=== PATIENT | male | born 1945 | race Caucasian/White ===

== ENCOUNTER 2023-09-07 18:24 | Inpatient (IN) | payer OTHER, MEDICARE, BC, SELFPAY ==
--- NOTE | ~2023-09-07 | CT_ITS ---
EXAMINATION: CT CHEST WITHOUT CONTRAST CLINICAL INFORMATION: Pneumonia. COMPARISON: Chest radiographs 09/07/2023 TECHNIQUE: Multidetector volumetric CT imaging of the chest was done. Axial MIP volume rendering provided. Sagittal and coronal reformatted images were obtained. This CT examination was performed using dose optimization techniques as appropriate, variously including the following: *Automated exposure control *Adjustment of mA and/or kV according to patient size (this includes techniques or standardized protocols for targeted exams where dose is matched to indication/reason for exam; i.e. extremities or head) *Use of iterative reconstruction technique DLP: 264 mGy-cm FINDINGS: LUNGS: Azygos lobe. Patchy peribronchial groundglass opacities in the dependent left lower lobe. No suspicious pulmonary nodule. Central airways are patent. MEDIASTINUM: Imaged thyroid gland is unremarkable. No bulky mediastinal or hilar lymphadenopathy. Great vessels are of normal caliber. Heart size is normal. No pericardial effusion. CORONARY ARTERY CALCIFICATION: Mild. PLEURA: There is no pleural effusion. No pleural mass or thickening. AXILLA: No lymphadenopathy. UPPER ABDOMEN: Possible gastric wall thickening. OSSEOUS STRUCTURES: Advanced degenerative changes of bilateral shoulders. CT/CT chest wo IV con IMPRESSION: Patchy peribronchial groundglass opacities in the dependent left lower lobe. This may represent an acute infiltrate. Advise clinical correlation.
--- NOTE | ~2023-09-07 | XR_ITS ---
EXAMINATION: XR CHEST CLINICAL INFORMATION: Mental status change COMPARISON: None available. TECHNIQUE: Frontal view of the chest was obtained. FINDINGS: The cardiac silhouette is slightly enlarged. Hilar and mediastinal contours are unremarkable. The lung volumes are low. There is an azygos lobe. There is increased density behind the heart silhouetting the left hemidiaphragm. This may represent tortuosity or ectasia of the descending thoracic aorta, esophageal hernia or left lower lobe process. The lungs are otherwise clear. No pleural effusion or pneumothorax. Degenerative changes of the spine and shoulders. XR/XR chest 1V IMPRESSION: Low lung volumes. Slightly enlarged cardiac silhouette. Density behind the heart silhouetting the left hemidiaphragm, question related to the descending thoracic aorta, esophageal hernia or left lower lobe process.
[2023-09-07 18:33] VITALS: BP 148/76; PULSE 73; O2SAT 94
[2023-09-07 18:47] VITALS: BP 124/62; PULSE 77; RESP 16; TEMP 37.2; O2SAT 96; BMI 34.0
--- NOTE | 2023-09-07 18:51 | ED.AMS ---
HPI - Altered Mental Status General Chief Complaint: Altered Mental Status Stated Complaint: SNF,CONFUSED NOT ACTING LIKE HIMSELF,CONGESTED Time Seen by Provider: 09/07/23 18:51 Source: EMS and RN notes reviewed Mode of arrival: EMS Limitations: altered mental status History of Present Illness HPI narrative: Patient is 78 years old with history of dementia PE on Xarelto hypertension sent from [facility] increased confusion started earlier today patient says the year is 1997 , and president irineo Rivas does not know the name of the hospital even after telling him that it is [facility] patient keep saying [facility] no cough no fever at nursing patient is saturating 88% on room air improved to 96% on 2 L level no recent fall temperature on arrival was 101.8 orally Related Data Home Medications Medication Instructions Recorded Confirmed atenolol 25 mg tablet 25 mg PO DAILY 09/07/23 09/07/23 buprenorphine HCl 150 mcg buccal 150 mcg buccal BEDTIME pain 09/07/23 09/07/23 film (Belbuca) management bupropion HCl 150 mg tablet,12 hr 150 mg PO BID 09/07/23 09/07/23 sustained-release gabapentin 600 mg tablet 600 mg PO TID 09/07/23 09/07/23 multivitamin 1 tab PO DAILY 09/07/23 09/07/23 omeprazole 20 mg tablet,delayed 20 mg PO BEDTIME 09/07/23 09/07/23 release rivaroxaban 20 mg tablet (Xarelto) 20 mg PO DAILY 09/07/23 09/07/23 simvastatin 40 mg tablet 40 mg PO BEDTIME 09/07/23 09/07/23 trazodone 50 mg tablet 100 mg PO BEDTIME 09/07/23 09/07/23 venlafaxine 75 mg tablet,extended 75 mg PO DAILY 09/07/23 09/07/23 release 24 hr Allergies Allergy/AdvReac Type Severity Reaction Status Date / Time No Known Allergies Allergy Verified 09/07/23 18:55 Review of Systems Review of Systems: Yes Unobtainable due to mental status PMFSH Past Medical History Medical History Dementia Essential hypertension Gastroesophageal reflux disease Mood disorder Pulmonary embolus Social History Social History Advance Directives: Yes Advance Directives Information Provided: No Advance Directives on File: No Physical Exam ED Vital Signs: Vital Signs - 24 hr 09/07/23 18:47 09/07/23 21:13 Temperature 99.0 F 101.8 F H Pulse Rate 77 76 Respiratory Rate 16 16 Blood Pressure 124/62 126/63 Pulse Oximetry 96 92 Oxygen Delivery Method Nasal Cannula Room Air BMI result Body Mass Index 34.0 Appearance: Alert. And await No acute distress. Eyes: PERRLA, No Nystagmus ENT: Pharynx normal. Oral Mucosa moist Neck: Normal inspection. Neck supple. CVS: Normal heart rate and rhythm. Pulses normal. Respiratory: No respiratory distress. Equal air entry bilateral, no wheezing/rales/rhonchi Abdomen: Soft and nontender. Bowel sounds are present, no mass palpable, no CVA tenderness Skin: Skin warm and dry. Normal skin color. Normal skin turgor. Extremities: No lower extremity edema. No calf tenderness Neuro: Alert and awake limited lower extremity movement Medications Administered Generic Name Dose Route Start Last Admin Trade Name Freq PRN Reason Stop Dose Admin Omeprazole 20 mg 09/07/23 22:40 09/07/23 23:42 Omeprazole 20 Mg Capsule.Dr PO 20 mg BEDTIME ITZ Administration Trazodone HCl 100 mg 09/07/23 22:40 09/07/23 23:42 Trazodone Hcl 100 Mg Tablet PO 100 mg BEDTIME ITZ Administration Discontinued Medications Generic Name Dose Route Start Last Admin Trade Name Freq PRN Reason Stop Dose Admin Acetaminophen 650 mg 09/07/23 21:33 09/07/23 21:43 Acetaminophen Supp 650 Mg Supp.Rect MS 09/07/23 21:34 650 mg ONCE ONE Administration Sodium Chloride 1,000 mls @ 999 mls/hr 09/07/23 18:55 09/07/23 21:10 Ns IV 09/07/23 19:55 Infused .Q1H1M ONE Infusion Ceftriaxone Sodium 1 gm/ 50 mls @ 100 mls/hr 09/07/23 21:33 09/07/23 22:10 Sodium Chloride IV 09/07/23 22:02 Infused ONCE ONE Infusion Medical Decision Making Medical Decision Making MDM Narrative: Patient with acute change in sensorium with leukocytosis and fever 101.8 in the ER workup showed left retrocardiac infiltrate likely aspiration and the cause of change in sensorium will admit patient for IV antibiotic treat hydration patient is not in severe sepsis IV fluids were given Differential Diagnosis Differential Diagnoses: The differential diagnosis associated with the presentation includes AMS/Pneumonia/UTI/ metabolic encephalopathy Admission/Observation Consideration of admission/observation: Escalation of care including admission/observation considered Consult Healthcare Provider Management of the patient was discussed with: Hospitalist Lab Data MDM Lab Attestation statement: I reviewed the patient's lab results. 09/07/23 19:41 09/07/23 19:41 Labs: Lab Results 09/07/23 09/07/23 09/07/23 Range/Units 19:41 20:12 21:03 WBC 13.7 H (4.8-10.8) X10*3/uL RBC 4.32 L (4.60-5.80) X10*6/uL Hgb 12.8 L (14.0-18.0) g/dl Hct 40.6 L (42.0-52.0) % MCV 94.0 (80.0-98.0) fL MCH 29.6 (27.0-33.0) pg MCHC 31.5 (31.0-36.0) g/dl RDW 13.8 (11.0-16.0) % Plt Count 316 (160-400) X10*3/uL MPV 9.2 L (9.4-12.4) fL Immature Gran % (Auto) 0.7 H (0.0-0.4) % Neut % (Auto) 79.9 H (45-73) % Lymph % (Auto) 7.2 L (20-40) % Terrell % (Auto) 10.7 (2-11) % Eos % (Auto) 0.8 (0-4) % Baso % (Auto) 0.7 (0-2) % Lymph # (Auto) 1.0 L (1.2-4.9) X10*3/uL Terrell # (Auto) 1.5 H (0.1-1.2) X10*3/uL Eos # (Auto) 0.1 (0.0-0.4) X10*3/uL Baso # (Auto) 0.1 (0.0-0.2) X10*3/uL Abs Immat Gran (auto) 0.10 H (0.00-0.03) X10*3/uL Absolute Neuts (auto) 11.0 H (2.0-8.3) x10*3/uL Absolute Nucleated RBC 0.000 (0.0-0.012) X10*3/uL Nucleated RBC % (auto) 0.0 (0.0-0.2) /100WBC Smear Tech's Comments VERIFIED PT 16.2 H (11.1-13.3) SEC INR 1.3 H (0.9-1.1) Sodium 138 (135-145) mmol/L Potassium 4.6 (3.3-5.1) mmol/L Chloride 102 (96-108) mmol/L Carbon Dioxide 29 (22-29) mmol/L Anion Gap 12 (12-20) BUN 15 (9-16) mg/dL Creatinine 0.75 (0.5-1.4) mg/dL Estim Creat Clear Calc 99.7 Estimated GFR > 60 Random Glucose 133 H (60-115) mg/dL Lactic Acid 0.9 (0.5-2.0) mmol/L Calcium 10.4 H (8.4-10.2) mg/dL Magnesium 2.0 (1.6-2.6) mg/dL Total Bilirubin 0.3 (0.0-1.0) mg/dL AST 30 (5-37) U/L ALT 34 (0-40) U/L Alkaline Phosphatase 80 (39-117) U/L Troponin I High Sens 6.9 (<3.5-35.0) ng/L Total Protein 7.9 (6.5-8.0) g/dL Albumin 3.0 L (3.5-5.0) g/dL Urine Color Yellow Urine Appearance Clear Urine pH 6.5 (5.0-9.0) Ur Specific [place] 1.020 (1.005-1.025) Urine Protein 30 (1+) H (Neg-Trace) mg/dL Urine Glucose (UA) Negative (Negative) mg/dL Urine Ketones Negative (Negative) mg/dL Urine Blood Negative (Negative) Urine Nitrite Negative (Negative) Ur Leukocyte Esterase Negative (Negative) Urine RBC 3-5 H (0-2) /HPF Urine WBC 0-5 (0-5) /HPF Ur Squamous Epith Cells 0-2 (0-2) /HPF Urine Bacteria None Seen (None Seen) Hyaline Casts 3-5 (0-2) /LPF Influenza Type A (PCR) NEGATIVE (Negative) Influenza Type B (PCR) NEGATIVE (Negative) RSV RNA Qual (PCR) NEGATIVE (Negative) SARS-CoV-2 RNA (RT-PCR) NEGATIVE (Negative) Independent Interpretation I performed an independent interpretation of an: EKG and Plain X-Ray Interpretation: Normal sinus rhythm heart rate 71 beats per minute LVH no acute ST-T changes no acute ischemic Radiology Impression Discussion of test interpretation with radiology: I have reviewed the radiologist's reading. Radiologist Impression: [address] [address] XRay Report Signed Patient: Jose Ro V MR#: [id number] : 1945 Acct:[id number] Age/Sex: 78 / M ADM Date: 09/07/23 Loc: .ED Attending Dr: Ordering Physician: Michael Gallardo MD Date of Service: 09/07/23 Procedure(s): XR chest 1V Accession Number(s): [id number] cc: Michael Gallardo MD~ EXAMINATION: XR CHEST CLINICAL INFORMATION: Mental status change COMPARISON: None available. TECHNIQUE: Frontal view of the chest was obtained. FINDINGS: The cardiac silhouette is slightly enlarged. Hilar and mediastinal contours are unremarkable. The lung volumes are low. There is an azygos lobe. There is increased density behind the heart silhouetting the left hemidiaphragm. This may represent tortuosity or ectasia of the descending thoracic aorta, esophageal hernia or left lower lobe process. The lungs are otherwise clear. No pleural effusion or pneumothorax. Degenerative changes of the spine and shoulders. XR/XR chest 1V IMPRESSION: Low lung volumes. Slightly enlarged cardiac silhouette. Density behind the heart silhouetting the left hemidiaphragm, question related to the descending thoracic aorta, esophageal hernia or left lower lobe process. Discharge Plan Discharge Clinical Impression: Pneumonia, Altered mental status Patient Disposition: Admitted As Inpatient
--- NOTE | 2023-09-07 18:55 | ECG_ITS ---
Test Reason : ALTERED MENTAL STATUS Blood Pressure : / mmHG Vent. Rate : 075 BPM Atrial Rate : 075 BPM P-R Int : 162 ms QRS Dur : 096 ms QT Int : 368 ms P-R-T Axes : 029 -14 -09 degrees QTc Int : 410 ms Normal sinus rhythm with sinus arrhythmia Minimal voltage criteria for LVH, may be normal variant ( R in aVL ) Nonspecific ST abnormality Abnormal ECG No previous ECGs available Referred By: Michael Gallardo Electronically Signed By:HECTOR FUENTES MD
[2023-09-07] MEDS: 0.9 % Sodium Chloride 1,000 ML 999 ML IV (19:44)
[2023-09-07 19:52] LABS: Basophils Absolute Auto 0.1 X10*3/uL (0.0-0.2); Basophils Percent Auto 0.7 % (0-2); Mean Platelet Volume 9.2 fL (9.4-12.4); PLT CLUMP 1; Red Cell Distribution Width 13.8 % (11.0-16.0); SCAN SMEAR FLAG 1
[2023-09-07 19:54] LABS: Eosinophils Absolute Auto 0.1 X10*3/uL (0.0-0.4); Eosinophils Percent Auto 0.8 % (0-4); Hematocrit 40.6 % (42.0-52.0); Hemoglobin 12.8 g/dl (14.0-18.0); Imm Gran Pct Auto 0.7 % (0.0-0.4); Lymphocytes Percent Auto 7.2 % (20-40); MANUAL DIFF FLAG SCAN; Mean Corpuscular HGB Conc 31.5 g/dl (31.0-36.0); Mean Corpuscular Hemoglobin 29.6 pg (27.0-33.0); Monocytes Absolute Auto 1.5 X10*3/uL (0.1-1.2); Monocytes Percent Auto 10.7 % (2-11); Neutrophils Percent Auto 79.9 % (45-73); Red Blood Count 4.32 X10*6/uL (4.60-5.80)
[2023-09-07 19:58] LABS: White Blood Count 13.7 X10*3/uL (4.8-10.8)
[2023-09-07 20:00] LABS: INTERNATIONAL NORM RATIO 1.3 (0.9-1.1); Prothrombin Time 16.2 SEC (11.1-13.3)
[2023-09-07 20:01] LABS: Lactic Acid 0.9 mmol/L (0.5-2.0)
[2023-09-07 20:08] LABS: Alanine Aminotransferase 34 U/L (0-40); Alkaline Phosphatase 80 U/L (39-117); Anion Gap 12 (12-20); Aspartate Amino Transferase 30 U/L (5-37); Bilirubin Total 0.3 mg/dL (0.0-1.0); Blood Urea Nitrogen 15 mg/dL (9-16); Calcium 10.4 mg/dL (8.4-10.2); Carbon Dioxide 29 mmol/L (22-29); Chloride 102 mmol/L (96-108); Creatinine Clr Calc Pharmacy 99.7; Estimated Glomerular Filt Rate > 60; Glucose Random 133 mg/dL (60-115); Potassium 4.6 mmol/L (3.3-5.1); Sodium 138 mmol/L (135-145); Total Protein 7.9 g/dL (6.5-8.0)
[2023-09-07 20:12] LABS: Platelet Count 316 X10*3/uL (160-400); SLIDE REVIEW VERIFIED
[2023-09-07 20:13] LABS: Troponin-I High Sensitivity 6.9 ng/L (<3.5-35.0)
[2023-09-07 20:57] LABS: Influenza A PCR NEGATIVE (Negative); Influenza B PCR NEGATIVE (Negative); Resp Syncy Virus RNA Qual PCR NEGATIVE (Negative); SARS COV2 PCR INHOUSE NEGATIVE (Negative)
--- NOTE | 2023-09-07 21:04 | PC.NURSE ---
Pt able to use urinal. Urine sample collected and sent to lab.
[2023-09-07 21:11] LABS: Appearance Urine Clear; Color Urine Yellow; Glucose Urine UA Negative (Negative); Leukocyte Esterase Urine Negative (Negative); Nitrite Urine Negative (Negative); PH 6.5 (5.0-9.0); UMIC TRIGGER UACC YES; Urine Blood Negative (Negative); Urine Ketones Negative (Negative); Urine Protein 30 (1+) mg/dL (Neg-Trace)
--- OUTSIDE RECORDS SUMMARY | 2023-09-07 21:11 | XMS_ITS | Summary of Care ---
Author Name Unknown Organization [facility] Address [address] [place] [address]- Encounter 07/27/23 - 08/11/[address] [address]- Discharge Disposition: 06H Home with Home Health Care Attending Physician: Keily Morrell MD Admitting Physician: Keily Morrell MD Allergies, Adverse Reactions, Alerts Substance Reaction Severity Status lisinopril Active NSAIDs Active Medications acetaminophen-HYDROcodone 325 mg-5 mg oral tablet 1 tab, Tab, Oral, TID PRN, 0 Refill(s), Partial fill upon patient request., PAIN (Scale 1-10) Start Date: 08/10/23 Status: Ordered atenolol 25 mg = 1 tab, Tab, Oral, Start date 08/11/23 8:00:00 EDT, 07/27/23 16:39:00 EDT Start Date: 08/11/23 Stop Date: 08/11/23 Status: Completed atenolol 25 mg oral tablet 25 mg = 1 tab, Tab, Oral, Daily, 0 Refill(s) Start Date: 08/10/23 Status: Ordered Belbuca 150 mcg, Film-SL, Buccal, QHS, 0 Refill(s), Partial fill upon patient request. Start Date: 08/10/23 Status: Ordered Belbuca 150 mcg buccal film 150 mcg = 1 EA, Film-SL, Buccal, QHS, 4 film, 0 Refill(s), Dispense: 4 day, Partial fill upon patient request., Stop date 08/15/23 13:11:00 EDT, Route to Pharmacy Electronically, [facility]/pharmacy #[id number], 608, 07/31/23 11:54:00 EDT, Height/Length Dosing, cm... Start Date: 08/11/23 Stop Date: 08/15/23 Status: Ordered Buproprion SR 12 hours dosing 150 mg = 1 tab, Tab-ER, Oral, BID, 0 Refill(s) Start Date: 08/10/23 Status: Ordered cyanocobalamin 1000 mcg oral tablet 500 mcg = 0.5 tab, Tab, Oral, Daily, 15 tab, 0 Refill(s), Route to Pharmacy Electronically, [facility], 168, 07/31/23 11:54:00 EDT, Height/Length Dosing, cm, 112.7, 08/06/23 5:13:00EDT, Weight Dosing, kg Start Date: 08/10/23 Status: Ordered gabapentin 300 mg oral capsule 600 mg, 2 cap, Indication: Neuropathic Pain - Spinal Cap, Oral, TID, 0 Refill(s) Start Date: 08/10/23 Status: Ordered methylPREDNISolone 8 mg oral tablet 16 mg = 2 tab, Tab, Oral, Daily, 0 Refill(s), 08/11/2023 Start Date: 08/10/23 Status: Ordered Protonix 40 mg oral delayed release tablet 40 mg = 1 tab, Tab-DR, Oral, Daily, 0 Refill(s) Start Date: 08/10/23 Status: Ordered rivaroxaban 10 mg oral tablet 20 mg, = 2 tab, Tab, Oral, After dinner, 60 tab, 0 Refill(s), start medication on 08/12/2023, Routeto Pharmacy Electronically, [facility], 168, 07/31/23 11:54:00 EDT, Height/LengthDosing, cm, 112.7, Weight Dosing, 08/06/23 5:13:00... Start Date: 08/10/23 Status: Ordered rivaroxaban 15 mg oral tablet 15 mg, = 1 tab, Tab, Oral, BIDPC, 1 tab, 0 Refill(s), Route to Pharmacy Electronically, [facility], 168, 07/31/23 11:54:00 EDT, Height/Length Dosing, cm, 112.7, Weight Dosing, 08/06/23 5:13:00 EDT, kg, Pulmonary embolism Start Date: 08/10/23 Status: Ordered simvastatin = 1 tab, Oral, QHS, 30 tab, 0 Refill(s) Start Date: 07/27/23 Status: Ordered traZODone 100 mg oral tablet 200 mg = 2 tab, Tab, Oral, QHS, 0 Refill(s) Start Date: 08/10/23 Status: Ordered venlafaxine 75 mg oral capsule, extended release 75 mg = 1 cap, Cap-ER, Oral, Daily, 0 Refill(s) Start Date: 08/10/23 Status: Ordered Problem List Condition Effective Dates Status Health Status Inform ant Arthritis(Confirmed) Active At risk of venous thromboembolus(Confirmed) 1 07/28/23 Active GERD - Gastro-esophageal ref lux disease(Confirmed) Active HLD - Hyperlipidemia(Confirmed) Active HTN - Hypertension(Confirmed) Active PTSD - Post-traumatic stress disorder(Confirmed) Active Sleep apnea(Confirmed) Active Suspected disease caused by 2019 novel coronavirus(Confirmed) 2 07/27/23 - 07/27/23 Resolved 1Problem added by Discern Expert Rule: EBN_VTERISKPROB_3 2Problem added automatically by Discern Expert based on clinical documentation Results Most recent to oldest [Reference Range]: 1 2 3 Creatinine Level 1.02 mg/dL (08/08/23 11:57 AM) 0.88 mg/dL (08/03/23 11:23 AM) 1.00 mg/dL (07/28/23 9:46 AM) Estimated Creatinine Clearance 55.88 mL/min 1 (08/08/23 11:57 AM) 57.00 mL/min 2 (08/03/23 11:23 AM) 57.00 mL/min 3 (07/31/23 11:54 AM) 1Result Comment: Calculated using method: Cockcroft-Gault (default) Calculated using Formula : (140-ageInYears)*IBW/(72*scrInMGperDL) Age: 78 (18817222813.0) Serum Creatinine: 1.02 mg/dL (52388350818.0) Height: 168 cm (78838603895.0) Weight: 112.7 kg (IBW = 64.126 kg) 2Result Comment: Calculated using method: Cockcroft-Gault (default) Calculated using Formula : (140-ageInYears)*IBW/(72) Age: 78 (18934965545.0) Serum Creatinine: 0.88 mg/dL (33253461304.0) Height: 168 cm (79981518388.0) Weight: 112.9 kg (IBW = 64.126 kg) 3Result Comment: Calculated using method: Cockcroft-Gault (default) Calculated using Formula : (140-ageInYears)*IBW/(72*scrInMGperDL) Age: 78 (58148741010.0) Serum Creatinine: 1.00 mg/dL (04553659131.0) Height: 168 cm (80879538918.0) Weight: 112.9 kg (IBW = 64.126 kg) Vital Signs Most recent to oldest [Reference Range]: 1 2 3 Temperature Oral F [96.4-99.1 DegF] 98 DegF (08/10/23 3:48 PM) 97.7 DegF (08/10/23 4:38 AM) 98.6 DegF (08/09/23 7:53 PM) Temperature Axillary F [96.4-99.1 DegF] 96.4 DegF (08/11/23 4:23 AM) 97.3 DegF (08/01/23 3:08 PM) Peripheral Pulse Rate [60-100 bpm] 77 bpm (08/11/23 9:20 AM) 70 bpm (08/11/23 4:23 AM) 54 bpm *LOW* (08/10/23 3:49 PM) Respiratory Rate [14-20 br/min] 18 br/min (08/09/23 7:53 PM) 16 br/min (08/08/23 4:14 AM) 16 br/min (08/07/23 4:32 AM) Blood Pressure [90-140/60-90 mmHg] 103/65mmHg (08/11/23 9:20 AM) 127/68mmHg (08/10/23 3:49 PM) Systolic Blood Pressure [90-140 mmHg] 150 mmHg *HI* (08/11/23 4:23 AM) Diastolic Blood Pressure [60-90 mmHg] 69 mmHg (08/11/23 4:23 AM) Mean Arterial Pressure, Cuff 96 mmHg (08/11/23 4:23 AM) 88 mmHg (08/10/23 3:49 PM) 97 mmHg (08/10/23 7:52 AM) Extremity used to obtain blood pressure Right Arm (08/09/23 7:53 PM) Right Arm (07/31/23 5:28 AM) Left Arm (07/30/23 7:44 PM) Vital Signs Additional Information vitals taken while standing in standing frame (07/29/23 1:00 PM) Temperature Axillary 35.8 DegC 1 (08/11/23 4:23 AM) 36.3 DegC 2 (08/01/23 3:08 PM) Temperature Oral 36.0 DegC 3 (08/10/23 3:48 PM) 36.5 DegC 4 (08/10/23 4:38 AM) 37.0 DegC 5 (08/09/23 7:53 PM) 1Result Comment: Charted by SYSTEM secondary to charting of Temperature Axillary F on a Vitals Monitor. Rule: VITALSLINK_CALCULATIONS_2 2Result Comment: Charted by SYSTEM secondary to charting of Temperature Axillary F on a Vitals Monitor. Rule: VITALSLINK_CALCULATIONS_2 3Result Comment: Charted by SYSTEM secondary to charting of Temperature Oral F on a Vitals Monitor. Rule: VITALSLINK_CALCULATIONS_2 4Result Comment: Charted by SYSTEM secondary to charting of Temperature Oral F on a Vitals Monitor. Rule: VITALSLINK_CALCULATIONS_2 5Result Comment: Charted by SYSTEM secondary to charting of Temperature Oral F on a Vitals Monitor. Rule: VITALSLINK_CALCULATIONS_2 Social History Social History Type Response Sex Male
--- OUTSIDE RECORDS SUMMARY | 2023-09-07 21:11 | XMS_ITS | Continuity of Care Document ---
Author Name Unknown Organization [facility] ter Address [address] [place] [id number] Care Team Providers Care Manager Contract Name Role Phone Rick Christie DO Primary Care Physician Encounter [facility] [place] Date(s): 08/22/23 - 08/30/[address] [id number] Discharge Disposition: A-Transfer SNF Attending Physician: Barb MONSIVAIS, Emma Admitting Physician: Chayo Tavares MD Referring Physician: Not on Staff, Referring MD Allergies, Adverse Reactions, Alerts Substance Reaction Severity Status lisinopril cough Active nonsteroidal antiinflammatory agent stomache pain Active Immunizations Given and Recorded Vaccine Date Status Refusal Reason influenza virus vaccine, inactivated 07/21/23 Give n influenza virus vaccine, inactivated 1 08/22/06 Gi marcello tetanus-diphtheria toxoids (Td) 12/02/06 Given 1Admin Note: [employer] manufacturers. no contraindications per patient Medications atenolol 25 mg oral tablet 25, mg, 1, tablet, By Mouth, Daily, 0, 0, 01/08/06 9:59:42, Print HELADIO Number, [id number], Constant Indicator Start Date: 01/08/06 Status: Ordered Belbuca 150 mcg buccal film See Instructions, by mouth daily at bedtime - Place yellow side of film against the inside of the moistened cheek; press and hold the film in place for 5 seconds with finger (film should stay in place after this period). Keep film in place until it di... Start Date: 08/29/23 Status: Ordered buPROPion 150 mg/12 hours (SR) oral tablet, extended release = 150 mg, By Mouth, 2 times a day, 0 Refills, Maintenance, 08/30/23 13:17:00 EST, SR Tablet, Partial fill upon patient request if the prescription is for a schedule II opioid drug. Start Date: 08/30/23 Status: Ordered Centrum 1 tablet, By Mouth, Daily, 0 Refills, Maintenance Start Date: 03/09/11 Status: Ordered gabapentin 300 mg oral capsule 600 mg, Capsule, By Mouth, 08/30/23 15:00:00 EST Start Date: 08/30/23 Stop Date: 08/30/23 Status: Completed gabapentin 600 mg oral tablet 1 tablet = 600 mg, By Mouth, 3 times a day, # 270 tablet, 0 Refills, Maintenance, 07/21/23 10:25:00EDT, Tablet, Partial fill upon patient request if the prescription is for a schedule II opioid drug. Start Date: 07/21/23 Status: Ordered omeprazole 20 mg oral enteric coated capsule 1 capsule = 20 mg, By Mouth, Daily, # 30 capsule, 0 Refills, Maintenance, 07/20/23 20:45:00 EDT, ECCapsule, Partial fill upon patient request if the prescription is for a schedule II opioid drug. Start Date: 07/20/23 Status: Ordered rivaroxaban 20 mg oral tablet = 20 mg, By Mouth, Daily at supper, # 30 tablet, 0 Refills, Maintenance, 07/26/23 11:04:00 EDT, Tablet, [facility] 3, Partial fill upon patient request if the prescription is for a schedule II opioid drug., 168, cm, 07/26/23 7:17:00 EDT, H... Start Date: 07/26/23 Status: Ordered simvastatin 40 mg oral tablet 40 mg, 1, tablet, By Mouth, Daily at bedtime, # 30 tablet, Refills 0, Maintenance, 07/20/23 20:45:00 EDT, Partial fill upon patient request if the prescription is for a schedule II opioid drug. Start Date: 07/20/23 Status: Ordered traZODone 50 mg oral tablet 100 mg, By Mouth, Daily at bedtime, Refills 0, Maintenance, 08/30/23 13:17:00 EST, Partial fill upon patient request if the prescription is for a schedule II opioid drug. Start Date: 08/30/23 Status: Ordered venlafaxine 75 mg oral tablet, extended release 1 tablet = 75 mg, By Mouth, Daily, # 30 tablet, 0 Refills, Maintenance, 07/20/23 20:45:00 EDT, ER Tablet, Partial fill upon patient request if the prescription is for a schedule II opioid drug. Start Date: 07/20/23 Status: Ordered Problem List Condition Confirmation Course Effective Dates Status H ealth Status Informant Erectile dysfunction Confirmed Active Gastro-esophageal reflux disease Confirmed Active Hyperlipidemia Confirmed Active Hypertension Confirmed Active Osteoarthritis 1 Confirmed Active Severe obesity Confirmed Active 1and hx recurrent patella dislocations and ankle sprains Results Orders for Microbiology Reports Name Date Blood Culture 08/22/23 Blood Culture #2 08/22/23 Urine Culture (URINE CULTURE) 08/22/23 Microbiology Reports TEST:Blood Culture STATUS:Auth (Verified) BODY SITE: SOURCE:Blood COLLECTED DATE/TIME:08/22/23 6:36 PM Blood Culture SPECIMEN DESCRIPTION : BLOOD RAC SPECIAL REQUESTS : NONE CULTURE : NO GROWTH 5 DAYS. REPORT STATUS : FINAL 08/27/2023 TEST:Urine Culture STATUS:Auth (Verified) BODY SITE: SOURCE:URINE COLLECTED DATE/TIME:08/22/23 6:36 PM Urine Culture SPECIMEN DESCRIPTION : URINE SPECIAL REQUESTS : NONE CULTURE : >100,000 COL/ML PROTEUS MIRABILIS This isolate was identified using Maldi-TOF system These AST results were performed on the Vitek 2 ID and AST system REPORT STATUS : FINAL 08/25/2023 ORGANISM >100,000 COL/ML PROTEUS MIRABILIS This isolate was identified using Maldi-TOF system These AST results were performed on the Vitek 2 ID and AST system METHOD MIN. INHIB. CONC. (MCG/ML) AMPICILLIN SUSCEPTIBLE AMPICILLIN/SULBACTAM SUSCEPTIBLE CEFAZOLIN SUSCEPTIBLE CEFEPIME SUSCEPTIBLE CEFTRIAXONE SUSCEPTIBLE CIPROFLOXACIN SUSCEPTIBLE ERTAPENEM SUSCEPTIBLE GENTAMICIN SUSCEPTIBLE LEVOFLOXACIN SUSCEPTIBLE NITROFURANTOIN RESISTANT PIPERACILLIN/TAZOBAC SUSCEPTIBLE TRIMETH/SULFAMETHOX SUSCEPTIBLE TEST:Blood Culture, Second Order STATUS:Auth (Verified) BODY SITE: SOURCE:Blood COLLECTED DATE/TIME:08/22/23 6:36 PM Blood Culture, Second Order SPECIMEN DESCRIPTION : BLOOD L HAND SPECIAL REQUESTS : NONE CULTURE : NO GROWTH 5 DAYS. REPORT STATUS : FINAL 08/27/2023 Radiology Reports * Exam Date Time Procedure Performing Provider Status 08/29/23 11:17 AM XR Hip Bilat 2 Views W/AP Pelvis [place] , Dennys; Auth (Verified) Notes: (XR Hip Bilat 2 Views W/AP Pelvis) Reason For Exam: Pain RESULT: Hip Bilat 2 Views W/ AP Pelvis Hip Bilat 2 Views W/ AP Pelvis REASON: Pain; Clinical Question(s): Fracture COMPARISON: CT 08/22/2023 FINDINGS: No fracture or dislocation. Well preserved joint space. Normal femoral head contour without evidence of avascular necrosis. Normal soft tissues. IMPRESSION: No evidence of acute intracranial abnormality. WSN: [id number] Ordering Physician: Emma Day Dictated By: Max Lundberg MD Dictated Date/Time: 08/29/23 12:39 p Reviewed By: Max Lundberg MD Signed By: Max Lundberg MD Signed Date/Time: 08/29/23 12:39 pm Transcribed By: CLAUDETTE Transcribed Date/Time: 08/29/23 12:38 pm * Exam Date Time Procedure Performing Provider Status 08/22/23 9:[address] Abd/Pelvis W/ IV Contrast Only Col on , Marline; Modified Notes: (CT Abd/Pelvis W/ IV Contrast Only) Reason For Exam: LLQ abdominal pain;Other: ADDENDUM: CT Abd/Pelvis W/ IV Contrast Only Upon further review, possible residual filling defects are seen in the right lower lobe subsegmental branches. Overall extent is likely decreased since the prior CTA; however, accurate assessment is difficult due to significant motion artifacts in lower lung jamil. A repeat CTA may be considered for confirmation of residual PE. Findings were communicated to Renita Yousif MD via secure messaging system [employer] at 11:38 PM . Message receipt was confirmed. WSN: [id number] Ordering Physician: Renita Yousif Dictated By: Reynaldo Haider MD Dictated Date/Time: 08/22/23 11:39 p Reviewed By: Reynaldo Haider MD Signed By: Reynaldo Haider MD Signed Date/Time: 08/22/23 11:39 pm Transcribed By: CLAUDETTE Transcribed Date/Time: 08/22/23 11:35 pm RESULT: CT Abd/Pelvis W/ IV Contrast Only EXAMINATION: CT Angio Chest, CT Abd/Pelvis W/ IV Contrast Only INDICATION: Hx of Present Illness: weakness and confusion, left lower quadrant abdominal pain; Reason: PE suspected, Intermediate prob, positive D-dimer; Clinical Question(s): Pulmonary Embolism; PE treatment failure? pneumonia?, Diverticulitis. TECHNIQUE: Spiral CTA of the chest was performed after rapid IV contrast administration without cardiac gating triggered by an JOCELYN on the main pulmonary artery. Spiral CT of the abdomen and pelvis was then performed in the portal venous phase. Images are formatted in multiple planes using 2-D multiplanar and 3-D maximum intensity projection. 100 cc of Omnipaque 300 was administered intravenously.Weight-based protocol using automatic tube modulation was used to optimize exposure parameters. CTDIvol Body: 18.16 mGy, DLP Body: 1915 mGy*cm. COMPARISONS: CT chest abdomen pelvis 07/20/2023 ANGIOGRAPHIC FINDINGS: No pulmonary embolism to the segmental level. Mild dilation of the main pulmonary artery measuring 3.3 cm (series 301: image 49). No acute aortic abnormality seen on this study performed without cardiac gating. Minimal atherosclerotic calcification. NON-ANGIOGRAPHIC FINDINGS: Clothes Presser View Findings, Lines and Tubes: None. Trachea and Airways: Patent without evidence of tracheal or endobronchial lesion. Lungs and Pleura: Evaluation of the lungs is limited by motion artifact. Low lung volumes with mildatelectasis throughout the bilateral lungs. No focal consolidation. Mild interlobular septal thickening. No effusion or pneumothorax. Mediastinum and karina: No mass or hematoma. No mediastinal or hilar lymphadenopathy. No esophageal abnormality. Normal thyroid. Heart: Heart is at the upper limits of normal for size. No pericardial effusion. Mild coronary artery calcification. Chest Wall Soft Tissues: Normal. Diaphragm: No significant abnormality. Liver: Multiple subcentimeter circumscribed low-density lesions likely represent cysts (in the absence of known malignancy). Gallbladder: No CT evidence of gallbladder pathology. Bile ducts: No biliary ductal dilation. Spleen: 0.5 cm hypodense subcapsular splenic lesion, too small to accurately characterize on CT. Pancreas: Normal. Adrenal glands: Normal. Kidneys and ureters: No hydronephrosis, stones, or suspicious masses. Small hypodensities that are too small to characterize are noted, requiring no dedicated follow up. Bladder: Under distended, limiting evaluation. Otherwise unremarkable. Reproductive organs: Moderate prostatomegaly. Stomach, small bowel, and large bowel: Apparent mild diffuse gastric mucosal thickening may be secondary to underdistention. The small and large bowel are unremarkable. No evidence of bowel obstruction or acute inflammation. Scattered colonic diverticula without evidence of acute diverticulitis. Moderate stool throughout the colon. Appendix: Normal. Peritoneum and retroperitoneum: No ascites or pneumoperitoneum. No omental or mesenteric lesions. Lymph nodes: No enlarged lymph nodes. Abdominal and pelvic wall: Small fat-containing bilateral inguinal hernias. Bones: No acute abnormality. Moderate to severe degenerative changes of the spine. Osteoarthritis of the glenohumeral joints, severe on the right. IMPRESSION: No evidence of pulmonary embolism to the subsegmental level. Mild pulmonary edema. Diffuse gastric mucosal thickening. Appearance may be due to under distention versus gastritis. I have personally reviewed the images and I agree with this report. WSN: [id number] Ordering Physician: Renita Yousif Dictated By: Gabi Owens MD Dictated Date/Time: 08/22/23 10:15 p Reviewed By: Reynaldo Haider MD Signed By: Reynaldo Haider MD Signed Date/Time: 08/22/23 10:20 pm Transcribed By: CLAUDETTE Transcribed Date/Time: 08/22/23 10:03 pm * Exam Date Time Procedure Performing Provider Status 08/22/23 9:[address] Angio Chest Colon , Marline; Modif ied Notes: (CT Angio Chest) Reason For Exam: PE suspected, Intermediate prob, positive D-dimer,;Other: ADDENDUM: CT Angio Chest Upon further review, possible residual filling defects are seen in the right lower lobe subsegmental branches. Overall extent is likely decreased since the prior CTA; however, accurate assessment is difficult due to significant motion artifacts in lower lung jamil. A repeat CTA may be considered for confirmation of residual PE. Findings were communicated to Renita Yousif MD via secure messaging system [employer] at 11:38 PM . Message receipt was confirmed. WSN: [id number] Ordering Physician: Renita Yousif Dictated By: Reynaldo Haider MD Dictated Date/Time: 08/22/23 11:39 p Reviewed By: Reynaldo Haider MD Signed By: Reynaldo Haider MD Signed Date/Time: 08/22/23 11:39 pm Transcribed By: CLAUDETTE Transcribed Date/Time: 08/22/23 11:35 pm RESULT: CT Angio Chest EXAMINATION: CT Angio Chest, CT Abd/Pelvis W/ IV Contrast Only INDICATION: Hx of Present Illness: weakness and confusion, left lower quadrant abdominal pain; Reason: PE suspected, Intermediate prob, positive D-dimer; Clinical Question(s): Pulmonary Embolism; PE treatment failure? pneumonia?, Diverticulitis. TECHNIQUE: Spiral CTA of the chest was performed after rapid IV contrast administration without cardiac gating triggered by an JOCELYN on the main pulmonary artery. Spiral CT of the abdomen and pelvis was then performed in the portal venous phase. Images are formatted in multiple planes using 2-D multiplanar and 3-D maximum intensity projection. 100 cc of Omnipaque 300 was administered intravenously.Weight-based protocol using automatic tube modulation was used to optimize exposure parameters. CTDIvol Body: 18.16 mGy, DLP Body: 1915 mGy*cm. COMPARISONS: CT chest abdomen pelvis 07/20/2023 ANGIOGRAPHIC FINDINGS: No pulmonary embolism to the segmental level. Mild dilation of the main pulmonary artery measuring 3.3 cm (series 301: image 49). No acute aortic abnormality seen on this study performed without cardiac gating. Minimal atherosclerotic calcification. NON-ANGIOGRAPHIC FINDINGS: Clothes Presser View Findings, Lines and Tubes: None. Trachea and Airways: Patent without evidence of tracheal or endobronchial lesion. Lungs and Pleura: Evaluation of the lungs is limited by motion artifact. Low lung volumes with mildatelectasis throughout the bilateral lungs. No focal consolidation. Mild interlobular septal thickening. No effusion or pneumothorax. Mediastinum and karina: No mass or hematoma. No mediastinal or hilar lymphadenopathy. No esophageal abnormality. Normal thyroid. Heart: Heart is at the upper limits of normal for size. No pericardial effusion. Mild coronary artery calcification. Chest Wall Soft Tissues: Normal. Diaphragm: No significant abnormality. Liver: Multiple subcentimeter circumscribed low-density lesions likely represent cysts (in the absence of known malignancy). Gallbladder: No CT evidence of gallbladder pathology. Bile ducts: No biliary ductal dilation. Spleen: 0.5 cm hypodense subcapsular splenic lesion, too small to accurately characterize on CT. Pancreas: Normal. Adrenal glands: Normal. Kidneys and ureters: No hydronephrosis, stones, or suspicious masses. Small hypodensities that are too small to characterize are noted, requiring no dedicated follow up. Bladder: Under distended, limiting evaluation. Otherwise unremarkable. Reproductive organs: Moderate prostatomegaly. Stomach, small bowel, and large bowel: Apparent mild diffuse gastric mucosal thickening may be secondary to underdistention. The small and large bowel are unremarkable. No evidence of bowel obstruction or acute inflammation. Scattered colonic diverticula without evidence of acute diverticulitis. Moderate stool throughout the colon. Appendix: Normal. Peritoneum and retroperitoneum: No ascites or pneumoperitoneum. No omental or mesenteric lesions. Lymph nodes: No enlarged lymph nodes. Abdominal and pelvic wall: Small fat-containing bilateral inguinal hernias. Bones: No acute abnormality. Moderate to severe degenerative changes of the spine. Osteoarthritis of the glenohumeral joints, severe on the right. IMPRESSION: No evidence of pulmonary embolism to the subsegmental level. Mild pulmonary edema. Diffuse gastric mucosal thickening. Appearance may be due to under distention versus gastritis. I have personally reviewed the images and I agree with this report. WSN: [id number] Ordering Physician: Renita Yousif Dictated By: Gabi Owens MD Dictated Date/Time: 08/22/23 10:15 p Reviewed By: Reynaldo Haider MD Signed By: Reynaldo Haider MD Signed Date/Time: 08/22/23 10:20 pm Transcribed By: CLAUDETTE Transcribed Date/Time: 08/22/23 10:03 pm * Exam Date Time Procedure Performing Provider Status 08/22/23 9:[address] Head/Brain W/O Contrast Colon , Ta john; Auth (Verified) Notes: (CT Head/Brain W/O Contrast) Reason For Exam: Trauma RESULT: CT Head/Brain W/O Contrast CT Head/Brain W/O Contrast INDICATION: Hx of Present Illness: weakness and confusion; Reason: Trauma; Clinical Question(s): Hematoma TECHNIQUE: Noncontrast head CT using axial technique and reconstructed in axial and coronal planes.Iterative reconstruction techniques are used to optimize dose and image quality. CTDIvol Head: 41.47 mGy, DLP Head: 1493 mGy*cm. COMPARISON: 07/23/2023. FINDINGS: Clothes Presser view findings, lines and tubes: None. BRAIN AND EXTRA-AXIAL SPACES: No parenchymal hemorrhage, midline shift, or mass effect. Purvis-white matter differentiation is wellpreserved. No acute infarct. Moderate prominence of the ventricles and sulci consistent with parenchymal volume loss. Moderate low-density white matter changes. No subarachnoid hemorrhage. No subdural or epidural collection. CALVARIUM, SKULL BASE, AND SOFT TISSUES: No fractures or suspicious bony lesions. Unchanged mild to moderate mucosal thickening in the paranasal sinuses. The mastoid air cells are clear. Visualized orbits and globes are intact. The extracranial soft tissues are unremarkable. IMPRESSION: No acute intracranial pathology. WSN: [id number] Ordering Physician: Renita Yousif Dictated By: Reynaldo Haider MD Dictated Date/Time: 08/22/23 9:54 pm Reviewed By: Reynaldo Haider MD Signed By: Reynaldo Haider MD Signed Date/Time: 08/22/23 9:54 pm Transcribed By: CLAUDETTE Transcribed Date/Time: 08/22/23 9:49 pm * Exam Date Time Procedure Performing Provider Status 08/22/23 7:25 PM Chest Single Frontal View Johnnie Laura; Auth (Verified) Notes: (Chest Single Frontal View) Reason For Exam: Shortness of Breath, Fever;Other: RESULT: Chest Single Frontal View Chest Single Frontal View Hx of Present Illness: weakness and confusion; Reason: Other:; Shortness of Breath, Fever; ClinicalQuestion(s): Pneumonia COMPARISON: July 20, 2023 FINDINGS: LINES AND TUBES: None. LUNGS AND PLEURA: Low lung volumes. Left basilar atelectasis. Incidental azygos lobe. No pleural effusion. No pneumothorax. HEART, MEDIASTINUM AND KARINA: Heart is upper limits of normal in size but unchanged. Unchanged mediastinal contours. BONES AND SOFT TISSUES: No acute abnormality. IMPRESSION: Low lung volumes with left basilar atelectasis. WSN: [id number] Ordering Physician: Renita Yousif Dictated By: Steve Jade MD Dictated Date/Time: 08/22/23 7:58 pm Reviewed By: Steve Jade MD Signed By: Steve Jade MD Signed Date/Time: 08/22/23 7:58 pm Transcribed By: CLAUDETTE Transcribed Date/Time: 08/22/23 7:57 pm Vital Signs Most recent to oldest [Reference Range]: 1 2 3 Weight 104.9 kg (08/30/23 6:00 AM) 107 kg (08/29/23 8:53 AM) 108.1 kg (08/28/23 5:59 AM) Oxygen Saturation [94-100 %] 95 % (08/30/23 3:40 PM) 94 % (08/30/23 3:18 PM) 93 % *L* (08/30/23 8:03 AM) Pulse Rate [55-90 bpm] 75 bpm (08/30/23 3:40 PM) 75 bpm (08/30/23 3:18 PM) 72 bpm (08/30/23 8:03 AM) Blood Pressure [90-138/55-84 mm Hg] 129/73mm Hg (08/30/23 3:40 PM) 118/65mm Hg (08/30/23 3:18 PM) 121/72mm Hg (08/30/23 8:03 AM) Respiratory Rate [16-30 br/min] 18 br/min (08/30/23 3:40 PM) 18 br/min (08/30/23 3:18 PM) 18 br/min (08/30/23 2:27 PM) Temperature [96.8-100.4 DegF] 98.4 DegF (08/30/23 3:40 PM) 97.8 DegF (08/30/23 3:18 PM) 97.4 DegF (08/30/23 8:03 AM) Liters per Minute 2 L/min (08/27/23 12:31 AM) 2 L/min (08/26/23 7:16 PM) 2 L/min (08/26/23 2:51 PM) Mode of Delivery (Oxygen) Room air (08/30/23 3:40 PM) Room air (08/30/23 3:18 PM) Room air (08/30/23 8:03 AM) Blood pressure sites Arm, right (08/30/23 3:40 PM) Arm, right (08/30/23 3:18 PM) Arm, right (08/30/23 8:03 AM) Temperature Route Oral (08/30/23 3:40 PM) Oral (08/30/23 3:18 PM) Oral (08/30/23 8:03 AM) Weight Obtained Via Bed scale (08/30/23 6:00 AM) Bed scale (08/29/23 8:53 AM) Bed scale (08/28/23 5:59 AM) Social History Social History Type Response Smoking Status Former smoker; Other : quit in 1984; entered on: 08/21/14 Sex History and physical note * Chaitanya MONSIVAIS, Chayo A: MODIFY, MODIFY, PERFORM Event Display: History and Physical Hospital Authored Date: [id number] Patient: ??CATERINA NICOLAS ? Age:??78 Years?Sex:??Male?:??1945?? Chief Complaint/Reason for Consultation per family lethargy since this am dc from rehab in june pt A&O x 4 noted with ams and disoriented no cp no SOB, increased weakness chronic nerve pain History of Present Illness 08/22 ?? 78-year-old male with PMH including HTN, HLD, VIVIAN not on CPAP, recent bilateral DVT and right lung PE currently on rivaroxaban, recent Proteus bacteremia, GERD, mood disorder.?? Patient was brought to ER due to weakness. ?? Patient was recently admitted to this hospital on 07/20 after being brought to ER for altered mentalstatus, was diagnosed with acute hypoxemic respiratory failure with DVT/PE along with sepsis with UTI and subsequently found to have Proteus bacteremia.?? Patient was seen by ID, was discharged on 07/27 with Augmentin to complete 14-day course of antibiotics.?? While in the hospital patient had an ep isode of right-sided weakness and staring into space, was seen by neurology, evaluated for possibleseizure and TIA, both deemed less likely and thought to be due to metabolic encephalopathy. ?? Patient now comes back with weakness.?? Patient is confused, unable to provide any history at this time.?? He denies any symptoms.?? Information obtained from chart review. ?? As per ER note, patient was brought to ER due to weakness.?? He also has a decreased oral intake, has been diaphoretic, and has become incoherent and content of speech during the last 4 days.?? EMS was called and he was found to be hypoxic 88%.?? Also the patient's noticed that patient has notreturned to his baseline strength since he was discharged earlier this month.?? At baseline he is conversant and able to ambulate on his own without assistance.?? Of note patient's takes care ofthe patient but she herself recently had pneumonia and was taking care of the patient while she wassick. ?? Chart reviewed.?? Temperature has been 100.2 rectally, blood pressure stable, patient is on 2 L oxygen.?? Labs shows WBC 11.3, hemoglobin 14, platelets 242, mostly normal BMP, normal lactate, normal liver enzymes.?? High-sensitivity troponin 20, 17, 19.?? proBNP 229.?? TSH normal.?? COVID and influenza negative.?? UA shows 3+ leukocyte, more than 182 WBC, heavy bacteria.?? EKG showed sinus rhythmwith heart rate of 67, nonspecific ST abnormality.?? Chest x- ray shows low lung volume with left basilar atelectasis.?? CT scan of the head does not show rending acute. ?? CT angiogram chest, CT abdomen/pelvis: IMPRESSION: Possible residual filling defects are seen in the right lower lobe subsegmental branches. Overall extent is likely decreased since the prior CTA; however, accurate assessment is difficult due to significant motion artifacts in lower lung jamil. A repeat CTA may be considered for confirmation of residual PE. Mild pulmonary edema. Diffuse gastric mucosal thickening. Appearance may be due to under distention versus gastritis. ? Patient was given ceftriaxone.?? Patient admitted for further management. ?? Review of Systems All systems reviewed and negative except as in HPI. Objective ? Vital Signs?? Temperature: 100.2 DegF (08/22/23 20:52:00) Temperature Route: Rectal (08/22/23 20:52:00) Pulse Rate: 75 bpm (08/22/23 22:38:00) Respiratory Rate: 27 br/min (08/22/23 22:38:00) Systolic Blood Pressure: 114 mm Hg (08/22/23 22:38:00) Diastolic Blood Pressure: 75 mm Hg (08/22/23 22:38:00) Blood pressure sites: Arm, left (08/22/23 22:38:00) Mean Arterial Pressure: 88 mm Hg (08/22/23 22:38:00) Pulse Pressure: 39 mm Hg (08/22/23 22:38:00) Oxygen Saturation: 94 % (08/22/23 22:38:00) Liters per Minute: 1 L/min (08/22/23 22:38:00) Mode of Delivery (Oxygen): Nasal cannula (08/22/23 22:38:00) ? Physical Exam Constitutional: ??Alert,??no acute distress, co-operative, lying on the bed, saturating well on room air durinng my assessment (he took off all monitors/oxygen nasal canula). ?? Mental state: not oriented to place/date. Head: ??Normocephalic, atraumatic. ?? Eye:?No discharge. ENT: No discharge. Neck: ??Supple,??no JVD. Cardiovascular: ??S1, S2. Regular rhythm. No MRG. Respiratory: ??Lungs are clear to auscultation b/l, No RRR. ?? Gastrointestinal: ??Soft, Nontender, Non distended, ??Normal bowel sounds.?? Genitourinary: No costovertebral angle tenderness. Neurological: ??Cranial nerves intact. Upper ext motor and sensory intact. Lower ext weak b/l, ableto flex knees but unable to lift legs off bed, sensory intact. Back: ??Nontender. Musculoskeletal: ??Normal ROM.?? No edema Hematology: No lymphadenopathy Skin: ??Warm, dry. Psychiatric: ??Cooperative.?? Assessment/Plan Diagnoses AMS (altered mental status) ??(R41.82) GERD (gastroesophageal reflux disease) ??(K21.9) HLD (hyperlipidemia) ??(E78.5) HTN (hypertension) ??(I10) Hypoxia ??(R09.02) Pulmonary embolism ??(I26.99) Toxic metabolic encephalopathy ??(G92.8) UTI (urinary tract infection) ??(N39.0) ?? Assessment:??78-year-old male with PMH including HTN, HLD, VIVIAN not on CPAP, recent bilateral DVT and right lung PE currently on rivaroxaban, recent Proteus bacteremia, GERD, mood disorder. Patient was brought to ER due to weakness. ?? AMS (altered mental status) (R41.82):??. Toxic metabolic encephalopathy (G92.8):??. UTI (urinary tract infection) (N39.0):??. AMS due to UTI. Cont neurocheck. Cont ceftriaxone. f/up blood c/s and urine c/s. Monitor vitals closely.?? Both LE weak on exam. CT head neg. No back pain/tenderness. No bowel/bladder involvement, no sensory loss.??As per previous notes patient had weakness / has not recovered from last admission. If persistent please consult neurology. Contult PT in am. ?? Hypoxia (R09.02):??. Patient alertable found to be hypoxemic, is on 2 L oxygen. However patient??does not seem to have any??respiratory symptoms. CT angiogram of the chest shows??residual??filling defect, likely from previous PE. Monitor clinically.?? If persistent or??other symptoms of PE may require repeat??CT angiogram. No sign of COPD/CHF clinically. ?? HTN (hypertension) (I10):??. Patient is on atenolol, will hold for now??due to blood pressure on the soft side,??if blood pressure is stable resume in the morning. ?? HLD (hyperlipidemia) (E78.5):??. Continue simvastatin. ?? Pulmonary embolism (I26.99):??. b/l DVT: Continue rivaroxaban. ?? GERD (gastroesophageal reflux disease) (K21.9):??. Continue PPI. ?? Neuropathy: Continue??gabapentin. ?? Anxiety/depression: Continue venlafaxine,??bupropion, trazodone. ?? Patient seems to have recently started on Belbuca 150 at night. Please check with pharmacy in am about the dose. This is nonformuary, we may need to use alternate meds / suboxone etc. ? VTE Prophylaxis:??on rivaroxaban ?? Code Status:??full code ?? Discharge Planning:? Histories Allergies Allergies ?(Active and Proposed Allergies Only) lisinopril? (Severity: Unknown severity, Onset: Unknown) ?Reactions: cough nonsteroidal antiinflammatory agent? (Severity: Unknown severity, Onset: Unknown) ?Reactions: stomache pain ? Past Medical History/Problem List Active Problems??(6) Erectile dysfunction Gastro-esophageal reflux disease Hyperlipidemia Hypertension Osteoarthritis Severe obesity ? Past Surgical History No surgery history documented. ? Social History Alcohol Details:??Use: Past. ??Other: heavy drinker in past. ??quit 2004. Employment/School Details:??Status: Retired. 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 Exercise Details:??Self assessment: Fair condition. Home/Environment Details:??Lives with: Spouse. Sexual Details:??Sexually involved in last 6 months: No. ??Sexual orientation: Heterosexual. Substance Abuse Details:??Use: Never. Tobacco Details:??Use: Former smoker. ??Other: quit in 1984. ? Family History Mother: Cancer of breast; Pancreatic cancer Father: Congestive heart failure; Coronary artery disease; Hypertension ? Medications Home Medications Acetaminophen / Hydrocodone (acetaminophen-hydrocodone 300 mg-5 mg oral tablet)?1?tab(s)?By Mouth?Daily at bedtime?as needed?as needed for pain Atenolol (atenolol 25 mg oral tablet)?25?Milligram?1?tab(s)?By Mouth?Daily Gabapentin (gabapentin 600 mg oral tablet)?1?tab(s)?600?Milligram?By Mouth?3 times a day Miscellaneous Rx (swimming)?See Instructions?dx=arthritis, obesityJohn is only able to exercise in the pool due to knee, ankle arthritis. Use pool for 30 min 5x per week. Multivitamin With Minerals (Centrum)?1?tab(s)?By Mouth?Daily Omeprazole (omeprazole 20 mg oral enteric coated capsule)?1?capsule?20?Milligram?By Mouth?Daily Oxycodone (oxyCODONE 5 mg oral capsule)?1?capsule?5?Milligram?By Mouth?2 times a day?as needed?as needed for pain rivaroxaban (rivaroxaban 20 mg oral tablet)?20?Milligram?By Mouth?Daily at supper?take this 1 TABLET ONCE DAILY AFTER 08/12/2023 rivaroxaban (rivaroxaban 15 mg oral tablet)?15?Milligram?By Mouth?2 times a day with meals?for 17?Days Simvastatin (simvastatin 40 mg oral tablet)?40?Milligram?1?tablet?By Mouth?Daily at bedtime Venlafaxine (venlafaxine 75 mg oral tablet, extended release)?1?tab(s)?75?Milligram?By Mouth?Daily ? Inpatient Medications Medications (10) Active SCHEDULED: (2) Ceftriaxone 1 Gm Inj (Ceftriaxone IVPB) ??1 Gm, IVPB, Every 24 hours NaCl 0.9% Flush 3ml (NaCL 0.9% Flush) ??3 mL, IV Push, Every 8 hours CONTINUOUS: (0) PRN: (8) Acetaminophen 325 mg Tablet (Acetaminophen Tablet) ??650 mg, By Mouth, Every 4 hours Dextromethorphan-Guaifenesin 20 mg-200 mg/10 mL Liqu UD (Robitussin DM Liquid) ??10 mL, By Mouth, Every 4 hours Docusate Sodium 100 mg Capsule (Docusate Sodium Capsule) ??100 mg 1 capsule, By Mouth, 2 times a day Melatonin 3 mg Tablet (Melatonin Tablet) ??3 mg, By Mouth, Daily at bedtime NaCl 0.9% Flush 3ml (NaCL 0.9% Flush) ??3 mL, IV Push, Every 8 hours Polyethylene Glycol 17 Gm Powder (MiraLax Powder) ??17 Gm 1 pack/packet, By Mouth, Daily Senna Tablet ??8.6 mg 1 tablet, By Mouth, 2 times a day Simethicone 80 mg Chewable Tablet (Simethicone Tablet) ??80 mg, Chew, 3 times a day ? Results Recent Labs BLOOD COUNT & DIFF WBC 11.3 k/mm3 (High)?? 08/22/2023 18:36 RBC 4.52 m/mm3 (Low)?? 08/22/2023 18:36 Hgb 14.0 Gm/dL ()?? 08/22/2023 18:36 Hct 43.4 % ()?? 08/22/2023 18:36 MCV 96.0 femtoliters (High)?? 08/22/2023 18:36 MCH 31.0 pg ()?? 08/22/2023 18:36 MCHC 32.3 g/dL (Low)?? 08/22/2023 18:36 Platelet Count 242 k/mm3 ()?? 08/22/2023 18:36 RDW-SD 48.6 femtoliters (High)?? 08/22/2023 18:36 MPV 10.3 femtoliters ()?? 08/22/2023 18:36 Nucleated RBC (Automated) 0.0 #/100 WBC'S ()?? 08/22/2023 18:36 Abs. NRBC 0.0 k/mm3 ()?? 08/22/2023 18:36 Abs. Neut 9.0 k/mm3 (High)?? 08/22/2023 18:36 Abs. Lymph 0.9 k/mm3 ()?? 08/22/2023 18:36 Abs. [place] 1.1 k/mm3 ()?? 08/22/2023 18:36 Abs. Eo 0.2 k/mm3 ()?? 08/22/2023 18:36 Abs. Baso 0.1 k/mm3 ()?? 08/22/2023 18:36 Neut % 79.8 % (High)?? 08/22/2023 18:36 Lymph % 8.0 % (Low)?? 08/22/2023 18:36 [place] % 9.9 % ()?? 08/22/2023 18:36 Eos % 1.4 % ()?? 08/22/2023 18:36 Baso % 0.5 % ()?? 08/22/2023 18:36 Imm Gran 0.4 % ()?? 08/22/2023 18:36 Abs. Imm Gran 0.1 k/mm3 ()?? 08/22/2023 18:36 ?? CARDIAC Nt-Probnp 229 pg/mL ()?? 08/22/2023 18:36 High Sensitivity Troponin (HSTnT) 19 ng/L ()?? 08/22/2023 23:01 ?? CHEM GENERAL Sodium 136 mmol/L ()?? 08/22/2023 18:36 Potassium 4.6 mmol/L ()?? 08/22/2023 18:36 Chloride 99 mmol/L ()?? 08/22/2023 18:36 Bicarbonate Level 27 mmol/L ()?? 08/22/2023 18:36 Anion Gap 10 ()?? 08/22/2023 18:36 Glucose Level 111 mg/dL (High)?? 08/22/2023 18:36 BUN 17 mg/dL ()?? 08/22/2023 18:36 Creatinine-Blood 0.7 mg/dL ()?? 08/22/2023 18:36 Estimated GFR Creatinine 95 ML/MIN/1.73 M2 ()?? 08/22/2023 18:36 Calcium 10.0 mg/dL ()?? 08/22/2023 18:36 Protein, Total 6.6 Gm/dL ()?? 08/22/2023 18:36 Albumin 3.4 Gm/dL ()?? 08/22/2023 18:36 AG Ratio 1.1 ()?? 08/22/2023 18:36 Alkaline Phosphatase 87 units/L ()?? 08/22/2023 18:36 AST (SGOT) 21 units/L ()?? 08/22/2023 18:36 ALT (SGPT) 30 units/L ()?? 08/22/2023 18:36 Bilirubin, Total 0.4 mg/dL ()?? 08/22/2023 18:36 Lactate 1.2 mmol/L ()?? 08/22/2023 18:36 ?? ENDOCRINE/TUMOR MARKER TSH 1.11 uIU/mL ()?? 08/22/2023 18:36 ?? TOXICOLOGY/TDM Ethanol, Serum or Plasma NONE DETECTED mg/dL ()?? 08/22/2023 18:36 ?? UA/URINALYSIS Appear/Color, Urine YELLOW ()?? 08/22/2023 18:36 Specific [place], Urine 1.029 ()?? 08/22/2023 18:36 pH, Urine 7.0 ()?? 08/22/2023 18:36 Albumin, Urine 2+ (Abnormal)?? 08/22/2023 18:36 Glucose, Urine NEGATIVE ()?? 08/22/2023 18:36 Ketones, Urine NEGATIVE ()?? 08/22/2023 18:36 Bilirubin, Urine NEGATIVE ()?? 08/22/2023 18:36 Hemoglobin, Urine NEGATIVE ()?? 08/22/2023 18:36 Nitrite, Urine NEGATIVE ()?? 08/22/2023 18:36 Leukocyte, Urine 3+ (Abnormal)?? 08/22/2023 18:36 Urobilinogen 6 mg/dL (Abnormal)?? 08/22/2023 18:36 WBC's, Urine >182 /HPF (High)?? 08/22/2023 18:36 RBC's, Urine NONE SEEN /HPF ()?? 08/22/2023 18:36 Bacteria HEAVY HPF (Abnormal)?? 08/22/2023 18:36 Squamous Epith 1 /HPF ()?? 08/22/2023 18:36 Mucus SLIGHT /LPF ()?? 08/22/2023 18:36 Hold Urine Culture Testing available 48 hours from time of collection. ()?? 08/22/2023 18:36 ?? VIROLOGY Influenza A PCR NEGATIVE ()?? 08/22/2023 18:41 Influenza B PCR NEGATIVE ()?? 08/22/2023 18:41 RSV PCR NEGATIVE ()?? 08/22/2023 18:41 COVID-19 PCR Specimen Source NASAL ()?? 08/22/2023 18:41 COVID-19 PCR Result NEGATIVE ()?? 08/22/2023 18:41 ? Microbiology ?? COVID-19, RSV, and Flu A/B, Rapid PCR?? Completed?? Source: Nasal Body Site: Nose Collected Dt/Tm: 08/22/2023 18:30 Last Updated Dt/Tm: 08/22/2023 20:22 ? EKG study * Event Display: EKG Authored Date: Hospital Progress note * Isadora Ahumada: PERFORM, SIGN, VERIFY Event Display: Progress Note Hospital Authored Date: Patient: CATERINA NICOLAS Age: 78 years Sex: Male : 1945 Associated Diagnoses: None Author: Isadora Ahumada Findings Problem Related to Alteration in Genitourinary : Alteration in Genitourinary Function/new 08/30/2023 6:00 EST Alteration in Status Related to UTI Goals & Outcomes, Genitourinary Pt will maintain adequate GI function appropriate for pt, Pt will maintain adequate function appropriate for pt, Pt will maintain normal fluid balance, Pt will resume normal pattern of elimination Interventions, Assess/monitor/maintain Genitourinary status, Assist & encourage pt with meticulous doyle care, Encourage PO fluid intake as allowed by diet, Assess/monitor effects of antibiotics, Assess/monitor s/s of urinary tract infection BH Goals/Interventions, Genitourinary Yes Genitourinary, Problem Start 08/24/2023 7:00 Reviewed Plan with, Genitourinary Patient Patient Progression, Genitourinary Patient progressing according to plan Genitourinary, Problem Ongoing Yes . Narrative/Incidental Patient AOx2, T/R with assist, no complains of pain this shift, IV antibiotics given per order, incontinence care given. BM this shift, Good PO intake, Patient resting in bed, call edwards within reach.Refer to [facility] for assessments and interventions.. * Barb MONSIVAIS, Emma: PERFORM Event Display: Progress [facility] Authored Date: Patient: ??CATERINA NICOLAS ? Age:??78 Years?Sex:??Male?:??1945?? Subjective Saw patient at bedside 07/29 Denies any complaints No acute events reported. Signed scripts?? for??buprenorphine??as patient's own meds, which case management is to fax [facility] authorization pending Review of Systems No acute events reported Patient remained stable Objective Vital Signs?? Temperature: 97.7 DegF (08/29/23 07:51:00) Temperature Route: Oral (08/29/23 07:51:00) Pulse Rate: 76 bpm (08/29/23 07:51:00) Respiratory Rate: 16 br/min (08/29/23 16:20:00) Systolic Blood Pressure: 131 mm Hg (08/29/23 07:51:00) Diastolic Blood Pressure: 76 mm Hg (08/29/23 07:51:00) Blood pressure sites: Arm, right (08/29/23 07:51:00) Mean Arterial Pressure: 94 mm Hg (08/29/23 07:51:00) Pulse Pressure: 55 mm Hg (08/29/23 07:51:00) Oxygen Saturation:??91 %??Low (08/29/23 07:51:00) Mode of Delivery (Oxygen): Room air (08/28/23 23:55:00) Early Warning Score: 4 (08/29/23 16:20:07) ? Physical Exam General: Alert,??oriented x1, obese,, in no acute distress, fully communicative, speaking in??full sentences HEENT Normocephalic. Pupils are equal, round and reactive to light. Extraocular muscles intact. Oropharynx clear, oral mucosa??moist Neck: Supple, Full range of motion. Trachea midline. No JVD or bruits. Respiratory: CTA BL, no rhonchi/wheezes Cardiovascular: S1-2 regular, no MRG Gastrointestinal: Abdomen soft, non-tender, non-distended. Normal bowel sounds. ??No guarding, rigidity, rebound, no hepatosplenomegaly Extremities: No edema, cyanosis or clubbing.?? Extremities warm Neurologic: A,Ox0, Cranial nerves II-XII grossly intact. Speech normal. ??Motor 5/5,??sensory exam intact, deep tendon reflexes +2 bilaterally. Flexor plantar response, Moves all extremities spontaneously. Skin: No rashes or lesions. No petechiae or purpura.? Exam notable for much improved mental status from before,??no confusion or abnormal behavior reported Results Recent Labs No labs resulted between 08/28/2023 00:00 and 08/29/2023 17:04? Abnormal Labs No lab data available. ?? CBC, CBC w/Diff?? No qualifying data available. ?? BMP, Mg, and Phos?? No qualifying data available. ?? LFT?? No qualifying data available. ?? Assessment/Plan ?? 78-year-old male with PMH including HTN, HLD, VIVIAN not on CPAP, recent bilateral DVT and right lung PE currently on rivaroxaban, recent Proteus bacteremia, GERD, mood disorder. Patient was brought to ER due to weakness. ?? AMS (altered mental status) (R41.82):??.?? Improving Toxic metabolic encephalopathy (G92.8):??. UTI (urinary tract infection) (N39.0):??Proteus mirabilis ?? AMS due to UTI. Cont neurochecks q 4hrly Cont ceftriaxone IV. Follow up blood c/s and urine c/s. WCC??remain elevated, continue monitoring daily. Both LE weak on exam. CT head neg. No back pain/tenderness. No bowel/bladder involvement, no sensory loss.??As per previous notes patient had weakness / has not recovered from last admission. Pending??PT evaluation,??holding off on neurology consult, due to nonfocal exam CT abdomen//pelvis/chest???no acute abnormality??except??moderate prostatomegaly,??mild pulmonary edema,??no pulmonary embolism,??moderate??gastric??lining thickness,??due to either underdistention or gastritis ?? 11/??3???mental status?? much improved,??Proteus??mirabilis??sensitivities??resulted???pansensitive, except??nitrofurantoin,on IV Rocephin# 4,??blood cultures?? have remained negative ?? Hypoxia (R09.02):? Resolved. ?? HTN (hypertension) (I10):? Patient is on atenolol, will continue to hold for now, for soft blood pressures ?? HLD (hyperlipidemia) (E78.5):? Continue simvastatin. ?? Pulmonary embolism (I26.99):??. 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 On??rivaroxaban, to continue?? Bilateral??posterior tibial vein??occlusive??DVT???Per??US Doppler. ??06/2023 CT angio chest??positive for PE??and??June 2023,??repeat CT angio chest on??08/05???no??PE??reported at subsegmental level ?? GERD (gastroesophageal reflux disease) (K21.9):??. Continue PPI. ?? Neuropathy: Continue??gabapentin. ?? Anxiety/depression: Continue venlafaxine,??bupropion, trazodone. ?? Patient seems to have recently started on Belbuca 150 at night. Pharmacy states this is ??non formulary,?? family members to bring the medication from home. ?? General weakness ?? Likely secondary to deconditioning, prominent??lower extremity weakness,??likely secondary to??decreased endurance/deconditioning PT evaluation???recommend rehab ? VTE Prophylaxis:??on rivaroxaban ?? Code Status:??full code ?? OMN: IV??antibiotics, improving altered mental status ?? Disposition:??pt evaluation,???recommend rehab,?? how??his family wishes for LTC ,mental status?? much improved,?? stable for dc given scripts which CM has faxed, likely discharge tomorrow ' *Above documentation was done using [facility] Dictation software, please do not hesitate to contact the author for clarification of any unintentional errors, should it be needed ? * Isadora Ahumada: VERIFY, PERFORM, SIGN Event Display: Progress Note Hospital Authored Date: [id number] Patient: CATERINA NICOLAS Age: 78 years Sex: Male : 1945 Associated Diagnoses: None Author: Isadora Ahumada Findings Problem Related to Alteration in Genitourinary : Alteration in Genitourinary Function/new 08/29/2023 1:00 EST Alteration in Status Related to UTI Goals & Outcomes, Genitourinary Pt will maintain adequate GI function appropriate for pt, Pt will maintain adequate function appropriate for pt, Pt will maintain normal fluid balance, Pt will resume normal pattern of elimination Interventions, Assess/monitor/maintain Genitourinary status, Assist & encourage pt with meticulous doyle care, Encourage PO fluid intake as allowed by diet, Assess/monitor effects of antibiotics, Assess/monitor s/s of urinary tract infection BH Goals/Interventions, Genitourinary Yes Genitourinary, Problem Start 08/24/2023 7:00 Reviewed Plan with, Genitourinary Patient Patient Progression, Genitourinary Patient progressing according to plan Genitourinary, Problem Ongoing Yes . Narrative/Incidental Patient AOx2, T/R with assist, no complains of pain this shift, IV antibiotics given per order, incontinence care given. BM this shift, Good PO intake, Patient resting in bed, call edwards within reach.Refer to [facility] for assessments and interventions. Note * Brook Hill RN: PERFORM Event Display: Discharge/Transfer Note Hospital Authored Date: [id number] Nursing Discharge Note Entered On: 08/30/2023 15:00 EST Performed On: 08/30/2023 15:00 EST by Brook Hill RN Nursing Discharge Note 2 Discharge Time : 08/30/2023 16:53 EST Brook Hill RN - 08/30/2023 17:03 EST Discharge Level of Care at Discharge : [facility] Discharge Nursing Homes/Rehab Facilities : [facility] Patient Left Unit Via : Ambulance Patient Accompanied Off Unit with : Ambulance/Chair Van Personnel Handover Given to Transport Personnel : Yes DC Instructions Provided & Signed by Pt : No Patient Understands D/C Instructions : Yes Patient Instructions Discharge Signed : No Did Pt have Specialty Bed or Wound Vac : No Brook Hill RN - 08/30/2023 15:00 EST * Barb MONSIVAIS, Emma: PERFORM Event Display: Discharge/Transfer Note Hospital Authored Date: [id number] Patient: ??CATERINA NICOLAS ? Age:??78 Years?Sex:??Male?:??1945?? Patient Information Discharge Location: W3 Primary Care Physician: Rick Christie DO Admit Date/Time: 08/22/23 23:09 Discharge Disposition Discharge Disposition: ?? Discharge Diagnosis AMS (altered mental status) (R41.82) Toxic metabolic encephalopathy (G92.8) Delirium UTI (urinary tract infection) (N39.0) Proteus mirabilis infection?? GERD (gastroesophageal reflux disease) (K21.9) HLD (hyperlipidemia) (E78.5) HTN (hypertension) (I10) Hypoxia (R09.02) Pulmonary embolism (I26.99) _ Discharge Medications Atenolol (atenolol 25 mg oral tablet)?25?Milligram?1?tab(s)?By Mouth?Daily Buprenorphine (Belbuca 150 mcg buccal film)?See Instructions?by mouth daily at bedtime - Place yellow side of film against the inside of the moistened cheek; press and hold the film in place for 5 seconds with finger (film should stay in place after this period). Keep film in place until it dissolves completely... BuPROpion (buPROPion 150 mg/12 hours (SR) oral tablet, extended release)?150?Milligram?By Mouth?2 times a day Gabapentin (gabapentin 600 mg oral tablet)?1?tab(s)?600?Milligram?By Mouth?3 times a day Multivitamin With Minerals (Centrum)?1?tab(s)?By Mouth?Daily Omeprazole (omeprazole 20 mg oral enteric coated capsule)?1?capsule?20?Milligram?By Mouth?Daily rivaroxaban (rivaroxaban 20 mg oral tablet)?20?Milligram?By Mouth?Daily at supper Simvastatin (simvastatin 40 mg oral tablet)?40?Milligram?1?tablet?By Mouth?Daily at bedtime Trazodone (traZODone 50 mg oral tablet)?100?Milligram?By Mouth?Daily at bedtime Venlafaxine (venlafaxine 75 mg oral tablet, extended release)?1?tab(s)?75?Milligram?By Mouth?Daily ? Medications Started None, resumed atenolol on discharge Medications Discontinued None Doses Changed None Hospital Course ??78-year-old male with PMH including HTN, HLD, VIVIAN not on CPAP, recent bilateral DVT and right lung PE currently on rivaroxaban, recent Proteus bacteremia, GERD, mood disorder. Patient was brought to ER due to weakness. ?? AMS (altered mental status) (R41.82):??.?? Improving Toxic metabolic encephalopathy (G92.8):??. UTI (urinary tract infection) (N39.0):??Proteus mirabilis ?? AMS due to UTI. Cont neurochecks q 4hrly Cont ceftriaxone IV. Follow up blood c/s and urine c/s. WCC??remain elevated, continue monitoring daily. Both LE weak on exam. CT head neg. No back pain/tenderness. No bowel/bladder involvement, no sensory loss.??As per previous notes patient had weakness / has not recovered from last admission. Pending??PT evaluation,??holding off on neurology consult, due to nonfocal exam CT abdomen//pelvis/chest???no acute abnormality??except??moderate prostatomegaly,??mild pulmonary edema,??no pulmonary embolism,??moderate??gastric??lining thickness,??due to either underdistention or gastritis ?? 11/??3???mental status?? much improved,??Proteus??mirabilis??sensitivities??resulted???pansensitive, except??nitrofurantoin,on IV Rocephin# 4,??blood cultures?? have remained negative ?? Hypoxia (R09.02):? Resolved. ?? HTN (hypertension) (I10):? Patient is on atenolol, will continue to hold for now, for soft blood pressures ?? HLD (hyperlipidemia) (E78.5):? Continue simvastatin. ?? Pulmonary embolism (I26.99):??. 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 On??rivaroxaban, to continue?? Bilateral??posterior tibial vein??occlusive??DVT???Per??US Doppler. ??06/2023 CT angio chest??positive for PE??and??June 2023,??repeat CT angio chest on??08/05???no??PE??reported at subsegmental level ?? GERD (gastroesophageal reflux disease) (K21.9):??. Continue PPI. ?? Neuropathy: Continue??gabapentin. ?? Anxiety/depression: Continue venlafaxine,??bupropion, trazodone. ?? Patient seems to have recently started on Belbuca 150 at night. Pharmacy states this is ??non formulary,?? family members to bring the medication from home. ?? General weakness ?? Likely secondary to deconditioning, prominent??lower extremity weakness,??likely secondary to??decreased endurance/deconditioning PT evaluation???recommend rehab ? VTE Prophylaxis:??on rivaroxaban ?? Code Status:??full code ?? OMN: IV??antibiotics, improving altered mental status ?? Disposition:??pt evaluation,???recommend rehab,??Discharge to rehab less than 30 days ' *Above documentation was done using [facility] Dictation software, please do not hesitate to contact the author for clarification of any unintentional errors, should it be needed ? Objective Assessment and Plan ? Vital Signs?? Temperature: 97.4 DegF (08/30/23 08:03:00) Temperature Route: Oral (08/30/23 08:03:00) Pulse Rate: 72 bpm (08/30/23 08:03:00) Respiratory Rate: 16 br/min (08/30/23 12:01:00) Systolic Blood Pressure: 121 mm Hg (08/30/23 08:03:00) Diastolic Blood Pressure: 72 mm Hg (08/30/23 08:03:00) Blood pressure sites: Arm, right (08/30/23 08:03:00) Mean Arterial Pressure: 88 mm Hg (08/30/23 08:03:00) Pulse Pressure: 49 mm Hg (08/30/23 08:03:00) Oxygen Saturation:??93 %??Low (08/30/23 08:03:00) Mode of Delivery (Oxygen): Room air (08/30/23 08:03:00) Early Warning Score: 4 (08/30/23 12:01:11) ? . Physical Exam General: Alert,??oriented x1, obese,, in no acute distress, fully communicative, speaking in??full sentences HEENT Normocephalic. Pupils are equal, round and reactive to light. Extraocular muscles intact. Oropharynx clear, oral mucosa??moist Neck: Supple, Full range of motion. Trachea midline. No JVD or bruits. Respiratory: CTA BL, no rhonchi/wheezes Cardiovascular: S1-2 regular, no MRG Gastrointestinal: Abdomen soft, non-tender, non-distended. Normal bowel sounds. ??No guarding, rigidity, rebound, no hepatosplenomegaly Extremities: No edema, cyanosis or clubbing.?? Extremities warm Neurologic: A,Ox0, Cranial nerves II-XII grossly intact. Speech normal. ??Motor 5/5,??sensory exam intact, deep tendon reflexes +2 bilaterally. Flexor plantar response, Moves all extremities spontaneously. Skin: No rashes or lesions. No petechiae or purpura.? Exam notable for much improved mental status from before,??no confusion or abnormal behavior reported Pending Results Add On Lab Order ordered on 08/23/2023 Add On Lab Order ordered on 08/23/2023 Follow-Up Appointments Added Follow Up ?Time Frame ?Comments Shahnaz PRO, Rick Loo?1 week Post Discharge Care Diet: ??Cardiac diet ?? Activity: ??Ambulate with assistance 3 times a day unless otherwise specified ?? Wound Care: ??Wound Site: Bilateral buttocks offload pressure every 12 hours Yes ?? Code Status: ??Full Resuscitation ?? Condition: ??Fair ?? Prognosis: ??Fair ?? Discharge ?08/30/23 13:21:00 EST Discharge Prescriptions ?None, 08/30/23 13:21:00 EST Home Health Face to Face ^HomeHealthFTF Results Discharge Labs BLOOD COUNT & DIFF WBC 10.2 k/mm3 ()?? 08/24/2023 06:38 RBC 4.00 m/mm3 (Low)?? 08/24/2023 06:38 Hgb 11.9 Gm/dL (Low)?? 08/24/2023 06:38 Hct 37.4 % (Low)?? 08/24/2023 06:38 MCV 93.5 femtoliters ()?? 08/24/2023 06:38 MCH 29.8 pg ()?? 08/24/2023 06:38 MCHC 31.8 g/dL (Low)?? 08/24/2023 06:38 Platelet Count 285 k/mm3 ()?? 08/24/2023 06:38 RDW-SD 47.2 femtoliters (High)?? 08/24/2023 06:38 MPV 9.2 femtoliters (Low)?? 08/24/2023 06:38 Nucleated RBC (Automated) 0.0 #/100 WBC'S ()?? 08/24/2023 06:38 Abs. NRBC 0.0 k/mm3 ()?? 08/24/2023 06:38 Abs. Neut 7.5 k/mm3 (High)?? 08/24/2023 06:38 Abs. Lymph 1.2 k/mm3 ()?? 08/24/2023 06:38 Abs. Moultrie 1.1 k/mm3 ()?? 08/24/2023 06:38 Abs. Eo 0.2 k/mm3 ()?? 08/24/2023 06:38 Abs. Baso 0.1 k/mm3 ()?? 08/24/2023 06:38 Neut % 74.2 % ()?? 08/24/2023 06:38 Lymph % 11.6 % (Low)?? 08/24/2023 06:38 Moultrie % 10.9 % (High)?? 08/24/2023 06:38 Eos % 2.0 % ()?? 08/24/2023 06:38 Baso % 0.8 % ()?? 08/24/2023 06:38 Imm Gran 0.5 % ()?? 08/24/2023 06:38 Abs. Imm Gran 0.1 k/mm3 ()?? 08/24/2023 06:38 ?? CARDIAC Nt-Probnp 229 pg/mL ()?? 08/22/2023 18:36 High Sensitivity Troponin (HSTnT) 19 ng/L ()?? 08/22/2023 23:01 ?? CHEM GENERAL Sodium 133 mmol/L ()?? 08/25/2023 00:42 Potassium 4.1 mmol/L ()?? 08/25/2023 00:42 Chloride 98 mmol/L ()?? 08/25/2023 00:42 Bicarbonate Level 26 mmol/L ()?? 08/25/2023 00:42 Anion Gap 9 ()?? 08/25/2023 00:42 Glucose Level 111 mg/dL (High)?? 08/22/2023 18:36 Glucose, POC 89 mg/dL ()?? 08/24/2023 11:03 BUN 17 mg/dL ()?? 08/22/2023 18:36 Creatinine-Blood 0.7 mg/dL ()?? 08/22/2023 18:36 Estimated GFR Creatinine 95 ML/MIN/1.73 M2 ()?? 08/22/2023 18:36 Calcium 10.0 mg/dL ()?? 08/22/2023 18:36 Protein, Total 6.6 Gm/dL ()?? 08/22/2023 18:36 Albumin 3.4 Gm/dL ()?? 08/22/2023 18:36 AG Ratio 1.1 ()?? 08/22/2023 18:36 Alkaline Phosphatase 87 units/L ()?? 08/22/2023 18:36 AST (SGOT) 21 units/L ()?? 08/22/2023 18:36 ALT (SGPT) 30 units/L ()?? 08/22/2023 18:36 Bilirubin, Total 0.4 mg/dL ()?? 08/22/2023 18:36 Lactate 1.2 mmol/L ()?? 08/22/2023 18:36 ? ENDOCRINE/TUMOR MARKER TSH 1.11 uIU/mL ()?? 08/22/2023 18:36 ? HEME OTHER Hold Lavender Top SPECIMEN DISCARDED AFTER 24 HOURS. ()?? 08/25/2023 00:42 ? MISC. CHEMISTRY Hold Gel Top SPECIMEN DISCARDED AFTER 1 WEEK ()?? 08/24/2023 06:38 ? TOXICOLOGY/TDM Ethanol, Serum or Plasma NONE DETECTED mg/dL ()?? 08/22/2023 18:36 ? UA/URINALYSIS Appear/Color, Urine YELLOW ()?? 08/22/2023 18:36 Specific Knifley, Urine 1.029 ()?? 08/22/2023 18:36 pH, Urine 7.0 ()?? 08/22/2023 18:36 Albumin, Urine 2+ (Abnormal)?? 08/22/2023 18:36 Glucose, Urine NEGATIVE ()?? 08/22/2023 18:36 Ketones, Urine NEGATIVE ()?? 08/22/2023 18:36 Bilirubin, Urine NEGATIVE ()?? 08/22/2023 18:36 Hemoglobin, Urine NEGATIVE ()?? 08/22/2023 18:36 Nitrite, Urine NEGATIVE ()?? 08/22/2023 18:36 Leukocyte, Urine 3+ (Abnormal)?? 08/22/2023 18:36 Urobilinogen 6 mg/dL (Abnormal)?? 08/22/2023 18:36 WBC's, Urine >182 /HPF (High)?? 08/22/2023 18:36 RBC's, Urine NONE SEEN /HPF ()?? 08/22/2023 18:36 Bacteria HEAVY HPF (Abnormal)?? 08/22/2023 18:36 Squamous Epith 1 /HPF ()?? 08/22/2023 18:36 Mucus SLIGHT /LPF ()?? 08/22/2023 18:36 Hold Urine Culture Testing available 48 hours from time of collection. ()?? 08/22/2023 18:36 ? VIROLOGY Influenza A PCR NEGATIVE ()?? 08/22/2023 18:41 Influenza B PCR NEGATIVE ()?? 08/22/2023 18:41 RSV PCR NEGATIVE ()?? 08/22/2023 18:41 COVID-19 PCR Specimen Source NASAL ()?? 08/22/2023 18:41 COVID-19 PCR Result NEGATIVE ()?? 08/22/2023 18:41 ? Discharge to rehab less than 30 days 43_ minutes spent on discharge * Cesia Long RN: PERFORM, SIGN, VERIFY Event Display: Case Management Discharge Plan Authored Date: [id number] Patient: CATERINA NICOLAS Age: 78 years Sex: Male : 1945 Associated Diagnoses: None Author: Cesia Long RN Discharge Plan Case Management Discharge Plan : Case Management Discharge Plan Data 08/30/2023 12:47 EST Discharge Level of Care at Discharge prison facility Discharge Nursing Homes/Rehab Facilities [facility] Discharge Transportation Arranged [facility] [address] [place] [address] Name of Agency #1 [facility] Agency Research And Development Director #1 Intake Service Categories #1 Physical Therapy, Prison Service Comments #1 You are being discharged to [facility] today for snf and physical therapy. * Brook Hill RN: PERFORM Event Display: Patient Education/Instruction Authored Date: [id number] Inpatient Adult Discharge Instructions [address] [address] Name: CATERINA NICOLAS : 1945 Visit: 08/22/2023 23:09:00 Current Date: 08/30/2023 15:08 Account: [id number] Inpatient Adult Discharge Instructions We would like to thank you for allowing us to assist you with your healthcare needs. The following includes patient education materials and information regarding your injury/illness. Our entire staffstrives to provide an excellent experience for our patients and their families. PLEASE ENSURE YOU FOLLOW-UP PER THE INSTRUCTIONS BELOW! ?? YOUR OPINION IS IMPORTANT TO US! Please complete the survey you may receive by mail or email. Your feedback will be used to make improvements to the healthcare experiences of our patients and their families. Surveys are administered by [employer] ?? If further treatment with your primary care physician or another doctor is recommended, it is important for you to keep the appointment. Call your primary care physician or return to the Emergency Department immediately if your condition worsens, fails to improve, or new symptoms develop. If you need to find a doctor, you can call [facility] for a referral at [phone] or toll free at [phone]) or log in to [email or web address].. ?? [facility], in keeping with [facility] guidance, no longer requires face masks for staff, patientsor visitors in most situations. Similiar to time spent indoors at other locations, there is the chance that you were exposed to repiratory viruses during your time with us (such as flu or COVID-19). If you develop symptoms concerning for a viral respiratory infection, please seek testing (and treatment if indicated) from your medical provider or home test kit. ?? You can view and manage your care through the patient portal or by using a health care [facility]iom[facility] of your choosing. [employer] is a website that allows you to securely view your medical information including your hospital discharge summary, office visit summaries, medications and follow-up visits. You can also request appointments, renew medications, and request access to your medical information using a health care x[facility] of your choosing, or just ask a question. You can enroll at [email or web address] or register during your next office visit. You have been discharged from [facility], Patient Care Unit: W3. If you have any questions regarding these instructions after you leave, please call us and we will be happy to assist you. [facility] Your Care Team Attending Physician Emma Day MD Discharging Providers Emma Day MD Reason for Admission per family lethargy since this am dc from rehab in june pt A&O x 4 noted with ams and disoriented no cp no SOB, increased weakness chronic nerve pain Your Diagnosis AMS (altered mental status) Toxic metabolic encephalopathy UTI (urinary tract infection) Hypoxia HTN (hypertension) HLD (hyperlipidemia) Pulmonary embolism GERD (gastroesophageal reflux disease) Tests Performed Below is a partial list of the tests performed during your hospitalization. You may have had other tests and procedures not included in this list. Please discuss all test results with your provider. Alcohol Level CBC w/ Differential Comprehensive Metabolic Panel COVID-19, RSV, and Flu A/B, Rapid PCR Electrolytes GLUCOSE POC High??Sensitivity??Troponin T HOLD GEL TUBE HOLD LAVENDER TUBE Lactate Level ProBNP Troponin T, High Sensitivity TSH with T4 Reflex (Adults Only) Urinalysis w/hold for Urine Culture CT Abd/Pelvis W/ IV Contrast Only CT Angio Chest CT Head/Brain W/O Contrast Hip Bilat 2 Views W/AP Pelvis XR Chest Single Frontal View Primary Care Provider Rick Christie DO Advance Directive Health Care Proxy on File Yes - Health Care Proxy Discharge Vitals Temperature: 97.4 DegF Weight: 104.9 kg Pulse Rate: 72 bpm ?? Respiratory Rate: 18 br/min ?? Systolic Blood Pressure: 121 mm Hg ?? Diastolic Blood Pressure: 72 mm Hg ?? Oxygen Saturation:??93 %??Low ?? Studies Pending All tests and labs ordered during this hospital stay have been completed unless listed below. Please discuss all pending results with your provider listed above in these instructions. ?? Add On Lab Order What to do next Instructions From Your Doctor Discharge Orders Diet:??Cardiac diet Activity:??Ambulate with assistance 3 times a day unless otherwise specified Wound Care:??Wound Site: Bilateral buttocks offload pressure every 12 hours Yes Code Status:?? Full Resuscitation Condition:??Fair Prognosis:??Fair You Need to Schedule the Following Appointments Follow Up with??Rick Christie DO When:??Within 1 week Where: [address] [place] [address], [place] [address]- Discharge Medications CATERINA NICOLAS :1945 Visit Date:08/22/2023 Medications: Please continue your medications until treatment is completed or stopped by your provider. Medications not listed below should be discontinued. Discuss any questions related to medications with your provider. What How Much When Instructions Next Dose New Buprenorphine (Belbuca 150 mcg buccal film) See instructions by mouth daily at bedtime - Place yellow side of film against the inside of the moistened cheek; press and hold the film in place for 5 seconds with finger (film should stay in place after this period). Keep film in place until it dissolves completely (usually within 30 minutes of application). Do not chew, swallow, touch, or move film after placement. Once film is completely dissolved, swish a sip of water around the teeth and gums and swallow; wait at least 1 hour after administration to brush teeth ?? Printed Prescription see instructions New BuPROpion (buPROPion 150 mg/ 12 hours (SR) oral tablet, extended release) 150 Milligram Oral Twice a day 08/30 New Trazodone (traZODone 50 mg oral tablet) 100 Milligram Oral Daily at Bedtime 08/30 Changed rivaroxaban (rivaroxaban 20 mg oral tablet) 20 Milligram Oral Daily at supper 08/30 Unchanged Atenolol (atenolol 25 mg oral tablet) 1 tab(s) Oral Daily 08/31 Unchanged Gabapentin (gabapentin 600 mg oral tablet) 1 tab(s) Oral 3 times a day 08/30 Unchanged Multivitamin With Minerals (Centrum) 1 tab(s) Oral Daily 08/31 Unchanged Omeprazole (omeprazole 20 mg oral enteric coated capsule) 1 capsule Oral Daily 08/31 Unchanged Simvastatin (simvastatin 40 mg oral tablet) 1 tab(s) Oral Daily at Bedtime 08/30 Unchanged Venlafaxine (venlafaxine 75 mg oral tablet, extended release) 1 tab(s) Oral Daily 08/31 ?? What How Much When Comments Stop Taking Acetaminophen / Hydrocodone (acetaminophen-hydrocodone 300 mg-5 mg oral tablet) 1 tab(s) Oral Daily at Bedtime as needed for as needed for pain Stop Taking Miscellaneous Rx (swimming) See instructions dx=arthritis, obesity Caterina is only able to exercise in the pool due to knee, ankle arthritis. Use pool for 30 min 5x per week. ?? Stop Taking Oxycodone (oxyCODONE 5 mg oral capsule) 1 capsule Oral Twice a day as needed for as needed for pain Test Results Below is a partial list of the most recent Laboratory test results done prior to this discharge. You may have had other tests and procedures not included in this list. Please discuss all test resultswith your provider. Alcohol Level (08/22/2023) ???Ethanol, Serum or Plasma - NONE DETECTED CBC w/ Differential (08/24/2023) ???WBC - 10.2 k/mm3???RBC - 4.00 m/mm3???Hgb - 11.9 Gm/dL???Hct - 37.4 %???MCV - 93.5 femtoliters???MCH - 29.8 pg???MCHC - 31.8 g/dL???Platelet Count - 285 k/mm3???RDW-SD - 47.2 femtoliters???MPV - 9.2 femtoliters???Nucleated RBC (Automated) - 0.0 #/100 WBC'S???Abs. NRBC - 0.0 k/mm3???Abs. Neut - 7.5 k/mm3???Abs. Lymph - 1.2 k/mm3???Abs. Moultrie - 1.1 k/mm3???Abs. Eo - 0.2 k/mm3???Abs. Baso - 0.1 k/mm3???Neut % - 74.2 %???Lymph % - 11.6 %???Moultrie % - 10.9 %???Eos % - 2.0 %???Baso % - 0.8 %???Imm Gran - 0.5 %???Abs. Imm Gran - 0.1 k/mm3 Comprehensive Metabolic Panel (08/22/2023) ???Sodium - 136 mmol/L???Potassium - 4.6 mmol/L???Chloride - 99 mmol/L???Bicarbonate Level - 27 mmol/L???Anion Gap - 10???Glucose Level - 111 mg/dL???BUN - 17 mg/dL???Creatinine-Blood - 0.7 mg/dL???Estimated GFR Creatinine - 95 ML/MIN/1.73 M2???Calcium - 10.0 mg/dL???Protein, Total - 6.6 Gm/dL???Alb umin - 3.4 Gm/dL???AG Ratio - 1.1???Alkaline Phosphatase - 87 units/L???AST (SGOT) - 21 units/L???ALT (SGPT) - 30 units/L???Bilirubin, Total - 0.4 mg/dL COVID-19, RSV, and Flu A/B, Rapid PCR (08/22/2023) ???Influenza A PCR - NEGATIVE???Influenza B PCR - NEGATIVE???RSV PCR - NEGATIVE???COVID-19 PCR Specimen Source - NASAL???COVID-19 PCR Result - NEGATIVE Electrolytes (08/25/2023) ???Sodium - 133 mmol/L???Potassium - 4.1 mmol/L???Chloride - 98 mmol/L???Bicarbonate Level - 26 mmol/L???Anion Gap - 9 GLUCOSE POC (08/24/2023) ???Glucose, POC - 89 mg/dL High??Sensitivity??Troponin T (08/22/2023) ???High Sensitivity Troponin (HSTnT) - 20 ng/L HOLD GEL TUBE (08/24/2023) ???Hold Gel Top - SPECIMEN DISCARDED AFTER 1 WEEK HOLD LAVENDER TUBE (08/25/2023) ???Hold Lavender Top - SPECIMEN DISCARDED AFTER 24 HOURS. Lactate Level (08/22/2023) ???Lactate - 1.2 mmol/L ProBNP (08/22/2023) ???Nt-Probnp - 229 pg/mL Troponin T, High Sensitivity (08/22/2023) ???High Sensitivity Troponin (HSTnT) - 19 ng/L TSH with T4 Reflex (Adults Only) (08/22/2023) ???TSH - 1.11 uIU/mL Urinalysis w/hold for Urine Culture (08/22/2023) ???Appear/Color, Urine - YELLOW???Specific Knifley, Urine - 1.029???pH, Urine - 7.0???Albumin, Urine - 2+???Glucose, Urine - NEGATIVE???Ketones, Urine - NEGATIVE???Bilirubin, Urine - NEGATIVE???Hemoglobin, Urine - NEGATIVE???Nitrite, Urine - NEGATIVE???Leukocyte, Urine - 3+???Urobilinogen - 6 mg/dL? ?WBC's, Urine - >182 /HPF? ?RBC's, Urine - NONE SEEN? ?Bacteria - HEAVY? ?Squamous Epith - 1 /HPF???Mucus - SLIGHT???Hold Urine Culture - Testing available 48 hours from time of collection. Allergies (NKA means No Known Allergies) lisinopril??(cough) nonsteroidal antiinflammatory agent??(stomache pain) Problems Active Problems??(8) Erectile dysfunction?? FH breast CA and CAD?? Gastro-esophageal reflux disease?? Hyperlipidemia?? Hypertension?? Osteoarthritis?? post traumatic stress disorder?? Severe obesity?? Education Materials Below is the list of Educational Leaflet Providered with your Discharge Instructions. Urinary Tract Infections in Men?? Zones UTI?? Valuables and Belongings I fully understand and agree that [facility] accepts no responsibility for all my personal property including clothing, toilet articles, radios, jewelry, dentures, hearing aids, rings, money, or any other property that is in my possession or is brought to me after admission. I understand certain valuables may be placed in a hospital safe for a short period of time. I understand that the hospital is not liable for loss or damage due to accident, fire, or other natural occurrence while said property is in the safe. I accept full responsibility for any personal property that I keep with me, and will not hold the hospital responsible in case of loss or disappearance. I acknowledge that i have been encouraged to send valuables and belongings home. ?? No Valuables/Belongings: No valuables/belongings present Date for Pt to Sign Valuables/Belongings: 08/23/23 23:03:00 ?? Other Discharge Information ? Case Management Discharge Plan?? Discharge Plan?? Discharge Agency Information?? Discharge Level of Care at Discharge: prison facility Name of Agency #1: [facility] Discharge Transportation Arranged: [facility] [address] [facility] ??[phone] Agency Research And Development Director #1: Intake Discharge Nursing Homes/Rehab Facilities: [facility] Service Categories #1: Physical Therapy, Prison ?? Service Comments #1: You are being discharged to [facility] today for snf and physical therapy. ?? Pulmonary Rehab Status?? Pulmonary Rehab Discharge Status?? Respiratory Rate: 18 br/min ? Common Emergency Awareness Tips IS IT A STROKE? Act FAST and Check for these signs: FACE Does the face look uneven? ARM Does one arm drift down? SPEECH Does their speech sound strange? TIME Call at any sign of stroke ?? Heart Attack Signs Chest discomfort: Most heart attacks involve discomfort in the center of the chest and lasts more than a few minutes, or goes away and comes back. It can feel like uncomfortable pressure, squeezing, fullness or pain. Discomfort in upper body: Symptoms can include pain or discomfort in one or both arms, back, neck, jaw or stomach. Shortness of breath: With or without discomfort. Other signs: Breaking out in a cold sweat, nausea, or lightheaded. Remember, MINUTES DO MATTER. If you experience any of these heart attack warning signs, call to get immediate medical attention! ?? Smoking can increase your chances of developing chronic health problems and can cause harmful effects to other family members in your house. If you smoke, you are strongly encouraged to quit. Please call [facility] [employer] at [phone] or [phone] ([phone]) or log in to [email or web address] for referrals to smoking cessation programs. ?? 436 Suicide & Crisis Lifeline is available 16/05 if you or someone you know needs to find a reason to keep living. By calling 242 you'll be connected to a skilled, trained counselor at a crisis center in your area. INPATIENT DISCHARGE INSTRUCTIONS SIGNATURE PAGE CATERINA NICOLAS Location:[facility] Registration Date and Time:08/22/2023 23:09 EDT Primary Care Physician: Rick Christie DO, Attending Physician: Barb MONSIVAIS, Gómezesequiel, I CATERINA NICOLAS, have received the above patient education materials/instructions and have verbalized understanding. If ambulance or transport services are being used I further acknowledge being given a choice of service. ?? If you need to contact me, please call me at this number: . Patient/Cryptographic Machine Operator Name: Patient/Cryptographic Machine Operator Signature: Relationship to Patient: Witness Name/Signature: Date: * Brook Hill RN: PERFORM Event Display: Patient Education Leaflets Authored Date: [id number] Urinary Tract Infections in Men ?? [id number] Urinary Tract Infections in Men Urinary tract infections (UTIs) are most often caused by bacteria that invade the urinary tract. The bacteria may come from outside the body. Or they may travel from the skin outside the rectum into the urethra. The urethra is the tube that carries urine from the bladder out of the body. Pain in oraround the urinary tract is a common symptom for most UTIs. Woman more commonly get UTIs than men. That???s because their urethra is shorter. Older men get UTIs more commonly than younger because older men may have an enlarged prostate. A UTI in a male is usually a sign that something is wrong with their urinary system. Using a catheter also increases the risk for UTI. Most UTIs are treated with antibiotics. These kill the bacteria. How long you need to take them depends on the type of infection. Take antibiotics exactly as directed until all of the medicine is gone. If you don't, the infection may not go away and may become harder to treat in the future. Gender words are used here to talk about anatomy and health risk. Please use this information in a way that works best for you and your provider as you talk about your care. Home care The lifestyle changes below will help get rid of your current infection. They may also help preventfuture UTIs: ??? Drink plenty of fluids, such as water, juice, or other caffeine-free drinks. This helps flush bacteria out of your system. ??? Empty your bladder when you feel the urge to urinate and before going to sleep. Urine that stays in your bladder makes an infection more likely. ??? If youare uncircumcised, pull the foreskin back and wash under the foreskin each time you take a bath or shower. ?? Follow-up care Follow up with your healthcare provider, or as advised if your symptoms continue after finishing all of the antibiotic medicine. Your healthcare provider may do tests to make sure the infection has cleared. If needed, more treatment can be started. ?? When to get medical advice Call your healthcare provider right away if any of the following occur: ??? Frequent urination ??? Pain or burning when passing urine ??? Weak urine stream ??? Feeling that you can't empty your bladder ??? Fever of 100.4??F (38??C) or higher , or as directed by your healthcare provider ??? Urine that looks dark, cloudy, or reddish in color. This may mean that blood is in the urine. ??? Urine smells bad ??? Feeling pain even when not urinating ??? Tiredness ??? Pain in the belly (abdomen) area below the bellybutton, or in the back or side, below the ribs ??? Nausea or vomiting ??? Have a strong urge to urinate, but only a small amount of urine is passed (dribbling) ??? Feeling confused or very tired (in older adults) ?? Last Reviewed Date: 2022 ?? [id number] [employer]. All rights reserved. This information is not intended as a substitute for professional medical care. Always follow your healthcare professional's instructions. ?? * Brook Hill RN: PERFORM Event Display: Patient Education Leaflets Authored Date: [id number] Zones UTI ?? 479 URINARY TRACT INFECTION ZONES EVERY DAY Urinary Tract Infections occur when bacteria enters the urethra and travels up to the bladder. ?? EVERY DAY: ??? Take your medicine as directed by your doctor.?? Be sure to take as directed until medicine is complete. ??? Keep an updated medicine list with you. ??? Be sure to see your primary care provider within a few days for a follow up. ??? Drink plenty of fluids.?? 9-13 eight-ounce glasses per day. ??? Pee often.?? Do not hold urine in. ??? Rest often. ??? Avoid sex if your partner has an infection. Which Zone are you today? GREEN, YELLOW, or RED? GREEN ZONE ALL CLEAR - This zone is your goal Your symptoms are under control when: ??? You have no fever or pain when peeing YELLOW ZONE ?? STOP & CALL CAUTION - This zone is a warning If you have one or more, of the following: Call Your Doctor: ??? You have questions or concerns about your medicines or condition. ??? You have a fever. ??? You have blood in your urine. ??? You have new or worse pain or burning when peeing. ??? Your urine looks cloudy or has a bad smell. ??? You feel the need to urinate more often. [facility] Seek care immediately if you have any of the following (DO NOT DRIVE YOURSELF): ??? You pee small amounts or not at all. ??You feel like you cannot empty your bladder completely. ??? You feel confused. ??? You have shaking chills with a fever. ??? You begin vomiting and cannot keep down liquids. ??? You have side or back pain that is getting worse. ???You are breathing faster than usual or have a fast heart beat. ? * Event Display: Provider Clarification Note Please click on pdf link to open report * Event Display: Provider Clarification Note Please click on pdf link to open report Consult note * Dmitriy Pritchett RN: PERFORM, SIGN, VERIFY Event Display: Consultation Note Authored Date: [id number] Patient: CATERINA NICOLAS Age: 78 years Sex: Male : 1945 Associated Diagnoses: None Author: Dmitriy Pritchett RN bilateral buttocks History of Presenting Problem Date of Service 08/25/2023 Reason for referral Wound: Description Location- Bilateral buttocks Etiology- Moisture associated skin damage (MASD) Wound Bed- mirrored hyperpigmented discoloration Doyle Wound- intact Edges- well defined Goals- offload pressure, protect from moisture/friction, Z-guard for protection of wound bed . Wound RN consult entered to assess left buttock wound and make topical recommendations. Patient presented with weakness and AMS and was admitted for UTI. Patient has PMH erectile dysfunction, GERD,HLD, HTN, osteoarthritis, severe obesity, VIVIAN on CPAP, bilateral DVT and right lung PE. Recommendati ons/assessment discerned via Photo and brief chart review. Wound RN did not assess at bedside. Patient is incontinent of urine and stool. Recommendations sent through [employer] [facility] [employer]. Recommendations: 1.) Bilateral buttocks: No brief or Mepilex use. Cleanse with pH balanced spray. Pat dry. Apply Zinc Oxide (orange top cream) Twice and as needed with incontinence episodes. 2.) Continue use of specialty bed/low air loss mattress 3.) Turn and reposition every 2 hours and PRN 4.) Continue incontinence care as well as moisture management; do not utilize Mepilex foam dressingwith incontinence. 5.) Continue to offload bony prominences 6.) Float heels 7.) Continue to provide optimal nutritional support 8.) Provide Gaymar cushion to chair when patient OOB Patient Care team information Care Team Personnel Name: Isacc Guidry Position: S RN Member Role: Primary Care Nurse Name: Rick Christie DO Position: Reference Physician Member Role: PCP Address: Address: [address] [place] [address], [place] [address] Name: Rock Lal RN Position: S RN Member Role: Primary Care Nurse Name: Ariana Quispe RN Position: S RN Member Role: Primary Care Nurse Name: Isadora Ahumada Position: [facility] RN Member Role: Primary Care Nurse Name: Sera Osullivan RN Position: [facility] RN Member Role: Primary Care Nurse Name: [place] RN Position: [facility] RN Member Role: Primary Care Nurse Name: Kelli Saldana RN Position: [facility] RN Member Role: Primary Care Nurse Name: Edyta Tom RN Position: [facility] RN Member Role: Primary Care Nurse Name: ShaneJohnny Heard Attending Position: [facility] ED Medicine MD Name: Neeta Ventura RN Position: [facility] ED RN W/OE and Tasks Member Role: Patient Care Provider Name: Natalie Hackett Position: [facility] ED TA [facility] Name: Ana Brito Position: [facility] ED OA Charge Member Role: ED Associate Care Team Related Persons Name: STEVE NCIOLAS Address: home [address] [place] [address] Name: JENNI NICOLAS Address: home [address] [place] [address] Name: JENNI KHALIL Address: home [address] [place] [address]
--- OUTSIDE RECORDS SUMMARY | 2023-09-07 21:11 | XMS_ITS | Continuity of Care Document ---
Author Name Unknown Organization [facility] Address [address] [place] [address]- Care Team Providers Care Solar Energy Technician Name Role Phone Zayda Leonard MD Primary Care Physician [phone] Encounter [facility] NBR [id number] Date(s): 09/02/22 - 09/02/[address] [address]- Discharge Disposition: A-D/C Home Attending Physician: Fran Santos MD Admitting Physician: Fran Santos MD Referring Physician: Not on Staff, Referring MD Allergies, Adverse Reactions, Alerts Substance Reaction Severity Status lisinopril cough Active nonsteroidal antiinflammatory agent stomache pain Active Immunizations Given and Recorded Vaccine Date Status Refusal Reason tetanus-diphtheria toxoids (Td) 12/02/06 Given influenza virus vaccine, inactivated 1 08/22/06 Gi marcello 1Admin Note: [employer] manufacturers. no contraindications per patient Medications Aspir 81 Oral Enteric Coated Tablet 1 tablet, By Mouth, Daily, # 30 tablet, 0 Refills, Maintenance, EC Tablet Start Date: 03/09/11 Status: Ordered atenolol 25 mg oral tablet 25, mg, 1, tablet, By Mouth, Daily, 0, 0, 01/08/06 9:59:42, Print HELADIO Number, [id number], Constant Indicator Start Date: 01/08/06 Status: Ordered bupropion 150 mg oral tablet, extended release 150 mg, 1, tablet, By Mouth, Daily, 0 Refills, Maintenance Start Date: 01/08/06 Status: Ordered cefuroxime 500 mg oral tablet 1 tablet = 500 mg, By Mouth, 2 times a day, for 7 days, # 14 tablet, 0 Refills, Acute 09/09/22 18:57:00 EST, 09/02/22 18:57:00 EST, Tablet, [facility], Partial fill upon patient request if the prescription is for a schedule II opioid... Start Date: 09/02/22 Stop Date: 09/09/22 Status: Ordered Centrum 1 tablet, By Mouth, Daily, 0 Refills, Maintenance Start Date: 03/09/11 Status: Ordered hydrochlorothiazide 25 mg oral tablet 50 mg, 2, tablet, By Mouth, Daily, 0 Refills, Maintenance Start Date: 01/08/06 Status: Ordered losartan 50 mg oral tablet 100, mg, 2, tablet, By Mouth, Daily, 0, 0, 01/08/06 9:59:23, Print HELADIO Number, [id number], Constant Indicator Start Date: 01/08/06 Status: Ordered omeprazole 20 mg oral enteric coated capsule 20, mg, 1, capsule, By Mouth, 2 times a day, 180, capsule, 3, 3, 02/23/06 14:07:13, [facility], [address] [place] [address], [id number], Constant Indicator Start Date: 02/23/06 Stop Date: 05/24/06 Status: Ordered Oxycodone 5mg/Acetaminophen 325mg Tablet 1, tablet, By Mouth, Every 6 hours, PRN, Maintenance, Pain, 03/09/10 20:30:20 Start Date: 03/09/10 Status: Ordered swimming swimming, See Instructions, # 1 units, Refills 0, Tot. Refills 0, Maintenance, dx=arthritis, obesity Caterina is only able to exercise in the pool due to knee, ankle arthritis. Use pool for 30 min 5x perweek., 06/06/14 10:38:59, Compound Start Date: 06/06/14 Status: Ordered trazodone 100 mg oral tablet 2 tab, By Mouth, Daily at bedtime, 0 Refills, Maintenance Start Date: 03/09/10 Status: Ordered vardenafil 20 mg oral tablet 1 tablet, By Mouth, Daily, PRN for erectile dysfunction, 0 Refills, Maintenance, Tablet Start Date: 03/09/11 Status: Ordered venlafaxine 75 mg oral capsule, extended release 75 mg, 1, capsule, By Mouth, 3 times a day, 0 Refills, Maintenance Start Date: 01/08/06 Status: Ordered Viagra 50 mg oral tablet 50, mg, 1, tablet, By Mouth, Daily, 5, 11, 11, 01/07/06 13:32:32, Print HELADIO Number, [facility], [address] [place] [address], [id number], Constant Indicator Start Date: 01/07/06 Status: Ordered Zocor 10 mg oral tablet 10, mg, 1, tablet, By Mouth, 0, 0, 01/08/06 9:58:51, Print HELADIO Number, Constant Indicator Start Date: 01/08/06 Status: Ordered Problem List Condition Confirmation Course Effective Dates Status H ealth Status Informant Erectile dysfunction Confirmed Active Gastro-esophageal reflux disease Confirmed Active Hyperlipidemia Confirmed Active Hypertension Confirmed Active Osteoarthritis 1 Confirmed Active 1and hx recurrent patella dislocations and ankle sprains Results Radiology Reports * Exam Date Time Procedure Performing Provider Status 09/02/22 5:[address] Head/Brain W/O Contrast Fullen , S heryl; Auth (Verified) Notes: (CT Head/Brain W/O Contrast) Reason For Exam: Headache(s) RESULT: CT Head/Brain W/O Contrast CT Head/Brain W/O Contrast INDICATION: Hx of Present Illness: pt reports ENGEL, worse on coughing, low enegry. fell a few times last week, slept a lot on tuesday reports was grouchy. tuesday was groggy, slept a lot, fell unable to get up by self, weakness, lethargy. [facility] scan ? CVA; Reason: Headache(s); Clinical Question(s): Infarction TECHNIQUE: Noncontrast head CT using axial technique and reconstructed in axial and coronal planes.Iterative reconstruction techniques are used to optimize dose and image quality. COMPARISON: None. FINDINGS: Replenishment Specialist view findings, lines and tubes: None. BRAIN AND EXTRA-AXIAL SPACES: No parenchymal hemorrhage, midline shift, or mass effect. Purvis-white matter differentiation is wellpreserved. No acute infarct. Ventricles, sulci, and basilar cisterns are normal. No white matter lesions. No subarachnoid hemorrhage. No subdural or epidural collection. CALVARIUM, SKULL BASE, AND SOFT TISSUES: No fractures or suspicious bony lesions. Mucosal thickening seen in the paranasal sinuses. Visualized orbits and globes are intact. The extracranial soft tissues are unremarkable. IMPRESSION: No acute intracranial pathology. WSN: [id number] Ordering Physician: Louie Heard Dictated By: Doroteo Meneses MD Dictated Date/Time: 09/02/22 6:05 pm Reviewed By: Doroteo Meneses MD Signed By: Doroteo Meneses MD Signed Date/Time: 09/02/22 6:05 pm Transcribed By: CLAUDETTE Transcribed Date/Time: 09/02/22 6:00 pm * Exam Date Time Procedure Performing Provider Status 09/02/22 3:00 PM Chest 2 Views Frontal and Lat Pirosse no , Steve; Auth (Verified) Notes: (Chest 2 Views Frontal and Lat) Reason For Exam: Chest Pain;Other: RESULT: Chest 2 Views Frontal and Lat Chest 2 Views Frontal and Lat HX OF PRESENT ILLNESS: PT REPORTS ENGEL, worse on coughing, low energy. fell a few times last week, slept a lot on tuesday reports was grouchy. tuesday was groggy, slept a lot, fell unable to get up by self, weakness, lethargy. [facility] CT scan ? CVA; Reason: Other:; Chest Pain; Clinical Question(s): Other: / Other: COMPARISON: 02/08/2011 FINDINGS: LINES AND TUBES: None. LUNGS AND PLEURA: Clear lungs. Normal pulmonary vascularity. No pleural effusion. No pneumothorax. HEART, MEDIASTINUM AND AGNIESZKA: Heart is normal in size. Aorta is tortuous and partially calcified. BONES AND SOFT TISSUES: No acute abnormality. Degenerative changes of the shoulders. IMPRESSION: No evidence of acute abnormality. WSN: [id number] Ordering Physician: Kirk Lo Dictated By: Max Lundberg MD Dictated Date/Time: 09/02/22 3:03 pm Reviewed By: Max Lundberg MD Signed By: Max Lundberg MD Signed Date/Time: 09/02/22 3:03 pm Transcribed By: CLAUDETTE Transcribed Date/Time: 09/02/22 3:02 pm Vital Signs Most recent to oldest [Reference Range]: 1 2 3 Height 164 cm (09/02/22 2:35 PM) Weight 120 kg (09/02/22 2:35 PM) 120 kg (09/02/22 2:26 PM) Oxygen Saturation [94-100 %] 98 % (09/02/22 6:27 PM) 97 % (09/02/22 4:50 PM) 98 % (09/02/22 2:26 PM) Pulse Rate [55-90 bpm] 68 bpm (09/02/22 6:27 PM) 69 bpm (09/02/22 4:50 PM) 78 bpm (09/02/22 2:26 PM) Blood Pressure [90-138/55-84 mm Hg] 126/99mm Hg (09/02/22 6:27 PM) 121/65mm Hg (09/02/22 4:50 PM) 130/67mm Hg (09/02/22 2:26 PM) Respiratory Rate [16-30 br/min] 17 br/min (09/02/22 6:27 PM) 16 br/min (09/02/22 4:50 PM) 16 br/min (09/02/22 2:26 PM) Temperature [96.8-100.4 DegF] 99.8 DegF (09/02/22 6:27 PM) 97.6 DegF (09/02/22 4:50 PM) 98.8 DegF (09/02/22 2:26 PM) Mode of Delivery (Oxygen) Room air (09/02/22 6:27 PM) Room air (09/02/22 4:50 PM) Room air (09/02/22 2:26 PM) Blood pressure sites Arm, left (09/02/22 2:26 PM) Temperature Route Oral (09/02/22 6:27 PM) Temporal (09/02/22 4:50 PM) Oral (09/02/22 2:26 PM) Dry Weight 120 kg (09/02/22 2:35 PM) 120 kg (09/02/22 2:26 PM) Dry Weight Obtained Via Standing scale (09/02/22 2:26 PM) Social History Social History Type Response Smoking Status Former smoker; Other : quit in 1984; entered on: 08/21/14 Sex Note * Louie Cooper: PERFORM Event Display: Patient Education Leaflets Authored Date: [id number] Weakness with Uncertain Cause ?? [id number] Weakness with Uncertain Cause Based on your exam today, the exact cause of your weakness is not clear. But your weakness does notseem to be a sign of a serious illness at this time. Keep an eye on your symptoms and get medical advice as instructed below. Home care ??? Rest at home today. Don't over-exert yourself. ??? Take any medicine as prescribed. ??? For the??next few days, drink extra fluids (unless your healthcare provider wants you to restrictfluids for other reasons). Don't skip meals. ??? Unless otherwise directed, continue to take any prescription medicines. ??? Contact your healthcare provider if you have any questions or concerns. ?? Follow-up care Follow up with your healthcare provider, or as advised. ?? When to seek medical advice Call your healthcare provider right away??for any of the following: ??? Symptoms get worse ??? Symptoms don't start getting better within 2 days ??? Fever of 100.4?? F (38?? C) or higher, or as directed by your healthcare provider ?? Call 911 Call 911 for any of these: ??? Chest, arm, neck, jaw, or upper back pain ??? Trouble breathing ??? Numbness or weakness of the face, one arm, or one leg ??? Slurred speech, confusion, or??trouble speaking, walking, or seeing ??? Blood in vomit or stool (black or red color) ??? Severe headache ??? Loss of consciousness ?? Last Reviewed Date: 2020 ?? [id number] [employer]. All rights reserved. This information is not intended as a substitute for professional medical care. Always follow your healthcare professional's instructions. ?? * Louie Cooper: PERFORM Event Display: Patient Education Leaflets Authored Date: [id number] Urinary Tract Infections in Men ?? [id number] Urinary Tract Infections in Men Urinary tract [...] become harder to treat in the future. Home care The lifestyle changes below will help get rid of your current infection. They may also help preventfuture UTIs: ??? Drink plenty of fluids such as water, juice, or other caffeine-free drinks. This helps flush bacteria out of your system. ??? Empty your bladder when you feel the urge to urinate andbefore going to sleep. Urine that stays in your bladder makes an infection more likely. ??? Use condoms during sex. These help prevent UTIs caused by sexually transmitted bacteria. ??? If you are uncircumcised, pull the foreskin back and wash [...] treatment can be started. ?? When to seek medical advice Call your healthcare provider right away if any of these occur: ??? Frequent urination ??? Pain or burning when passing urine ??? Weak urine stream ??? Feeling that you can't empty your bladder ??? Fever of 100.4??F (38??C) or higher , or as directed by your healthcare provider ??? Urine that looksdark, cloudy, or reddish in color. This may mean that blood is in the urine. ??? Urine smells bad ??? Feeling pain even when not urinating ??? Tiredness ??? Pain in the belly (abdomen) area below thebellybutton, or in the back or side, below the ribs ??? Nausea or vomiting ??? Have a strong urge to urinate, but only a small amount of urine is passed (dribbling) ??? Feeling confused or very tired(in older adults) ?? Last Reviewed Date: 2020 ?? [id number] [employer]. All rights reserved. This information is not intended as a substitute for professional medical care. Always follow your healthcare professional's instructions. ?? * HILLARY Leon S: Max Parekh MD: VERIFY Event Display: Result: Authored Date: [id number] Chest 2 Views Frontal and Lat HX OF PRESENT ILLNESS: PT REPORTS ENGEL, worse on coughing, low energy. fell a few times last week, slept a lot on tuesday reports was grouchy. tuesday was groggy, slept a lot, fell unable to get up by self, weakness, lethargy. [facility] scan ? CVA; Reason: Other:; Chest Pain; Clinical Question(s): Other: / Other: COMPARISON: 02/08/2011 FINDINGS: LINES AND TUBES: None. LUNGS AND PLEURA: Clear lungs. Normal pulmonary vascularity. No pleural effusion. No pneumothorax. HEART, MEDIASTINUM AND AGNIESZKA: Heart is normal in size. Aorta is tortuous and partially calcified. BONES AND SOFT TISSUES: No acute abnormality. Degenerative changes of the shoulders. IMPRESSION: No evidence of acute abnormality. WSN: [id number] Ordering Physician: Kirk Lo Dictated By: Max Lundberg MD Dictated Date/Time: 09/02/22 3:03 pm Reviewed By: Max Lundberg MD Signed By: Max Lundberg MD Signed Date/Time: 09/02/22 3:03 pm Transcribed By: CLAUDETTE Transcribed Date/Time: 09/02/22 3:[address] Head WO contrast * HILLARY Leon S: Doroteo Ballard MD S: VERIFY Event Display: Result: Authored Date: [id number] CT Head/Brain W/O Contrast INDICATION: Hx of Present Illness: pt reports ENGEL, worse on coughing, low enegry. fell a few times last week, slept a lot on tuesday reports was grouchy. tuesday was groggy, slept a lot, fell unable to get up by self, weakness, lethargy. [facility] wants CT scan ? CVA; Reason: Headache(s); Clinical Question(s): Infarction TECHNIQUE: Noncontrast head CT using axial technique and reconstructed in axial and coronal planes.Iterative reconstruction techniques are used to optimize dose and image quality. COMPARISON: None. FINDINGS: Replenishment Specialist view findings, lines and tubes: None. BRAIN AND EXTRA-AXIAL SPACES: No parenchymal hemorrhage, midline shift, or mass effect. Purvis-white matter differentiation is wellpreserved. No acute infarct. Ventricles, sulci, and basilar cisterns are normal. No white matter lesions. No subarachnoid hemorrhage. No subdural or epidural collection. CALVARIUM, SKULL BASE, AND SOFT TISSUES: No fractures or suspicious bony lesions. Mucosal thickening seen in the paranasal sinuses. Visualized orbits and globes are intact. The extracranial soft tissues are unremarkable. IMPRESSION: No acute intracranial pathology. WSN: [id number] Ordering Physician: Louie Heard Dictated By: Doroteo Meneses MD Dictated Date/Time: 09/02/22 6:05 pm Reviewed By: Doroteo Meneses MD Signed By: Doroteo Meneses MD Signed Date/Time: 09/02/22 6:05 pm Transcribed By: CLAUDETTE Transcribed Date/Time: 09/02/22 6:00 pm Patient Care team information Care Team Personnel Name: Zayda Leonard MD Position: Reference Physician Member Role: PCP Address: Address: [address] [place] [id number] Name: Kelli Saldana RN Position: [facility] RN Member Role: Primary Care Nurse Name: Giulia Harding RN Position: [facility] ED RN W/OE and Tasks Member Role: Chart Review Name: Louie Cooper Position: [facility] Associate Professional Member Role: ED Physician Varnish Inspector Address: Address: [address] [place] [id number]- Name: Aniceto Womack Position: [facility] ED OA Member Role: Women'S Studies Professor Name: Fran Santos MD Position: [facility] ED Medicine MD Member Role: Admitting Physician Address: Address: [address] [place] [id number] Care Team Related Persons Name: DENNISSTEFFEN ANUP Address: home [address] [place] [address] Name: JENNI NICOLAS Address: home [address] [place] [address] Name: JENNI KHALIL Address: home [address] [place] [address]
--- OUTSIDE RECORDS SUMMARY | 2023-09-07 21:11 | XMS_ITS | Continuity of Care Document ---
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 no contraindications per patient Medications Acetaminophen Tablet 650 mg, Tablet, By Mouth, Every 4 hours, PRN for Pain , Mild, Temperature Greater than 100.5, Routine, 07/20/23 14:33:00 EDT Start Date: 07/20/23 Stop Date: 07/28/23 Status: Discontinued acetaminophen-hydrocodone 300 mg-5 mg oral tablet 1 tablet, By Mouth, Daily at bedtime, PRN as needed for pain, 0 Refills, Maintenance, 07/21/23 13:32:00 EDT, Tablet, Partial fill upon patient request if the prescription is for a schedule II opioid drug. Start Date: 07/21/23 Status: Ordered amoxicillin-clavulanate 875 mg-125 mg oral tablet = 875 mg, By Mouth, 2 times a day, for 7 days, # 16 tablet, 0 Refills, Acute 08/03/23 9:47:00 EDT, 07/27/23 9:47:00 EDT, Tablet, [facility], Partial fill upon patient request if the prescription is for a schedule II opioid drug., 168, cm... Start Date: 07/27/23 Stop Date: 08/03/23 Status: Ordered atenolol 25 mg oral tablet 25 mg, Tablet, By Mouth, 07/27/23 9:00:00 EDT Start Date: 07/27/23 Stop Date: 07/27/23 Status: Completed atenolol 25 mg oral tablet 25, mg, 1, tablet, By Mouth, Daily, 0, 0, 01/08/06 9:59:42, Print HELADIO Number, [id number], Constant Indicator Start Date: 01/08/06 Status: Ordered Centrum 1 tablet, By Mouth, Daily, 0 Refills, Maintenance Start Date: 03/09/11 Status: Ordered gabapentin 300 mg oral capsule 600 mg, Capsule, By Mouth, 07/27/23 9:00:00 EDT Start Date: 07/27/23 Stop Date: 07/27/23 Status: Completed gabapentin 600 mg oral tablet [...] opioid drug. Start Date: 07/20/23 Status: Ordered oxyCODONE 5 mg oral capsule 1 capsule = 5 mg, By Mouth, 2 times a day, PRN as needed for pain, 0 Refills, Maintenance, 07/21/2313:33:00 EDT, Capsule, Partial fill upon patient request if the prescription is for a schedule II opioid drug. Start Date: 07/21/23 Status: Ordered oxyCODONE 5 mg oral tablet 5 mg, Tablet, By Mouth, 10/04/23 9:00:00 EDT Start Date: 07/27/23 Stop Date: 07/27/23 Status: Completed rivaroxaban 15 mg oral tablet = 15 mg, By Mouth, 2 times a day with meals, # 34 tablet, 0 Refills, Maintenance, 07/26/23 12:33:00EDT, Tablet, [facility], Partial fill upon patient request if the prescription is fora schedule II opioid drug., 168, cm, 07/26/23 7:17:... Start Date: 07/26/23 Stop Date: 08/12/23 Status: Ordered rivaroxaban 20 mg oral tablet = 20 mg, By Mouth, Daily at supper, take this 1 TABLET ONCE DAILY AFTER 08/12/2023, # 30 tablet, 0 Refills, Maintenance, 07/26/23 11:04:00 EDT, Tablet, [facility], Partial fill upon patient request if the prescription is for a schedule I... Start Date: 07/26/23 Status: Ordered simvastatin 40 mg oral tablet 40 mg, 1, tablet, By Mouth, Daily at bedtime, # 30 tablet, Refills 0, Maintenance, 07/20/23 20:45:00 EDT, Partial fill upon patient request if the prescription is for a schedule II opioid drug. Start Date: 07/20/23 Status: Ordered swimming swimming, See Instructions, # 1 units, Refills 0, Tot. Refills 0, Maintenance, dx=arthritis, obesity Caterina is only able to exercise in the pool due to knee, ankle arthritis. Use pool for 30 min 5x perweek., 06/06/14 10:38:59, Compound Start Date: 06/06/14 Status: Ordered venlafaxine 75 mg oral tablet, [...] for Microbiology Reports Name Date Blood Culture 07/22/23 Blood Culture #2 07/22/23 Blood Culture 07/20/23 Blood Culture #2 07/20/23 Microbiology Reports TEST:Blood Culture STATUS:Auth (Verified) BODY SITE: SOURCE:Blood COLLECTED DATE/TIME:07/22/23 12:54 PM Blood Culture SPECIMEN DESCRIPTION : BLOOD L ARM SPECIAL REQUESTS : NONE CULTURE : NO GROWTH 5 DAYS. REPORT STATUS : FINAL 07/27/2023 TEST:Blood Culture, Second Order STATUS:Auth (Verified) BODY SITE: SOURCE:Blood COLLECTED DATE/TIME:07/22/23 12:54 PM Blood Culture, Second Order SPECIMEN DESCRIPTION : BLOOD R HAND SPECIAL REQUESTS : NONE CULTURE : NO GROWTH 5 DAYS. REPORT STATUS : FINAL 07/27/2023 TEST:Blood Culture STATUS:Auth (Verified) BODY SITE: SOURCE:Blood COLLECTED DATE/TIME:07/20/23 7:41 AM Blood Culture SPECIMEN DESCRIPTION : BLOOD NONE SPECIAL REQUESTS : NONE CULTURE : PROTEUS MIRABILIS This isolate was identified using Maldi-TOF system These AST results were performed on the Vitek 2 ID and AST system REPORT STATUS : FINAL 07/23/2023 ORGANISM PROTEUS MIRABILIS This isolate was identified using Maldi-TOF system These AST results were performed on the Vitek 2 ID and AST system METHOD MIN. INHIB. CONC. (MCG/ML) AMPICILLIN SUSCEPTIBLE AMPICILLIN/SULBACTAM SUSCEPTIBLE CEFEPIME SUSCEPTIBLE CEFTRIAXONE SUSCEPTIBLE CIPROFLOXACIN SUSCEPTIBLE ERTAPENEM SUSCEPTIBLE GENTAMICIN SUSCEPTIBLE LEVOFLOXACIN SUSCEPTIBLE PIPERACILLIN/TAZOBAC SUSCEPTIBLE TRIMETH/SULFAMETHOX SUSCEPTIBLE TEST:Blood Culture, Second Order STATUS:Auth (Verified) BODY SITE: SOURCE:Blood COLLECTED DATE/TIME:07/20/23 7:41 AM Blood Culture, Second Order SPECIMEN DESCRIPTION : BLOOD RT HAND SPECIAL REQUESTS : CRITICAL VALUE CALLED AND VERIFIED BY READBACK FOR: GRAM NEGATIVE RODS AND PCR HAVE BEEN CALLED TO [id number] [facility] [id number] ON 07/21/23 @0054 BY Mlog [id number] CULTURE : PROTEUS MIRABILIS This isolate was identified using Maldi-TOF system FOR SUSCEPTIBILITY RESULT REFER TO BLOOD CULTURE Proteus species was identified by multiplex PCR. REPORT STATUS : FINAL 07/23/2023 Radiology Reports * Exam Date Time Procedure Performing Provider Status 07/23/23 10:[address] Head/Brain W/O Contrast Priyanka Sierra; Auth (Verified) Notes: (CT Head/Brain W/O Contrast) Reason For Exam: AMS, ?right sided weakness;Other: RESULT: CT Head/Brain W/O Contrast CT Head/Brain W/O Contrast INDICATION: AMS, ?right sided weakness; Clinical Question(s): Infarction; TECHNIQUE: Noncontrast head CT using axial technique and reconstructed in axial and coronal planes.Iterative reconstruction techniques are used to optimize dose and image quality. CTDIvol Head: 48.10 mGy, DLP Head: 772 mGy*cm. COMPARISON: CT head from 07/20/2023. FINDINGS: Patternmaker Grader view findings, lines and tubes: None. BRAIN AND EXTRA-AXIAL SPACES: No parenchymal hemorrhage, midline shift, or mass effect. Purvis-white matter differentiation is wellpreserved. No acute infarct. Negative insular ribbon and hyperdense vessel signs. Mild prominence of the ventricles and sulci consistent with parenchymal volume loss. Moderate low-density white matter changes. No subarachnoid hemorrhage. No subdural or epidural collection. CALVARIUM, SKULL BASE, AND SOFT TISSUES: No fractures or suspicious bony lesions. Mucosal thickening of the paranasal sinuses unchanged. The mastoid air cells are clear. Status-post bilateral lens extraction. The extracranial soft tissues are unremarkable. IMPRESSION: No acute intracranial pathology. I have personally reviewed the images and I agree with this report. WSN: [id number] Ordering Physician: Cristina Mar Dictated By: Kellee Israel MD Dictated Date/Time: 07/23/23 12:31 p Reviewed By: Alfred Quispe MD Signed By: Alfred Quispe MD Signed Date/Time: 07/23/23 12:36 pm Transcribed By: CLAUDETTE Transcribed Date/Time: 07/23/23 11:38 am * Exam Date Time Procedure Performing Provider Status 07/20/23 4:37 PM US Doppler Ext Lower Venous Bilat Daya Greene; Esteban (Verified) Notes: (US Doppler Ext Lower Venous Bilat) Reason For Exam: Swelling Extremities RESULT: US Doppler Ext Lower Venous Bilat US Doppler Ext Lower Venous Bilat Reason: Swelling Extremities; Clinical Question(s): Thrombosis COMPARISON: None IMAGING TECHNIQUE: Ultrasound of the veins from the groin through the calf was performed using grayscale, color, and spectral Doppler ultrasound assessing for complete compressibility and normal flowcharacteristics. FINDINGS: RIGHT LOWER EXTREMITY: Common femoral vein: Patent. No thrombosis. Femoral vein: Patent. No thrombosis. Popliteal vein: Patent. No thrombosis. Gastrocnemius veins: The visualized portions are patent without evidence of thrombosis. Peroneal veins: The visualized portions are patent without evidence of thrombosis. Posterior tibial veins: Occlusive thrombus measuring up to approximately 4.3 cm in length.. LEFT LOWER EXTREMITY: Common femoral vein: Patent. No thrombosis. Femoral vein: Patent. No thrombosis. Popliteal vein: Patent. No thrombosis. Gastrocnemius veins: The visualized portions are patent without evidence of thrombosis. Peroneal veins: The visualized portions are patent without evidence of thrombosis. Posterior tibial veins: Occlusive thrombus measuring just above 5 cm in length. OTHER FINDINGS: None. IMPRESSION: Positive exam for venous thrombosis with bilateral posterior tibial vein occlusive thrombus. An actionable message ([employer]) has been communicated via the [employer] system on 07/20/2023 4:21 PM, Message ID [id number]. WSN: [id number] Ordering Physician: Leslee Petty Dictated By: Mattie Paiz MD Dictated Date/Time: 07/20/23 4:21 pm Reviewed By: Mattie Paiz MD Signed By: Mattie Paiz MD Signed Date/Time: 07/20/23 4:21 pm Transcribed By: CLAUDETTE Transcribed Date/Time: 07/20/23 3:56 pm * Exam Date Time Procedure Performing Provider Status 07/20/23 12:[address] Abdomen and Pelvi s W/O Contrast Priaynka Sierra; Esteban (Verified) Notes: (CT Abdomen and Pelvis W/O Contrast) Reason For Exam: Flank pain, kidney stone suspected;Other: RESULT: CT Abdomen and Pelvis W/O Contrast CT Abdomen and Pelvis W/O Contrast Hx of Present Illness: Pt has been taking abx for known UTI, had unwitnessed fall today, ?headstrike, Baseline A O, not verbally responding per ems. per family, pt has increase AMS.; Reason: Other:; Flank pain, kidney stone suspected; Clinical Question(s): Calculus; Left Side flank TECHNIQUE: Spiral CT through the abdomen and pelvis without IV contrast formatted in 3 planes. Thisstudy was performed oral contrast. Weight-based protocol using automatic tube modulation was used to optimize exposure parameters. CTDIvol Body: 13.40 mGy, DLP Body: 674 mGy*cm. COMPARISON: None FINDINGS: Patternmaker Grader View Findings, Lines and Tubes: None. Visualized Chest: Lung bases are clear. No pleural effusion. The heart is normal in size. No pericardial effusion. Diaphragm: Normal. Liver: The visualized portion is normal. Gallbladder: No CT evidence of gallbladder pathology. Bile ducts: No biliary ductal dilation. Spleen: Normal. Pancreas: Normal. Adrenal glands: Normal. Kidneys and ureters: Excreted contrast in the collecting system from prior CT angiogram of the chest. Left lower pole simple cyst measuring up to 4.3 cm, not requiring further follow-up. Hydronephrosis. Limited evaluation for renal calculi due to excreted contrast in the collecting system. Bladder: Filled with contrast, otherwise unremarkable Reproductive organs: Unremarkable. Stomach, small bowel, and large bowel: Mild stool retention. No inflammatory change. No obstruction. Appendix: Normal. Peritoneum and retroperitoneum: No ascites or pneumoperitoneum. No omental or mesenteric lesions. Lymph nodes: No enlarged lymph nodes. Blood vessels: Normal. No aneurysm. Abdominal and pelvic wall: Tiny fat-containing focal hernia. Small left greater than right fat-containing inguinal hernias. Bones: No acute abnormality. Moderate multilevel degenerative changes of the spine for IMPRESSION: No acute abnormality. Limited evaluation for renal calculi due to excreted contrast within the collecting system. No hydronephrosis. WSN: [id number] Ordering Physician: Leslee Petty Dictated By: Alfred Quispe MD Dictated Date/Time: 07/20/23 1:15 pm Reviewed By: Alfred Quispe MD Signed By: Alfred Quispe MD Signed Date/Time: 07/20/23 1:15 pm Transcribed By: CLAUDETTE Transcribed Date/Time: 07/20/23 1:11 pm * Exam Date Time Procedure Performing Provider Status 07/20/23 11:[address] Angio Chest Edith Garza; Auth (Verified) Notes: (CT Angio Chest) Reason For Exam: PE suspected, Intermediate prob, positive D-dimer,;Other: RESULT: CT Angio Chest EXAMINATION: CT Angio Chest INDICATION: Hx of Present Illness: Pt has been taking abx for known UTI, had unwitnessed fall today, ?headstrike, Baseline A O, not verbally responding per ems. per family, pt has increase AMS.; Reason: Other:; PE suspected, Intermediate prob, positive D-dimer,; Clinical Question(s): Pulmonary Embolism TECHNIQUE: Spiral CTA of the chest was performed after rapid IV contrast administration without cardiac gating, triggered by an JOCELYN on the main pulmonary artery. Images are formatted in multiple planes using 2-D multiplanar and 3-D maximum intensity projection. 80 cc of Omnipaque 300 was administered intravenously. Weight-based protocol using automatic tube modulation was used to optimize exposure parameters. CTDIvol Body: 8.40 mGy, DLP Body: 344 mGy*cm. COMPARISONS: None. ANGIOGRAPHIC FINDINGS: Acute pulmonary embolism within the distal right main pulmonary artery extending into right lower lobe, right middle lobe, and right upper lobe segmental and subsegmental branches. Main pulmonary artery is dilated at 3.4 cm. Normal RV LV ratio. Aorta is normal in caliber. NON-ANGIOGRAPHIC FINDINGS: Patternmaker Grader View Findings, Lines and Tubes: None. Trachea and Airways: Patent without evidence of tracheal or endobronchial lesion. Lungs and Pleura: Azygous lobe noted. Lungs are clear. No effusion or pneumothorax. Mediastinum and karina: No mass or hematoma. No mediastinal or hilar lymphadenopathy. No esophageal abnormality. Heart: Heart is normal in size. No pericardial effusion. Chest Wall Soft Tissues: Normal. Diaphragm and upper abdomen: No significant abnormality. Bones: No acute abnormality. IMPRESSION: Acute pulmonary embolism throughout the right lung as described above. Findings do not meet CT criteria for submassive PE. Enlargement of the main pulmonary artery may be due to underlying pulmonary arterial hypertension and/or acute PE. Findings relayed through secure messaging to Dr.. Leslee Petty at 11:28 AM on 07/20/2023. WSN: [id number] Ordering Physician: Leslee Petty Dictated By: Alfred Quispe MD Dictated Date/Time: 07/20/23 11:31 a Reviewed By: Alfred Quispe MD Signed By: Alfred Quispe MD Signed Date/Time: 07/20/23 11:31 am Transcribed By: CLAUDETTE Transcribed Date/Time: 07/20/23 11:25 am * Exam Date Time Procedure Performing Provider Status 07/20/23 9:[address] Cervical Spine W/O Contrast Sveta Recio; Auth (Verified) Notes: (CT Cervical Spine W/O Contrast) Reason For Exam: Neck trauma, dangerous injury mechanism;Other: RESULT: CT Cervical Spine W/O Contrast CT Head/Brain W/O Contrast, CT Cervical Spine W/O Contrast INDICATION: Hx of Present Illness: Pt has been taking abx for known UTI, had unwitnessed fall today, ?headstrike, Baseline A O, not verbally responding per ems. per family, pt has increase AMS.; Reason: Trauma; Clinical Question(s): Other: TECHNIQUE: Noncontrast head CT using axial technique was reconstructed in axial and coronal planes.Noncontrast spiral CT through the cervical spine was formatted in 3 planes. Automatic tube modulation was used for the cervical spine and iterative dose reconstruction was used for both the head and cervical spine to optimize scan parameters and image quality. CTDIvol Body: 22.50 mGy, DLP Body: 498 mGy*cm. CTDIvol Head: 47.80 mGy, DLP Head: 773 mGy*cm. COMPARISON: None. FINDINGS: Patternmaker Grader View Findings, Lines and Tubes: None. BRAIN AND EXTRA-AXIAL SPACES: No parenchymal hemorrhage, midline shift, or mass effect. Purvis-white matter differentiation is wellpreserved. No acute infarct. Mild prominence of the ventricles and sulci consistent with parenchymal volume loss. Mild low-density white matter changes. No subarachnoid hemorrhage. No subdural or epidural collection. CALVARIUM, SKULL BASE, AND SOFT TISSUES: No fractures or suspicious bony lesions. Moderate mucosal thickening maxillary sinuses, ethmoid air cells and sphenoid sinuses. Mastoid air cells are clear. Status-post bilateral lens extraction. The extracranial soft tissues are unremarkable. CERVICAL SPINE: No fracture. No acute osseous abnormalities. Normal alignment. No locked or perched facet. Mild to moderate multilevel degenerative disc space narrowing and end plate irregularity. OTHER BONES: No acute abnormality. CERVICAL SOFT TISSUES AND LUNG APICES: Normal soft tissues. Visualized lung apices are clear. IMPRESSION: No acute abnormality of the head or cervical spine. WSN: [id number] Ordering Physician: Leslee Petty Dictated By: Alfred Quispe MD Dictated Date/Time: 07/20/23 9:13 am Reviewed By: Alfred Quispe MD Signed By: Alfred Quispe MD Signed Date/Time: 07/20/23 9:13 am Transcribed By: CLAUDETTE Transcribed Date/Time: 07/20/23 9:05 am * Exam Date Time Procedure Performing Provider Status 07/20/23 9:[address] Head/Brain W/O Contrast BillyGume abrams kae Silverio; Auth (Verified) Notes: (CT Head/Brain W/O Contrast) Reason For Exam: Trauma RESULT: CT Head/Brain W/O Contrast CT Head/Brain W/O Contrast, CT Cervical Spine W/O Contrast INDICATION: Hx of Present Illness: Pt has been taking abx for known UTI, had unwitnessed fall today, ?headstrike, Baseline A O, not verbally responding per ems. per family, pt has increase AMS.; Reason: Trauma; Clinical Question(s): Other: TECHNIQUE: Noncontrast head CT using axial technique was reconstructed in axial and coronal planes.Noncontrast spiral CT through the cervical spine was formatted in 3 planes. Automatic tube modulation was used for the cervical spine and iterative dose reconstruction was used for both the head and cervical spine to optimize scan parameters and image quality. CTDIvol Body: 22.50 mGy, DLP Body: 498 mGy*cm. CTDIvol Head: 47.80 mGy, DLP Head: 773 mGy*cm. COMPARISON: None. FINDINGS: Patternmaker Grader View Findings, Lines and Tubes: None. BRAIN AND EXTRA-AXIAL SPACES: No parenchymal hemorrhage, midline shift, or mass effect. Purvis-white matter differentiation is wellpreserved. No acute infarct. Mild prominence of the ventricles and sulci consistent with parenchymal volume loss. Mild low-density white matter changes. No subarachnoid hemorrhage. No subdural or epidural collection. CALVARIUM, SKULL BASE, AND SOFT TISSUES: No fractures or suspicious bony lesions. Moderate mucosal thickening maxillary sinuses, ethmoid air cells and sphenoid sinuses. Mastoid air cells are clear. Status-post bilateral lens extraction. The extracranial soft tissues are unremarkable. CERVICAL SPINE: No fracture. No acute osseous abnormalities. Normal alignment. No locked or perched facet. Mild to moderate multilevel degenerative disc space narrowing and end plate irregularity. OTHER BONES: No acute abnormality. CERVICAL SOFT TISSUES AND LUNG APICES: Normal soft tissues. Visualized lung apices are clear. IMPRESSION: No acute abnormality of the head or cervical spine. WSN: [id number] Ordering Physician: Leslee Petty Dictated By: Alfred Quispe MD Dictated Date/Time: 07/20/23 9:13 am Reviewed By: Alfred Quispe MD Signed By: Alfred Quispe MD Signed Date/Time: 07/20/23 9:13 am Transcribed By: CLAUDETTE Transcribed Date/Time: 07/20/23 9:05 am * Exam Date Time Procedure Performing Provider Status 07/20/23 8:35 AM Chest Portable Sadie Figueroa; Auth (Verified) Notes: (Chest Portable) Reason For Exam: Hypoxia;Other: RESULT: Chest Portable Chest Portable Hx of Present Illness: Pt has been taking abx for known UTI, had unwitnessed fall today, ?headstrike. COMPARISON: 09/02/2022 FINDINGS: LINES AND TUBES: None. LUNGS AND PLEURA: Clear lungs. Normal pulmonary vascularity. No pleural effusion. No pneumothorax. HEART, MEDIASTINUM AND KARINA: Heart is normal in size. Normal mediastinal and hilar contour. BONES AND SOFT TISSUES: No acute abnormality. IMPRESSION: No acute abnormality. WSN: [id number] Ordering Physician: Leslee Petty Dictated By: Alfred Quispe MD Dictated Date/Time: 07/20/23 8:43 am Reviewed By: Alfred Quispe MD Signed By: Alfred Quispe MD Signed Date/Time: 07/20/23 8:43 am Transcribed By: CLAUDETTE Transcribed Date/Time: 07/20/23 8:42 am Vital Signs Most recent to oldest [Reference Range]: 1 2 3 4 Height 168 cm (07/27/23 3:01 PM) 168 cm (07/27/23 7:58 AM) 168 cm (07/26/23 2:07 PM) Weight 116.4 kg (07/20/23 11:27 PM) 116.4 kg (07/20/23 11:16 PM) 119.3 kg (07/20/23 5:45 PM) Oxygen Saturation [94-100 %] 94 % (07/27/23 3:01 PM) 98 % (07/27/23 7:58 AM) 97 % (07/27/23 3:14 AM) Pulse Rate [55-90 bpm] 62 bpm (07/27/23 3:01 PM) 80 bpm (07/27/23 7:58 AM) 80 bpm (07/27/23 7:36 AM) Body Mass Index [18.5-24.99 kg/m2] 41.24 kg/m2 *>HHI* (07/20/23 11:27 PM) Blood Pressure [90-138/55-84 mm Hg] 137/73mm Hg (07/27/23 3:01 PM) 154/78mm Hg *H* (07/27/23 7:58 AM) 154/78mm Hg *H* (07/27/23 7:36 AM) Respiratory Rate [16-30 br/min] 16 br/min (07/27/23 3:01 PM) 18 br/min (07/27/23 9:51 AM) 18 br/min (07/27/23 8:36 AM) 18 br/min (07/27/23 8:36 AM) Temperature [96.8-100.4 DegF] 97.8 DegF (07/27/23 3:01 PM) 97.4 DegF (07/27/23 7:58 AM) 98 DegF (07/27/23 3:14 AM) Liters per Minute 2 L/min (07/25/23 4:28 PM) 2 L/min (07/25/23 11:25 AM) 2 L/min (07/25/23 7:19 AM) Mode of Delivery (Oxygen) Room air (07/27/23 3:01 PM) Room air (07/27/23 7:58 AM) Room air (07/27/23 3:14 AM) Blood pressure sites Arm, left (07/27/23 3:01 PM) Arm, left (07/27/23 7:58 AM) Arm, right (07/27/23 3:14 AM) Temperature Route Oral (07/27/23 3:01 PM) Oral (07/27/23 7:58 AM) Oral (07/27/23 3:14 AM) Dry Weight 116.4 kg (07/20/23 11:27 PM) 119.3 kg (07/20/23 5:45 PM) 119.3 kg (07/20/23 3:45 PM) Weight Obtained Via Bed scale (07/20/23 11:27 PM) Bed scale (07/20/23 11:16 PM) Dry Weight Obtained Via Bed scale (07/20/23 11:27 PM) Bed scale (07/20/23 2:02 PM) Social History Social History Type Response Smoking Status Former smoker; Other : quit in 1984; entered on: 08/21/14 Sex Admission evaluation note * Mahnaz MONSIVAIS, Lauro: MODIFY, MODIFY, PERFORM Event Display: Admission Note Authored Date: Patient: ??CATERINA NICOLAS ? Age:??78 Years?Sex:??Male?:??1945?? Chief Complaint/Reason for Consultation Pt has been taking abx for known UTI, had unwitnessed fall today, ?headstrike, Baseline A/O, ??not verbally responding per ems. per family, pt has increase AMS. History of Present Illness 78-year-old male with PMH of HTN; VIVIAN not on CPAP; GERD; HLD; mood disorder; recently diagnosed with a UTI on Keflex; presented to ED with chief complaints of altered mental status, accompanied by . ?? At baseline, patient is AAO x3, uses walker for ambulation, has a wheelchair as well..?? In the night prior to presentation, patient was found on the floor after having unwitnessed fall.?? Patient was in his usual health until going to bed on 07/19/2023; at around 9 PM, heard a thud, found patient on the floor, confused and shaking, found to be alert to self only, was following basic commandsand intermittently responding appropriately to questions; since then patient's mentation has been improving, but is confused at times.?? Reportedly there is no head injury. EMS found patient to be confused and minimally responsive. ?? Patient also reported fevers, chills, fatigue; was recently diagnosed with UTI on 07/15/2023, has been on Keflex. ?? On my evaluation, he complained of low back pain;??denied any fevers, chills,??headache, vision changes,??orthopnea, PND, chest pain, abdominal pain, nausea, vomiting, diarrhea, dysuria. ?? In the ED, he was found to be febrile Tmax 103, received Tylenol 975 mg, repeat rectal temp 102F, cooling blankets placed.?? On ED evaluation, GCS 14, no focal neurodeficits noted.?? Bedside echo done by ED was positive for collapsible IVC; RV strain was noted, no pericardial fluid. EKG sinus tachycardia, nonischemic, no S1 but Q3T3 present, CT angio chest showed acute right PE without right heart strain; IVC evaluation was called, no thrombolytics recommended, and patient was started on therapeutic Lovenox. ?? -Vitals: Tmax 103F, last temp 98.3; HR 90s-120s; RR 15-31; BP 120s-150s/50s-90s; was desaturating on room air, saturating well on 2 L O2 NC. -Labs showed WBC 16, normal H/H, thrombocytopenia platelet 134.;?? CMP grossly unremarkable; initial lactate 2.4, trended down to 1.4; high-sensitivity trops 159, trended down to 154; proBNP 1011; COVID-negative; -Urinalysis showed 2+ leukocytes, negative for nitrites, moderate WBC. -Noncontrast CT brain and cervical spine: No acute fractures, no acute abnormality of head or cervical spine. -Noncontrast CT abdomen and pelvis: No acute abnormality. -Bilateral venous duplex: Positive exam for venous thrombosis with bilateral posterior tibial vein thrombus. -CT PE study showed acute pulmonary embolism throughout right lung, do not meet criteria for submassive PE; enlargement of main pulmonary artery may be due to underlying pulmonary arterial hypertension and/or acute PE. -ED Meds: Tylenol 975 mg; Lovenox 120 mg; pantoprazole; Zosyn; vancomycin; LR 1 L bolus x2. Review of Systems --14 point ROS done, pertinent positives and negative history mentioned in HPI. Objective Vital Signs?? Temperature: 98.3 DegF (07/20/23 19:59:00) Temperature Route: Oral (07/20/23 19:59:00) Pulse Rate:??95 bpm??High (07/20/23 19:59:00) Respiratory Rate: 21 br/min (07/20/23 19:59:00) Systolic Blood Pressure:??141 mm Hg??High (07/20/23 19:59:00) Diastolic Blood Pressure: 66 mm Hg (07/20/23 19:59:00) Blood pressure sites: Arm, left (07/20/23 19:59:00) Mean Arterial Pressure: 88 mm Hg (07/20/23 17:45:00) Pulse Pressure: 75 mm Hg (07/20/23 19:59:00) Oxygen Saturation: 94 % (07/20/23 19:59:00) Liters per Minute: 2 L/min (07/20/23 15:45:00) Mode of Delivery (Oxygen): Room air (07/20/23 19:59:00) Early Warning Score: 7 (07/20/23 20:00:14) ? Physical Exam General: Awake, alert, oriented x3. ??Not in acute distress. ??Able to speak in full sentences. Following commands appropriately. HEENT: NC/AT, PERRLA, no pallor, no icterus, moist mucous membranes. Neck: Supple, no JVD Respiratory: Clear to auscultation bilaterally. ??No wheezes, rhonchi or crackles appreciated. CVS: Regular rhythm. ??Normal S1-S2 heard. ??No murmurs appreciated. Abdomen: Soft, nondistended, nontender, Normoactive bowel sounds. Neurological: Moving all 4 limbs freely. ??Speech normal. ??No obvious gross focal neuro deficit appreciated. Extremities: B/L pedal pulses palpable.?b/l 1+ leg edema Assessment/Plan Diagnoses Acute hypoxemic respiratory failure ??(J96.01) DVT (deep venous thrombosis) ??(I82.409) Fall ??(W19.XXXA) HLD (hyperlipidemia) ??(E78.5) HTN (hypertension) ??(I10) Hyperthermia ??(R50.9) Lactic acidosis ??(E87.20) Leukocytosis ??(D72.829) Metabolic encephalopathy ??(G93.41) Mood disorder ??(F39) Neuropathic pain ??(M79.2) Pulmonary embolism on right ??(I26.99) Sepsis ??(A41.9) Thrombocytopenia ??(D69.6) UTI (urinary tract infection) ??(N39.0) ? Acute hypoxemic respiratory failure (J96.01):??- Pulmonary embolism on right (I26.99):??- DVT (deep venous thrombosis) (I82.409):??- -Patient found to have??bilateral lower extremity DVT,??and??right pulmonary embolism;??bedside echo concerning for??right heart strain; ICU was consulted, recommended no thrombolysis. -Patient started on therapeutic Lovenox??in the ED; continue. -Formal echo??ordered by ED -Telemetry monitoring ?? Sepsis (A41.9):??-?? Hyperthermia (R50.9):??- UTI (urinary tract infection) (N39.0):??- Leukocytosis (D72.829):??- -Patient found to have Tmax 103,??requiring cooling blanket??and Tylenol; also found to have leukocytosis; recently outpatient was diagnosed with UTI, currently urinalysis??positive for leukocyte esterase.?? Received Zosyn in the ED.?? Patient also found to be tachycardic, tachypneic; septic likelyin setting of infection, also component of??PE. PLAN: -Patient does not have Andrew,??or risk factors??for complicated UTI;??CT abdominal pelvis without contrast did not show??any obstructive stones??or concerns for pyelonephritis. -Start IV ceftriaxone??1 g once daily. -Follow urine and blood cultures sent from ED. ?? Lactic acidosis (E87.20):??-Likely in setting of tissue hypoperfusion,??resolved with IV fluid resuscitation. ?? Metabolic encephalopathy (G93.41):??-Likely in setting of infection??and PE.?? Resolving. ?? Fall (W19.XXXA):??-Likely in setting of PE,??hypovolemia.?? Continue fall precautions ?? HLD (hyperlipidemia) (E78.5):??-Continue home statin ?? HTN (hypertension) (I10):??-Hold home atenolol, given??recent hypovolemia ?? Thrombocytopenia (D69.6):??-likely in setting of sepsis;??continue to monitor. ?? Neuropathic pain (M79.2):??-Patient has history of??disc prolapse,??chronic pain; continue home gabapentin. ?? Mood disorder (F39):??-Patient has history of PTSD; continue home venlafaxine. ??Currently denies any SI or HI. ?? VTE Prophylaxis:??-On Lovenox ?VTE Prophylaxis Assessment:??VTE Prophylaxis Ordered ?? Code Status:??-Full Code ?Order Code Status:??Code Status Ordered ?? Date & Time of Service:??07/20/23; around 10 PM Total eval time:: I spent a total of??80 minutes, including both owgo-rq-zlem and vgj-tfop-qr-face time on the date of the encounter, addressing the above diagnoses. Activities performed in this time include chart review, obtaining / reviewing history, performing a medically necessary evaluation, CODE STATUS?? discussion, documentation, charting and counseling, documentation, charting and counseling. ?? Please note: This note has been prepared using voice recognition software. As a result errors may occur. When identified these adult secondary education instructor errors have been corrected. While every attempt is madeto correct errors during dictation, errors may still exist. Histories Allergies Allergies ?(Active and Proposed Allergies Only) lisinopril? (Severity: Unknown severity, Onset: Unknown) ?Reactions: cough nonsteroidal antiinflammatory agent? (Severity: Unknown severity, Onset: Unknown) ?Reactions: stomache pain ? Past Medical History/Problem List Active Problems??(5) Erectile dysfunction Gastro-esophageal reflux disease Hyperlipidemia Hypertension Osteoarthritis ? Past Surgical History No surgery history documented. ? Social History Alcohol Details:??Use: Past. ??Other: heavy drinker in past. ??quit 2004. Employment/School Details:??Status: Retired. 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 Exercise Details:??Self assessment: Fair condition. Home/Environment Details:??Lives with: Spouse. Sexual Details:??Sexually involved in last 6 months: No. ??Sexual orientation: Heterosexual. Substance Abuse Details:??Use: Never. Tobacco Details:??Use: Former smoker. ??Other: quit in 1984. ? Family History Mother: Cancer of breast; Pancreatic cancer Father: Congestive heart failure; Coronary artery disease; Hypertension ? Medications Home Medications Atenolol (atenolol 25 mg oral tablet)?25?Milligram?1?tab(s)?By Mouth?Daily Miscellaneous Rx (swimming)?See Instructions?dx=arthritis, obesityJohn is only able to exercise in the pool due to knee, ankle arthritis. Use pool for 30 min 5x per week. Multivitamin With Minerals (Centrum)?1?tab(s)?By Mouth?Daily Omeprazole (omeprazole 20 mg oral enteric coated capsule)?1?capsule?20?Milligram?By Mouth?Daily Simvastatin (simvastatin 40 mg oral tablet)?40?Milligram?1?tablet?By Mouth?Daily at bedtime Venlafaxine (venlafaxine 75 mg oral tablet, extended release)?1?tab(s)?75?Milligram?By Mouth?Daily ? Results Recent Labs BLOOD COUNT & DIFF WBC 16.0 k/mm3 (High)?? 07/20/2023 16:00 RBC 4.73 m/mm3 ()?? 07/20/2023 16:00 Hgb 14.7 Gm/dL ()?? 07/20/2023 16:00 Hct 44.0 % ()?? 07/20/2023 16:00 MCV 93.0 femtoliters ()?? 07/20/2023 16:00 MCH 31.1 pg ()?? 07/20/2023 16:00 MCHC 33.4 g/dL ()?? 07/20/2023 16:00 Platelet Count 134 k/mm3 (Low)?? 07/20/2023 16:00 RDW-SD 45.5 femtoliters ()?? 07/20/2023 16:00 MPV 9.7 femtoliters ()?? 07/20/2023 16:00 Nucleated RBC (Automated) 0.0 #/100 WBC'S ()?? 07/20/2023 16:00 Abs. NRBC 0.0 k/mm3 ()?? 07/20/2023 16:00 ?? CARDIAC Nt-Probnp 1011 pg/mL (High)?? 07/20/2023 09:40 High Sensitivity Troponin (HSTnT) 154 ng/L (Critical)?? 07/20/2023 11:24 ?? CHEM GENERAL Sodium 140 mmol/L ()?? 07/20/2023 09:40 Potassium 3.7 mmol/L ()?? 07/20/2023 09:40 Chloride 104 mmol/L ()?? 07/20/2023 09:40 Bicarbonate Level 23 mmol/L ()?? 07/20/2023 09:40 Anion Gap 13 ()?? 07/20/2023 09:40 Glucose Level 103 mg/dL (High)?? 07/20/2023 07:41 Glucose, POC 87 mg/dL ()?? 07/20/2023 07:54 BUN 20 mg/dL ()?? 07/20/2023 07:41 Creatinine-Blood 0.8 mg/dL ()?? 07/20/2023 07:41 Estimated GFR Creatinine 90 ML/MIN/1.73 M2 ()?? 07/20/2023 07:41 Calcium 10.2 mg/dL ()?? 07/20/2023 07:41 Protein, Total 6.0 Gm/dL (Low)?? 07/20/2023 09:40 Albumin 3.6 Gm/dL ()?? 07/20/2023 09:40 Alkaline Phosphatase 72 units/L ()?? 07/20/2023 09:40 AST (SGOT) 28 units/L ()?? 07/20/2023 09:40 ALT (SGPT) 18 units/L ()?? 07/20/2023 09:40 Bilirubin, Total 1.0 mg/dL ()?? 07/20/2023 09:40 Bilirubin, Direct 0.4 mg/dL (High)?? 07/20/2023 09:40 Bilirubin, Indirect 0.6 mg/dL ()?? 07/20/2023 09:40 Lactate 1.4 mmol/L ()?? 07/20/2023 09:40 ?? HEME OTHER Hold Lavender Top SPECIMEN DISCARDED AFTER 24 HOURS. ()?? 07/20/2023 09:40 ?? UA/URINALYSIS Appear/Color, Urine YELLOW ()?? 07/20/2023 10:02 Specific [place], Urine 1.025 ()?? 07/20/2023 10:02 pH, Urine 6.0 ()?? 07/20/2023 10:02 Albumin, Urine 1+ (Abnormal)?? 07/20/2023 10:02 Glucose, Urine NEGATIVE ()?? 07/20/2023 10:02 Ketones, Urine 1+ (Abnormal)?? 07/20/2023 10:02 Bilirubin, Urine NEGATIVE ()?? 07/20/2023 10:02 Hemoglobin, Urine 1+ (Abnormal)?? 07/20/2023 10:02 Nitrite, Urine NEGATIVE ()?? 07/20/2023 10:02 Leukocyte, Urine 2+ (Abnormal)?? 07/20/2023 10:02 Urobilinogen NORMAL mg/dL ()?? 07/20/2023 10:02 WBC's, Urine 23 /HPF (High)?? 07/20/2023 10:02 RBC's, Urine 11 /HPF (High)?? 07/20/2023 10:02 Squamous Epith <1 /HPF ()?? 07/20/2023 10:02 Mucus SLIGHT /LPF ()?? 07/20/2023 10:02 Hold Urine Culture Testing available 48 hours from time of collection. ()?? 07/20/2023 10:02 ?? VIROLOGY COVID-19 PCR Specimen Source NASAL ()?? 07/20/2023 07:44 COVID-19 PCR Result NEGATIVE ()?? 07/20/2023 07:44 ? Microbiology ?? COVID-19 (2019 Novel Coronavirus) PCR?? Completed?? Source: Nasal Body Site: Nose Collected Dt/Tm: 07/20/2023 07:39 Last Updated Dt/Tm: 07/20/2023 09:31 Urine Culture?? Collected?? Source: Urine Straight Cath Body Site: ?? Collected Dt/Tm: 07/20/2023 11:24 Last Updated Dt/Tm: 07/20/2023 11:24 ? EKG study * Event Display: ECG 12-Lead Authored Date: Please click on pdf link to open report * Event Display: ECG 12-Lead Authored Date: Ventricular Rate: 100 BPM Atrial Rate: 100 BPM P-R Interval: 156 ms QRS Duration: 80 ms Q-T Interval: 326 ms QTC Calculation(Bazett): 420 ms P [place]: 20 degrees R [place]: -12 degrees T [place]: -12 degrees Sinus rhythm with Premature supraventricular complexes Inferior infarct , age undetermined Abnormal ECG When compared with ECG of 20-JUL-2023 09:49, MANUAL COMPARISON REQUIRED, DATA IS UNCONFIRMED Confirmed by YURIY SERVIN MD () on 07/20/2023 11:38:47 AM Standard: YURIY SERVIN MD * Event Display: ECG 12-Lead Authored Date: [id number] Please click on pdf link to open report * Event Display: ECG 12-Lead Authored Date: Ventricular Rate: 107 BPM Atrial Rate: 107 BPM P-R Interval: 144 ms QRS Duration: 96 ms Q-T Interval: 336 ms QTC Calculation(Bazett): 448 ms P [place]: 39 degrees R [place]: -1 degrees T [place]: -[address] and T wave abnormality, consider inferior ischemia Abnormal ECG When compared with ECG of 02-SEP-2022 14:46, Premature atrial complexes are no longer Present Questionable change in QRS axis Non-specific change in ST segment in Inferior leads ST no longer depressed in Lateral leads T wave inversion now evident in Inferior leads Nonspecific T wave abnormality no longer evident in Lateral leads Confirmed by YURIY SERVIN MD () on 07/20/2023 11:38:16 AM Standard: YURIY SERVIN MD Heart * Event Display: Echocardiogram - Complete Authored Date: [id number] Transthoracic Echocardiography Report (TTE) Patient Demographics Patient Name CATERINA NICOLAS Date of Study 07/21/2023 Corporate Gender Male Facility Race Ethnicity Date of 1945 Height: 64.96 inches Age 78 year(s) Weight: 264.57 pounds Accession Number [id number] BSA: 2.23 m2 Room Number [id number] BMI: 44.08 kg/m2 Referring Physician Not on Staff Interpreting Raffi Castellon MD Referring MD Physician Jovanny Camilo MD Systems Program Manager Sam Gann [facility] Indications Pulmonary embolus. Clinical History CHILL FEVER, ALTERED MENTAL STATUS POSSIBLE SEPSIS SOB/KELLY OBESITY Study Data Type of Study TTE procedure:Echo Complete-(Doppler, Colorflow) with Contrast. Procedure Information:Definity was administered to improve endocardial border definition. Study Date07/21/2023 Start Time: 03:13 PM Study Location: [facility] Adult Echo Study Status: Bedside Patient Status: Routine Technical Quality: Technically difficult Blood Pressure:134/70 mmHg EKG: Normal sinus rhythm HR: 89 bpm Contrast Medium: Definity. Amount - 2 ml 2D Measurements LV Diastolic Dimension: 5.24 cm LV Systolic Dimension: 3.86 cm LV Septum Diastolic: 1.2 cm LV PW Diastolic: 1.2 cm AO Root Dimension: 3.6 cm LA Dimension: 2.6 cm LA ESV (BP):58.6 ml LVOT Stroke Volume: 87.89 ml LA ESV Index: 26 ml/m2 Stroke Volume Index39.41 ml/m2 LVOT: 2.39 cm Cardiac Index:3.51 l/min/m2 Ascending Aorta:4 cm Doppler Measurements AV Peak Velocity: 157 cm/s MV Peak E-Wave: 56.7 cm/s AV Peak Gradient: 9.86 mmHg MV Peak A-Wave: 86.9 cm/s AV Mean Gradient: 5 mmHg MV E/A Ratio: 0.65 AV VTI:24.8 cm MV P1/2t: 55 msec LVOT Peak Velocity: 106 cm/s LVOT VTI19.6 cm MV Deceleration Time: 188 msec AV Area (Continuity):3.54 cm2 MV Area (PHT): 4 cm2 TR Velocity:306.57 cm/s PV Peak Velocity: 128 cm/s TR Gradient:37.59 mmHg PV Peak Gradient: 6.55 mmHg E' Septal Velocity: 7.94 cm/s E' Lateral Velocity: 13.4 cm/s E/Med E':[id number] E/Lat E':[id number] Cardiac Anatomy Left Ventricle/Interventricular Septum The left ventricle is poorly visualized despite contrast enhancement. The apical views are foreshortened. The left ventricular size is normal. The left ventricular wall thickness is mildly increased. The LV systolic function appears mildly reduced . Cannot assess LV ejection fraction. Image quality is inadequate to assess regional wall motion. Left Atrium/Interatrial Septum The left atrium is poorly visualized. Aortic Valve The aortic valve is is poorly visualized. There is no aortic stenosis. There is no aortic regurgitation. Mitral Valve The mitral valve opening is normal. There is no significant mitral regurgitation. Aorta The ascending aorta and aortic root are normal in size for BSA. Right Ventricle The right ventricle is normal in size. Right ventricular systolic function is reduced. The right ventricular free wall is hypokinetic . Right Atrium The right atrium is normal in size. Pulmonic Valve The pulmonic valve appears normal. Tricuspid Valve The tricuspid valve is grossly normal. There is mild tricuspid valve regurgitation. Pumonary Artery There is mild pulmonary hypertension. Venous Structures The inferior vena cava appears grossly normal. Pericardium/Extracardiac There is no significant pericardial effusion. Summary The left ventricle is poorly visualized despite contrast enhancement. The apical views are foreshortened. The left ventricular size is normal. The left ventricular wall thickness is mildly increased. The LV systolic function appears mildly reduced . Cannot assess LV ejection fraction. Image quality is inadequate to assess regional wall motion. The right ventricle is normal in size. Right ventricular systolic function is reduced. The right ventricular free wall is hypokinetic . There is mild pulmonary hypertension. Comparison No prior study available for comparison. Signature * Event Display: Echocardiogram - Complete Authored Date: Cardiology * Event Display: Cardiac Rhythm Strips Authored Date: * Event Display: Cardiac Rhythm Strips Authored Date: Hospital Progress note * Merly Maurice RN: PERFORM, SIGN, VERIFY Event Display: Progress Note Hospital Authored Date: Patient: CATERINA NICOLAS Age: 78 years Sex: Male : 1945 Associated Diagnoses: None Author: Merly Maurice RN Findings Problem Related to Alteration in Respiratory Function (new) : Alteration in Respiratory Function/new 07/26/2023 16:00 EDT Alteration in Resp Status Related to Pulmonary embolism Goals & Outcomes, Respiratory Pt will maintain/resume baseline physical assessment, Pt will maintain/resume normal fluid/electrolyte balance, Pt will not develop complications r/t immobility Interventions, Respiratory Assess/monitor tolerance to IV infusions; verify rate/dose, Assess for and report S&S of respiratory distress, Position for comfort & optimal oxygenation, Initiate pulmonary rehab nurse consult, Monitor sputum color & consistency. Report changes to MD, Teach/encourage use of incentive spirometer, Teach the proper use of inhalers, Teach Pt/caregiver Smoking cessation education, Teach purse lip breathing as needed for breathing retraining, Teach tripod positioning to promote air exchange . Nursing Data Vital Signs : VITAL SIGNS SECTION 07/26/2023 14:07 EDT Temperature 97.4 DegF Temperature Route Oral Pulse Rate 65 bpm Respiratory Rate 18 br/min Systolic Blood Pressure 147 mm Hg H Diastolic Blood Pressure 74 mm Hg Blood pressure sites Arm, right Mean Arterial Pressure 98 mm Hg Pulse Pressure 73 mm Hg Oxygen Saturation 95 % Mode of Delivery (Oxygen) Room air 07/26/2023 7:17 EDT Temperature 98 DegF Temperature Route Oral Pulse Rate 79 bpm Respiratory Rate 18 br/min Systolic Blood Pressure 153 mm Hg H Diastolic Blood Pressure 83 mm Hg Blood pressure sites Arm, left Mean Arterial Pressure 106 mm Hg Pulse Pressure 70 mm Hg Oxygen Saturation 94 % Mode of Delivery (Oxygen) Room air . Evaluation Pt A&Ox3, VSS, afrebile. LS clear on room air. Pt is bedfast, mixed continence of urine, continent of stool. Pt reports back and L hip pain, given scheduled oxycodone with good effect. Pt restingin bed, spouse at bedside, call light in reach. See CIS for full assessment. . * Lizbeth Bangura: PERFORM, SIGN, VERIFY Event Display: Progress Note Hospital Authored Date: Patient: CATERINA NICOLAS Age: 78 years Sex: Male : 1945 Associated Diagnoses: None Author: Lizbeth Bangura Findings Problem Related to Alteration in Respiratory Function (new) : Alteration in Respiratory Function/new 07/25/2023 17:00 EDT Alteration in Resp Status Related to Pulmonary embolism Goals & Outcomes, Respiratory Pt will maintain/resume baseline physical assessment, Pt will maintain/resume normal fluid/electrolyte balance, Pt will not develop complications r/t immobility Interventions, Respiratory Position for comfort & optimal oxygenation Goals/Interventions, Respiratory Yes Respiratory, Problem Start 07/21/2023 4:08 Reviewed Plan with, Respiratory Patient, Spouse/significant other Patient Progression, Respiratory Patient progressing according to plan . Evaluation Patient AOx3 and cooperative with care. He complains of chronic back pain. oxycodone and Tylenol administered with moderate effect In the afternoon, patient slightly lethargic and desat to 89. 2L NC was placed with positive improvement. MD. Paredes made aware of acute change. Other VS stable, hob at 30, patent repositioned in bed as needed. Ampicillin infused as ordered. present at bedside fora visit today. Safety measures placed with callbell within reach and bed in low position. RN will continue to assess. . Discharge Information Rehabilitation Discharge : Rehab Discharge Index 07/25/2023 12:01 EDT Transfer tub/shower OT Plan Mod assist 07/25/2023 11:34 EDT Walker: distance < 10 07/22/2023 13:04 EDT Walker: distance < 10 07/21/2023 15:06 EDT Comments on treatment indicated OT to address ADL's, transfers, safety, precautions Full chart review completed Yes Transfer tub/shower OT Plan Mod assist 07/21/2023 8:30 EDT Comments on treatment indicated 78 y/o M recently diagnosed with a UTI on Keflex; presented to ED with chief complaints of altered mental status s/p unwitnessed fall. found to haveB LE DVT, and right pulmonary embolism. WBAT Distance pt will ambulate >50 ft c RW Full chart review completed Yes Hospital course see comment Other findings Pt is a moderate complexity evaluationa s circumstances leading to hospitalization impact POC and functional mobility. Plan of care PT Gait training, Transfer training, Therapeutic exercise, Functional Activities, Balance training, Neuromuscular education * Lizbeth Bangura: VERIFY, PERFORM, SIGN Event Display: Progress Note Hospital Authored Date: Patient: CATERINA NICOLAS Age: 78 years Sex: Male : 1945 Associated Diagnoses: None Author: Lizbeth Bangura Discharge Information Rehabilitation Discharge : Rehab Discharge Index 07/25/2023 12:01 EDT Transfer tub/shower OT Plan Mod assist 07/25/2023 11:34 EDT Walker: distance < 10 07/22/2023 13:04 EDT Walker: distance < 10 07/21/2023 15:06 EDT Comments on treatment indicated OT to address ADL's, transfers, safety, precautions Full chart review completed Yes Transfer tub/shower OT Plan Mod assist 07/21/2023 8:30 EDT Comments on treatment indicated 78 y/o M recently diagnosed with a UTI on Keflex; presented to ED with chief complaints of altered mental status s/p unwitnessed fall. found to haveB LE DVT, and right pulmonary embolism. WBAT Distance pt will ambulate >50 ft c RW Full chart review completed Yes Hospital course see comment Other findings Pt is a moderate complexity evaluationa s circumstances leading to hospitalization impact POC and functional mobility. Plan of care PT Gait training, Transfer training, Therapeutic exercise, Functional Activities, Balance training, Neuromuscular education Consult note * Jose G MONSIVAIS, [place]: PERFORM Event Display: Consultation Note Authored Date: Patient: ??CATERINA NICOLAS ? Age:??78 Years?Sex:??Male?:??1945?? Chief Complaint Pt has been taking abx for known UTI, had unwitnessed fall today, ?headstrike, Baseline A/O, ??not verbally responding per ems. per family, pt has increase AMS. History of Present Illness Reason for consult: Porteous bacteremia Pt is a 78 y/o M with pmhx of Mood disorder, HLD, HTN, VIVIAN, GERD, and recently tx UTI with Keflex who presented to ED on 07/20 after found on the floor by , confused and shaking. Per EMS pt was not initially verbal. He was last noted to be at baseline on 07/19. Apparently reported associated fevers, chills, as well as??fatigue. On admission pt was febrile with Tamx of 103.1 with tachycardia, hypertension and was initially requiring oxygen however currently on RA. Labs were significant for leukocytosis with otherwise normal CMP, UA. Initial CXR/CT head and cervical spine was normal.CTA showed Acute pulmonary embolism within the distal right main pulmonary artery extending into right lower lobe, right middle lobe, and right upper lobe segmental and subsegmental branches. Main pulmonary artery is dilated at 3.4 cm. However, did not meet criteria for submassive PE. Enlargement of the main pulmonary artery may be due to underlying pulmonary arterial hypertension and/or acute PE. BLLExt US showed DVT with bl post tibial vein occlusive thrombus. CT abd/pelvis was otherwise normal with renal cyst, study was limited to evaluate for stones.??Blood cx both sets + mccarthy susceptible proteus mirabilis, with repeated blood cx is remaining neg from the . ?? Of note pt was verbal on my evaluation, however was not aware of surroundings.??ROS negative? Review of Systems Currently denies any back pain, abd pain, dysuria, urinary frequency, fevers, chills, n/v/d, cough,sob Physical Exam Vitals & Measurements T:??98.4?F?? TMIN:??97.4?F?? TMAX:??100.5?F?? HR:??66??(Peripheral)?? RR:??20?? BP:??149/73?? SpO2:??95%?? Gen: NAD, comfortably lying down on RA HEENT: Normocephalic, PERRLA, anicteric, EOMI, moist oral mucosa? Respiratory: CTABLL Cardiac: RRR, no murmur is appreciated? GI: soft, non-tender, non-distended, bowel sounds. No CVA tenderness ? Extremities: minimal BLLExt edema, no joint swelling appreciated Derm: No rash / lesion noted Assessment/Plan Assessment:??Porteous bacteremia suspect GI translocation less likely source. Primary team was worried about persistent low grade fever on appropriate abx coverage. I suspect this is due to pts BLDVT as well as PE. Repeated blood cx is showing clearance of bacteremia. ?? Recommendation De-escalate abd to Unasyn and when pt is discharged ready can switch to po Augmentin to complete a 14D course ?? ID will sign off THank you ?? Problem List/Past Medical History Ongoing Chicken pox Erectile dysfunction Gastro-esophageal reflux disease Hyperlipidemia Hypertension Osteoarthritis Severe obesity Medications Inpatient Acetaminophen Tablet, 650 mg, By Mouth, Every 4 hours, PRN acetaminophen-HYDROcodone 325 mg-5 mg oral tablet, 1 tablet, By Mouth, Daily at bedtime atenolol 25 mg oral tablet, 25 mg, By Mouth, Daily Docusate Sodium Capsule, 100 mg= 1 capsule, By Mouth, 2 times a day, PRN gabapentin 300 mg oral capsule, 600 mg, By Mouth, 3 times a day Melatonin Tablet, 3 mg, By Mouth, Daily at bedtime, PRN MiraLax Powder, 17 Gm= 1 pack/packet, By Mouth, Daily, PRN NaCL 0.9% Flush, 3 mL, IV Push, Every 8 hours NaCL 0.9% Flush, 3 mL, IV Push, Every 8 hours, PRN oxyCODONE 5 mg oral tablet, 5 mg, By Mouth, 2 times a day Protonix 40 mg oral delayed release tablet, 40 mg, By Mouth, Daily Rivaroxaban Tablet, 15 mg, By Mouth, 2 times a day with meals Rivaroxaban Tablet, 20 mg, By Mouth, Daily at supper Robitussin DM Liquid, 10 mL, By Mouth, Every 4 hours, PRN Senna Tablet, 8.6 mg= 1 tablet, By Mouth, 2 times a day, PRN Simethicone Tablet, 80 mg, Chew, 3 times a day, PRN simvastatin 20 mg oral tablet, 40 mg, By Mouth, Daily at bedtime venlafaxine 37.5 mg oral capsule, extended release, 75 mg, By Mouth, Daily Zosyn Extended IVPB, 3.375 Gm, IVPB, Every 8 hours Home acetaminophen-hydrocodone 300 mg-5 mg oral tablet, 1 tablet, By Mouth, Daily at bedtime, PRN atenolol 25 mg oral tablet, 25 mg= 1 tablet, By Mouth, Daily Centrum, 1 tablet, By Mouth, Daily gabapentin 600 mg oral tablet, 600 mg= 1 tablet, By Mouth, 3 times a day omeprazole 20 mg oral enteric coated capsule, 20 mg= 1 capsule, By Mouth, Daily oxyCODONE 5 mg oral capsule, 5 mg= 1 capsule, By Mouth, 2 times a day, PRN simvastatin 40 mg oral tablet, 40 mg= 1 tablet, By Mouth, Daily at bedtime swimming, See Instructions venlafaxine 75 mg oral tablet, extended release, 75 mg= 1 tablet, By Mouth, Daily Allergies lisinopril??(cough) nonsteroidal antiinflammatory agent??(stomache pain) Social History Alcohol Use: Past. Other: heavy drinker in past. quit 2004. Employment/School Status: Retired. 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 Exercise Self assessment: Fair condition. Home/Environment Lives with: Spouse. Sexual Sexually involved in last 6 months: No. Sexual orientation: Heterosexual. Substance Abuse Use: Never. Tobacco Use: Former smoker. Other: quit in 1984. Family History Cancer of breast: Mother. Congestive heart failure: Father. Coronary artery disease: Father. Hypertension: Father. Pancreatic cancer: Mother. Immunizations Vaccine Date Status influenza virus vaccine, inactivated 07/21/2023 Given pneumococcal 23-valent vaccine - Not Given Comments : Patient Refused tetanus-diphtheria toxoids (Td) 12/02/2006 Given influenza virus vaccine, inactivated 08/22/2006 Given Comments : [employer] manufacturers. ??no contraindications per patient Lab Results ?? Culture/Event_id: ?Blood Culture, Second Order/[id number]?? Collect date: ?07/22/23 12:54 ? Result Status: ?Preliminary Result Date: ?07/23/23 23:00 ? SPECIMEN DESCRIPTION : BLOOD R HAND ?? SPECIAL REQUESTS : NONE ?? CULTURE : NO GROWTH AFTER 24 HOURS ?REPORT STATUS : ?? PRELIMINARY REPORT ? Culture/Event_id: ?Blood Culture/[id number]?? Collect date: ?07/22/23 12:54 ? Result Status: ?Preliminary Result Date: ?07/23/23 23:00 ? SPECIMEN DESCRIPTION : BLOOD L ARM ?? SPECIAL REQUESTS : NONE ?? CULTURE : NO GROWTH AFTER 24 HOURS ?REPORT STATUS : ?? PRELIMINARY REPORT ? Culture/Event_id: ?Blood Culture, Second Order/[id number]?? Collect date: ?07/20/23 07:41 ? Result Status: ?Auth (Verified) Result Date: ?07/23/23 10:15 ? SPECIMEN DESCRIPTION : BLOOD RT HAND ?? SPECIAL REQUESTS : CRITICAL VALUE CALLED AND VERIFIED BY READBACK FOR: GRAM NEGATIVE RODS ? AND PCR HAVE BEEN CALLED TO [id number] [facility] [id number] ON 07/21/23 @0054 BY ? TECH 8691 ?? CULTURE : PROTEUS MIRABILIS ??This isolate was identified using Maldi-TOF system ??FOR SUSCEPTIBILITY RESULT REFER TO BLOOD CULTURE ACCESSION ?[id number] ?Proteus species was identified by multiplex PCR. ?? REPORT STATUS : FINAL 07/23/2023? Culture/Event_id: ?Blood Culture/[id number]?? Collect date: ?07/20/23 07:41 ? Result Status: ?Auth (Verified) Result Date: ?07/23/23 10:15 ? SPECIMEN DESCRIPTION : BLOOD NONE ?? SPECIAL REQUESTS : NONE ?? CULTURE : PROTEUS MIRABILIS ??This isolate was identified using Maldi-TOF system ??These AST results were performed on the Vitek 2 ID and AST system ?? REPORT STATUS : FINAL 07/23/2023 ? ORGANISM ? PROTEUS MIRABILIS ??This isolate was identified using ? Maldi-TOF system These AST results were performed on ??the Vitek 2 ID and AST system METHOD ? MIN. INHIB. CONC. (MCG/ML) AMPICILLIN ? SUSCEPTIBLE AMPICILLIN/SULBACTAM SUSCEPTIBLE CEFEPIME ? SUSCEPTIBLE CEFTRIAXONE ?SUSCEPTIBLE CIPROFLOXACIN ?SUSCEPTIBLE ERTAPENEM ?SUSCEPTIBLE GENTAMICIN ? SUSCEPTIBLE LEVOFLOXACIN ? SUSCEPTIBLE PIPERACILLIN/TAZOBAC SUSCEPTIBLE TRIMETH/SULFAMETHOX ??SUSCEPTIBLE? Diagnostic Results (07/20/2023 12:[address] Abdomen and Pelvis W/O Contrast) RESULT: CT Abdomen and Pelvis W/O Contrast CT Abdomen and Pelvis W/O Contrast? Hx of Present Illness: Pt has been taking abx for known UTI, had unwitnessed fall today, ?headstrike, Baseline A O, ??not verbally responding per ems. per family, pt has increase AMS.; Reason: Other:; Flank pain, kidney stone suspected; Clinical Question(s): Calculus; Left Side flank ?? TECHNIQUE: Spiral CT through the abdomen and pelvis without IV contrast formatted in 3 planes. Thisstudy was performed oral contrast. Weight-based protocol using automatic tube modulation was used to optimize exposure parameters.? CTDIvol Body: 13.40 mGy, ??DLP Body: 674 mGy*cm. ? COMPARISON: None ?? FINDINGS:? Patternmaker Grader View Findings, Lines and Tubes: None. ?? Visualized Chest: Lung bases are clear. No pleural effusion. The heart is normal in size. No pericardial effusion. ?? Diaphragm: Normal. ?? Liver: The visualized portion is normal. ?? Gallbladder: No CT evidence of gallbladder pathology. ?? Bile ducts: No biliary ductal dilation. ?? Spleen: Normal. ?? Pancreas: Normal. ?? Adrenal glands: Normal. ?? Kidneys and ureters: Excreted contrast in the collecting system from prior CT angiogram of the chest. Left lower pole simple cyst measuring up to 4.3 cm, not requiring further follow-up. Hydronephrosis. Limited evaluation for renal calculi due to excreted contrast in the collecting system. ?? Bladder: Filled with contrast, otherwise unremarkable ?? Reproductive organs: Unremarkable. ?? Stomach, small bowel, and large bowel: Mild stool retention. No inflammatory change. No obstruction. ?? Appendix: Normal. ?? Peritoneum and retroperitoneum: No ascites or pneumoperitoneum. No omental or mesenteric lesions. ?? Lymph nodes: No enlarged lymph nodes. ?? Blood vessels: Normal. No aneurysm. ?? Abdominal and pelvic wall: Tiny fat-containing focal hernia. Small left greater than right fat-containing inguinal hernias. ?? Bones: No acute abnormality. Moderate multilevel degenerative changes of the spine for ?? IMPRESSION:? No acute abnormality. ?? Limited evaluation for renal calculi due to excreted contrast within the collecting system. No hydronephrosis. [1] [1]??CT Abdomen and Pelvis W/O Contrast; Jose Enrique MONSIVAIS, Alfred Thurston 07/20/2023 12:50 EDT * Ronal MONSIVAIS, Jay Jay Heard: PERFORM, MODIFY, MODIFY, MODIFY, MODIFY Event Display: Consultation Note Authored Date: Patient: ??CATERINA NICOLAS ? Age:??78 Years?Sex:??Male?:??1945?? History of Present Illness patient was found on the floor after having unwitnessed fall.?? Patient was in his usual health until going to bed on 07/19/2023; at around 9 PM, heard a thud, found patient on the floor, confused and shaking, found to be alert to self only, was following basic commands and intermittently responding appropriately to questions; since then patient's mentation has been improving, but is confusedat times.?? Reportedly there is no head injury. EMS found patient to be confused and minimally responsive. ?? Patient also reported fevers, chills, fatigue; was recently diagnosed with UTI on 07/15/2023, hasbeen on Keflex. ?? found to have R lung pulmonary embolism and bilateral DVT, started on lovenox therapeutic. ?? Had AMS and R weakness per CT and consult request states periods of inattention too.?? No details in chart at time of chart review. ?? 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 Had mechanical difficulties with mobility.?? Earlier today had correctly pointed out to opal a chair was on the other side of the room. Moved both arms and was not aware of any lateralized weakness. Physical Exam Vitals & Measurements T:??98.5?F?? HR:??54??(Peripheral)?? RR:??20?? BP:??128/88?? SpO2:??94%?? HT:??168??cm?? WT:??116.4??kg?? BMI:??41.24?? Alseep but easiy arousable and able to tell me he is at [facility] in a complete sentence. EOMI, no ptosis or nystagmus, no oabvious facial weakness.?? No dysarthira. Moves all extremities. ?? CT head 07/23/23 - no acute changes.?? Has generalized atrophy and not much WM changes no lacunes. Assessment/Plan Reported right weakness and periods of inattention with no other details and nothing documented at this time other than consult request and CT indication. . Although suspect AMS is related to encephalopathy, the reported associated R focal weakness suggests possibity of sz. Note pt does not have hxof sz d/o or stroke and had already been on a therapeutic dose of GBP for pain, making new onset ofepilepsy even more unlikely. - Follow exam - vEEG - May consider MRI brain depending on clinical course and findings on EEG - Hold off on additional AEDs for now (already on GBP 600 tid for pain) Problem List/Past Medical History Ongoing Chicken pox Erectile dysfunction Gastro-esophageal reflux disease Hyperlipidemia Hypertension Osteoarthritis Severe obesity Procedure/Surgical History No qualifying data available. Home Medications Acetaminophen / Hydrocodone: 1 tablet, By Mouth, Daily at bedtime, PRN (as needed for pain) Atenolol: 25 mg = 1 tablet, By Mouth, Daily Gabapentin: 600 mg = 1 tablet, By Mouth, 3 times a day Miscellaneous Rx (swimming): See Instructions, dx=arthritis, obesityJohn is only able to exercise in the pool due to knee, ankle arthritis. Use pool for 30 min 5x per week. Multivitamin With Minerals: 1 tablet, By Mouth, Daily Omeprazole: 20 mg = 1 capsule, By Mouth, Daily Oxycodone: 5 mg = 1 capsule, By Mouth, 2 times a day, PRN (as needed for pain) Simvastatin: 40 mg = 1 tablet, By Mouth, Daily at bedtime Venlafaxine: 75 mg = 1 tablet, By Mouth, Daily Allergies lisinopril??(cough) nonsteroidal antiinflammatory agent??(stomache pain) Social History Alcohol Use: Past. Other: heavy drinker in past. quit 2004. Employment/School Status: Retired. 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 Exercise Self assessment: Fair condition. Home/Environment Lives with: Spouse. Sexual Sexually involved in last 6 months: No. Sexual orientation: Heterosexual. Substance Abuse Use: Never. Tobacco Use: Former smoker. Other: quit in 1984. Family History Mother: Cancer of breast; Pancreatic cancer Father: Congestive heart failure; Coronary artery disease; Hypertension Note * Merly Maurice RN: PERFORM Event Display: Discharge/Transfer Note Hospital Authored Date: Nursing Discharge Note Entered On: 07/27/2023 15:56 EDT Performed On: 07/27/2023 15:56 EDT by Merly Maurice RN Nursing Discharge Note 2 Discharge Time : 07/27/2023 15:45 EDT Discharge Level of Care at Discharge : Short-term Acute Inpatient Discharge Nursing Homes/Rehab Facilities : [facility] [place] Patient Left Unit Via : Ambulance Patient Accompanied Off Unit with : Ambulance/Chair Van Personnel Handover Given to Transport Personnel : Yes DC Instructions Provided & Signed by Pt : Unable Patient Understands D/C Instructions : Unable Patient Instructions Discharge Signed : Yes Did Pt have Specialty Bed or Wound Vac : No Merly Maurice RN - 07/27/2023 15:56 EDT * Kasey Muhammad DO: PERFORM, MODIFY, MODIFY Reggie MONSIVAIS, Frieda Kaba: MODIFY Event Display: Discharge/Transfer Note Hospital Authored Date: [id number] Patient: ??CATERINA NICOLAS ? Age:??78 Years?Sex:??Male?:??1945?? Patient Information Discharge Location: W4 Primary Care Physician: Rick Christie DO Admit Date/Time: 07/20/23 14:03 Discharge Disposition Discharge Disposition: Senior Living Facility/Rehab Discharge Diagnosis Primary Diagnosis: ESBL Proteus Bacteremia ?? Secondary Diagnoses: Acute hypoxemic respiratory failure (J96.01) DVT (deep venous thrombosis) (I82.409) Fall (W19.XXXA) HLD (hyperlipidemia) (E78.5) HTN (hypertension) (I10) Hyperthermia (R50.9) Lactic acidosis (E87.20) Leukocytosis (D72.829) Metabolic encephalopathy (G93.41) Mood disorder (F39) Neuropathic pain (M79.2) Pulmonary embolism on right (I26.99) Sepsis (A41.9) Thrombocytopenia (D69.6) _ Discharge Medications Acetaminophen / Hydrocodone (acetaminophen-hydrocodone 300 mg-5 mg oral tablet)?1?tab(s)?By Mouth?Daily at bedtime?as needed?as needed for pain Amoxicillin-Clavulanate (amoxicillin-clavulanate 875 mg-125 mg oral tablet)?875?Milligram?By Mouth?2 times a day?for 7?Days Atenolol (atenolol 25 mg oral tablet)?25?Milligram?1?tab(s)?By Mouth?Daily [...] tablet, extended release)?1?tab(s)?75?Milligram?By Mouth?Daily ? Medications Started Amoxicillin-Clavulanate (amoxicillin-clavulanate 875 mg-125 mg oral tablet)?875?Milligram?By Mouth?2 times a day?for 7?Days through 08/03 rivaroxaban (rivaroxaban 20 mg oral tablet)?20?Milligram?By Mouth?Daily at supper?take this 1 TABLET ONCE DAILY THROUGH 08/12/2023 rivaroxaban (rivaroxaban 15 mg oral tablet)?15?Milligram?By Mouth?2 times a day with meals?for 17?Days FOR AT LEAST 3 MONTHS AND FOLLOW UP WITH [facility] Medications Discontinued none Doses Changed none Allergies Allergies ?(Active and Proposed Allergies Only) lisinopril? (Severity: Unknown severity, Onset: Unknown) ?Reactions: cough nonsteroidal antiinflammatory agent? (Severity: Unknown severity, Onset: Unknown) ?Reactions: stomache pain ? PCP Follow-Up/Heads-Up 1. Follow up hypercoaguable studies, ?unprovoked DVT/PE, ?duration of AC Xarelto (told him to indefinitely continue on dc) Hospital Course 78M with recent outpatient diagnosis??of UTI, started Keflex on 07/16, presented with AMS, fever,??and unwitnessed fall out of bed. Found to have proteus bacteremia and was initially treated with ceftriaxone, switched to Unasyn, and will complete a 14-day course of antibiotics with Augmentin upon discharge.?? ID consulted, suspect GI translocation less likely source. Also found to have R lung pulmonary embolism without evidence of right heart strain on echocardiogram??and??bilateral DVT, started on Lovenox,??transitioned to??Xarelto 07/22 (loading dose 15mg BID until 08/12 then 20mg daily ind efinitely). While here, had an episode of R sided weakness and staring into space, neurology consulted for possible seizure vs TIA but??both deemed less likely with??CTH negative and vEEG negative, more likely metabolic encephalopathy. Mental status much improved with anitbiotic therapy.??PT recomme nding discharge to??rehab, patient is hemodynamically stable though??still unable to ambulate without walker assist, but feels stronger. ?? Sepsis (leukocytosis, fever) secondary to ESBL Proteus bacteremia- pansensitive cultures Blood cultures drawn in ED??07/20??positive for Proteus, pansusceptible on sensitivities CT abd/pelvis without evidence of pyelonephritis or??obstructing stone ID consulted,??suspect Proteus bacteremia from GI translocation and continued fevers due to PE/DVT given repeat blood cultures 07/22 NGTD. Afebrile >48 hours, leukocytosis continues to downtrend ?? -??On discharge, continue Augmentin through 08/03 (14 days total treatment duration) on discharge ?? Pulmonary embolism on right ??(I26.99) DVT (deep venous thrombosis) ??(I82.409) Patient found to have R pulmonary embolism and bilateral DVT May be unprovoked:??No history of malignancy, no recent prolonged immobilization or hospitalization>3 days, or recent surgeries. Per patient, last colonoscopy <10 yrs ago without concerning findings; recommendation of 10 yr follow up. Formal echo performed showing??reduced RV systolic function, mild pulmonary hypertension, without obvious signs of R heart strain ?? -??Continue xarelto 15mg BID until 08/12, then 20mg daily indefinitely - follow up with PCP outpatient for management of determining duration of anticoagulation in the setting of seemingly unprovoked DVT, will likely need hypercoaguable work-up ?? Resolved Conditions: Fall - likely in setting of PE, infection, hypovolemia; PT eval recommending rehab Metabolic encephalopathy ??(G93.41) - resolved; likely in setting of infection and PE. New onset periodic responsiveness of unknown etiology-resolved Right sided weakness-resolved Initial concern for underlying seizures vs intracranial bleed/other pathology. CT head ordered without signs of acute intracranial pathology.?? vEEG reveals mild to moderate generalized slowing of the background, no epileptic activity -- episode of R twitching captured without electrographic correlate. Neuro consulted, thought consistent with metabolic encephalopathy/ delirium. Mental status improved and weakness resolved by time of DC. ?? Elevated troponin: Initial troponins elevated to 159 then 154,??likely due to demand ischemia??in setting of infection and PE. No chest pain. ?? 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 ?? - Continue scheduled??home hydrocodone 5mg at bedtime, oxycodone 5 mg BID?? - Continue gabapentin 600mg TID ?? Hypertension SBP 130s - 140s -??Continue atenolol 25mg daily ?? Objective Vital Signs?? Temperature: 97.4 DegF (07/27/23 07:58:00) Temperature Route: Oral (07/27/23 07:58:00) Pulse Rate: 80 bpm (07/27/23 07:58:00) Respiratory Rate: 18 br/min (07/27/23 07:58:00) Systolic Blood Pressure:??154 mm Hg??High (07/27/23 07:58:00) Diastolic Blood Pressure: 78 mm Hg (07/27/23 07:58:00) Blood pressure sites: Arm, left (07/27/23 07:58:00) Mean Arterial Pressure: 103 mm Hg (07/27/23 07:58:00) Pulse Pressure: 76 mm Hg (07/27/23 07:58:00) Oxygen Saturation: 98 % (07/27/23 07:58:00) Mode of Delivery (Oxygen): Room air (07/27/23 07:58:00) Early Warning Score: 3 (07/27/23 07:59:06) ? . Physical Exam General: No acute distress, AAOx3 HEENT: EOMI, full ROM neck. Cardio: regular rhythm and rate Respiratory: CTA bilaterally w/ no audible wheezes or rales, on room air Abdomen: soft nontender nondistended normoactive bowel sounds MSK: seen moving BUE independently and against gravity Extremities: 1+ bilateral lower extremity edema. Neuro: no facial droop no slurring of the speech, sensations intact, no weakness on exam today. Consultants Infectious Disease Neurology Patient Education Titles Amoxicillin/Clavulanate Oral Tablet?? Dysuria?? Rivaroxaban Oral Tablet?? Complications of Deep Vein Thrombosis?? Discharge Instructions for Deep Vein Thrombosis (DVT)?? Patient Instructions You came in due to falling at home as well as confusion. You were noted to have a bacteremia with the bacteria called Proteus. You were also found to have a clot in your right lung and was started storm blood thinner called Xarelto which you will take for at least 3 months twice a day until follow up with PCP. You had some episodes of unresponsiveness and confusion while inpatient and we got an EEG and CAT scan of your brain which did not show any abnormalities such as a seizure. You will continue on antibiotics called Augmentin daily through 08/03/2023. ?? New meds: - Xarelto 15mg twice daily through 08/12/2023. then 20mg once daily indefinitely, follow up with your PCP regarding continuing this medication in the setting of new blood clots - Augmentin through 08/03/2023, take as instructed Results Discharge Labs BLOOD COUNT & DIFF WBC 15.0 k/mm3 (High)?? 07/26/2023 04:19 RBC 4.91 m/mm3 ()?? 07/26/2023 04:19 Hgb 15.3 Gm/dL ()?? 07/26/2023 04:19 Hct 45.2 % ()?? 07/26/2023 04:19 MCV 92.1 femtoliters ()?? 07/26/2023 04:19 MCH 31.2 pg ()?? 07/26/2023 04:19 MCHC 33.8 g/dL ()?? 07/26/2023 04:19 Platelet Count 372 k/mm3 ()?? 07/26/2023 04:19 RDW-SD 45.5 femtoliters ()?? 07/26/2023 04:19 MPV 9.5 femtoliters ()?? 07/26/2023 04:19 Nucleated RBC (Automated) 0.0 #/100 WBC'S ()?? 07/26/2023 04:19 Abs. NRBC 0.0 k/mm3 ()?? 07/26/2023 04:19 Abs. Neut 12.6 k/mm3 (High)?? 07/25/2023 01:55 Abs. Lymph 1.4 k/mm3 ()?? 07/25/2023 01:55 Abs. Ray 1.2 k/mm3 ()?? 07/25/2023 01:55 Abs. Eo 0.2 k/mm3 ()?? 07/25/2023 01:55 Abs. Baso 0.1 k/mm3 ()?? 07/25/2023 01:55 Neut % 80.5 % (High)?? 07/25/2023 01:55 Lymph % 9.0 % (Low)?? 07/25/2023 01:55 Ray % 7.5 % ()?? 07/25/2023 01:55 Eos % 1.5 % ()?? 07/25/2023 01:55 Baso % 0.4 % ()?? 07/25/2023 01:55 Imm Gran 1.1 % ()?? 07/25/2023 01:55 Abs. Imm Gran 0.2 k/mm3 ()?? 07/25/2023 01:55 ?? CARDIAC Nt-Probnp 1011 pg/mL (High)?? 07/20/2023 09:40 High Sensitivity Troponin (HSTnT) 154 ng/L (Critical)?? 07/20/2023 11:24 ?? CHEM GENERAL Sodium 134 mmol/L ()?? 07/26/2023 04:19 Potassium 4.7 mmol/L ()?? 07/26/2023 04:19 Chloride 99 mmol/L ()?? 07/26/2023 04:19 Bicarbonate Level 23 mmol/L ()?? 07/26/2023 04:19 Anion Gap 12 ()?? 07/26/2023 04:19 Glucose Level 124 mg/dL (High)?? 07/26/2023 04:19 Glucose, POC 87 mg/dL ()?? 07/20/2023 07:54 BUN 24 mg/dL (High)?? 07/26/2023 04:19 Creatinine-Blood 0.8 mg/dL ()?? 07/26/2023 04:19 Estimated GFR Creatinine 93 ML/MIN/1.73 M2 ()?? 07/26/2023 04:19 Osmolality 277 mOs/kg (Low)?? 07/23/2023 11:18 Calcium 10.1 mg/dL ()?? 07/26/2023 04:19 Magnesium 2.1 mg/dL ()?? 07/25/2023 01:55 Protein, Total 6.0 Gm/dL (Low)?? 07/20/2023 09:40 Albumin 3.6 Gm/dL ()?? 07/20/2023 09:40 Alkaline Phosphatase 72 units/L ()?? 07/20/2023 09:40 AST (SGOT) 28 units/L ()?? 07/20/2023 09:40 ALT (SGPT) 18 units/L ()?? 07/20/2023 09:40 Bilirubin, Total 1.0 mg/dL ()?? 07/20/2023 09:40 Bilirubin, Direct 0.4 mg/dL (High)?? 07/20/2023 09:40 Bilirubin, Indirect 0.6 mg/dL ()?? 07/20/2023 09:40 Lactate 1.4 mmol/L ()?? 07/20/2023 09:40 ?? HEME OTHER Hold Lavender Top SPECIMEN DISCARDED AFTER 24 HOURS. ()?? 07/24/2023 06:03 ? UA/URINALYSIS Appear/Color, Urine COLORLESS ()?? 07/23/2023 16:30 Clarity CLEAR ()?? 07/23/2023 16:30 Specific [place], Urine 1.006 ()?? 07/23/2023 16:30 pH, Urine 6.5 ()?? 07/23/2023 16:30 Albumin, Urine TRACE (Abnormal)?? 07/23/2023 16:30 Glucose, Urine NEGATIVE ()?? 07/23/2023 16:30 Ketones, Urine NEGATIVE ()?? 07/23/2023 16:30 Bilirubin, Urine NEGATIVE ()?? 07/23/2023 16:30 Hemoglobin, Urine 1+ (Abnormal)?? 07/23/2023 16:30 Nitrite, Urine NEGATIVE ()?? 07/23/2023 16:30 Leukocyte, Urine NEGATIVE ()?? 07/23/2023 16:30 Urobilinogen NORMAL mg/dL ()?? 07/23/2023 16:30 WBC's, Urine 1 /HPF ()?? 07/23/2023 16:30 RBC's, Urine 6 /HPF (High)?? 07/23/2023 16:30 Bacteria SLIGHT HPF (Abnormal)?? 07/23/2023 16:30 Squamous Epith <1 /HPF ()?? 07/20/2023 10:02 Mucus SLIGHT /LPF ()?? 07/20/2023 10:02 Hold Urine Culture Testing available 48 hours from time of collection. ()?? 07/20/2023 10:02 Culture Indication CULTURE NOT INDICATED ()?? 07/23/2023 16:30 ? URINE OTHER Sodium, Urine Random 36 mmol/L ()?? 07/23/2023 16:30 Osmolality, Urine Random 326 mOsm/kg ()?? 07/23/2023 16:30 Est Creatinine Clearance 71.25 mL/min ()?? 07/26/2023 05:29 ? VIROLOGY COVID-19 PCR Specimen Source NASAL ()?? 07/20/2023 07:44 COVID-19 PCR Result NEGATIVE ()?? 07/20/2023 07:44 ? Microbiology ?? COVID-19 (2019 Novel Coronavirus) PCR?? Completed?? Source: Nasal Body Site: Nose Collected Dt/Tm: 07/20/2023 07:39 Last Updated Dt/Tm: 07/20/2023 09:31 Blood Culture?? Completed?? Source: Blood Body Site: ?? Collected Dt/Tm: 07/20/2023 07:39 Last Updated Dt/Tm: 07/20/2023 07:39 ?SPECIMEN DESCRIPTION : BLOOD NONESPECIAL REQUESTS : NONECULTURE : PROTEUS MIRABILIS ??This isolate was identified using Maldi-TOF system ??These AST results were performed on the Vitek 2 ID and AST systemREPORT STATUS : FINAL 07/23/2023ORGANISM ? PROTEUS MIRABILIS ??This isolatewas identified using ? Maldi-TOF system These AST results were performed on the Vitek 2 ID and AST systemMETHOD ? MIN. INHIB. CONC. (MCG/ML)AMPICILLIN ? SUSCEPTIBLEAMPICILLIN/SULBACTAM SUSCEPTIBLECEFEPIME ? SUSCEPTIBLECEFTRIAXONE ?SUSCEPTIBLECIPROFLOXACIN ?SUSCEPTIBLEERTAPENEM ?SUSCEPTIBLEGENTAMICIN ? SUSCEPTIBLELEVOFLOXACIN ? SUSCEPTIBLEPIPERACILLIN/TAZOBAC S USCEPTIBLETRIMETH/SULFAMETHOX ??SUSCEPTIBLE Blood Culture #2?? Completed?? Source: Blood Body Site: ?? Collected Dt/Tm: 07/20/2023 07:39 Last Updated Dt/Tm: 07/20/2023 07:39 ?SPECIMEN DESCRIPTION : BLOOD RT HANDSPECIAL REQUESTS : CRITICAL VALUE CALLED AND VERIFIED BY READBACK FOR: GRAM NEGATIVE RODS ? AND PCR HAVE BEEN CALLED TO [id number] [facility] [id number] ON 07/21/23 @0054 BY ? TECH [id number] : PROTEUS MIRABILIS ??This isolate was identified using Maldi-TOF system ??FOR SUSCEPTIBILITY RESULT REFER TO BLOOD CULTURE ACCESSION ?[id number] ?Proteus species was identified by multiplex PCR.REPORT STATUS : FINAL 07/23/2023 ? _ 35 minutes spent on discharge ?? Patient seen??and discussed with attending physician Dr. Paredes ?? Kasey Muhammad??DO Internal Medicine PGY2 * Higinio Lozano RN: PERFORM, SIGN, VERIFY Event Display: Case Management Discharge Plan Authored Date: Patient: CATERINA NICOLAS Age: 78 years Sex: Male : 1945 Associated Diagnoses: None Author: Higinio Lozano RN Discharge Plan Case Management Discharge Plan : Case Management Discharge Plan Data 07/27/2023 11:19 EDT Discharge Level of Care at Discharge Short-term Acute Inpatient Discharge Nursing Homes/Rehab Facilities [facility] Discharge Transportation Arranged [facility] [address] [place] [address] Discharge Arranged Transport Date/Time 07/27/2023 13:00 Mode of Transportation Arranged Ambulance Name of Agency #1 [facility] Service Categories #1 Occupational Therapy, Physical Therapy, Senior Living Service Comments #1 Ambulance arranged for 1pm * Josafat MACIAS, Merly: PERFORM Event Display: Patient Education/Instruction Authored Date: Inpatient Adult Discharge Instructions [address] [address] Name: CATERINA NICOLAS : 1945 Visit: 07/20/2023 14:03:00 Current Date: 07/27/2023 11:22 Account: [id number] Inpatient Adult Discharge Instructions We would like [...] and their families. Surveys are administered by [employer]. ?? If further treatment with your primary care physician or another doctor is recommended, it is important for you to keep the appointment. Call your primary care physician or return to the Emergency Department immediately if your condition worsens, fails to improve, or new symptoms develop. If you need to find a doctor, you can call [facility] [employer] Link for a referral at [phone] or toll free at [phone]) or log in to [email or web address].. ?? [facility], in keeping with [facility] guidance, no longer requires face masks for [...] a health care xiomara of your choosing. [employer] is a website that allows you to securely view your medical information including your hospital discharge summary, office visit summaries, medications and follow-up visits. You can also request appointments, renew medications, and request access to your medical information using a health care xiomara of your choosing, or just ask a question. You can enroll at [email or web address] or register during your next office visit. You have been discharged from [facility], Patient Care Unit: W4. If you have any questions regarding these instructions after you leave, please call us and we will be happy to assist you. [facility] Your Care Team Attending Physician Reggie MONSIVAIS, Frieda Kaba Consulting Providers Villeda MD, Jay Jay Heard; Jovanny MONSIVAIS, Leslee; Carley MONSIVAIS, Sukhdev; Jose G MONSIVAIS, Melissa Discharging Providers Kasey Muhammad DO Reason for Admission Pt has been taking abx for known UTI, had unwitnessed fall today, ?headstrike, Baseline A/O, ??not verbally responding per ems. per family, pt has increase AMS. Your Diagnosis Sepsis Acute hypoxemic respiratory failure DVT (deep venous thrombosis) Pulmonary embolism on right Leukocytosis Thrombocytopenia Lactic acidosis UTI (urinary tract infection) Mood disorder HTN (hypertension) HLD (hyperlipidemia) Neuropathic pain Hyperthermia Metabolic encephalopathy Fall Tests Performed Below is a partial list of the tests performed during your hospitalization. You may have had other tests and procedures not included in this list. Please discuss all test results with your provider. Basic Metabolic Panel CBC CBC w/ Differential COVID-19 (2019 Novel Coronavirus) PCR Electrolytes GLUCOSE POC Hepatic Function Panel High??Sensitivity??Troponin T HOLD LAVENDER TUBE Lactate Level Lactic Acid Level Lytes MAGNESIUM OSMOLALITY, SERUM Potassium Level PROBNP Troponin T, High Sensitivity Urinalysis Complete/Reflex Culture Urinalysis w/hold for Urine Culture Urine Na Urine Osmolality CT Abdomen and Pelvis W/O Contrast CT Angio Chest CT Cervical Spine W/O Contrast CT Head/Brain W/O Contrast Doppler Ext Lower Venous Bilat (US) XR Chest Portable Primary Care Provider Rick Christie DO Advance Directive Health Care Proxy on File No Patient refuses to discuss Discharge Vitals Temperature: 97.4 DegF Height: 168 cm Pulse Rate: 80 bpm Weight: 116.4 kg Respiratory Rate: 18 br/min Body Mass Index:??41.24 kg/m2??Critical Systolic Blood Pressure:??154 mm Hg??High Body surface area: 2.33 Diastolic Blood Pressure: 78 mm Hg ?? Oxygen Saturation: 98 % ?? Studies Pending All tests and labs ordered during this hospital stay have been completed unless listed below. Please discuss all pending results with your provider listed above in these instructions. ?? Add On Lab Order Blood Culture Blood Culture #2 CBC What to do next Instructions From Your Doctor You came in due to falling at home as well as confusion. You were noted to have a bacteremia with the bacteria called Proteus. You were also found to have a clot in your right lung and was started storm blood thinner called Xarelto which you will take for at least 3 months twice a day until follow up with PCP. You had some episodes of unresponsiveness and confusion while inpatient and we got an EEG and CAT scan of your brain which did not show any abnormalities such as a seizure. You will continue on antibiotics called Augmentin daily through 08/03/2023. ?? New meds: - Xarelto 15mg twice daily through 08/12/2023. then 20mg once daily indefinitely, follow up with your PCP regarding continuing this medication in the setting of new blood clots - Augmentin through 08/03/2023, take as instructed Discharge Orders Discharge Medications CATERINA NICOLAS :1945 Visit Date:07/20/2023 Medications: Please continue your medications until treatment is completed or stopped by your provider. Medications not listed below should be discontinued. Discuss any questions related to medications with your provider. What How Much When Instructions Next Dose New Amoxicillin-Clavulanate (amoxicillin-clavulanate 875 mg-125 mg oral tablet) 875 Milligram Oral Twice a day Duration: 7 Days Pickup at [facility] 3 tonight 07/27 New rivaroxaban (rivaroxaban 15 mg oral tablet) 15 Milligram Oral Two times a day with meals Duration: 17 Days Pickup at [facility] 3 today 5pm??07/27 New rivaroxaban (rivaroxaban 20 mg oral tablet) 20 Milligram Oral Daily at [facility] take this 1 TABLET ONCE DAILY AFTER 2022 ?? Pickup at [facility] 3 as ordered Changed Omeprazole (omeprazole 20 mg oral enteric coated capsule) 1 capsule Oral Daily tomorrow morning 07/28 Changed Simvastatin (simvastatin 40 mg oral tablet) 1 tab(s) Oral Daily at Bedtime tonight 07/27 Unchanged Acetaminophen / Hydrocodone (acetaminophen-hydrocodone 300 mg-5 mg oral tablet) 1 tab(s) Oral Daily at Bedtime as needed for as needed for pain as ordered Unchanged Atenolol (atenolol 25 mg oral tablet) 1 tab(s) Oral Daily tomorrow morning 07/28 Unchanged Gabapentin (gabapentin 600 mg oral tablet) 1 tab(s) Oral 3 times a day today 3pm 07/27 Unchanged Miscellaneous Rx (swimming) See instructions dx=arthritis, obesity Caterina is only able to exercise in the pool due to knee, ankle arthritis. Use pool for 30 min 5x per week. ?? Unchanged Multivitamin With Minerals (Centrum) 1 tab(s) Oral Daily tomorrow morning 07/28 Unchanged Oxycodone (oxyCODONE 5 mg oral capsule) 1 capsule Oral Twice a day as needed for as needed for pain as ordered Unchanged Venlafaxine (venlafaxine 75 mg oral tablet, extended release) 1 tab(s) Oral Daily tomorrow morning 07/28 [facility]: [address] [place], [place] [id number] [phone] ?? What How Much When Comments Stop Taking Aspirin (Aspir 81 Oral Enteric Coated Tablet) 1 tab(s) Oral Daily Stop Taking BuPROpion (bupropion 150 mg oral tablet, extended release) 1 tab(s) Oral Daily Stop Taking Hydrochlorothiazide (hydrochlorothiazide 25 mg oral tablet) 2 tab(s) Oral Daily Stop Taking Losartan (losartan 50 mg oral tablet) 2 tab(s) Oral Daily Stop Taking Oxycodone / Acetaminophen (Oxycodone 5mg/ Acetaminophen 325mg Tablet) 1 tab(s) Oral Daily in the morning Stop Taking Trazodone (trazodone 100 mg oral tablet) 2 tab Oral Daily at Bedtime Test Results Below is a partial list of the most recent Laboratory test results done prior to this discharge. You may have had other tests and procedures not included in this list. Please discuss all test resultswith your provider. Est Creatinine Clearance - 71.25 mL/min (07/26/2023) Basic Metabolic Panel (07/26/2023) ???Sodium - 134 mmol/L???Potassium - 4.7 mmol/L???Chloride - 99 mmol/L???Bicarbonate Level - 23 mmol/L???Anion Gap - 12???Glucose Level - 124 mg/dL???BUN - 24 mg/dL???Creatinine-Blood - 0.8 mg/dL???Estimated GFR Creatinine - 93 ML/MIN/1.73 M2???Calcium - 10.1 mg/dL CBC (07/26/2023) ???WBC - 15.0 k/mm3???RBC - 4.91 m/mm3???Hgb - 15.3 Gm/dL???Hct - 45.2 %???MCV - 92.1 femtoliters???MCH - 31.2 pg???MCHC - 33.8 g/dL???Platelet Count - 372 k/mm3???RDW-SD - 45.5 femtoliters???MPV - 9.5 femtoliters???Nucleated RBC (Automated) - 0.0 #/100 WBC'S???Abs. NRBC - 0.0 k/mm3 CBC w/ Differential (07/25/2023) ???WBC - 15.6 k/mm3???RBC - 4.95 m/mm3???Hgb - 15.0 Gm/dL???Hct - 45.7 %???MCV - 92.3 femtoliters???MCH - 30.3 pg???MCHC - 32.8 g/dL???Platelet Count - 283 k/mm3???RDW-SD - 44.6 femtoliters???MPV - 9.6 femtoliters???Nucleated RBC (Automated) - 0.0 #/100 WBC'S???Abs. NRBC - 0.0 k/mm3???Abs. Neut - 12.6 k/mm3???Abs. Lymph - 1.4 k/mm3???Abs. Ray - 1.2 k/mm3???Abs. Eo - 0.2 k/mm3???Abs. Baso - 0.1 k/mm3???Neut % - 80.5 %???Lymph % - 9.0 %???Ray % - 7.5 %???Eos % - 1.5 %???Baso % - 0.4 %???Imm Gran - 1.1 %???Abs. Imm Gran - 0.2 k/mm3 COVID-19 (2019 Novel Coronavirus) PCR (07/20/2023) ???COVID-19 PCR Specimen Source - NASAL???COVID-19 PCR Result - NEGATIVE Electrolytes (07/20/2023) ???Sodium - 140 mmol/L???Potassium - 3.7 mmol/L???Chloride - 104 mmol/L???Bicarbonate Level - 23 mmol/L???Anion Gap - 13 GLUCOSE POC (07/20/2023) ???Glucose, POC - 87 mg/dL Hepatic Function Panel (07/20/2023) ???Protein, Total - 6.0 Gm/dL???Albumin - 3.6 Gm/dL???Alkaline Phosphatase - 72 units/L???AST (SGOT) - 28 units/L???ALT (SGPT) - 18 units/L???Bilirubin, Total - 1.0 mg/dL???Bilirubin, Direct - 0.4 mg/dL???Bilirubin, Indirect - 0.6 mg/dL High??Sensitivity??Troponin T (07/20/2023) ???High Sensitivity Troponin (HSTnT) - 154 ng/L HOLD LAVENDER TUBE (07/24/2023) ???Hold Lavender Top - SPECIMEN DISCARDED AFTER 24 HOURS. Lactate Level (07/20/2023) ???Lactate - 1.4 mmol/L Lactic Acid Level (07/20/2023) ???Lactate - 2.4 mmol/L Lytes (07/24/2023) ???Sodium - 135 mmol/L???Potassium - 4.3 mmol/L???Chloride - 100 mmol/L???Bicarbonate Level - 22 mmol/L???Anion Gap - 13 MAGNESIUM (07/25/2023) ???Magnesium - 2.1 mg/dL OSMOLALITY, SERUM (07/23/2023) ???Osmolality - 277 mOs/kg Potassium Level (07/25/2023) ???Potassium - 4.9 mmol/L PROBNP (07/20/2023) ???Nt-Probnp - 1011 pg/mL Troponin T, High Sensitivity (07/20/2023) ???High Sensitivity Troponin (HSTnT) - 159 ng/L Urinalysis Complete/Reflex Culture (07/23/2023) ???Appear/Color, Urine - COLORLESS???Clarity - CLEAR???Specific [place], Urine - 1.006???pH, Urine - 6.5???Albumin, Urine - TRACE???Glucose, Urine - NEGATIVE???Ketones, Urine - NEGATIVE???Bilirubin, Urine - NEGATIVE???Hemoglobin, Urine - 1+???Nitrite, Urine - NEGATIVE???Leukocyte, Urine - NEGATIVE?? ?Urobilinogen - NORMAL???WBC's, Urine - 1 /HPF???RBC's, Urine - 6 /HPF???Bacteria - SLIGHT???Culture Indication - CULTURE NOT INDICATED Urinalysis w/hold for Urine Culture (07/20/2023) ???Appear/Color, Urine - YELLOW???Specific [place], Urine - 1.025???pH, Urine - 6.0???Albumin, Urine - 1+???Glucose, Urine - NEGATIVE???Ketones, Urine - 1+???Bilirubin, Urine - NEGATIVE???Hemoglobin,Urine - 1+???Nitrite, Urine - NEGATIVE???Leukocyte, Urine - 2+???Urobilinogen - NORMAL???WBC's, Urine - 23 /HPF? ?RBC's, Urine - 11 /HPF? ?Squamous Epith - <1 /HPF? ?Mucus - SLIGHT? ?Hold Urine Culture - Testing available 48 hours from time of collection. Urine Na (07/23/2023) ???Sodium, Urine Random - 36 mmol/L Urine Osmolality (07/23/2023) ???Osmolality, Urine Random - 326 mOsm/kg Immunizations This Visit Given Vaccine Date influenza virus vaccine, inactivated 07/21/2023 Allergies (NKA means No Known Allergies) lisinopril??(cough) nonsteroidal antiinflammatory agent??(stomache pain) Problems Active Problems??(8) Erectile dysfunction?? FH breast CA and CAD?? Gastro-esophageal reflux disease?? Hyperlipidemia?? Hypertension?? Osteoarthritis?? post traumatic stress disorder?? Severe obesity?? Education Materials Below is the list of Educational Leaflet Providered with your Discharge Instructions. Amoxicillin/Clavulanate Oral Tablet?? Dysuria?? Rivaroxaban Oral Tablet?? Complications of Deep Vein Thrombosis?? Discharge Instructions for Deep Vein Thrombosis (DVT)?? Valuables and Belongings I fully understand and agree that [facility] accepts no responsibility for all my personal [...] present Date for Pt to Sign Valuables/Belongings: 07/20/23 23:17:00 ?? Other Discharge Information ? Case Management Discharge Plan?? Discharge Plan?? Discharge Agency Information?? Discharge Level of Care at Discharge: Short-term Acute Inpatient Name of Agency #1: [facility] Discharge Transportation Arranged: [facility] [address] [place] [address] ??[phone] Service Categories #1: Occupational Therapy, Physical Therapy, Senior Living Mode of Transportation Arranged: Ambulance Service Comments #1: Ambulance arranged for 1pm Discharge Arranged Transport Date/Time: 07/27/23 13:00:00 ?? Discharge Nursing Homes/Rehab Facilities: [facility] ? Pulmonary Rehab Status?? Pulmonary Rehab Discharge Status?? [...] are strongly encouraged to quit. Please call [facility] [employer] Link at [phone] or [phone] or log in to [email or web address] for referrals to smoking cessation programs. ?? 137 Suicide & Crisis Lifeline is available 16/05 if you or someone you know needs to find a reason to keep living. By calling 499 you'll be connected to a skilled, trained counselor at a crisis center in your area. INPATIENT DISCHARGE INSTRUCTIONS SIGNATURE PAGE CATERINA NICOLAS Location:[facility] Registration Date and Time:07/20/2023 14:03 EDT Primary Care Physician: Rick Christie DO, Attending Physician: Reggie MONSIVAIS, Frieda Kaba, I MARIA ISABEL CATERINA, have received the above patient education materials/instructions and have verbalized understanding. If ambulance or transport services are being used I further acknowledge being given a choice of service. ?? If you need to contact me, please call me at this number: . Patient/Upsetter Setter Up Name: Patient/Upsetter Setter Up Signature: Relationship to Patient: Witness Name/Signature: Date: * DjKasey reich DO: PERFORM, MODIFY, MODIFY, MODIFY, MODIFY Event Display: Discharge/Transfer Note Hospital Authored Date: Patient: ??CATERINA NICOLAS ? Age:??78 Years?Sex:??Male?:??1945?? Patient Information Discharge Location: Primary Care Physician: Rick Christie DO Admit Date/Time: 07/20/23 14:03 Discharge Disposition Discharge Disposition: Senior Living Facility/Rehab Discharge Diagnosis Primary Diagnosis: ESBL Proteus Bacteremia ?? Secondary Diagnoses: Acute hypoxemic respiratory failure (J96.01) DVT (deep venous thrombosis) (I82.409) Fall (W19.XXXA) HLD (hyperlipidemia) (E78.5) HTN (hypertension) (I10) Hyperthermia (R50.9) Lactic acidosis (E87.20) Leukocytosis (D72.829) Metabolic encephalopathy (G93.41) Mood disorder (F39) Neuropathic pain (M79.2) Pulmonary embolism on right (I26.99) Sepsis (A41.9) Thrombocytopenia (D69.6) ?? _ Discharge Medications Acetaminophen / Hydrocodone (acetaminophen-hydrocodone 300 mg-5 [...] day?as needed?as needed for pain rivaroxaban (rivaroxaban 15 mg oral tablet)?15?Milligram?By Mouth?2 times a day with meals?for 19?Days?TAKE THIS INSTRUCTED ONLY UNTIL 08/12/2023 rivaroxaban (rivaroxaban 20 mg oral tablet)?20?Milligram?By Mouth?Daily at supper?take this 1 TABLET ONCE DAILY AFTER 08/12/2023 Simvastatin (simvastatin 40 mg oral tablet)?40?Milligram?1?tablet?By Mouth?Daily at bedtime Venlafaxine (venlafaxine 75 mg oral tablet, extended release)?1?tab(s)?75?Milligram?By Mouth?Daily ?? Medications Started Augmentin through 08/03 Xarelto 15mg BID through 08/12 then 20mg once daily for at least 3 months Medications Discontinued none Doses Changed none Allergies Allergies ?(Active and Proposed Allergies Only) lisinopril? (Severity: Unknown severity, Onset: Unknown) ?Reactions: cough nonsteroidal antiinflammatory agent? (Severity: Unknown severity, Onset: Unknown) ?Reactions: stomache pain ? PCP Follow-Up/Heads-Up 1. Follow up hypercoaguable studies, ?unprovoked DVT/PE, ?duration of AC Xarelto (told him to indefinitely continue on dc) Hospital Course 78M with recent outpatient diagnosis??of UTI, started Keflex on 07/16, presented with AMS, fever,??and unwitnessed fall out of bed. Found to have proteus bacteremia and was on 2Gm ceftriaxone daily, however patient still having recurrent daily fever spikes. Bcx sensitivities grew and ceftriaxone is s usceptible. ID consulted, suspect GI translocation less likely source. Recommended deescalating to Unasyn and transition to PO Augmentin upon discharge for total 14 day course (end date 08/03).??Also found to have R lung pulmonary embolism without evidence of right heart strain on echocardiogram? ?and??bilateral DVT, started on Lovenox,??transitioned to??Xarelto 07/22 (loading dose 15mg BID until 08/12 then 20mg daily indefinitely). Discharge to [facility]. ?? ESBL Proteus bacteremia- pansensitive cultures Blood cultures drawn in ED??07/20??positive for Proteus, pansusceptible on sensitivities CT abd/pelvis without evidence of pyelonephritis or??obstructing stone ID consulted,??suspect Proteus bacteremia from GI translocation and fevers due to PE/DVT given repeat blood cultures 07/22 NGTD. Afebrile >24 hours, leukocytosis continues to downtrend ?? -??On discharge, continue Augmentin through 08/03 (14 days total treatment duration) on discharge ?? Pulmonary embolism on right ??(I26.99) DVT (deep venous thrombosis) ??(I82.409) Patient found to have R pulmonary embolism and bilateral DVT May be unprovoked:??No history of malignancy, no recent prolonged immobilization or hospitalization>3 days, or recent surgeries. Per patient, last colonoscopy <10 yrs ago without concerning findings; recommendation of 10 yr follow up. Formal echo performed showing??reduced RV systolic function, mild pulmonary hypertension, without obvious signs of R heart strain ?? -??Continue xarelto 15mg BID until 08/12, then 20mg daily indefinitely - follow up with PCP outpatient for management of determining duration of anticoagulation in the setting of seemingly unprovoked DVT, will likely need hypercoaguable work-up ?? New onset periodic responsiveness of unknown etiology-resolved Right sided weakness-resolved Concern for underlying seizures vs intracranial bleed/other pathology. Also consider recurrent metabolic encephalopathy given recurrent leukocytosis. CT head ordered without signs of acute intracranial pathology.?? vEEG reveals mild to moderate generalized slowing of the background, no epileptic activity. Neuro signed off. No weakness appreciated on exam today. ?? 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 ?? - Continue scheduled??home hydrocodone 5mg at bedtime, oxycodone 5 mg BID?? - Continue gabapentin 600mg TID ?? Hypertension Blood pressure 153/83 today -??Continue atenolol 25mg daily ?? Resolved Conditions: Hyponatremia - resolved Na 134 today, improved s/p NS IV fluid resuscitation. Unknown etiology.?? Pt without vomiting, decreased PO, or increase output. ?? Fall - likely in setting of PE, hypovolemia; PT eval recommending rehab Metabolic encephalopathy ??(G93.41) - resolved; likely in setting of infection and PE. ?? Chronic stable medical conditions: HLD (hyperlipidemia)??(E78.5) -- continue statin Mood disorder??(F39) -- hx of PTSD, continue home venlafaxine Objective Assessment and Plan Discharge Planning:? Vital Signs?? Temperature: 98 DegF (07/26/23 07:17:00) Temperature Route: Oral (07/26/23 07:17:00) Pulse Rate: 79 bpm (07/26/23 07:17:00) Respiratory Rate: 18 br/min (07/26/23 07:43:00) Respiratory Rate: 18 br/min (07/26/23 07:43:00) Systolic Blood Pressure:??153 mm Hg??High (07/26/23 07:17:00) Diastolic Blood Pressure: 83 mm Hg (07/26/23 07:17:00) Blood pressure sites: Arm, left (07/26/23 07:17:00) Mean Arterial Pressure: 106 mm Hg (07/26/23 07:17:00) Pulse Pressure: 70 mm Hg (07/26/23 07:17:00) Oxygen Saturation: 94 % (07/26/23 07:17:00) Liters per Minute: 2 L/min (07/25/23 16:28:00) Mode of Delivery (Oxygen): Room air (07/26/23 07:17:00) Early Warning Score: 3 (07/26/23 07:45:18) ? . Physical Exam General: No acute distress, AAOx3 HEENT: EOMI, full ROM neck. Cardio: regular rhythm and rate Respiratory: CTA bilaterally w/ no audible wheezes or rales, on room air MSK: moderate lumbar tenderness to palpation, no overlying ecchymosis in midline of back Extremities: 1+ bilateral lower extremity edema. seen moving UE and LE bilaterally independently Neuro: no facial droop no slurring of the speech, sensations intact, no asymmetric weakness on examtoday. Consultants infectious disease Pending Results Add On Lab Order ordered on 07/20/2023 Add On Lab Order ordered on 07/23/2023 Add On Lab Order ordered on 07/24/2023 Blood Culture ordered on 07/22/2023 Blood Culture #2 ordered on 07/22/2023 CBC ordered on 07/24/2023 Urine Culture ordered on 07/20/2023 Patient Education Titles Amoxicillin/Clavulanate Oral Tablet?? Dysuria?? Rivaroxaban Oral Tablet?? Complications of Deep Vein Thrombosis?? Discharge Instructions for Deep Vein Thrombosis (DVT)?? Patient Instructions You came in due to falling at home as well as confusion. You were noted to have a bacteremia with the bacteria called Proteus. You were also found to have a clot in your right lung and was started storm blood thinner called Xarelto which you will take for at least 3 months twice a day until follow up with PCP. You had some episodes of unresponsiveness and confusion while inpatient and we got an EEG and CAT scan of your brain which did not show any abnormalities such as a seizure. You will continue on antibiotics called Augmentin daily through 08/03/2023. ?? New meds: - Xarelto 15mg twice daily through 08/12/2023. then 20mg once daily indefinitely, follow up with your PCP regarding continuing this medication in the setting of new blood clots - Augmentin through 08/03/2023, take as instructed Home Health Face to Face ^HomeHealthFTF Results Discharge Labs BLOOD COUNT & DIFF WBC 15.0 k/mm3 (High)?? 07/26/2023 04:19 RBC 4.91 m/mm3 ()?? 07/26/2023 04:19 Hgb 15.3 Gm/dL ()?? 07/26/2023 04:19 Hct 45.2 % ()?? 07/26/2023 04:19 MCV 92.1 femtoliters ()?? 07/26/2023 04:19 MCH 31.2 pg ()?? 07/26/2023 04:19 MCHC 33.8 g/dL ()?? 07/26/2023 04:19 Platelet Count 372 k/mm3 ()?? 07/26/2023 04:19 RDW-SD 45.5 femtoliters ()?? 07/26/2023 04:19 MPV 9.5 femtoliters ()?? 07/26/2023 04:19 Nucleated RBC (Automated) 0.0 #/100 WBC'S ()?? 07/26/2023 04:19 Abs. NRBC 0.0 k/mm3 ()?? 07/26/2023 04:19 Abs. Neut 12.6 k/mm3 (High)?? 07/25/2023 01:55 Abs. Lymph 1.4 k/mm3 ()?? 07/25/2023 01:55 Abs. Ray 1.2 k/mm3 ()?? 07/25/2023 01:55 Abs. Eo 0.2 k/mm3 ()?? 07/25/2023 01:55 Abs. Baso 0.1 k/mm3 ()?? 07/25/2023 01:55 Neut % 80.5 % (High)?? 07/25/2023 01:55 Lymph % 9.0 % (Low)?? 07/25/2023 01:55 Ray % 7.5 % ()?? 07/25/2023 01:55 Eos % 1.5 % ()?? 07/25/2023 01:55 Baso % 0.4 % ()?? 07/25/2023 01:55 Imm Gran 1.1 % ()?? 07/25/2023 01:55 Abs. Imm Gran 0.2 k/mm3 ()?? 07/25/2023 01:55 ?? CARDIAC Nt-Probnp 1011 pg/mL (High)?? 07/20/2023 09:40 High Sensitivity Troponin (HSTnT) 154 ng/L (Critical)?? 07/20/2023 11:24 ?? CHEM GENERAL Sodium 134 mmol/L ()?? 07/26/2023 04:19 Potassium 4.7 mmol/L ()?? 07/26/2023 04:19 Chloride 99 mmol/L ()?? 07/26/2023 04:19 Bicarbonate Level 23 mmol/L ()?? 07/26/2023 04:19 Anion Gap 12 ()?? 07/26/2023 04:19 Glucose Level 124 mg/dL (High)?? 07/26/2023 04:19 Glucose, POC 87 mg/dL ()?? 07/20/2023 07:54 BUN 24 mg/dL (High)?? 07/26/2023 04:19 Creatinine-Blood 0.8 mg/dL ()?? 07/26/2023 04:19 Estimated GFR Creatinine 93 ML/MIN/1.73 M2 ()?? 07/26/2023 04:19 Osmolality 277 mOs/kg (Low)?? 07/23/2023 11:18 Calcium 10.1 mg/dL ()?? 07/26/2023 04:19 Magnesium 2.1 mg/dL ()?? 07/25/2023 01:55 Protein, Total 6.0 Gm/dL (Low)?? 07/20/2023 09:40 Albumin 3.6 Gm/dL ()?? 07/20/2023 09:40 Alkaline Phosphatase 72 units/L ()?? 07/20/2023 09:40 AST (SGOT) 28 units/L ()?? 07/20/2023 09:40 ALT (SGPT) 18 units/L ()?? 07/20/2023 09:40 Bilirubin, Total 1.0 mg/dL ()?? 07/20/2023 09:40 Bilirubin, Direct 0.4 mg/dL (High)?? 07/20/2023 09:40 Bilirubin, Indirect 0.6 mg/dL ()?? 07/20/2023 09:40 Lactate 1.4 mmol/L ()?? 07/20/2023 09:40 ?? HEME OTHER Hold Lavender Top SPECIMEN DISCARDED AFTER 24 HOURS. ()?? 07/24/2023 06:03 ? UA/URINALYSIS Appear/Color, Urine COLORLESS ()?? 07/23/2023 16:30 Clarity CLEAR ()?? 07/23/2023 16:30 Specific [place], Urine 1.006 ()?? 07/23/2023 16:30 pH, Urine 6.5 ()?? 07/23/2023 16:30 Albumin, Urine TRACE (Abnormal)?? 07/23/2023 16:30 Glucose, Urine NEGATIVE ()?? 07/23/2023 16:30 Ketones, Urine NEGATIVE ()?? 07/23/2023 16:30 Bilirubin, Urine NEGATIVE ()?? 07/23/2023 16:30 Hemoglobin, Urine 1+ (Abnormal)?? 07/23/2023 16:30 Nitrite, Urine NEGATIVE ()?? 07/23/2023 16:30 Leukocyte, Urine NEGATIVE ()?? 07/23/2023 16:30 Urobilinogen NORMAL mg/dL ()?? 07/23/2023 16:30 WBC's, Urine 1 /HPF ()?? 07/23/2023 16:30 RBC's, Urine 6 /HPF (High)?? 07/23/2023 16:30 Bacteria SLIGHT HPF (Abnormal)?? 07/23/2023 16:30 Squamous Epith <1 /HPF ()?? 07/20/2023 10:02 Mucus SLIGHT /LPF ()?? 07/20/2023 10:02 Hold Urine Culture Testing available 48 hours from time of collection. ()?? 07/20/2023 10:02 Culture Indication CULTURE NOT INDICATED ()?? 07/23/2023 16:30 ? URINE OTHER Sodium, Urine Random 36 mmol/L ()?? 07/23/2023 16:30 Osmolality, Urine Random 326 mOsm/kg ()?? 07/23/2023 16:30 Est Creatinine Clearance 71.25 mL/min ()?? 07/26/2023 05:29 ? VIROLOGY COVID-19 PCR Specimen Source NASAL ()?? 07/20/2023 07:44 COVID-19 PCR Result NEGATIVE ()?? 07/20/2023 07:44 ? Microbiology ?? COVID-19 (2019 Novel Coronavirus) PCR?? Completed?? Source: Nasal Body Site: Nose Collected Dt/Tm: 07/20/2023 07:39 Last Updated Dt/Tm: 07/20/2023 09:31 Blood Culture?? Completed?? Source: Blood Body Site: ?? Collected Dt/Tm: 07/20/2023 07:39 Last Updated Dt/Tm: 07/20/2023 07:39 ?SPECIMEN DESCRIPTION : BLOOD NONESPECIAL REQUESTS : NONECULTURE : PROTEUS MIRABILIS ??This isolate was identified using Maldi-TOF system ??These AST results were performed on the Vitek 2 ID and AST systemREPORT STATUS : FINAL 07/23/2023ORGANISM ? PROTEUS MIRABILIS ??This isolatewas identified using ? Maldi-TOF system These AST results were performed on the Vitek 2 ID and AST systemMETHOD ? MIN. INHIB. CONC. (MCG/ML)AMPICILLIN ? SUSCEPTIBLEAMPICILLIN/SULBACTAM SUSCEPTIBLECEFEPIME ? SUSCEPTIBLECEFTRIAXONE ?SUSCEPTIBLECIPROFLOXACIN ?SUSCEPTIBLEERTAPENEM ?SUSCEPTIBLEGENTAMICIN ? SUSCEPTIBLELEVOFLOXACIN ? SUSCEPTIBLEPIPERACILLIN/TAZOBAC S USCEPTIBLETRIMETH/SULFAMETHOX ??SUSCEPTIBLE Blood Culture #2?? Completed?? Source: Blood Body Site: ?? Collected Dt/Tm: 07/20/2023 07:39 Last Updated Dt/Tm: 07/20/2023 07:39 ?SPECIMEN DESCRIPTION : BLOOD RT HANDSPECIAL REQUESTS : CRITICAL VALUE CALLED AND VERIFIED BY READBACK FOR: GRAM NEGATIVE RODS ? AND PCR HAVE BEEN CALLED TO [id number] [facility] [id number] ON 07/21/23 @0054 BY ? TECH [id number] : PROTEUS MIRABILIS ??This isolate was identified using Maldi-TOF system ??FOR SUSCEPTIBILITY RESULT REFER TO BLOOD CULTURE ACCESSION ?[id number] ?Proteus species was identified by multiplex PCR.REPORT STATUS : FINAL 07/23/2023 Urine Culture?? Collected?? Source: Urine Straight Cath Body Site: ?? Collected Dt/Tm: 07/20/2023 11:24 Last Updated Dt/Tm: 07/20/2023 11:24 ? Imaging(s) ?CT Head/Brain W/O Contrast ?? 07/23/2023 10:20??by Alfred Quispe MD ?FINDINGS: ?? Patternmaker Grader view findings, lines and tubes: None. ?? BRAIN AND EXTRA-AXIAL SPACES: No parenchymal hemorrhage, midline shift, or mass effect. Purvis-white matter differentiation is wellpreserved. No acute infarct. Negative insular ribbon and hyperdense vessel signs. ?? Mild prominence of the ventricles and sulci consistent with parenchymal volume loss. ?? Moderate low-density white matter changes. ?? No subarachnoid hemorrhage. No subdural or epidural collection. ?? CALVARIUM, SKULL BASE, AND SOFT TISSUES: No fractures or suspicious bony lesions. ?? Mucosal thickening of the paranasal sinuses unchanged. The mastoid air cells are clear. ?? Status-post bilateral lens extraction. ?? The extracranial soft tissues are unremarkable. ?? IMPRESSION: ?? No acute intracranial pathology. ?Echocardiogram - Complete ?? 07/21/2023 15:13??by Raffi Castellon MD ?Summary ??The left ventricle is poorly visualized despite contrast enhancement. The ??apical views are foreshortened. The left ventricular size is normal. The ??left ventricular wall thickness is mildly increased. The LV systolic ??function appears mildly reduced . Cannot assess LV ejection fraction. Image ??quality is inadequate to assess regional wall motion. ?? The right ventricle is normal in size. Right ventricular systolic function ??is reduced. The right ventricular free wall is hypokinetic . ?? There is mild pulmonary hypertension. ? _35??minutes spent on discharge ?? Patient seen??and discussed with attending physician Dr. Paredes ?? Kasey Muhammad??DO Internal Medicine PGY2 * Reggie MONSIVAIS, Frieda Kaba: PERFORM Event Display: Discharge/Transfer Note Hospital Authored Date: Attending Attestation:??I have seen and evaluated this patient.?I have discussed the case and its management with the resident and agree with the findings and plan as documented in the resident???s note except where modified. ?This note will serve as a progress note for today, patient without rehab placement though after discussion with is now amenable. Frieda Paredes MD * Kasey Muhammad DO: PERFORM Event Display: Patient Education Leaflets Authored Date: Amoxicillin/Clavulanate Oral Tablet ?? [id number] Amoxicillin/Clavulanate Oral Tablet Brands: Augmentin Uses For treating bacterial infection. ?? Instructions Take the medicine with food. Keep the medicine at room temperature. Avoid heat and direct light. It is important that you keep taking each dose of this medicine on time even if you are feeling well. If you forget to take a dose on time, take it as soon as you remember. If it is almost time for thenext dose, do not take the missed dose. Return to your normal schedule. Do not take 2 doses at one time. Tell your doctor and pharmacist about all your medicines. Include prescription and cebu-uqv-atbkhpgrbtrftbas, vitamins, and herbal medicines. Keep using this medicine for the full number of days that it is prescribed. Do not stop the medicine even if you start to feel better. If you have diabetes and use urine glucose tests, this medicine may cause incorrect results. Pleasecheck with your doctor before making any changes to your diabetes treatment plan. ?? Cautions Tell your doctor and pharmacist if you ever had an allergic reaction to a medicine. Do not use the medication any more than instructed. Please tell your doctor if you have moderate to severe diarrhea while on this medicine. Do not treat the diarrhea with vufl-gqx-znteohm diarrhea medicine. Tell the doctor or pharmacist if you are , planning to be , or . Do not start or stop any other medicines without first speaking to your doctor or pharmacist. Do not share this medicine with anyone who has not been prescribed this medicine. ?? Side Effects The following is a list of some common side effects from this medicine. Please speak with your doctor about what you should do if you experience these or other side effects. ??? diarrhea ??? nausea and vomiting ??? stomach upset or abdominal pain Call your doctor or get medical help right away if you notice any of these more serious side effects: ??? severe or persistent abdominal pain ??? severe, watery or bloody diarrhea ??? signs of liver damage (such as yellowing of eye or skin, dark urine, or unusual tiredness) ??? red, burning, or itchyskin ??? yeast infection of mouth ??? vaginal itching or discharge A few people may have an allergic reaction to this medicine. Symptoms can include difficulty breathing, skin rash, itching, swelling, or severe dizziness. If you notice any of these symptoms, seek medical help quickly. ?? Extra Please speak with your doctor, nurse, or pharmacist if you have any questions about this medicine. ?? [email or web address] IMPORTANT NOTE: This document tells you briefly how to take your medicine, but it does not tell youall there is to know about it. Your doctor or pharmacist may give you other documents about your medicine. Please talk to them if you have any questions. Always follow their advice. There is a more complete description of this medicine available in Togolese. Scan this code on your smartphone or tablet or use the web address below. You can also ask your pharmacist for a printout. If you have any questions, please ask your pharmacist. The display and use of this drug information is subject to Terms of Use. Copyright(c) 2023 [employer]. ?? The [employer]. All rights reserved. This information is not intended as a substitute for professional medical care. Always follow your healthcare professional's instructions. ?? * Kaesy Muhammad DO: PERFORM Event Display: Patient Education Leaflets Authored Date: [id number] Dysuria ?? [address] Dysuria Dysuria is when you have pain when peeing. It's often described as a burning feeling. Learn more about this problem and how it can be treated. Painful urination (dysuria) is often caused by a problem in the urinary tract. What causes dysuria? Possible causes include: ??? Infection with a bacteria or virus such as a urinary tract infection (UTI) or a sexually transmitted??infection (STI) ??? Sensitivity or allergy to chemicals, such as those found in lotions and other products ??? Prostate or bladder problems ??? Radiation therapy to thepelvic area ?? How is dysuria diagnosed? Your healthcare provider will examine you and ask about your symptoms and health history. After talking with you and doing a physical exam, your provider may or may not know what's causing your dysuria. You'll most likely need more testing, such as a urine sample. Tests of your urine (urinalysis) will include: ??? Looking at the urine sample (visual exam) ??? Checking for substances (chemical exam) ??? Looking at a small amount of the urine under a microscope (microscopic exam) Some parts of the urine test may be done in the provider's office. Others may be done in a lab. Theurine sample may also be checked for bacteria and yeast (urine culture).??Your provider will tell you more about these tests if they're needed. ?? How is dysuria treated? Treatment depends on the cause. If you have a bacterial infection, you may need antibiotics. You may be given medicines to make it easier for you to pee and to help ease pain. Your healthcare provider can tell you more about your treatment options. If not treated, symptoms may get worse. ?? When to call your healthcare provider Call the healthcare provider right away if you have any of the following: ??? Fever of?? 100.4?? F??( 38??C ) or higher, or as directed by your provider ??? No improvement after 3 days of treatment ??? Trouble peeing because of pain ??? New or increased discharge from the vagina or penis ??? Rash or joint pain ??? Increased back or belly pain ??? Enlarged painful lymph nodes (lumps) in the groin ?? Last Reviewed Date: 2021 ?? The [employer]. All rights reserved. This information is not intended as a substitute for professional medical care. Always follow your healthcare professional's instructions. ?? * Kasey Muhammad DO: PERFORM Event Display: Patient Education Leaflets Authored Date: [id number] Rivaroxaban Oral Tablet ?? [id number] Rivaroxaban Oral Tablet Brands: Xarelto Uses This medicine is used for the following purposes: ??? blood disorder ??? prevent blood clots ??? treatment of blood clots ??? blood clot ??? prevent heart attack ?? Instructions If unable to swallow the tablet, crush and mix with applesauce. Mix well and eat immediately. If you are giving this medicine through a tube into the stomach, ask your doctor or pharmacist for specific directions. Take the medicine with food. This medicine will work best if you take it at about the same time every day. Store at room temperature away from heat, light, and moisture. Do not keep in the bathroom. It is important that you keep taking each dose of this medicine on time even if you are feeling well. If you miss a dose, contact your doctor for instructions. Drug interactions can change how medicines work or increase risk for side effects. Tell your healthcare providers about all medicines taken. Include prescription and gxpb-gdh-eppjuen medicines, vitamins, and herbal medicines. Speak with your doctor or pharmacist before starting or stopping any medicine. Talk to your doctor before taking other medicines, including aspirins and ibuprofen containing products. Speak to your doctor about which medicines are safe to use while you are on this medicine. Keep all appointments for medical exams and tests while on this medicine. ?? Cautions Tell your doctor and pharmacist if you ever had an allergic reaction to a medicine. This medicine may cause serious bleeding from the stomach or bowels. Stop this medicine and call your doctor immediately if you see any signs of bleeding. Bleeding can cause pain in the stomach, vomiting up liquid that looks like coffee grounds, and red or dark tarry stools. There is an increased risk of bleeding while on this medicine, please tell your doctor or nurse if you notice any excessive bleeding or bruising. Do not use the medication any more than instructed. Please check with your doctor before drinking alcohol while on this medicine. It is unknown if this medicine passes into breast milk. Ask your doctor before . During , this medicine should be used only when clearly needed. Talk to your doctor about the risks and benefits. Do not take Carrizo's wort while on this medicine. Do not share this medicine with anyone who has not been prescribed this medicine. Some patients have serious side effects from this medicine. Ask your pharmacist to show you the information from the Food and Drug Administration (FDA) and discuss it with you. Always refill this medicine before it runs out. ?? Side Effects The following is a list of some common side effects from this medicine. Please speak with your doctor about what you should do if you experience these or other side effects. ??? nosebleeds Call your doctor or get medical help right away if you notice any of these more serious side effects: ??? back pain ??? inability to control bladder or bowel movements ??? bleeding or bruising ??? confusion ??? coughing up blood or vomit that looks like coffee grounds ??? fainting ??? numbness or tingling in hands and feet ??? loss of movement anywhere on the body ??? slurred speech ??? bloody or dark, tarry stools ??? difficulty swallowing ??? unusual or unexplained tiredness or weakness ??? blood in urine ??? blurring or changes of vision ??? weakness on one side of the body A few people may have an allergic reaction to this medicine. Symptoms can include difficulty breathing, skin rash, itching, swelling, or severe dizziness. If you notice any of these symptoms, seek medical help quickly. ?? Extra Please speak with your doctor, nurse, or pharmacist if you have any questions about this medicine. ?? [email or web address] IMPORTANT NOTE: This document tells you briefly how to take your medicine, but it does not tell youall there is to know about it. Your doctor or pharmacist may give you other documents about your medicine. Please talk to them if you have any questions. Always follow their advice. There is a more complete description of this medicine available in Togolese. Scan this code on your smartphone or tablet or use the web address below. You can also ask your pharmacist for a printout. If you have any questions, please ask your pharmacist. The display and use of this drug information is subject to Terms of Use. Copyright(c) 2022 [employer]. ?? The [employer]. All rights reserved. This information is not intended as a substitute for professional medical care. Always follow your healthcare professional's instructions. ?? Patient Care team information Care Team Personnel Name: Isacc Guidry Position: [facility] RN Member Role: Primary Care Nurse Name: Rick Christie DO Position: Reference Physician Member Role: PCP Address: Address: [address] [place] [address], [place] [address] Name: Rock Lal RN Position: [facility] RN Member Role: Primary Care Nurse Name: Ariana Quispe RN Position: [facility] RN Member Role: Primary Care Nurse Name: Kelli Saldana RN Position: [facility] RN Member Role: Primary Care Nurse Name: Johnny العراقي Attending Position: [facility] ED Medicine MD Name: Martine James Position: [facility] ED RN W/OE and Tasks Member Role: Patient Care Provider Name: Nancy Nettles Position: [facility] ED OA Charge Member Role: ED Associate Name: Leslee Petty MD Position: [facility] Resident Member Role: Consulting Physician Address: Address: [address] [place] [id number]- Name: Brandon Lehman RN Position: [facility] ED RN W/OE and Tasks Member Role: Patient Care Provider Name: Suzanna Dumas Position: [facility] ED TA [facility] Care Team Related Persons Name: ANUP NICOLAS Address: home [address] [place] [address] Name: SVETA NICOLAS Address: home [address] [place] [address] Name: SVETA KHALIL Address: home [address] [place] [address]
[2023-09-07 21:13] VITALS: BP 126/63; PULSE 76; RESP 16; TEMP 38.8; O2SAT 92
--- NOTE | 2023-09-07 21:20 | PC.NURSE ---
This story writer assumed care of this Pt at 1900. Pt A&O to self, denies any pain. Pt on 2L via NC, SpO2 96%, Spo2 maintaining at 92% RA, lung sounds diminished, equal non labored breathing. T/W spoke to who reports she was in to visit at [facility] and Pt was more confused/lethargy. Skin in warm/intact. Pt febrile, Dr. Crystal made aware, new order given per MAR.
[2023-09-07] MEDS: cefTRIAXone sodium 1 GM in 0.9 % Sodium Chloride 50 ML IV (21:40)
[2023-09-07] MEDS: Acetaminophen Supp 650 MG SUPP.RECT PR (21:43)
[2023-09-07 21:44] LABS: Bacteria Urine None Seen (None Seen); Squamous Epithelial Cell Urine 0-2 /HPF (0-2); WBC Urine 0-5 /HPF (0-5)
--- NOTE | 2023-09-07 21:55 | PHA.MEDREC ---
Pharmacy Consult ? Medication Reconciliation Pharmacy has completed the medication reconciliation. Patient came from [facility] with medication list. Lee Ann Curtis, SilvanaD
--- NOTE | 2023-09-07 22:37 | P.HPHOSP_ITS ---
History of Present Illness Date of Service: 09/07/23 Chief Complaint: Altered mentation This is a 78-year-old male with pertinent history of PE on Xarelto, mood disorder, unspecified dementia, morbid obesity, gastroesophageal reflux disease, mixed hyperlipidemia, essential hypertension who was sent to the emergency department for evaluation of altered mentation. Patient is a poor historian and does not know why he is in the hospital. He is only oriented to self at the time of my evaluation. Admits he has had a productive cough for a few days. History obtained from ER provider and chart review. As per the , who was present earlier, patient was found to be confused and lethargic earlier in the day. Patient does have a history of frequent UTIs and the wanted the patient to be evaluated for infection likely urinary source. Unable to obtain review of systems. In the emergency department, patient was found be septic and imaging concerning for left-sided pneumonia. Review of Systems 2 Review of Systems: Yes Unobtainable due to mental status [facility] Medical History (Updated 09/07/23 @ 22:44 by Flora White MD) Dementia Essential hypertension Gastroesophageal reflux disease Mood disorder Pulmonary embolus Pertinent family history: Unable to obtain Social History Advance Directives: Yes Advance Directives Information Provided: No Advance Directives on File: No Meds Allergies Allergy/AdvReac Type Severity Reaction Status Date / Time No Known Allergies Allergy Verified 09/07/23 18:55 Home Medications Medication Instructions Recorded Confirmed Last Taken Type atenolol 25 mg tablet 25 mg PO DAILY 09/07/23 09/07/23 Unknown History buprenorphine HCl 150 mcg buccal 150 mcg buccal BEDTIME pain 09/07/23 09/07/23 Unknown History film (Belbuca) management bupropion HCl 150 mg tablet,12 hr 150 mg PO BID 09/07/23 09/07/23 Unknown History sustained-release gabapentin 600 mg tablet 600 mg PO TID 09/07/23 09/07/23 Unknown History multivitamin 1 tab PO DAILY 09/07/23 09/07/23 Unknown History omeprazole 20 mg tablet,delayed 20 mg PO BEDTIME 09/07/23 09/07/23 Unknown History release rivaroxaban 20 mg tablet (Xarelto) 20 mg PO DAILY 09/07/23 09/07/23 Unknown History simvastatin 40 mg tablet 40 mg PO BEDTIME 09/07/23 09/07/23 Unknown History trazodone 50 mg tablet 100 mg PO BEDTIME 09/07/23 09/07/23 Unknown History venlafaxine 75 mg tablet,extended 75 mg PO DAILY 09/07/23 09/07/23 Unknown History release 24 hr Physical Exam 2 Vital Signs and Narrative: Vital Signs: Last Vital Signs Temp 101.8 F H 09/07/23 21:13 Pulse 76 09/07/23 21:13 Resp 16 09/07/23 21:13 BP 126/63 09/07/23 21:13 Pulse Ox 92 09/07/23 21:13 O2 Del Method Room Air 09/07/23 21:13 Oxygen Flow Rate 2 09/07/23 18:47 BMI result Body Mass Index 34.0 Elderly male lying in bed in no distress Neck supple, no JVD Regular rate and rhythm, S1-S2 heard Left-sided crackles, no wheezing Abdomen soft nontender, no guarding, no rigidity Patient is awake, alert and oriented to self, disoriented to place, time and person ; no focal motor deficit Psych: Normal mood No pedal edema Results Labs 09/07/23 19:41 09/07/23 19:41 Labs: Laboratory Results - last 24 hr 09/07/23 09/07/23 09/07/23 19:41 20:12 21:03 MCV 94.0 MCH 29.6 MCHC 31.5 RDW 13.8 Plt Count 316 MPV 9.2 L Immature Gran % (Auto) 0.7 H Neut % (Auto) 79.9 H Lymph % (Auto) 7.2 L [place] % (Auto) 10.7 Eos % (Auto) 0.8 Baso % (Auto) 0.7 Lymph # (Auto) 1.0 L [place] # (Auto) 1.5 H Eos # (Auto) 0.1 Baso # (Auto) 0.1 Abs Immat Gran (auto) 0.10 H Absolute Neuts (auto) 11.0 H Absolute Nucleated RBC 0.000 Nucleated RBC % (auto) 0.0 Smear Tech's Comments VERIFIED PT 16.2 H INR 1.3 H Anion Gap 12 Estim Creat Clear Calc 99.7 Estimated GFR > 60 Random Glucose 133 H Lactic Acid 0.9 Calcium 10.4 H Magnesium 2.0 Total Bilirubin 0.3 AST 30 ALT 34 Alkaline Phosphatase 80 Total Protein 7.9 Albumin 3.0 L Urine Color Yellow Urine Appearance Clear Urine pH 6.5 Ur Specific [place] 1.020 Urine Protein 30 (1+) H Urine Glucose (UA) Negative Urine Ketones Negative Urine Blood Negative Urine Nitrite Negative Ur Leukocyte Esterase Negative Urine RBC 3-5 H Urine WBC 0-5 Ur Squamous Epith Cells 0-2 Urine Bacteria None Seen Hyaline Casts 3-5 Influenza Type A (PCR) NEGATIVE Influenza Type B (PCR) NEGATIVE RSV RNA Qual (PCR) NEGATIVE SARS-CoV-2 RNA (RT-PCR) NEGATIVE Imaging Radiologist's Impressions: Impressions Chest X-Ray 09/07/23 19:09 IMPRESSION: Low lung volumes. Slightly enlarged cardiac silhouette. Density behind the heart silhouetting the left hemidiaphragm, question related to the descending thoracic aorta, esophageal hernia or left lower lobe process. Assessment and Plan (1) Sepsis: Status: Acute (2) Pneumonia: Status: Acute Plan This is a 78-year-old male with pertinent history of PE on Xarelto, mood disorder, unspecified dementia, morbid obesity, gastroesophageal reflux disease, mixed hyperlipidemia, essential hypertension who was sent to the emergency department for evaluation of altered mentation. #. Sepsis due to left-sided pneumonia: Resuscitated with IV crystalloids. Initiating empiric IV antibiotics. Blood culture and sputum culture pending. Obtained lactic acid. #. Acute metabolic encephalopathy in the setting of above #. History of PE: On Xarelto #. Mood disorder: Continue home mood stabilizers #. Dementia: Monitor sleep-wake cycle #. Gastroesophageal reflux disease: On PPI #. Mixed hyperlipidemia: On statin #. Essential hypertension: Hold p.o. atenolol in the setting of sepsis. #. Obesity: Low-calorie diet DVT prophylaxis: Xarelto Admit as inpatient and will require two night minimum hospital stay for IV antibiotics, monitoring of mentation (as above), which is not possible in a lesser acute setting. Quality Stroke Does the patient have a stroke diagnosis?: No VTE Prior VTE?: No VTE Risk Level:: Medical - moderate - high VTE Device Contraindication: Treatment Not Indicated VTE Drug Contraindication: N/A - Med Ordered
[2023-09-07 23:20] VITALS: TEMP 38
[2023-09-07] MEDS: Omeprazole 20 MG CAPSULE.DR PO (23:42)
[2023-09-07] MEDS: traZODone HCL 100 MG TABLET PO (23:42)
--- NOTE | 2023-09-07 23:50 | PC.NURSE ---
Pass Swallow eval, meds given per DEC.
--- NOTE | 2023-09-08 00:03 | PC.NURSE ---
RN to RN report given to Jeanette Pt will be transported to ED overflow.
[2023-09-08] MEDS: Azithromycin 500 MG in 0.9 % Sodium Chloride 250 ML 125 MG IV (00:44)
--- NOTE | 2023-09-08 01:36 | PC.NURSE ---
Assumed care of PT at 0010. Report and handoff received from COLLEEN Perez. PT is alert and oriented to self and place. PT transferred to hospital bed. IV line intact and patent. wrapped to prevent PT from removing line again. Brief provided and placed on PT for incontinency. PT saturating at 88% on RA. Placed pt on 2L NC oxygen saturation noted to improve with intervention- ranging from 94%-96%. Medications administered as per DEC. Call edwards within reach plan of care ongoing.
[2023-09-08 05:13] LABS: Basophils Absolute Auto 0.1 X10*3/uL (0.0-0.2); Basophils Percent Auto 0.6 % (0-2); Eosinophils Absolute Auto 0.1 X10*3/uL (0.0-0.4); Eosinophils Percent Auto 0.6 % (0-4); Hematocrit 36.4 % (42.0-52.0); Hemoglobin 11.4 g/dl (14.0-18.0); Imm Gran Pct Auto 0.8 % (0.0-0.4); Lymphocytes Absolute Auto 1.2 X10*3/uL (1.2-4.9); Lymphocytes Percent Auto 9.4 % (20-40); MANUAL DIFF FLAG SCAN; Mean Corpuscular HGB Conc 31.3 g/dl (31.0-36.0); Mean Corpuscular Hemoglobin 29.5 pg (27.0-33.0); Mean Corpuscular Volume 94.1 fL (80.0-98.0); Mean Platelet Volume 8.6 fL (9.4-12.4); Monocytes Absolute Auto 1.7 X10*3/uL (0.1-1.2); Monocytes Percent Auto 12.8 % (2-11); Neutrophils Percent Auto 75.8 % (45-73); Platelet Count 305 X10*3/uL (160-400); Red Blood Count 3.87 X10*6/uL (4.60-5.80); Red Cell Distribution Width 13.9 % (11.0-16.0); SCAN SMEAR FLAG 1; White Blood Count 13.2 X10*3/uL (4.8-10.8)
[2023-09-08 05:25] LABS: Anion Gap 11 (12-20); Blood Urea Nitrogen 13 mg/dL (9-16); Calcium 9.8 mg/dL (8.4-10.2); Carbon Dioxide 29 mmol/L (22-29); Chloride 103 mmol/L (96-108); Creatinine Clr Calc Pharmacy 116.8; Estimated Glomerular Filt Rate > 60; Glucose Random 112 mg/dL (60-115); Potassium 3.9 mmol/L (3.3-5.1); Sodium 139 mmol/L (135-145)
[2023-09-08 05:35] LABS: SLIDE REVIEW VERIFIED
[2023-09-08 06:42] VITALS: BP 121/62; PULSE 75; RESP 18; TEMP 36.7; O2SAT 94
--- NOTE | 2023-09-08 06:42 | PC.NURSE ---
Pt linens, and gown changed due to incontinency. [place] catheter placed.
[2023-09-08] MEDS: Rivaroxaban 20 MG TABLET PO (09:04)
[2023-09-08] MEDS: buPROPion HCl XL 300 MG TAB.ER.24H PO (09:04)
[2023-09-08] MEDS: Multivitamin TABLET 1 TAB PO (09:04)
[2023-09-08] MEDS: Venlafaxine HCl ER 75 MG CAP.ER.24H PO (09:04)
[2023-09-08] MEDS: 0.9 % Sodium Chloride Flush 3 ML SYRINGE IVFLUSH ×3 (09:06→21:08)
[2023-09-08 09:13] LABS: Procalcitonin 0.14 ng/mL
[2023-09-08] MEDS: Doxycycline Hyclate 100 MG in 0.9 % Sodium Chloride 250 ML 166.67 MG IV ×2 (10:10→21:42)
--- NOTE | 2023-09-08 12:27 | P.PNIM_ITS ---
Subjective Subjective Date of Service: 09/08/23 Interval History: disoriented to date minimal respiratory symptoms no cough Review of Systems Review of Systems: Yes all other systems are reviewed and are negative Physical Exam 2 Vital Signs: Vital Signs: Last Vital Signs Temp 98.0 F 09/08/23 06:42 Pulse 75 09/08/23 06:42 Resp 18 09/08/23 06:42 BP 121/62 09/08/23 06:42 Pulse Ox 94 09/08/23 06:42 O2 Del Method Nasal Cannula 09/08/23 06:42 O2 Flow Rate 2 09/08/23 06:42 Oxygen Flow Rate 2 09/07/23 18:47 BMI result Body Mass Index 34.0 Gen: in no acute distress HEENT: sclera anicteric, moist mucus membranes Neck: supple Lungs: diminished Heart: regular rate and rhythm, no murmurs Abd: soft, non-tender, non-distended Ext: no edema Skin: warm/well-perfused Neuro: alert and oriented to self + place Psych: appropriate affect Objective Data Active Medications Acetaminophen (Acetaminophen 325 Mg Tablet) 650 mg PO Q6H PRN PRN Reason: Pain, Mild (Pain Scale 1-3) Acetaminophen (Acetaminophen Supp 650 Mg Supp.Rect) 650 mg MA Q4H PRN PRN Reason: Fever >100.4 Atorvastatin Calcium (Atorvastatin Calcium 20 Mg Tablet) 20 mg PO BEDTIME ITZ Bupropion HCl (Bupropion Hcl Xl 300 Mg Tab.Er.24h) 300 mg PO DAILY [facility] Last Admin: 09/08/23 09:04 Dose: 300 mg Documented By: DIDI Ceftriaxone Sodium 1 gm/ (Sodium Chloride) 50 mls @ 100 mls/hr IV Q24H ITZ Doxycycline Hyclate 100 mg/ (Sodium Chloride) 250 mls @ 166.67 mls/hr IV Q12H [facility] Last Infusion: 09/08/23 11:54 Dose: Infused Documented By: DIDI Melatonin (Melatonin 3 Mg Tablet) 6 mg PO BEDTIME PRN PRN Reason: Insomnia Multivitamins/Vitamin C (Multivitamin Tablet) 1 tab PO DAILY [facility] Last Admin: 09/08/23 09:04 Dose: 1 tab Documented By: DIDI Non-Formulary Medication (Buprenorphine Hcl [Belbuca]) 150 mcg BUCCAL BEDTIME ITZ Omeprazole (Omeprazole 20 Mg Capsule.) 20 mg PO BEDTIME [facility] Last Admin: 09/07/23 23:42 Dose: 20 mg Documented By: LEIDY Ondansetron HCl (Ondansetron Hcl 4 Mg/2 Ml Vial) 4 mg IVPUSH Q8H PRN PRN Reason: Nausea and Vomiting Rivaroxaban (Rivaroxaban 20 Mg Tablet) 20 mg PO DAILY [facility] Last Admin: 09/08/23 09:04 Dose: 20 mg Documented By: DIDI Sodium Chloride (0.9 % Sodium Chloride Flush 3 Ml Syringe) 3 ml IVFLUSH QSHIFT [facility] Last Admin: 09/08/23 09:06 Dose: 3 ml Documented By: DIDI Trazodone HCl (Trazodone Hcl 100 Mg Tablet) 100 mg PO BEDTIME [facility] Last Admin: 09/07/23 23:42 Dose: 100 mg Documented By: LEIDY Venlafaxine HCl (Venlafaxine Hcl Er 75 Mg Cap.Er.24h) 75 mg PO DAILY [facility] Last Admin: 09/08/23 09:04 Dose: 75 mg Documented By: DIDI Labs 09/08/23 05:00 09/08/23 05:00 Labs: Laboratory Results - last 24 hr 09/07/23 09/07/23 09/07/23 19:41 20:12 21:03 MCV 94.0 MCH 29.6 MCHC 31.5 RDW 13.8 Plt Count 316 MPV 9.2 L Immature Gran % (Auto) 0.7 H Neut % (Auto) 79.9 H Lymph % (Auto) 7.2 L [place] % (Auto) 10.7 Eos % (Auto) 0.8 Baso % (Auto) 0.7 Lymph # (Auto) 1.0 L [place] # (Auto) 1.5 H Eos # (Auto) 0.1 Baso # (Auto) 0.1 Abs Immat Gran (auto) 0.10 H Absolute Neuts (auto) 11.0 H Absolute Nucleated RBC 0.000 Nucleated RBC % (auto) 0.0 Smear Tech's Comments VERIFIED PT 16.2 H INR 1.3 H Anion Gap 12 Estim Creat Clear Calc 99.7 Estimated GFR > 60 Random Glucose 133 H Lactic Acid 0.9 Calcium 10.4 H Magnesium 2.0 Total Bilirubin 0.3 AST 30 ALT 34 Alkaline Phosphatase 80 Total Protein 7.9 Albumin 3.0 L Procalcitonin Urine Color Yellow Urine Appearance Clear Urine pH 6.5 Ur Specific [place] 1.020 Urine Protein 30 (1+) H Urine Glucose (UA) Negative Urine Ketones Negative Urine Blood Negative Urine Nitrite Negative Ur Leukocyte Esterase Negative Urine RBC 3-5 H Urine WBC 0-5 Ur Squamous Epith Cells 0-2 Urine Bacteria None Seen Hyaline Casts 3-5 Influenza Type A (PCR) NEGATIVE Influenza Type B (PCR) NEGATIVE RSV RNA Qual (PCR) NEGATIVE SARS-CoV-2 RNA (RT-PCR) NEGATIVE 09/08/23 05:00 MCV 94.1 MCH 29.5 MCHC 31.3 RDW 13.9 Plt Count 305 MPV 8.6 L Immature Gran % (Auto) 0.8 H Neut % (Auto) 75.8 H Lymph % (Auto) 9.4 L [place] % (Auto) 12.8 H Eos % (Auto) 0.6 Baso % (Auto) 0.6 Lymph # (Auto) 1.2 [place] # (Auto) 1.7 H Eos # (Auto) 0.1 Baso # (Auto) 0.1 Abs Immat Gran (auto) 0.10 H Absolute Neuts (auto) 10.0 H Absolute Nucleated RBC 0.000 Nucleated RBC % (auto) 0.0 Smear Tech's Comments VERIFIED PT INR Anion Gap 11 L Estim Creat Clear Calc 116.8 Estimated GFR > 60 Random Glucose 112 Lactic Acid Calcium 9.8 Magnesium Total Bilirubin AST ALT Alkaline Phosphatase Total Protein Albumin Procalcitonin 0.14 Urine Color Urine Appearance Urine pH Ur Specific [place] Urine Protein Urine Glucose (UA) Urine Ketones Urine Blood Urine Nitrite Ur Leukocyte Esterase Urine RBC Urine WBC Ur Squamous Epith Cells Urine Bacteria Hyaline Casts Influenza Type A (PCR) Influenza Type B (PCR) RSV RNA Qual (PCR) SARS-CoV-2 RNA (RT-PCR) Impressions Chest X-Ray 09/07/23 19:09 IMPRESSION: Low lung volumes. Slightly enlarged cardiac silhouette. Density behind the heart silhouetting the left hemidiaphragm, question related to the descending thoracic aorta, esophageal hernia or left lower lobe process. Assessment and Plan (1) Altered mental status: Status: Acute (2) Pneumonia: Status: Acute Plan d2 78yo M with hx PE on rivaroxaban, HLD, HTN, GERD, dementia recently admitted to [facility] for AMS/UTI sent in from STR at [facility] for AMS, found to have sepsis due to PNA sepsis due to PNA - CT chest, follow BCx, trend PCT, check urinary antigens, continue ceftriaxone d2, doxycycline d1 encephalopathy due to sepsis - treat pneumonia as above hx PE - rivaorxaban HTN - not currently on any antihyeprtensives, BP well-controlled mood disorder - bupropion, trazodone, venlafaxine GERD - PPI HLD - statin VTE ppx - rivaroxaban dispo - eventual return to STR In my clinical judgment, the patient requires continued inpatient hospitalization for the following reasons: hypoxia, IV ABX Total time managing care of this patient today: 45 minutes. Quality Stroke Does the patient have a stroke diagnosis?: No VTE Prior VTE?: No VTE Risk Level:: Medical - moderate - high VTE Device Contraindication: Treatment Not Indicated VTE Drug Contraindication: N/A - Med Ordered
--- NOTE | 2023-09-08 12:59 | MHC.SL.SWA ---
Speech Pathologist Impression: Risk of Aspiration Due to: History of Pneumonia Dysphasia Diet Status: Liquid Consistency and Strategies for Safe Swallow: Liquid Intake Recommendation: Thin Liquid Intake Strategies: Small Sips Solid Food Consistency: Dietary Recommendations: Regular Additional Modifications to Solid Foods: Assure that head of bed is elevated to AT LEAST 70 degrees during meals, preferably 90 Degrees if tolerated. Oral Medication Intake: Whole with Liquid Please contact the pharmacy regarding appropriate crushable or liquid drug formulations that are available whenever modified delivery is recommended. Compensatory Strategies and Precautions to be Taken for Safe Swallow: Sitting Upright (90 deg) Liquids from Cup Liquids from Straw Supervision While Eating and Drinking for Safe Swallow: None Needed Foods to Avoid: Swallowing Recommended Treatments: Recommendation for Speech: NA:Typical Evaluation Comment: Patient presents with all aspects of oral motor function and all aspects of swallow WFL. Patient's primary risk for aspiration is positioning, and may attempt to eat/drink while reclined. Patient can independently self feed, will need to have head of bed elevated to at least 70 degrees, preferably 90 Degrees if tolerated (patient c/o back pain today during assessment). Recommend continue on Regular Diet with Thin Liquids pills whole with liquid. CORTNEY MONSIVAIS notified of recommendation by secure text, RN in person. PROGRAM DEVELOPMENT SPECIALIST with discontinue as all aspects WFL, no need for further services. Frequency/Duration: Date Range for Service Req: Timeline to reassess: Packager Hand Clinican/Clinical Fellow: No Supervisory Statement: I have reviewed and agree with the student/clinical fellow's documentation: N/A Speech Language Pathologist: Tonia Mazariegos M.A., CCC-PROGRAM DEVELOPMENT SPECIALIST
[2023-09-08 14:23] VITALS: BP 133/59; PULSE 82; RESP 18; TEMP 36.6; O2SAT 96
--- NOTE | 2023-09-08 16:36 | PC.NURSE ---
Pt A/Ox2-3 with periods of confusion. Maintaining O2 sats mid 90s on 2L via NC. [place] cath in place draining CYU, urine antigens sent per orders. Tolerates pills whole, good PO intake. Updated jesus alberto over the phone x2. Awaiting bed on med surg
[2023-09-08 17:23] VITALS: BP 130/73; PULSE 93; RESP 20; TEMP 36.1; O2SAT 95
[2023-09-08 19:08] VITALS: BP 139/65; PULSE 86; RESP 18; TEMP 36.3; O2SAT 96
[2023-09-08] MEDS: cefTRIAXone sodium 1 GM in 0.9 % Sodium Chloride 50 ML IV (21:08)
[2023-09-08] MEDS: Omeprazole 20 MG CAPSULE.DR PO (21:08)
[2023-09-08] MEDS: traZODone HCL 100 MG TABLET PO (21:08)
[2023-09-08] MEDS: Atorvastatin Calcium 20 MG TABLET PO (21:08)
[2023-09-09 03:15] VITALS: BP 141/76; PULSE 88; RESP 17; TEMP 36.4; O2SAT 94
[2023-09-09 05:29] LABS: Hematocrit 35.2 % (42.0-52.0); Hemoglobin 11.2 g/dl (14.0-18.0); Mean Corpuscular HGB Conc 31.8 g/dl (31.0-36.0); Mean Corpuscular Hemoglobin 30.1 pg (27.0-33.0); Mean Corpuscular Volume 94.6 fL (80.0-98.0); Platelet Count 305 X10*3/uL (160-400); Red Blood Count 3.72 X10*6/uL (4.60-5.80); Red Cell Distribution Width 13.7 % (11.0-16.0); White Blood Count 12.3 X10*3/uL (4.8-10.8)
[2023-09-09 05:44] LABS: Anion Gap 10 (12-20); Blood Urea Nitrogen 13 mg/dL (9-16); Carbon Dioxide 28 mmol/L (22-29); Chloride 103 mmol/L (96-108); Creatinine Clr Calc Pharmacy 122.6; Estimated Glomerular Filt Rate > 60; Glucose Random 121 mg/dL (60-115); Potassium 3.5 mmol/L (3.3-5.1); Sodium 137 mmol/L (135-145)
[2023-09-09 07:15] VITALS: BP 156/70; PULSE 84; RESP 20; TEMP 36.3; O2SAT 96
[2023-09-09 08:56] VITALS: BP 156/70; PULSE 84; O2SAT 96
[2023-09-09] MEDS: Venlafaxine HCl ER 75 MG CAP.ER.24H PO (09:03)
[2023-09-09] MEDS: 0.9 % Sodium Chloride Flush 3 ML SYRINGE IVFLUSH ×3 (09:03→23:40)
[2023-09-09] MEDS: buPROPion HCl XL 300 MG TAB.ER.24H PO (09:03)
[2023-09-09] MEDS: Rivaroxaban 20 MG TABLET PO (09:04)
[2023-09-09] MEDS: Multivitamin TABLET 1 TAB PO (09:04)
--- NOTE | 2023-09-09 09:18 | MHC.CM.PN ---
IMM ADDRESSED WITH /HCP JENNI AND ALBERTO COPY TO BE MAILED TO HOME. PT IS CURRENTLY AT STR AT [facility] AFTER HOSPITALIZATION AT [facility] FOR AMS/UTI. WOULD LIKE HIM TO RETURN TO [facility] ON DC. RETURN REFERRAL SENT. +HCP, WILL BRING IN. PCP DR. RIDDHI GODINEZ AT [facility] . PT IS [facility] CONNE[facility]. DP: RETURN TO STR AT [facility]. CM WILL CONTINUE TO FOLLOW FOR ANY CHANGE TO DC PLAN/NEEDS.
--- NOTE | 2023-09-09 09:36 | P.PNIM_ITS ---
Subjective Subjective Date of Service: 09/09/23 Interval History: feels weak coughing off O2 Review of Systems Review of Systems: Yes all other systems are reviewed and are negative Physical Exam 2 Vital Signs: Vital Signs: Last Vital Signs Temp 97.3 F 09/09/23 07:15 Pulse 84 09/09/23 08:56 Resp 20 09/09/23 07:15 BP 156/70 H 09/09/23 08:56 Pulse Ox 96 09/09/23 08:56 O2 Del Method Room Air 09/09/23 07:15 O2 Flow Rate 2.0 09/08/23 19:08 Oxygen Flow Rate 2 09/07/23 18:47 BMI result Body Mass Index 34.0 Gen: in no acute distress HEENT: sclera anicteric, moist mucus membranes Neck: supple Lungs: diminished Heart: regular rate and rhythm, no murmurs Abd: soft, non-tender, non-distended Ext: no edema Skin: warm/well-perfused Neuro: alert and oriented to self + place Psych: appropriate affect Objective Data Active Medications Acetaminophen (Acetaminophen 325 Mg Tablet) 650 mg PO Q6H PRN PRN Reason: Pain, Mild (Pain Scale 1-3) Acetaminophen (Acetaminophen Supp 650 Mg Supp.Rect) 650 mg [place] Q4H PRN PRN Reason: Fever >100.4 Atorvastatin Calcium (Atorvastatin Calcium 20 Mg Tablet) 20 mg PO BEDTIME [facility] Last Admin: 09/08/23 21:08 Dose: 20 mg Documented By: MERLINE Bupropion HCl (Bupropion Hcl Xl 300 Mg Tab.Er.24h) 300 mg PO DAILY [facility] Last Admin: 09/09/23 09:03 Dose: 300 mg Documented By: NAJMA Ceftriaxone Sodium 1 gm/ (Sodium Chloride) 50 mls @ 100 mls/hr IV Q24H [facility] Last Infusion: 09/08/23 21:55 Dose: Infused Documented By: MERLINE Doxycycline Hyclate 100 mg/ (Sodium Chloride) 250 mls @ 166.67 mls/hr IV Q12H [facility] Last Admin: 09/09/23 09:03 Dose: 166.67 mls/hr Documented By: NAJMA Melatonin (Melatonin 3 Mg Tablet) 6 mg PO BEDTIME PRN PRN Reason: Insomnia Multivitamins/Vitamin C (Multivitamin Tablet) 1 tab PO DAILY [facility] Last Admin: 09/09/23 09:04 Dose: 1 tab Documented By: NAJMA Non-Formulary Medication (Buprenorphine Hcl [Belbuca]) 150 mcg BUCCAL BEDTIME [facility] Omeprazole (Omeprazole 20 Mg Capsule.Dr) 20 mg PO BEDTIME [facility] Last Admin: 09/08/23 21:08 Dose: 20 mg Documented By: MERLINE Ondansetron HCl (Ondansetron Hcl 4 Mg/2 Ml Vial) 4 mg IVPUSH Q8H PRN PRN Reason: Nausea and Vomiting Rivaroxaban (Rivaroxaban 20 Mg Tablet) 20 mg PO DAILY [facility] Last Admin: 09/09/23 09:04 Dose: 20 mg Documented By: NAJMA Sodium Chloride (0.9 % Sodium Chloride Flush 3 Ml Syringe) 3 ml IVFLUSH QSHIFT [facility] Last Admin: 09/09/23 09:03 Dose: 3 ml Documented By: NAJMA Trazodone HCl (Trazodone Hcl 100 Mg Tablet) 100 mg PO BEDTIME [facility] Last Admin: 09/08/23 21:08 Dose: 100 mg Documented By: MERLINE Venlafaxine HCl (Venlafaxine Hcl Er 75 Mg Cap.Er.24h) 75 mg PO DAILY [facility] Last Admin: 09/09/23 09:03 Dose: 75 mg Documented By: NAJMA Labs 09/09/23 05:08 09/09/23 05:08 Labs: Laboratory Results - last 24 hr 09/09/23 05:08 MCV 94.6 MCH 30.1 MCHC 31.8 RDW 13.7 Plt Count 305 MPV 9.0 L Absolute Nucleated RBC 0.000 Nucleated RBC % (auto) 0.0 Anion Gap 10 L Estim Creat Clear Calc 122.6 Estimated GFR > 60 Random Glucose 121 H Calcium 10.[address] 09/08/23 10:01 IMPRESSION: Patchy peribronchial groundglass opacities in the dependent left lower lobe. This may represent an acute infiltrate. Advise clinical correlation. Microbiology Microbiology Results: Microbiology 09/07/23 20:12 Blood Culture - Preliminary Blood - Venous No growth after 24 hours. 09/07/23 19:41 Blood Culture - Preliminary Blood - Venous No growth after 24 hours. Assessment and Plan (1) Altered mental status: Status: Acute (2) Pneumonia: Status: Acute Plan d3 78yo M with hx PE on rivaroxaban, HLD, HTN, GERD, dementia recently admitted to [facility] for AMS/UTI sent in from STR at [facility] for AMS, found to have sepsis due to PNA sepsis due to PNA - follow BCx, trend PCT, check urinary antigens, continue ceftriaxone d3, doxycycline d2 encephalopathy due to sepsis - treat pneumonia as above, resolving hx PE - rivaorxaban HTN - not currently on any antihyeprtensives, BP well-controlled mood disorder - bupropion, trazodone, venlafaxine GERD - PPI HLD - statin VTE ppx - rivaroxaban dispo - eventual return to STR In my clinical judgment, the patient requires continued inpatient hospitalization for the following reasons: IV ABX Total time managing care of this patient today: 35 minutes. Quality Stroke Does the patient have a stroke diagnosis?: No VTE Prior VTE?: No VTE Risk Level:: Medical - moderate - high VTE Device Contraindication: Treatment Not Indicated VTE Drug Contraindication: N/A - Med Ordered
[2023-09-09] MEDS: Doxycycline Hyclate 100 MG in 0.9 % Sodium Chloride 250 ML 166.67 MG IV ×2 (10:45→21:10)
[2023-09-09 15:37] VITALS: BP 137/76; PULSE 82; RESP 18; TEMP 37.2; O2SAT 93
[2023-09-09 19:27] VITALS: BP 134/63; PULSE 84; RESP 17; TEMP 36.4; O2SAT 96
[2023-09-09] MEDS: Atorvastatin Calcium 20 MG TABLET PO (21:10)
[2023-09-09] MEDS: traZODone HCL 100 MG TABLET PO (21:10)
[2023-09-09] MEDS: cefTRIAXone sodium 1 GM in 0.9 % Sodium Chloride 50 ML IV (21:10)
[2023-09-09] MEDS: Omeprazole 20 MG CAPSULE.DR PO (21:10)
[2023-09-10 03:20] VITALS: BP 138/80; PULSE 86; RESP 17; TEMP 36.3; O2SAT 95
[2023-09-10 05:27] LABS: Hematocrit 36.7 % (42.0-52.0); Hemoglobin 11.8 g/dl (14.0-18.0); Mean Corpuscular HGB Conc 32.2 g/dl (31.0-36.0); Mean Corpuscular Hemoglobin 29.7 pg (27.0-33.0); Mean Corpuscular Volume 92.4 fL (80.0-98.0); Mean Platelet Volume 8.9 fL (9.4-12.4); Platelet Count 315 X10*3/uL (160-400); Red Blood Count 3.97 X10*6/uL (4.60-5.80); Red Cell Distribution Width 13.7 % (11.0-16.0); White Blood Count 7.7 X10*3/uL (4.8-10.8)
[2023-09-10 05:49] LABS: Anion Gap 11 (12-20); Blood Urea Nitrogen 12 mg/dL (9-16); Calcium 10.3 mg/dL (8.4-10.2); Carbon Dioxide 27 mmol/L (22-29); Chloride 105 mmol/L (96-108); Creatinine Clr Calc Pharmacy 116.8; Estimated Glomerular Filt Rate > 60; Glucose Random 103 mg/dL (60-115); Potassium 3.3 mmol/L (3.3-5.1); Sodium 140 mmol/L (135-145)
[2023-09-10 07:31] VITALS: BP 142/80; PULSE 83; RESP 18; TEMP 36.4; O2SAT 95
--- NOTE | 2023-09-10 08:34 | HE.PHANOTE ---
DOXY IV CHANGED TO PO PER IV-PO POLICY
[2023-09-10] MEDS: Multivitamin TABLET 1 TAB PO (09:30)
[2023-09-10] MEDS: buPROPion HCl XL 300 MG TAB.ER.24H PO (09:30)
[2023-09-10] MEDS: Rivaroxaban 20 MG TABLET PO (09:31)
[2023-09-10] MEDS: 0.9 % Sodium Chloride Flush 3 ML SYRINGE IVFLUSH (09:31)
[2023-09-10] MEDS: Doxycycline Monohydrate 100 MG CAPSULE PO (09:31)
[2023-09-10] MEDS: Venlafaxine HCl ER 75 MG CAP.ER.24H PO (09:31)
--- NOTE | 2023-09-10 11:34 | PM.DS ---
DS: Providers Provider Date of Service: 09/10/23 Date of admission: 09/07/23 22:35 Date of discharge: 09/10/23 Primary care physician: Steven Gan MD DS: Diagnosis Discharge Diagnosis (1) Altered mental status: Status: Acute (2) Pneumonia: Status: Acute (3) Sepsis: Status: Acute (4) Acute respiratory failure with hypoxia: Status: Acute DS: Summary Hospital Course Hospital Course: from admission H+P by hospitalist Shani, 09/07/23: This is a 78-year-old male with pertinent history of PE on Xarelto, mood disorder, unspecified dementia, morbid obesity, gastroesophageal reflux disease, mixed hyperlipidemia, essential hypertension who was sent to the emergency department for evaluation of altered mentation. Patient is a poor historian and does not know why he is in the hospital. He is only oriented to self at the time of my evaluation. Admits he has had a productive cough for a few days. History obtained from ER provider and chart review. As per the , who was present earlier, patient was found to be confused and lethargic earlier in the day. Patient does have a history of frequent UTIs and the wanted the patient to be evaluated for infection likely urinary source. Unable to obtain review of systems. In the emergency department, patient was found be septic and imaging concerning for left-sided pneumonia. 78yo M with hx PE on rivaroxaban, HLD, HTN, GERD, dementia; recently admitted to [facility] for AMS/UTI; sent in from STR at [facility] for AMS; found to have sepsis and hypoxia due to pneumonia. He was treated with 3 days of ceftriaxone and doxycycline. Blood cultures negative, procalcitonin low, and SIRSs physiology resolved. Encephalopathy resolved and he was weaned to room air. He was discharged back to [facility] to continue STR and will take 5 more days of antibiotics consisting of cefdinir plus doxycycline. Time Attestation Total time managing care of this patient today: 35 mintues. Discharge coordination time: Greater than 30 minutes Quality: Safe Use of Opioids Does Pt have an Active Cancer Diagnosis on the Problem List?: No Quality: Stroke Does the patient have a stroke diagnosis?: No Physical Exam Vital Signs: Vital Signs: Last Vital Signs Temp 97.5 F 09/10/23 07:31 Pulse 83 09/10/23 07:31 Resp 18 09/10/23 07:31 BP 142/80 H 09/10/23 07:31 Pulse Ox 95 09/10/23 07:31 O2 Del Method Room Air 09/10/23 07:31 O2 Flow Rate 2.0 09/08/23 19:08 Oxygen Flow Rate 2 09/07/23 18:47 BMI result Body Mass Index 34.0 Gen: in no acute distress HEENT: sclera anicteric, moist mucus membranes Neck: supple Lungs: diminished Heart: regular rate and rhythm, no murmurs Abd: soft, non-tender, non-distended Ext: no edema Skin: warm/well-perfused Neuro: alert and oriented to self + place Psych: appropriate affect DS: Data Data Completed and Pending Completed studies during hospitalization [Text1]: Laboratory Results WBC 7.7 X10*3/uL (4.8-10.8) 09/10/23 04:59 RBC 3.97 X10*6/uL (4.60-5.80) L 09/10/23 04:59 Hgb 11.8 g/dl (14.0-18.0) L 09/10/23 04:59 Hct 36.7 % (42.0-52.0) L 09/10/23 04:59 MCV 92.4 fL (80.0-98.0) 09/10/23 04:59 MCH 29.7 pg (27.0-33.0) 09/10/23 04:59 MCHC 32.2 g/dl (31.0-36.0) 09/10/23 04:59 RDW 13.7 % (11.0-16.0) 09/10/23 04:59 Plt Count 315 X10*3/uL (160-400) 09/10/23 04:59 MPV 8.9 fL (9.4-12.4) L 09/10/23 04:59 Immature Gran % (Auto) 0.8 % (0.0-0.4) H 09/08/23 05:00 Neut % (Auto) 75.8 % (45-73) H 09/08/23 05:00 Lymph % (Auto) 9.4 % (20-40) L 09/08/23 05:00 [place] % (Auto) 12.8 % (2-11) H 09/08/23 05:00 Eos % (Auto) 0.6 % (0-4) 09/08/23 05:00 Baso % (Auto) 0.6 % (0-2) 09/08/23 05:00 Lymph # (Auto) 1.2 X10*3/uL (1.2-4.9) 09/08/23 05:00 [place] # (Auto) 1.7 X10*3/uL (0.1-1.2) H 09/08/23 05:00 Eos # (Auto) 0.1 X10*3/uL (0.0-0.4) 09/08/23 05:00 Baso # (Auto) 0.1 X10*3/uL (0.0-0.2) 09/08/23 05:00 Abs Immat Gran (auto) 0.10 X10*3/uL (0.00-0.03) H 09/08/23 05:00 Absolute Neuts (auto) 10.0 x10*3/uL (2.0-8.3) H 09/08/23 05:00 Absolute Nucleated RBC 0.000 X10*3/uL (0.0-0.012) 09/10/23 04:59 Nucleated RBC % (auto) 0.0 /100WBC (0.0-0.2) 09/10/23 04:59 Smear Tech's Comments VERIFIED 09/08/23 05:00 PT 16.2 SEC (11.1-13.3) H 09/07/23 19:41 INR 1.3 (0.9-1.1) H 09/07/23 19:41 Sodium 140 mmol/L (135-145) 09/10/23 04:59 Potassium 3.3 mmol/L (3.3-5.1) 09/10/23 04:59 Chloride 105 mmol/L (96-108) 09/10/23 04:59 Carbon Dioxide 27 mmol/L (22-29) 09/10/23 04:59 Anion Gap 11 (12-20) L 09/10/23 04:59 BUN 12 mg/dL (9-16) 09/10/23 04:59 Creatinine 0.64 mg/dL (0.5-1.4) 09/10/23 04:59 Estim Creat Clear Calc 116.8 09/10/23 04:59 Estimated GFR > 60 09/10/23 04:59 Random Glucose 103 mg/dL (60-115) 09/10/23 04:59 Lactic Acid 0.9 mmol/L (0.5-2.0) 09/07/23 19:41 Calcium 10.3 mg/dL (8.4-10.2) H 09/10/23 04:59 Magnesium 2.0 mg/dL (1.6-2.6) 09/07/23 19:41 Total Bilirubin 0.3 mg/dL (0.0-1.0) 09/07/23 19:41 AST 30 U/L (5-37) 09/07/23 19:41 ALT 34 U/L (0-40) 09/07/23 19:41 Alkaline Phosphatase 80 U/L (39-117) 09/07/23 19:41 Troponin I High Sens 6.9 ng/L (<3.5-35.0) 09/07/23 19:41 Total Protein 7.9 g/dL (6.5-8.0) 09/07/23 19:41 Albumin 3.0 g/dL (3.5-5.0) L 09/07/23 19:41 Procalcitonin 0.10 ng/mL 09/10/23 04:59 Urine Color Yellow 09/07/23 21:03 Urine Appearance Clear 09/07/23 21:03 Urine pH 6.5 (5.0-9.0) 09/07/23 21:03 Ur Specific [place] 1.020 (1.005-1.025) 09/07/23 21:03 Urine Protein 30 (1+) mg/dL (Neg-Trace) H 09/07/23 21:03 Urine Glucose (UA) Negative mg/dL (Negative) 09/07/23 21:03 Urine Ketones Negative mg/dL (Negative) 09/07/23 21:03 Urine Blood Negative (Negative) 09/07/23 21:03 Urine Nitrite Negative (Negative) 09/07/23 21:03 Ur Leukocyte Esterase Negative (Negative) 09/07/23 21:03 Urine RBC 3-5 /HPF (0-2) H 09/07/23 21:03 Urine WBC 0-5 /HPF (0-5) 09/07/23 21:03 Ur Squamous Epith Cells 0-2 /HPF (0-2) 09/07/23 21:03 Urine Bacteria None Seen (None Seen) 09/07/23 21:03 Hyaline Casts 3-5 /LPF (0-2) 09/07/23 21:03 Influenza Type A (PCR) NEGATIVE (Negative) 09/07/23 20:12 Influenza Type B (PCR) NEGATIVE (Negative) 09/07/23 20:12 RSV RNA Qual (PCR) NEGATIVE (Negative) 09/07/23 20:12 SARS-CoV-2 RNA (RT-PCR) NEGATIVE (Negative) 09/07/23 20:12 Impressions Chest X-Ray 09/07/23 19:09 IMPRESSION: Low lung volumes. Slightly enlarged cardiac silhouette. Density behind the heart silhouetting the left hemidiaphragm, question related to the descending thoracic aorta, esophageal hernia or left lower lobe process. Chest CT 09/08/23 10:01 IMPRESSION: Patchy peribronchial groundglass opacities in the dependent left lower lobe. This may represent an acute infiltrate. Advise clinical correlation. Pending studies at discharge: urinary antigens for pneumococcus and Legionella Discharge Plan Discharge Anticipated Discharge Date/Time: 09/10/23 14:30 Patient Disposition: Xfer SNF Discharge Diagnosis: encephalopathy and sepsis due to pneumonia Referrals: Steven Gan MD [Primary Care Provider] - 1 Week Discharge Medications: New doxycycline monohydrate 100 mg Capsule 100 mg PO Q12H Qty: 10 0RF cefdinir 300 mg capsule 300 mg PO BID Qty: 10 0RF Continued multivitamin Tablet 1 tab PO DAILY bupropion HCl 150 mg Tablet Sustained-Release 12 Hr 150 mg PO BID gabapentin 600 mg Tablet 600 mg PO TID trazodone 50 mg Tablet 100 mg PO BEDTIME atenolol 25 mg tablet 25 mg PO DAILY simvastatin 40 mg Tablet 40 mg PO BEDTIME omeprazole 20 mg Tablet,Delayed Release (Dr/Ec) 20 mg PO BEDTIME venlafaxine 75 mg Tablet Extended Release 24hr 75 mg PO DAILY Xarelto 20 mg Tablet 20 mg PO DAILY Rx Instructions: must administer with evening meal buprenorphine HCl [Belbuca] 150 mcg Film 150 mcg BUCCAL BEDTIME Discharge Orders: Discharge Order (Routine); Ordered 09/10/23 Ordered By: Chavez Interiano Diet: Advance to usual diet Activity on Discharge: As tolerated Stand Alone Forms: Patient Portal Discharge page Care Plan Goals: cure of pneumonia Health Concerns: encephalopathy and sepsis due to pneumonia Plan of Treatment: cefdinir 300 mg twice daily PLUS doxycycline 100 mg twice daily for 5 more days Please follow up with your primary care doctor within 1 week. Return to the hospital if you experience recurrent or worsening symptoms. Assessment: See Discharge Summary. Patient Instructions: Pneumonia (DC)
--- NOTE | 2023-09-10 14:00 | MHC.CM.PN ---
PT WILL DC TODAY BACK TO [facility] AT 1600 HOURS CM MET WITH PT AND , JENNI, AT BEDSIDE THEY ARE BOTH AWARE AND AGREEABLE TO DC TIME/PLAN JENNI ALSO PROVIDED A COPY OF PTS HCP, NOW ON FILE
[2023-09-12 22:24] LABS: Strep Pneumo Ag urine Not Detected (Not Detected)
[2023-09-13 05:44] LABS: Legionella Ag Urine Not Detected (Not Detected)
== END 2023-09-10 15:54 | disposition skilled nursing facility (03) | DRG 871 ==
LOC: HO.ED 21:09 → HO.EDOVER 22:39 → HO.S3 09-08 16:32
PROVIDERS: Admitting Provider Student in an Organized Health Care Education/Training Program; Emergency Provider Internal Medicine; PCP Family Medicine Geriatric Medicine; Visit Provider Family Medicine
DX: A41.9 Sepsis, unspecified organism (principal); G93.41 Metabolic encephalopathy; J18.9 Pneumonia, unspecified organism; F39 Unspecified mood [affective] disorder; E66.9 Obesity, unspecified; E78.2 Mixed hyperlipidemia; G89.29 Other chronic pain; F03.90 Unspecified dementia, unspecified severity, without behavioral disturbance, psychotic disturbance, mood disturbance, and anxiety; Z86.711 Personal history of pulmonary embolism; Z20.822 Contact with and (suspected) exposure to COVID-19; Z79.01 Long term (current) use of anticoagulants; Z79.899 Other long term (current) drug therapy
CPT/HCPCS: 0241U; 36415; 71045; 71250; 80048; 80053; 81001; 83605; 83735; 84145; 84484; 85025; 85027; 85610; 87040; 87449; 87899; 92610; 93005; 97162; 99285; J0456; J0696

== ENCOUNTER → 2023-09-07 22:35 | Outpatient (BNV) | payer OTHER, BC, SELFPAY | PROVIDERS: Admitting Provider Student in an Organized Health Care Education/Training Program; Emergency Provider Internal Medicine; PCP Family Medicine Geriatric Medicine; Visit Provider Student in an Organized Health Care Education/Training Program | DX: J96.01 Acute respiratory failure with hypoxia (principal); A41.9 Sepsis, unspecified organism; J18.9 Pneumonia, unspecified organism; R41.82 Altered mental status, unspecified | CPT/HCPCS: 99222; 99232; 99239 ==

== ENCOUNTER 2023-11-10 13:02 | Inpatient (IN) | payer OTHER, MEDICARE, BC, SELFPAY ==
[2023-11-10] VITALS (9 sets, daily range): BP systolic 101–132; BP diastolic 56–71; PULSE 58–90; RESP 13–20; TEMP 36.6–38.7; O2SAT 92–97; BMI 35.5
--- NOTE | ~2023-11-10 | CT_ITS ---
EXAMINATION: CT CHEST WITHOUT CONTRAST CLINICAL INFORMATION: Hypoxia, cough and fever COMPARISON: CT chest 09/08/2023 TECHNIQUE: Multidetector volumetric CT imaging of the chest was done. Axial MIP volume rendering provided. Sagittal and coronal reformatted images were obtained. This CT examination was performed using dose optimization techniques as appropriate, variously including the following: *Automated exposure control *Adjustment of mA and/or kV according to patient size (this includes techniques or standardized protocols for targeted exams where dose is matched to indication/reason for exam; i.e. extremities or head) *Use of iterative reconstruction technique Please note that marked respiratory motion artifact degrades the images. DLP: 610 mGy-cm FINDINGS: LUNGS: Incidental note made of an accessory azygos fissure. Bibasilar atelectasis/scarring is present. A questionable 8 mm lung nodule is present in the right lower lobe (16:169) but imaging is impeded by the severe motion artifact described above. MEDIASTINUM: Size upper limits of normal. No mediastinal or hilar lymphadenopathy. CORONARY ARTERY CALCIFICATION: Present PLEURA: There is no pleural effusion. No pleural mass or thickening. AXILLA: No lymphadenopathy. UPPER ABDOMEN: Unremarkable. OSSEOUS STRUCTURES: Degenerative changes are present in the spine. CT/CT chest wo IV con IMPRESSION: 1. A definite cause for the patient's hypoxia and fever has not been found. 2. Questionable 8 mm right lower lobe lung nodule. Fleischner guidelines were followed.
--- NOTE | ~2023-11-10 | CT_ITS ---
EXAMINATION: CT HEAD WITHOUT CONTRAST CLINICAL INFORMATION: Change in mental status. COMPARISON: None. TECHNIQUE: Contiguous axial imaging was performed from the skull base to vertex without intravenous administration of contrast. This CT examination was performed using dose optimization techniques as appropriate, variously including the following: *Automated exposure control *Adjustment of mA and/or kV according to patient size (this includes techniques or standardized protocols for targeted exams where dose is matched to indication/reason for exam; i.e. extremities or head) *Use of iterative reconstruction technique DLP: 1332 mGy-cm. FINDINGS: There is no intracranial hemorrhage, large infarction, or mass lesion. There is no extra-axial collection. There is mild degree of brain parenchymal volume loss with prominence of ventricles and sulci. Patchy hypoattenuation is seen within the cerebral white matter, typical of chronic microangiopathy. There is moderate polypoid mucosal thickening within the paranasal sinuses. The mastoids are clear. The orbits are unremarkable with lens replacements noted bilaterally. CT/CT head/brain wo IV con IMPRESSION: No acute intracranial abnormality.
--- NOTE | 2023-11-10 13:35 | PC.NURSE ---
Patient reports pain in necj, when asked what caused the pain patient reports that he fell. Unable to provide further details on fall at this time
--- NOTE | 2023-11-10 13:39 | ED.WEAKNESS ---
HPI - Weakness General Chief complaint: Altered Mental Status Stated complaint: AMS T-1,LETHARGIC FROM SNF PER EMS Time Seen by Provider: 11/10/23 13:36 Source: patient Mode of arrival: EMS Limitations: other (dementia) History of Present Illness HPI Narrative: 78 yo male with PMH of dementia, PE on xarelto, GERD, HTN, mood disorder here with decreased responsiveness, lethargy, and found to have low O2 sats by EMS and ED RN in high 80s. He does have hx of LLL pneumonia back in August. He cannot tell me much history. MD Complaint: generalized weakness Onset (ago): day(s) (yesterday ) Duration: constant Location: generalized Migration: none Severity: moderate Quality: dull Relieving factors: none Exacerbating factors: movement and exertion Associated symptoms: fever/chills, loss of appetite and shortness of breath Related Data Home Medications Medication Instructions Recorded Confirmed atenolol 25 mg tablet 25 mg PO DAILY 09/07/23 11/10/23 buprenorphine HCl 150 mcg buccal 150 mcg buccal BEDTIME pain 09/07/23 11/10/23 film (Belbuca) management bupropion HCl 150 mg tablet,12 hr 150 mg PO BID 09/07/23 11/10/23 sustained-release gabapentin 600 mg tablet 600 mg PO TID 09/07/23 11/10/23 multivitamin 1 tab PO DAILY 09/07/23 11/10/23 omeprazole 20 mg tablet,delayed 20 mg PO BEDTIME 09/07/23 11/10/23 release rivaroxaban 20 mg tablet (Xarelto) 20 mg PO DAILY 09/07/23 11/10/23 simvastatin 40 mg tablet 40 mg PO BEDTIME 09/07/23 11/10/23 trazodone 50 mg tablet 100 mg PO BEDTIME 09/07/23 11/10/23 venlafaxine 75 mg tablet,extended 75 mg PO DAILY 09/07/23 11/10/23 release 24 hr acetaminophen 325 mg tablet 650 mg PO Q6H PRN Pain 11/10/23 11/10/23 dextromethorphan-guaifenesin 10 10 ml PO Q6H PRN Cough 11/10/23 11/10/23 mg-100 mg/5 mL oral liquid diclofenac sodium 1 % topical gel 2 g topical Q12H PRN WRIST PAIN 11/10/23 11/10/23 Allergies Allergy/AdvReac Type Severity Reaction Status Date / Time No Known Allergies Allergy Verified 09/07/23 18:55 Review of Systems Review of Systems: ROS unable to be obtained due to dementia [facility] Past Medical History Attestation statement: The following information was validated with the patient. Source: old records reviewed Onset Date is defined in the Problem List Problems that require an onset date and time if occurred within 24 hrs of arrival to the ED Aortic Dissection and Rupture; Neurologic impairment; Cardiopulmonary Arrest; Endotracheal Intubation; Insertion or Replacement of Mechanical Circulatory Assist Device Medical History Dementia Essential hypertension Gastroesophageal reflux disease Mood disorder Pulmonary embolus Social History Social History Household Members: Significant Other and Family Housing: House Do you presently have visiting nurse or other home services: Yes ([employer]) Alcohol intake: never Patient Tobacco Use Status: Never used Tobacco Smoked in Last 30 Days: No Advance Directives: Yes Advance Directives on File: Yes Advance Directives Date on File: 09/12/23 service: Yes Physical Exam Vital Signs: Vital Signs: Last Vital Signs Temp 100.2 F 11/10/23 16:12 Pulse 62 11/10/23 16:12 Resp 16 11/10/23 16:12 BP 115/56 L 11/10/23 16:12 Pulse Ox 97 11/10/23 16:12 O2 Del Method Room Air 11/10/23 16:12 O2 Flow Rate 2 11/10/23 14:00 Oxygen Flow Rate 2 11/10/23 13:30 BMI result Body Mass Index 35.5 Appearance: Alert. confused but pleasant. No acute distress. Eyes: Pupils equal, round and reactive to light. ENT: Pharynx very dry MM Neck: Normal inspection. Neck supple. CVS: Normal heart rate and rhythm. Pulses normal. Respiratory: No respiratory distress. Breath sounds coarse and diminished at bases Abdomen: Soft and nontender. Does not grimace to palpation : appears normal Skin: Skin warm and dry. Normal skin color. poor skin turgor. Extremities: No lower extremity edema. Neuro: confused but moves all extremities and follows commands says yes or no Course Course Course Narrative: temperature rectal checked by me and RN 101.8 at this time infection suspected and sepsis protocol initiated 212pm. Medications Administered Discontinued Medications Generic Name Dose Route Start Last Admin Trade Name Emigdio PRN Reason Stop Dose Admin Acetaminophen 650 mg 11/10/23 13:50 11/10/23 14:20 Acetaminophen Oral Liquid 650 Mg/20.3 Ml Solution PO 11/10/23 13:51 650 mg ONCE ONE Administration Sodium Chloride 1,000 mls @ 999 mls/hr 11/10/23 14:00 11/10/23 15:39 Ns IV 11/10/23 15:00 Infused .Q1H1M ITZ Infusion Ceftriaxone Sodium 1 gm/ 50 mls @ 100 mls/hr 11/10/23 13:58 11/10/23 15:39 Sodium Chloride IV 11/10/23 14:27 Infused ONCE ONE Infusion Azithromycin 500 mg/ Sodium 250 mls @ 125 mls/hr 11/10/23 13:58 11/10/23 14:50 Chloride IV 11/10/23 15:57 125 mls/hr ONCE ONE Administration Medical Decision Making Medical Decision Making MDM Narrative: 78 yo male with PMH of dementia, PE on xarelto, GERD, HTN, mood disorder here with c/o weakness, lethargy found to have low O2 sats responding to NC 2L at this time suspect pneumonia vs UTI vs viral syndrome will obtain labs, cultures, EKG, CT head given AMS and xarelto, CT chest given concern for pneumonia and recent normal CXR with pneumonia finding on CT scan. Empiric ceftriaxone and azithromycin, IVF. He is full CODE. Differential Diagnosis Differential Diagnoses: The differential diagnosis associated with the presentation includes UTI, pneumonia, viral syndrome Admission/Observation Consideration of admission/observation: Escalation of care including admission/observation considered admit for fever, hypoxia Consult Healthcare Provider Management of the patient was discussed with: Hospitalist (will admit) Lab Data [facility] Lab Attestation statement: I reviewed the patient's lab results. 11/10/23 14:07 11/10/23 14:07 Labs: Lab Results 11/10/23 11/10/23 11/10/23 Range/Units 14:07 14:08 14:12 WBC 14.6 H (4.8-10.8) X10*3/uL RBC 4.52 L (4.60-5.80) X10*6/uL Hgb 12.7 L (14.0-18.0) g/dl Hct 39.8 L (42.0-52.0) % MCV 88.1 (80.0-98.0) fL MCH 28.1 (27.0-33.0) pg MCHC 31.9 (31.0-36.0) g/dl RDW 15.7 (11.0-16.0) % Plt Count 335 (160-400) X10*3/uL MPV 9.1 L (9.4-12.4) fL Immature Gran % (Auto) 0.5 H (0.0-0.4) % Neut % (Auto) 77.7 H (45-73) % Lymph % (Auto) 7.6 L (20-40) % [place] % (Auto) 13.5 H (2-11) % Eos % (Auto) 0.1 (0-4) % Baso % (Auto) 0.6 (0-2) % Lymph # (Auto) 1.1 L (1.2-4.9) X10*3/uL [place] # (Auto) 2.0 H (0.1-1.2) X10*3/uL Eos # (Auto) 0.0 (0.0-0.4) X10*3/uL Baso # (Auto) 0.1 (0.0-0.2) X10*3/uL Abs Immat Gran (auto) 0.07 H (0.00-0.03) X10*3/uL Absolute Neuts (auto) 11.3 H (2.0-8.3) x10*3/uL Absolute Nucleated RBC 0.000 (0.0-0.012) X10*3/uL Nucleated RBC % (auto) 0.0 (0.0-0.2) /100WBC Smear Tech's Comments VERIFIED VBG pH 7.46 H (7.32-7.43) VBG pCO2 44 mmHg VBG pO2 40 mmHg VBG HCO3 32 H (22-26) mmol/L VBG O2 Saturation 63.0 % VBG Base Excess 7.6 mmol/L Sodium 137 (135-145) mmol/L Potassium 4.2 (3.3-5.1) mmol/L Chloride 101 (96-108) mmol/L Carbon Dioxide 29 (22-29) mmol/L Anion Gap 11 L (12-20) BUN 15 (9-16) mg/dL Creatinine 0.76 (0.5-1.4) mg/dL Estim Creat Clear Calc 100.5 Estimated GFR > 60 Random Glucose 116 H (60-115) mg/dL Lactic Acid 1.2 (0.5-2.0) mmol/L Calcium 11.0 H D (8.4-10.2) mg/dL Magnesium 1.9 (1.6-2.6) mg/dL Total Bilirubin 0.6 (0.0-1.0) mg/dL Direct Bilirubin 0.3 (0.0-0.5) mg/dL AST 11 (5-37) U/L ALT 16 (0-40) U/L Alkaline Phosphatase 68 (39-117) U/L Troponin I High Sens 6.2 (<3.5-35.0) ng/L Total Protein 7.7 (6.5-8.0) g/dL Albumin 3.3 L (3.5-5.0) g/dL Lipase 9 (8-78) U/L Procalcitonin 0.15 ng/mL Urine Color Urine Appearance Urine pH (5.0-9.0) Ur Specific [place] (1.005-1.025) Urine Protein (Neg-Trace) mg/dL Urine Glucose (UA) (Negative) mg/dL Urine Ketones (Negative) mg/dL Urine Blood (Negative) Urine Nitrite (Negative) Ur Leukocyte Esterase (Negative) Urine RBC (0-2) /HPF Urine WBC (0-5) /HPF Ur Squamous Epith Cells (0-2) /HPF Urine Bacteria (None Seen) Hyaline Casts (0-2) /LPF COVID-19 (BRANT) Negative (Negative) COVID-19 Clin Com See Note Influenza Type A (CHARLIE) Negative (Negative) Influenza Type B (CHARLIE) Negative (Negative) Influenza A & B Note See Note 11/10/23 Range/Units 14:38 WBC (4.8-10.8) X10*3/uL RBC (4.60-5.80) X10*6/uL Hgb (14.0-18.0) g/dl Hct (42.0-52.0) % MCV (80.0-98.0) fL MCH (27.0-33.0) pg MCHC (31.0-36.0) g/dl RDW (11.0-16.0) % Plt Count (160-400) X10*3/uL MPV (9.4-12.4) fL Immature Gran % (Auto) (0.0-0.4) % Neut % (Auto) (45-73) % Lymph % (Auto) (20-40) % [place] % (Auto) (2-11) % Eos % (Auto) (0-4) % Baso % (Auto) (0-2) % Lymph # (Auto) (1.2-4.9) X10*3/uL [place] # (Auto) (0.1-1.2) X10*3/uL Eos # (Auto) (0.0-0.4) X10*3/uL Baso # (Auto) (0.0-0.2) X10*3/uL Abs Immat Gran (auto) (0.00-0.03) X10*3/uL Absolute Neuts (auto) (2.0-8.3) x10*3/uL Absolute Nucleated RBC (0.0-0.012) X10*3/uL Nucleated RBC % (auto) (0.0-0.2) /100WBC Smear Tech's Comments VBG pH (7.32-7.43) VBG pCO2 mmHg VBG pO2 mmHg VBG HCO3 (22-26) mmol/L VBG O2 Saturation % VBG Base Excess mmol/L Sodium (135-145) mmol/L Potassium (3.3-5.1) mmol/L Chloride (96-108) mmol/L Carbon Dioxide (22-29) mmol/L Anion Gap (12-20) BUN (9-16) mg/dL Creatinine (0.5-1.4) mg/dL Estim Creat Clear Calc Estimated GFR Random Glucose (60-115) mg/dL Lactic Acid (0.5-2.0) mmol/L Calcium (8.4-10.2) mg/dL Magnesium (1.6-2.6) mg/dL Total Bilirubin (0.0-1.0) mg/dL Direct Bilirubin (0.0-0.5) mg/dL AST (5-37) U/L ALT (0-40) U/L Alkaline Phosphatase (39-117) U/L Troponin I High Sens (<3.5-35.0) ng/L Total Protein (6.5-8.0) g/dL Albumin (3.5-5.0) g/dL Lipase (8-78) U/L Procalcitonin ng/mL Urine Color Dark Yellow Urine Appearance Clear Urine pH 6.0 (5.0-9.0) Ur Specific [place] 1.025 (1.005-1.025) Urine Protein 30 (1+) H (Neg-Trace) mg/dL Urine Glucose (UA) Negative (Negative) mg/dL Urine Ketones Negative (Negative) mg/dL Urine Blood Negative (Negative) Urine Nitrite Negative (Negative) Ur Leukocyte Esterase Negative (Negative) Urine RBC 0-2 (0-2) /HPF Urine WBC 0-5 (0-5) /HPF Ur Squamous Epith Cells 0-2 (0-2) /HPF Urine Bacteria None Seen (None Seen) Hyaline Casts 0-2 (0-2) /LPF COVID-19 (BRANT) (Negative) COVID-19 Clin Com Influenza Type A (CHARLIE) (Negative) Influenza Type B (CHARLIE) (Negative) Influenza A & B Note Independent Interpretation I performed an independent interpretation of an: EKG and CT Scan Interpretation: Rate: 73 Rhythm: NSR Crystal: left Normal P waves. Normal MARC. Normal QRS complex. ST T wave : no SHIVA, nonspecific ST T wave changes septal leads qTC: 420 prior studies: The study has been interpreted contemporaneously by me. . Radiology Impression Discussion of test interpretation with radiology: I have reviewed the radiologist's reading. Independent Historian Clinical information obtained from an independent historian. History obtained from or confirmed by: EMS External Record Review External record reviewed: Inpatient record Discharge Plan Discharge Clinical Impression: Acute febrile illness, Hypoxia Elevated WBC count Qualifiers: Leukocytosis type: unspecified Qualified Code(s): D72.829 - Elevated white blood cell count, unspecified Patient Disposition: Admitted As Inpatient
--- NOTE | 2023-11-10 13:51 | ECG_ITS ---
Test Reason : weakness Blood Pressure : / mmHG Vent. Rate : 073 BPM Atrial Rate : 073 BPM P-R Int : 154 ms QRS Dur : 096 ms QT Int : 382 ms P-R-T Axes : 021 -13 -12 degrees QTc Int : 420 ms Normal sinus rhythm with sinus arrhythmia Minimal voltage criteria for LVH, may be normal variant ( R in aVL ) Nonspecific ST abnormality Abnormal ECG When compared with ECG of 07-SEP-2023 19:47, No significant change was found Referred By: Lina Gill Electronically Signed By:MAGNOLIA GUIDRY
[2023-11-10 14:15] LABS: Venous Blood Gas Refer to POC result
[2023-11-10 14:15] LABS: Basophils Absolute Auto 0.1 X10*3/uL (0.0-0.2); Basophils Percent Auto 0.6 % (0-2); Eosinophils Percent Auto 0.1 % (0-4); Hematocrit 39.8 % (42.0-52.0); Hemoglobin 12.7 g/dl (14.0-18.0); Imm Gran Abs Auto 0.07 X10*3/uL (0.00-0.03); Imm Gran Pct Auto 0.5 % (0.0-0.4); Lymphocytes Absolute Auto 1.1 X10*3/uL (1.2-4.9); Lymphocytes Percent Auto 7.6 % (20-40); MANUAL DIFF FLAG SCAN; Mean Corpuscular HGB Conc 31.9 g/dl (31.0-36.0); Mean Corpuscular Hemoglobin 28.1 pg (27.0-33.0); Mean Corpuscular Volume 88.1 fL (80.0-98.0); Mean Platelet Volume 9.1 fL (9.4-12.4); Monocytes Percent Auto 13.5 % (2-11); Neutrophils Absolute Auto 11.3 x10*3/uL (2.0-8.3); Neutrophils Percent Auto 77.7 % (45-73); Platelet Count 335 X10*3/uL (160-400); Red Blood Count 4.52 X10*6/uL (4.60-5.80); Red Cell Distribution Width 15.7 % (11.0-16.0); SCAN SMEAR FLAG 1; White Blood Count 14.6 X10*3/uL (4.8-10.8)
[2023-11-10 14:20] LABS: VBG pH 7.46 (7.32-7.43)
[2023-11-10] MEDS: 0.9 % Sodium Chloride 1,000 ML 999 ML IV (14:20)
[2023-11-10] MEDS: Acetaminophen Oral Liquid 650 MG/20.3 ML SOLUTION PO (14:20)
[2023-11-10 14:21] LABS: VBG Base Excess 7.6 mmol/L; VBG HCO3 32 mmol/L (22-26); VBG pCO2 44 mmHg; VBG pO2 40 mmHg
[2023-11-10 14:26] LABS: Lactic Acid 1.2 mmol/L (0.5-2.0)
[2023-11-10] MEDS: cefTRIAXone sodium 1 GM in 0.9 % Sodium Chloride 50 ML IV (14:35)
[2023-11-10 14:37] LABS: Alanine Aminotransferase 16 U/L (0-40); Albumin Level 3.3 g/dL (3.5-5.0); Alkaline Phosphatase 68 U/L (39-117); Anion Gap 11 (12-20); Aspartate Amino Transferase 11 U/L (5-37); Bilirubin Direct 0.3 mg/dL (0.0-0.5); Bilirubin Total 0.6 mg/dL (0.0-1.0); Blood Urea Nitrogen 15 mg/dL (9-16); Carbon Dioxide 29 mmol/L (22-29); Chloride 101 mmol/L (96-108); Creatinine Clr Calc Pharmacy 100.5; Estimated Glomerular Filt Rate > 60; Glucose Random 116 mg/dL (60-115); Lipase 9 U/L (8-78); Magnesium 1.9 mg/dL (1.6-2.6); Potassium 4.2 mmol/L (3.3-5.1); Sodium 137 mmol/L (135-145); Total Protein 7.7 g/dL (6.5-8.0); Troponin-I High Sensitivity 6.2 ng/L (<3.5-35.0)
[2023-11-10 14:40] LABS: COVID-19 Test Negative (Negative); IDNOW Serial# 08D9AD1C; IDNOW Serial# 152EDE1D; Influenza A Negative (Negative); Influenza B2 Negative (Negative)
[2023-11-10] MEDS: Azithromycin 500 MG in 0.9 % Sodium Chloride 250 ML 125 MG IV (14:50)
[2023-11-10 15:01] LABS: Procalcitonin 0.15 ng/mL
[2023-11-10 15:04] LABS: Appearance Urine Clear; Color Urine Dark Yellow; Glucose Urine UA Negative (Negative); Leukocyte Esterase Urine Negative (Negative); Nitrite Urine Negative (Negative); Specific Gravity - Urine 1.025 (1.005-1.025); UMIC TRIGGER UACC YES; Urine Blood Negative (Negative); Urine Ketones Negative (Negative); Urine Protein 30 (1+) mg/dL (Neg-Trace)
[2023-11-10 15:09] LABS: Bacteria Urine None Seen (None Seen); Hyaline Casts Urine 0-2 /LPF (0-2); RBC Urine 0-2 /HPF (0-2); Squamous Epithelial Cell Urine 0-2 /HPF (0-2); WBC Urine 0-5 /HPF (0-5)
[2023-11-10 15:24] LABS: SLIDE REVIEW VERIFIED
--- NOTE | 2023-11-10 15:52 | PHA.MEDREC ---
Pharmacy Consult ? Medication Reconciliation Pharmacy has completed the medication reconciliation. Confirmed Patient medication from list sent by facility, [facility]. Petra Moon CPhT
--- NOTE | 2023-11-10 17:09 | P.HPHOSP_ITS ---
History of Present Illness Date of Service: 11/10/23 Attending physician on admission: Low Garvey Chief Complaint: Lethargy, AMS Pt is a 78-year-old male with a PMH significant for?unspecified dementia,hx of PE on Xarelto, HTN, HLD, mood disorder, GERD and obesity class 2, who presents to the ED with?from SNF for evaluation of decreased responsiveness, lethargy, and low O2 saturation. Patient with unspecified dementia at baseline, is alert and oriented to self only and thus incapable of providing accurate HPI. Initially complains only of headache, though repeat queries find no acute medical complaints. Pt noted to be desatting as low as 88% on RA during exam. In the ED pt was febrile up to 101.7, with soft BP as low as 115/56. Labs were significant for leukocytosis of 14.6, normocytic anemia of 12.7/39.8, procalcitonin mildly elevated at 0.15. No electrolyte abnormalities. Hepatic and renal function at baseline. UA negative for UTI. Patient tested negative for COVID, influenza type a and B. CT?of chest found no definite cause for the patient's hypoxia and fever, but found questionable 8 mm right lower lobe lung nodule. Head CT found no acute intracranial abnormality. EKG demonstrated normal sinus rhythm with sinus arrhythmia and nonspecific ST abnormality. Pt was treated with IVF, acetaminophen, ceftriaxone, and azithromycin. Pt will be admitted to the hospital for treatment and further evaluation of acute respiratory failure, generalized weakness, lethargy, and acute metabolic encephalopathy. Review of Systems 2 Review of Systems: Unable to obtain due to patient's mentation [facility] Medical History Dementia Essential hypertension Gastroesophageal reflux disease Mood disorder Pulmonary embolus Social History Household Members: Significant Other and Family Housing: House Do you presently have visiting nurse or other home services: Yes ([employer]) Alcohol intake: never Patient Tobacco Use Status: Never used Tobacco Smoked in Last 30 Days: No Advance Directives: Yes Advance Directives on File: Yes Advance Directives Date on File: 09/12/23 service: Yes Meds Allergies Allergy/AdvReac Type Severity Reaction Status Date / Time No Known Allergies Allergy Verified 09/07/23 18:55 Home Medications Medication Instructions Recorded Confirmed Last Taken Type atenolol 25 mg tablet 25 mg PO DAILY 09/07/23 11/10/23 Unknown History buprenorphine HCl 150 mcg buccal 150 mcg buccal BEDTIME pain 09/07/23 11/10/23 Unknown History film ([place]) management bupropion HCl 150 mg tablet,12 hr 150 mg PO BID 09/07/23 11/10/23 Unknown History sustained-release gabapentin 600 mg tablet 600 mg PO TID 09/07/23 11/10/23 Unknown History multivitamin 1 tab PO DAILY 09/07/23 11/10/23 Unknown History omeprazole 20 mg tablet,delayed 20 mg PO BEDTIME 09/07/23 11/10/23 Unknown History release rivaroxaban 20 mg tablet (Xarelto) 20 mg PO DAILY 09/07/23 11/10/23 Unknown History simvastatin 40 mg tablet 40 mg PO BEDTIME 09/07/23 11/10/23 Unknown History trazodone 50 mg tablet 100 mg PO BEDTIME 09/07/23 11/10/23 Unknown History venlafaxine 75 mg tablet,extended 75 mg PO DAILY 09/07/23 11/10/23 Unknown History release 24 hr acetaminophen 325 mg tablet 650 mg PO Q6H PRN Pain 11/10/23 11/10/23 Unknown History dextromethorphan-guaifenesin 10 10 ml PO Q6H PRN Cough 11/10/23 11/10/23 Unknown History mg-100 mg/5 mL oral liquid diclofenac sodium 1 % topical gel 2 g topical Q12H PRN WRIST PAIN 11/10/23 11/10/23 Unknown History Physical Exam 2 Vital Signs and Narrative: Vital Signs: Last Vital Signs Temp 100.2 F 11/10/23 16:12 Pulse 62 11/10/23 16:12 Resp 16 11/10/23 16:12 BP 115/56 L 11/10/23 16:12 Pulse Ox 97 11/10/23 16:12 O2 Del Method Room Air 11/10/23 16:12 O2 Flow Rate 2 11/10/23 14:00 Oxygen Flow Rate 2 11/10/23 13:30 BMI result Body Mass Index 35.5 Constitutional: Alert, pleasantly confused, looks slightly uncomfortable. In no acute distress. Mental Status: Oriented to person only, not to place, time, or situation. Eyes: Pupils are equal, round, and reactive to light. Ear, Nose, and Throat: Oropharynx clear, mucous membranes moist. Ears and nose without deformities. Trachea midline. Respiratory: Clear to auscultation bilaterally. No wheezing, rales, or rhonchi. Cardiovascular: S1, S2 regular. No murmurs, rubs, or gallops. Gastrointestinal: Abdomen soft, non-tender, non-distended, obese. Normal bowel sounds. Neurologic: Cranial nerves II-XII are grossly intact bilaterally. No focal neurological deficits. Moves all extremities spontaneously. Skin: Warm, dry. Musculoskeletal: No cyanosis or clubbing. Extremities: No edema. Chronic venous stasis bilaterally. Psychiatric: Pleasantly confused. Results Labs 11/10/23 14:07 11/10/23 14:07 Labs: Laboratory Results - last 24 hr 11/10/23 11/10/23 11/10/23 14:07 14:08 14:12 MCV 88.1 MCH 28.1 MCHC 31.9 RDW 15.7 Plt Count 335 MPV 9.1 L Immature Gran % (Auto) 0.5 H Neut % (Auto) 77.7 H Lymph % (Auto) 7.6 L [place] % (Auto) 13.5 H Eos % (Auto) 0.1 Baso % (Auto) 0.6 Lymph # (Auto) 1.1 L [place] # (Auto) 2.0 H Eos # (Auto) 0.0 Baso # (Auto) 0.1 Abs Immat Gran (auto) 0.07 H Absolute Neuts (auto) 11.3 H Absolute Nucleated RBC 0.000 Nucleated RBC % (auto) 0.0 Smear Tech's Comments VERIFIED VBG pH 7.46 H VBG pCO2 44 VBG pO2 40 VBG HCO3 32 H VBG O2 Saturation 63.0 VBG Base Excess 7.6 Anion Gap 11 L Estim Creat Clear Calc 100.5 Estimated GFR > 60 Random Glucose 116 H Lactic Acid 1.2 Calcium 11.0 H D Magnesium 1.9 Total Bilirubin 0.6 Direct Bilirubin 0.3 AST 11 ALT 16 Alkaline Phosphatase 68 Total Protein 7.7 Albumin 3.3 L Lipase 9 Procalcitonin 0.15 Urine Color Urine Appearance Urine pH Ur Specific [place] Urine Protein Urine Glucose (UA) Urine Ketones Urine Blood Urine Nitrite Ur Leukocyte Esterase Urine RBC Urine WBC Ur Squamous Epith Cells Urine Bacteria Hyaline Casts COVID-19 (BRANT) Negative COVID-19 Clin Com See Note Influenza Type A (CHARLIE) Negative Influenza Type B (CHARLEI) Negative Influenza A & B Note See Note 11/10/23 14:38 MCV MCH MCHC RDW Plt Count MPV Immature Gran % (Auto) Neut % (Auto) Lymph % (Auto) [place] % (Auto) Eos % (Auto) Baso % (Auto) Lymph # (Auto) [place] # (Auto) Eos # (Auto) Baso # (Auto) Abs Immat Gran (auto) Absolute Neuts (auto) Absolute Nucleated RBC Nucleated RBC % (auto) Smear Tech's Comments VBG pH VBG pCO2 VBG pO2 VBG HCO3 VBG O2 Saturation VBG Base Excess Anion Gap Estim Creat Clear Calc Estimated GFR Random Glucose Lactic Acid Calcium Magnesium Total Bilirubin Direct Bilirubin AST ALT Alkaline Phosphatase Total Protein Albumin Lipase Procalcitonin Urine Color Dark Yellow Urine Appearance Clear Urine pH 6.0 Ur Specific [place] 1.025 Urine Protein 30 (1+) H Urine Glucose (UA) Negative Urine Ketones Negative Urine Blood Negative Urine Nitrite Negative Ur Leukocyte Esterase Negative Urine RBC 0-2 Urine WBC 0-5 Ur Squamous Epith Cells 0-2 Urine Bacteria None Seen Hyaline Casts 0-2 COVID-19 (BRANT) COVID-19 Clin Com Influenza Type A (CHARLIE) Influenza Type B (CHARLIE) Influenza A & B Note Imaging Radiologist's Impressions: Impressions Chest CT 11/10/23 15:17 IMPRESSION: 1. A definite cause for the patient's hypoxia and fever has not been found. 2. Questionable 8 mm right lower lobe lung nodule. Fleischner guidelines were followed. Assessment and Plan (1) Acute respiratory failure with hypoxia: Status: Acute (2) Metabolic encephalopathy: Status: Acute Plan Pt is a 78-year-old male with a PMH significant for?unspecified dementia,hx of PE on Xarelto, HTN, HLD, mood disorder, GERD and obesity class 2, who presents to the ED with?from SNF for evaluation of decreased responsiveness, lethargy, and low O2 saturation. Pt will be admitted to the hospital for treatment and further evaluation of acute respiratory failure, generalized weakness, lethargy, and acute metabolic encephalopathy. Acute hypoxic respiratory failure Patient is satting in the upper 80s on RA Unclear etiology: Patient does not carry pulmonary diagnosis, not on home O2, not on home inhalers Patient meets SIRS criteria: Fever, leukocytosis; lactic acid WNL at 1.2 No clear source of bacterial infection: Chest CT negative, head CT negative, UA negative; patient has had chronically elevated leukocytosis in the past Will check viral panel Patient received IVF and started on broad-spectrum antibiotics in the ED Procalcitonin 0.12 No indication to continue antibiotics at this time Acetaminophen for fever Follow blood cultures Acute metabolic encephalopathy In the setting of above Etiology Treat as above Hx PE Continue Xarelto Mood disorder Continue home mood stabilizers GERD Continue PPI Mixed hyperlipidemia Continue statin Essential HTN Continue atenolol Obesity class II Low-calorie diet Full Code Attending:?Dr. Garvey DVT Prophylaxis: On Xarelto Pt will require a hospitalization of at least two nights for treatment of?acute hypoxic respiratory failure and acute metabolic encephalopathy unclear etiology. Patient will require hospitalization for further workup and management, and close monitoring. Quality Stroke Does the patient have a stroke diagnosis?: No VTE Prior VTE?: No VTE Risk Level:: Medical - moderate - high VTE Device Contraindication: Treatment Not Indicated VTE Drug Contraindication: N/A - Med Ordered
--- NOTE | 2023-11-10 17:15 | PC.NURSE ---
Alert and responsive, at bedside, patient reports feeling better. nsr on monitor, vss
--- NOTE | 2023-11-10 18:09 | PC.NURSE ---
Alert with confusion, condom cath in place ,denies pain or discomfort, vss, nsr
[2023-11-10] MEDS: Acetaminophen 325 MG TABLET 650 MG PO (19:33)
--- NOTE | 2023-11-10 19:50 | PC.NURSE ---
I assumed care of the pt at 1900. Pt comes from [facility], has baseline confusion but no dx of dementia. Pt is currently resting in bed, complaining of a headache. Pt was given PRN tylenol, per DEC. Pt has one IV in the right forearm which is wrapped and secure at this time. Pt has a condom cath in place. Pt was on RA noted to be at 89%. Placed pt on 2 LPM and O2 increased to 93%. Pt reporting no SOB or trouble breathing.
--- NOTE | 2023-11-10 19:54 | PC.NURSE ---
Pt planned to be moved to overflow. Report given to Suman MACIAS. RN requested that another pt be brought over first and asked for extra time to medicate other patients before sending pt over, so pt will remain in ED at this time.
[2023-11-10] MEDS: Gabapentin 600 MG TABLET PO (20:12)
[2023-11-10] MEDS: traZODone HCL 100 MG TABLET PO (20:12)
[2023-11-10] MEDS: Atorvastatin Calcium 20 MG TABLET PO (20:12)
--- NOTE | 2023-11-10 20:55 | PC.NURSE ---
Pt transferred to overflow by transporter Yazan
--- NOTE | 2023-11-10 22:07 | MHC.CM.ED ---
Addendum entered by Jenn Martini 11/10/23 22:14: Medical record review: Pt lives at [facility]. Hx dementia. HCP on file. HCP Sveta Ro ([phone]). MOLST on file. Full code. No artificial nutrition. No Dialysis. Short term IV hydration. Original Note: CM attempted to meet with patient to discuss discharge planning and review IMM. Pt sleeping soundly. AMS. CM will need to call family in the morning due to lateness of hour (2200).
[2023-11-11] MEDS: 0.9 % Sodium Chloride Flush 3 ML SYRINGE IVFLUSH ×2 (00:24→08:46)
[2023-11-11 06:20] VITALS: BP 142/72; PULSE 75; RESP 19; TEMP 36.2; O2SAT 97
[2023-11-11 06:27] LABS: Hematocrit 36.5 % (42.0-52.0); Hemoglobin 11.7 g/dl (14.0-18.0); Mean Corpuscular HGB Conc 32.1 g/dl (31.0-36.0); Mean Corpuscular Hemoglobin 28.3 pg (27.0-33.0); Mean Corpuscular Volume 88.4 fL (80.0-98.0); Mean Platelet Volume 9.1 fL (9.4-12.4); Platelet Count 285 X10*3/uL (160-400); Red Blood Count 4.13 X10*6/uL (4.60-5.80); Red Cell Distribution Width 15.5 % (11.0-16.0); White Blood Count 10.8 X10*3/uL (4.8-10.8)
[2023-11-11 06:40] LABS: Anion Gap 14 (12-20); Blood Urea Nitrogen 13 mg/dL (9-16); Calcium 10.4 mg/dL (8.4-10.2); Carbon Dioxide 25 mmol/L (22-29); Chloride 104 mmol/L (96-108); Creatinine Clr Calc Pharmacy 117.5; Estimated Glomerular Filt Rate > 60; Glucose Random 91 mg/dL (60-115); Potassium 3.5 mmol/L (3.3-5.1); Sodium 139 mmol/L (135-145)
[2023-11-11] MEDS: Venlafaxine HCl ER 75 MG CAP.ER.24H PO (08:46)
[2023-11-11] MEDS: Gabapentin 600 MG TABLET PO ×3 (08:46→20:10)
[2023-11-11] MEDS: Multivitamin TABLET 1 TAB PO (08:46)
[2023-11-11 08:56] VITALS: BP 114/67; PULSE 80; RESP 16; TEMP 36.8; O2SAT 93
--- NOTE | 2023-11-11 08:57 | MHC.EDTECH ---
PT ATE 100% OF HIS BREAKFAST AND 240CC OF FLUIDS. NURSE AT BEDSIDE.
[2023-11-11] MEDS: Acetaminophen 325 MG TABLET 650 MG PO (09:44)
[2023-11-11] MEDS: Rivaroxaban 20 MG TABLET PO (09:45)
[2023-11-11] MEDS: atenoloL 25 MG TABLET PO (09:46)
--- NOTE | 2023-11-11 10:17 | MHC.EDTECH ---
PT is washed up and resting in bed
[2023-11-11] MEDS: buPROPion HCl XL 300 MG TAB.ER.24H PO (11:29)
--- NOTE | 2023-11-11 11:30 | MHC.CM.PN ---
Addendum entered by Janice Berrios 11/11/23 13:25: CM INFORMED PT MEDICALLY STABLE TO RETURN TO SNF REFERRAL PLACED AND UPDATES SENT AWAITING RESPONSE Original Note: IMM 11/11/23 discussed with pt.'s / HCP Sveta [phone] and sent via c. mail. Pt. is a LT resident of [facility], and the DC plan is for him to return there. Sveta requested that when he is ready to return, transportation has to be set up through the [facility] in [place] by calling [phone] and asking for transportation. Otherwise, she ends up with an ambulance bill. CM to follow and assist with DC plan.
[2023-11-11 12:12] LABS: Adenovirus PCR Not Detected (Not Detect.); Bordetella parapertussis PCR Not Detected (Not Detect.); Bordetella pertussis PCR Not Detected (Not Detect.); Chlamydia pneumoniae PCR Not Detected (Not Detect.); Coronavirus 229E PCR Not Detected (Not Detect.); Coronavirus HKU1 PCR Not Detected (Not Detect.); Coronavirus NL63 PCR Not Detected (Not Detect.); Coronavirus OC43 PCR Not Detected (Not Detect.); Human metapneumovirus PCR Not Detected (Not Detect.); Influenza A PCR Not Detected (Not Detect.); Influenza B PCR Not Detected (Not Detect.); Mycoplasma pneumoniae PCR Not Detected (Not Detect.); Parainfluenza 1 PCR Not Detected (Not Detect.); Parainfluenza 2 PCR Not Detected (Not Detect.); Parainfluenza 3 PCR Not Detected (Not Detect.); Parainfluenza 4 PCR Not Detected (Not Detect.); RSV PCR Not Detected (Not Detect.); Rhino/Enterovirus PCR Not Detected (Not Detect.)
[2023-11-11 12:15] LABS: SARS-CoV-2 PCR Detected (Not Detect.)
--- NOTE | 2023-11-11 13:22 | MHC.EDTECH ---
pt ate 100% of his lunch. 240cc of fluids. PT is resting in bed.
--- NOTE | 2023-11-11 13:54 | HO.PM.IMPN ---
Subjective Subjective Date of Service: 11/11/23 Interval History: Being followed for hypoxia, decreased responsiveness and lethargy, patient more awake this morning complaining of frontal headache, oriented to self and place only, offers no other acute complaints, no recurrent fever since hospitalization, tolerating diet, no nausea, no vomiting, no abdominal pain. Review of Systems Unable to obtain due to dementia Physical Exam Vital Signs: Vital Signs: Last Vital Signs Temp 98.2 F 11/11/23 08:56 Pulse 80 11/11/23 08:56 Resp 16 11/11/23 08:56 BP 114/67 11/11/23 08:56 Pulse Ox 93 11/11/23 08:56 O2 Del Method Room Air 11/11/23 08:56 O2 Flow Rate 1 11/11/23 06:20 Oxygen Flow Rate 2 11/10/23 13:30 BMI result Body Mass Index 35.5 Const: Other: General awake alert, resting comfortably in no acute distress. Anicteric sclera Neck no JVD. CVS regular rate rhythm, Respiratory lungs clear to auscultation, no respiratory distress, no wheeze, no rhonchi. Gastrointestinal abdomen soft, non tender, bowel sounds audible, no guarding , no rigidity. Extremities no edema. Neuro nonfocal Skin no rash Psych poor insight Objective Data Active Medications Acetaminophen (Acetaminophen 325 Mg Tablet) 650 mg PO Q6H PRN PRN Reason: Pain, Mild (Pain Scale 1-3) Last Admin: 11/11/23 09:44 Dose: 650 mg Documented By: SJ Atenolol (Atenolol 25 Mg Tablet) 25 mg PO DAILY [facility]; Protocol Last Admin: 11/11/23 09:46 Dose: 25 mg Documented By: SJ Atorvastatin Calcium (Atorvastatin Calcium 20 Mg Tablet) 20 mg PO BEDTIME [facility] Last Admin: 11/10/23 20:12 Dose: 20 mg Documented By: WENDY Bupropion HCl (Bupropion Hcl Xl 300 Mg Tab.Er.24h) 300 mg PO DAILY [facility] Last Admin: 11/11/23 11:29 Dose: 300 mg Documented By: SJ Docusate Sodium (Docusate Sodium 100 Mg Capsule) 100 mg PO DAILY PRN PRN Reason: Constipation Gabapentin (Gabapentin 600 Mg Tablet) 600 mg PO TID [facility] Last Admin: 01/19/24 08:46 Dose: 600 mg Documented By: SJ Guaifenesin/Dextromethorphan (Guaifenesin Dm 100/10/5 Ml 5 Ml Syrup) 10 ml PO Q6H PRN PRN Reason: Cough Morphine Sulfate (Morphine Sulfate Immed Release 15 Mg Tablet) 7.5 mg PO Q8H PRN PRN Reason: Pain, Severe (Pain Scale 7-10) Multivitamins/Vitamin C (Multivitamin Tablet) 1 tab PO DAILY [facility] Last Admin: 11/11/23 08:46 Dose: 1 tab Documented By: SJ Omeprazole (Omeprazole 20 Mg Capsule.Dr) 20 mg PO DAILY@1630 [facility] Ondansetron HCl (Ondansetron Hcl 4 Mg/2 Ml Vial) 4 mg IVPUSH Q8H PRN PRN Reason: Nausea and Vomiting Rivaroxaban (Rivaroxaban 20 Mg Tablet) 20 mg PO DAILY [facility] Last Admin: 11/11/23 09:45 Dose: 20 mg Documented By: SJ Sodium Chloride (0.9 % Sodium Chloride Flush 3 Ml Syringe) 3 ml IVFLUSH QSHIFT [facility] Last Admin: 11/11/23 08:46 Dose: 3 ml Documented By: SJ Trazodone HCl (Trazodone Hcl 100 Mg Tablet) 100 mg PO BEDTIME [facility] Last Admin: 11/10/23 20:12 Dose: 100 mg Documented By: WENDY Venlafaxine HCl (Venlafaxine Hcl Er 75 Mg Cap.Er.24h) 75 mg PO DAILY [facility] Last Admin: 11/11/23 08:46 Dose: 75 mg Documented By: SJ Labs 11/11/23 06:20 11/11/23 06:20 Labs: Laboratory Results - last 24 hr 11/10/23 11/10/23 11/10/23 14:07 14:08 14:12 MCV 88.1 MCH 28.1 MCHC 31.9 RDW 15.7 Plt Count 335 MPV 9.1 L Immature Gran % (Auto) 0.5 H Neut % (Auto) 77.7 H Lymph % (Auto) 7.6 L [place] % (Auto) 13.5 H Eos % (Auto) 0.1 Baso % (Auto) 0.6 Lymph # (Auto) 1.1 L [place] # (Auto) 2.0 H Eos # (Auto) 0.0 Baso # (Auto) 0.1 Abs Immat Gran (auto) 0.07 H Absolute Neuts (auto) 11.3 H Absolute Nucleated RBC 0.000 Nucleated RBC % (auto) 0.0 Smear Tech's Comments VERIFIED VBG pH 7.46 H VBG pCO2 44 VBG pO2 40 VBG HCO3 32 H VBG O2 Saturation 63.0 VBG Base Excess 7.6 Anion Gap 11 L Estim Creat Clear Calc 100.5 Estimated GFR > 60 Random Glucose 116 H Lactic Acid 1.2 Calcium 11.0 H D Magnesium 1.9 Total Bilirubin 0.6 Direct Bilirubin 0.3 AST 11 ALT 16 Alkaline Phosphatase 68 Total Protein 7.7 Albumin 3.3 L Lipase 9 Procalcitonin 0.15 Urine Color Urine Appearance Urine pH Ur Specific [place] Urine Protein Urine Glucose (UA) Urine Ketones Urine Blood Urine Nitrite Ur Leukocyte Esterase Urine RBC Urine WBC Ur Squamous Epith Cells Urine Bacteria Hyaline Casts Respiratory Panel Panchal Adenovirus (Rapid PCR) B.pert (TEM-PCR) B.parapertussis DNA PCR C. pneumoniae DNA (PCR) Coronavirus OC43 (PCR) Coronavirus HKU1 (PCR) Coronavirus 229E (PCR) COVID-19 (BRANT) Negative COVID-19 Clin Com See Note Coronavirus NL63 (PCR) Human Metapneumovir PCR Influenza Type A (CHARLIE) Negative Influenza A (RT-PCR) Influenza Type B (CHARLIE) Negative Influenza B (RT-PCR) Influenza A & B Note See Note M. pneumoniae (PCR) Parainfluenza 1 (PCR) Parainfluenza 2 (PCR) Parainfluenza 3 (PCR) Parainfluenza 4 (PCR) RSV (PCR) Entero/Rhino (PCR) SARS-CoV-2 RNA (RT-PCR) 11/10/23 11/11/23 11/11/23 14:38 06:20 10:53 MCV 88.4 MCH 28.3 MCHC 32.1 RDW 15.5 Plt Count 285 MPV 9.1 L Immature Gran % (Auto) Neut % (Auto) Lymph % (Auto) [place] % (Auto) Eos % (Auto) Baso % (Auto) Lymph # (Auto) [place] # (Auto) Eos # (Auto) Baso # (Auto) Abs Immat Gran (auto) Absolute Neuts (auto) Absolute Nucleated RBC 0.000 Nucleated RBC % (auto) 0.0 Smear Tech's Comments VBG pH VBG pCO2 VBG pO2 VBG HCO3 VBG O2 Saturation VBG Base Excess Anion Gap 14 Estim Creat Clear Calc 117.5 Estimated GFR > 60 Random Glucose 91 Lactic Acid Calcium 10.4 H Magnesium Total Bilirubin Direct Bilirubin AST ALT Alkaline Phosphatase Total Protein Albumin Lipase Procalcitonin Urine Color Dark Yellow Urine Appearance Clear Urine pH 6.0 Ur Specific [place] 1.025 Urine Protein 30 (1+) H Urine Glucose (UA) Negative Urine Ketones Negative Urine Blood Negative Urine Nitrite Negative Ur Leukocyte Esterase Negative Urine RBC 0-2 Urine WBC 0-5 Ur Squamous Epith Cells 0-2 Urine Bacteria None Seen Hyaline Casts 0-2 Respiratory Panel Panchal See Note Adenovirus (Rapid PCR) Not Detected B.pert (TEM-PCR) Not Detected B.parapertussis DNA PCR Not Detected C. pneumoniae DNA (PCR) Not Detected Coronavirus OC43 (PCR) Not Detected Coronavirus HKU1 (PCR) Not Detected Coronavirus 229E (PCR) Not Detected COVID-19 (BRANT) COVID-19 Clin Com Coronavirus NL63 (PCR) Not Detected Human Metapneumovir PCR Not Detected Influenza Type A (CHARLIE) Influenza A (RT-PCR) Not Detected Influenza Type B (CHARLIE) Influenza B (RT-PCR) Not Detected Influenza A & B Note M. pneumoniae (PCR) Not Detected Parainfluenza 1 (PCR) Not Detected Parainfluenza 2 (PCR) Not Detected Parainfluenza 3 (PCR) Not Detected Parainfluenza 4 (PCR) Not Detected RSV (PCR) Not Detected Entero/Rhino (PCR) Not Detected SARS-CoV-2 RNA (RT-PCR) Detected A Microbiology Microbiology Results: Microbiology 11/10/23 14:06 Blood Culture - Preliminary Blood - Arterial Prelim: GPC Gram Stain only Assessment and Plan (1) Metabolic encephalopathy: Status: Acute (2) Hypoxia: Status: Acute Plan 78-year-old male with a PMH significant for?unspecified dementia,hx of PE on Xarelto, HTN, HLD, mood disorder, GERD and obesity class 2, who presents to the ED with?from SNF for evaluation of decreased responsiveness, lethargy, and low O2 saturation. Pt will be admitted to the hospital for treatment and further evaluation of acute respiratory failure, generalized weakness, lethargy, and acute metabolic encephalopathy. Acute hypoxic respiratory failure due to COVID-19 Due to hypoxia will place on IV Decadron 6 mg started on November 11 and iv remdesivir, initial COVID test negative, respiratory viral panel showed positive COVID Chest CT negative. Procalcitonin 0.12, No indication for antibiotics at this time Continue supportive care with oxygen, cough medication, and Tylenol follow blood cultures /1/2 sets positive for g positive cocci in stain only will place on iv vanco Case discussed with ID. Sepsis present on admission due to COVID-19 and 1/2 set of blood culture positive for Gram-positive cocci All symptoms of SIRS resolved, WBC normalized, no recurrent fevers. Acute metabolic encephalopathy Likely due to COVID, head CT negative, UA negative , patient more awake and clear this morning likely baseline Hx PE Continue Xarelto Mood disorder Continue home mood stabilizers GERD Continue PPI Mixed hyperlipidemia Continue statin Essential HTN Continue atenolol Obesity class II Low-calorie diet Full Code DVT Prophylaxis: On Xarelto Patient admitted for observation will change to inpatient due to?acute hypoxic respiratory failure due to covid and acute metabolic encephalopathy requiring IV steroids and remdesivir. Quality Stroke Does the patient have a stroke diagnosis?: No VTE Prior VTE?: No VTE Risk Level:: Medical - moderate - high VTE Device Contraindication: Treatment Not Indicated VTE Drug Contraindication: N/A - Med Ordered
[2023-11-11] MEDS: dexAMETHasone sod phosphate 4 MG/ML VIAL 6 MG IVPUSH (15:01)
[2023-11-11] MEDS: Remdesivir 200 MG in 0.9 % Sodium Chloride 210 ML 105 MG IV (15:01)
[2023-11-11 15:30] VITALS: O2SAT 96
[2023-11-11] MEDS: Omeprazole 20 MG CAPSULE.DR PO (16:52)
--- NOTE | 2023-11-11 17:23 | MHC.EDTECH ---
Addendum entered by Ekaterina Aguayo CNA 11/11/23 17:26: Patient woke requested supper 50% Original Note: Patient didn't wake up to eat supper
--- NOTE | 2023-11-11 18:51 | PC.NURSE ---
pt moved from ovflw 8 to a private room ovflw 1. precautions put in place. pt was placed on 2L n/c supplemental o2 and he removed it multiple times. currently satting 90-92% r/a
--- NOTE | 2023-11-11 19:41 | PC.NURSE ---
Pt found to be completely nude in bed. Pt pulled out his IV after finishing vancomycin. Bleeding was controlled and pt was cleaned. Pt is repositioned with O2 in place at 2 LPM.
[2023-11-11 20:00] VITALS: BP 138/65; PULSE 67; RESP 18; TEMP 36.8; O2SAT 98
[2023-11-11] MEDS: traZODone HCL 100 MG TABLET PO (20:10)
[2023-11-11] MEDS: Atorvastatin Calcium 20 MG TABLET PO (20:10)
[2023-11-12] VITALS: BP 142/82; PULSE 71; RESP 20; TEMP 36.1; O2SAT 95
[2023-11-12 06:00] VITALS: BMI 35.6
[2023-11-12] MEDS: vancomycin HCL 1,500 MG in 0.9 % Sodium Chloride 500 ML 333.33 MG IV (06:12)
[2023-11-12 07:03] VITALS: BP 137/76; PULSE 74; RESP 19; TEMP 37; O2SAT 88
[2023-11-12 07:27] LABS: Estimated Glomerular Filt Rate > 60
[2023-11-12] MEDS: Venlafaxine HCl ER 75 MG CAP.ER.24H PO (10:06)
[2023-11-12] MEDS: buPROPion HCl XL 300 MG TAB.ER.24H PO (10:06)
[2023-11-12] MEDS: 0.9 % Sodium Chloride Flush 3 ML SYRINGE IVFLUSH ×2 (10:06→17:49)
[2023-11-12] MEDS: Multivitamin TABLET 1 TAB PO (10:06)
[2023-11-12] MEDS: atenoloL 25 MG TABLET PO (10:06)
[2023-11-12] MEDS: dexAMETHasone sod phosphate 4 MG/ML VIAL 6 MG IVPUSH (10:06)
[2023-11-12] MEDS: Rivaroxaban 20 MG TABLET PO (10:06)
[2023-11-12] MEDS: Gabapentin 600 MG TABLET PO ×3 (10:06→21:00)
--- NOTE | 2023-11-12 12:59 | HO.PM.IMPN ---
Subjective Subjective Date of Service: 11/12/23 Interval History: Being followed for hypoxia, decreased responsiveness and lethargy, patient more awake this morning, oriented to self and place only, offers no other acute complaints, no recurrent fever since hospitalization, tolerating diet, no nausea, no vomiting, no abdominal pain. Review of Systems Unable to obtain due to dementia Physical Exam Vital Signs: Vital Signs: Last Vital Signs Temp 98.6 F 11/12/23 07:03 Pulse 74 11/12/23 07:03 Resp 19 11/12/23 07:03 BP 137/76 11/12/23 07:03 Pulse Ox 88 L 11/12/23 07:03 O2 Del Method Room Air 11/12/23 07:03 O2 Flow Rate 2 11/11/23 20:00 Oxygen Flow Rate 2 11/10/23 13:30 BMI result Body Mass Index 35.6 Appearing in no acute distress lung sounds are clear to auscultation heart regular rate rhythm, clear S1, S2 positive bowel sounds, abdomen is soft, nontender neuro patient is alert, confused Objective Data Active Medications Acetaminophen (Acetaminophen 325 Mg Tablet) 650 mg PO Q6H PRN PRN Reason: Pain, Mild (Pain Scale 1-3) Last Admin: 11/11/23 09:44 Dose: 650 mg Documented By: SJ Atenolol (Atenolol 25 Mg Tablet) 25 mg PO DAILY [facility]; Protocol Last Admin: 11/12/23 10:06 Dose: 25 mg Documented By: CINDY Atorvastatin Calcium (Atorvastatin Calcium 20 Mg Tablet) 20 mg PO BEDTIME [facility] Last Admin: 11/11/23 20:10 Dose: 20 mg Documented By: WENDY Bupropion HCl (Bupropion Hcl Xl 300 Mg Tab.Er.24h) 300 mg PO DAILY [facility] Last Admin: 11/12/23 10:06 Dose: 300 mg Documented By: CINDY Dexamethasone Sodium Phosphate (Dexamethasone Sod Phosphate 4 Mg/Ml Vial) 6 mg IVPUSH DAILY [facility] Last Admin: 11/12/23 10:06 Dose: 6 mg Documented By: CINDY Docusate Sodium (Docusate Sodium 100 Mg Capsule) 100 mg PO DAILY PRN PRN Reason: Constipation Gabapentin (Gabapentin 600 Mg Tablet) 600 mg PO TID [facility] Last Admin: 11/12/23 10:06 Dose: 600 mg Documented By: CINDY Guaifenesin/Dextromethorphan (Guaifenesin Dm 100/10/5 Ml 5 Ml Syrup) 10 ml PO Q6H PRN PRN Reason: Cough Remdesivir 100 mg/ Sodium (Chloride) 230 mls @ 115 mls/hr IV Q24H [facility] Stop: 11/13/23 16:59 Vancomycin HCl 1,500 mg/ (Sodium Chloride) 500 mls @ 333.333 mls/hr IV Q12H [facility] Last Infusion: 11/12/23 07:58 Dose: Infused Documented By: CINDY Morphine Sulfate (Morphine Sulfate Immed Release 15 Mg Tablet) 7.5 mg PO Q8H PRN PRN Reason: Pain, Severe (Pain Scale 7-10) Multivitamins/Vitamin C (Multivitamin Tablet) 1 tab PO DAILY [facility] Last Admin: 11/12/23 10:06 Dose: 1 tab Documented By: CINDY Omeprazole (Omeprazole 20 Mg Capsule.Dr) 20 mg PO DAILY@1630 [facility] Last Admin: 11/11/23 16:52 Dose: 20 mg Documented By: SJ Ondansetron HCl (Ondansetron Hcl 4 Mg/2 Ml Vial) 4 mg IVPUSH Q8H PRN PRN Reason: Nausea and Vomiting Pharmacy Consult (Consult Rx Vancomycin Dosing) 1 each MISCELLANE DAILY PRN PRN Reason: Consult order Rivaroxaban (Rivaroxaban 20 Mg Tablet) 20 mg PO DAILY [facility] Last Admin: 11/12/23 10:06 Dose: 20 mg Documented By: CINDY Sodium Chloride (0.9 % Sodium Chloride Flush 3 Ml Syringe) 3 ml IVFLUSH QSHIFT [facility] Last Admin: 11/12/23 10:06 Dose: 3 ml Documented By: CINDY Trazodone HCl (Trazodone Hcl 100 Mg Tablet) 100 mg PO BEDTIME [facility] Last Admin: 11/11/23 20:10 Dose: 100 mg Documented By: WENDY Venlafaxine HCl (Venlafaxine Hcl Er 75 Mg Cap.Er.24h) 75 mg PO DAILY [facility] Last Admin: 11/12/23 10:06 Dose: 75 mg Documented By: CINDY Labs 11/11/23 06:20 11/12/23 06:51 Labs: Laboratory Results - last 24 hr 11/12/23 06:51 Hold Purple Top SEE NOTE Estim Creat Clear Calc 132.0 Estimated GFR > 60 Microbiology Microbiology Results: Microbiology 11/10/23 14:06 Blood Culture - Final Blood - Arterial Coag negative Staphylococcus 11/10/23 14:26 Blood Culture - Preliminary Blood - Arterial No growth after 24 hours. Assessment and Plan (1) Metabolic encephalopathy: Status: Acute (2) Hypoxia: Status: Acute Plan 78-year-old male with a PMH significant for?unspecified dementia,hx of PE on Xarelto, HTN, HLD, mood disorder, GERD and obesity class 2, who presents to the ED with?from SNF for evaluation of decreased responsiveness, lethargy, and low O2 saturation. Pt will be admitted to the hospital for treatment and further evaluation of acute respiratory failure, generalized weakness, lethargy, and acute metabolic encephalopathy. Acute hypoxic respiratory failure due to COVID-19 [address] hypoxia [address] place on IV Decadron 6 mg started on November 11 and iv remdesivir, initial COVID test negative, respiratory viral panel showed positive COVID Chest CT negative. Procalcitonin 0.12, No indication for antibiotics at this time Continue supportive care with oxygen, cough medication, and Tylenol blood cultures coag neg staph Case discussed with ID. Sepsis present on admission due to COVID-19 All symptoms of SIRS resolved WBC normalized, no recurrent fevers. Acute metabolic encephalopathy Likely due to COVID head CT negative UA negative patient more awake but still confused Hx PE Continue Xarelto Mood disorder Continue home mood stabilizers GERD Continue PPI Mixed hyperlipidemia Continue statin Essential HTN Continue atenolol Obesity class II Low-calorie diet Full Code Attending Dr. Hodge DVT Prophylaxis: On Xarelto Patient admitted for observation will change to inpatient due to?acute hypoxic respiratory failure due to covid and acute metabolic encephalopathy requiring IV steroids and remdesivir. Quality Stroke Does the patient have a stroke diagnosis?: No VTE Prior VTE?: No VTE Risk Level:: Medical - moderate - high VTE Device Contraindication: Treatment Not Indicated VTE Drug Contraindication: N/A - Med Ordered
--- NOTE | 2023-11-12 14:05 | MHC.CM.PN ---
CM INFORMED PT WILL LIKELY BE READY TO DC TOMORROW [facility] INFORMED VIA [employer]
[2023-11-12 14:08] VITALS: BP 107/60; PULSE 66; RESP 20; TEMP 36.1; O2SAT 95
[2023-11-12 15:29] VITALS: BP 111/73; PULSE 68; RESP 20; TEMP 36.4; O2SAT 96
[2023-11-12] MEDS: Remdesivir 100 MG in 0.9 % Sodium Chloride 230 ML 115 MG IV (16:08)
[2023-11-12 16:43] LABS: Vancomycin Random 14.1 mcg/mL (15-20)
[2023-11-12] MEDS: Omeprazole 20 MG CAPSULE.DR PO (17:49)
[2023-11-12 19:56] VITALS: BP 128/82; PULSE 60; RESP 20; TEMP 36.1; O2SAT 95
[2023-11-12] MEDS: traZODone HCL 100 MG TABLET PO (21:00)
[2023-11-12] MEDS: Atorvastatin Calcium 20 MG TABLET PO (21:00)
[2023-11-12 23:26] VITALS: BP 133/75; PULSE 52; RESP 20; TEMP 36.2; O2SAT 96
[2023-11-13] MEDS: 0.9 % Sodium Chloride Flush 3 ML SYRINGE IVFLUSH ×4 (00:26→21:05)
[2023-11-13 03:14] VITALS: BP 131/75; PULSE 50; RESP 20; TEMP 36.2; O2SAT 98
[2023-11-13 06:48] LABS: Creatinine Clr Calc Pharmacy 104.9; Estimated Glomerular Filt Rate > 60
[2023-11-13 07:19] VITALS: BP 148/70; PULSE 47; RESP 18; TEMP 36; O2SAT 97
[2023-11-13] MEDS: Rivaroxaban 20 MG TABLET PO (07:46)
[2023-11-13] MEDS: Multivitamin TABLET 1 TAB PO (07:46)
[2023-11-13] MEDS: Venlafaxine HCl ER 75 MG CAP.ER.24H PO (07:46)
[2023-11-13] MEDS: Gabapentin 600 MG TABLET PO ×3 (07:46→21:02)
[2023-11-13] MEDS: dexAMETHasone sod phosphate 4 MG/ML VIAL 6 MG IVPUSH (07:46)
[2023-11-13] MEDS: buPROPion HCl XL 300 MG TAB.ER.24H PO (07:46)
--- NOTE | 2023-11-13 10:53 | P.PNIM_ITS ---
Subjective Subjective Date of Service: 11/14/23 Interval History: Being followed for hypoxia, decreased responsiveness and lethargy patient more awake this morning oriented to self and place only offers no other acute complaints Review of Systems Unable to obtain due to dementia Physical Exam 2 Vital Signs: Vital Signs: Last Vital Signs Temp 96.8 F 11/13/23 07:19 Pulse 47 L 11/13/23 07:19 Resp 18 11/13/23 07:19 BP 148/70 H 11/13/23 07:19 Pulse Ox 97 11/13/23 07:19 O2 Del Method Nasal Cannula 11/13/23 07:19 O2 Flow Rate 2 11/13/23 07:19 Oxygen Flow Rate 2 11/10/23 13:30 BMI result Body Mass Index 35.6 Appearing in no acute distress lung sounds are clear to auscultation heart regular rate rhythm, clear S1, S2 positive bowel sounds, abdomen is soft, nontender neuro patient is alert, oriented to self only Objective Data Active Medications Acetaminophen (Acetaminophen 325 Mg Tablet) 650 mg PO Q6H PRN PRN Reason: Pain, Mild (Pain Scale 1-3) Last Admin: 11/11/23 09:44 Dose: 650 mg Documented By: SJ Atenolol (Atenolol 25 Mg Tablet) 25 mg PO DAILY [facility]; Protocol Last Admin: 11/12/23 10:06 Dose: 25 mg Documented By: CINDY Atorvastatin Calcium (Atorvastatin Calcium 20 Mg Tablet) 20 mg PO BEDTIME [facility] Last Admin: 11/12/23 21:00 Dose: 20 mg Documented By: ROSMERY Bupropion HCl (Bupropion Hcl Xl 300 Mg Tab.Er.24h) 300 mg PO DAILY [facility] Last Admin: 11/13/23 07:46 Dose: 300 mg Documented By: YANIQUE Dexamethasone Sodium Phosphate (Dexamethasone Sod Phosphate 4 Mg/Ml Vial) 6 mg IVPUSH DAILY [facility] Last Admin: 11/13/23 07:46 Dose: 6 mg Documented By: YANIQUE Docusate Sodium (Docusate Sodium 100 Mg Capsule) 100 mg PO DAILY PRN PRN Reason: Constipation Gabapentin (Gabapentin 600 Mg Tablet) 600 mg PO TID [facility] Last Admin: 11/13/23 07:46 Dose: 600 mg Documented By: YANIQUE Guaifenesin/Dextromethorphan (Guaifenesin Dm 100/10/5 Ml 5 Ml Syrup) 10 ml PO Q6H PRN PRN Reason: Cough Remdesivir 100 mg/ Sodium (Chloride) 230 mls @ 115 mls/hr IV Q24H [facility] Stop: 11/13/23 16:59 Last Infusion: 11/12/23 19:23 Dose: Infused Documented By: ROSMERY Morphine Sulfate (Morphine Sulfate Immed Release 15 Mg Tablet) 7.5 mg PO Q8H PRN PRN Reason: Pain, Severe (Pain Scale 7-10) Multivitamins/Vitamin C (Multivitamin Tablet) 1 tab PO DAILY [facility] Last Admin: 11/13/23 07:46 Dose: 1 tab Documented By: YANIQUE Omeprazole (Omeprazole 20 Mg Capsule.Dr) 20 mg PO DAILY@1630 [facility] Last Admin: 11/12/23 17:49 Dose: 20 mg Documented By: ROSMERY Ondansetron HCl (Ondansetron Hcl 4 Mg/2 Ml Vial) 4 mg IVPUSH Q8H PRN PRN Reason: Nausea and Vomiting Rivaroxaban (Rivaroxaban 20 Mg Tablet) 20 mg PO DAILY [facility] Last Admin: 11/13/23 07:46 Dose: 20 mg Documented By: YANIQUE Sodium Chloride (0.9 % Sodium Chloride Flush 3 Ml Syringe) 3 ml IVFLUSH QSHIFT [facility] Last Admin: 11/13/23 07:46 Dose: 3 ml Documented By: YANIQUE Trazodone HCl (Trazodone Hcl 100 Mg Tablet) 100 mg PO BEDTIME [facility] Last Admin: 11/12/23 21:00 Dose: 100 mg Documented By: ROSMERY Venlafaxine HCl (Venlafaxine Hcl Er 75 Mg Cap.Er.24h) 75 mg PO DAILY [facility] Last Admin: 11/13/23 07:46 Dose: 75 mg Documented By: YANIQUE Labs 11/11/23 06:20 11/14/23 08:05 Labs: Laboratory Results - last 24 hr 11/12/23 11/13/23 16:07 05:55 Hold Purple Top SEE NOTE Estim Creat Clear Calc 104.9 Estimated GFR > 60 Random Vancomycin 14.1 L Microbiology Microbiology Results: Microbiology 11/10/23 14:26 Blood Culture - Preliminary Blood - Arterial No growth after 48 hours. 11/10/23 14:06 Blood Culture - Final Blood - Arterial Coag negative Staphylococcus Assessment and Plan (1) Metabolic encephalopathy: Status: Acute (2) Hypoxia: Status: Acute Plan 78-year-old male with a PMH significant for?unspecified dementia,hx of PE on Xarelto, HTN, HLD, mood disorder, GERD and obesity class 2, who presents to the ED with?from SNF for evaluation of decreased responsiveness, lethargy, and low O2 saturation. Pt will be admitted to the hospital for treatment and further evaluation of acute respiratory failure, generalized weakness, lethargy, and acute metabolic encephalopathy. Acute hypoxic respiratory failure due to COVID-[address] hypoxia [address] place on IV Decadron 6 mg started on November 11 and iv remdesivir, initial COVID test negative, respiratory viral panel showed positive COVID Chest CT negative. Procalcitonin 0.12, No indication for antibiotics at this time Continue supportive care, wean oxygen, cough medication, and Tylenol blood cultures coag neg staph Case discussed with ID. Sepsis present on admission due to COVID-19 All symptoms of SIRS resolved WBC normalized, no recurrent fevers. Acute metabolic encephalopathy Likely due to COVID head CT negative UA negative patient more awake but still confused Hx PE Continue Xarelto Mood disorder Continue home mood stabilizers GERD Continue PPI Mixed hyperlipidemia Continue statin Essential HTN Continue atenolol Obesity class II Low-calorie diet Full Code Attending Dr. Hodge DVT Prophylaxis: On Xarelto Patient admitted for observation will change to inpatient due to?acute hypoxic respiratory failure due to covid and acute metabolic encephalopathy requiring IV steroids and remdesivir. Quality Stroke Does the patient have a stroke diagnosis?: No VTE Prior VTE?: No VTE Risk Level:: Medical - moderate - high VTE Device Contraindication: Treatment Not Indicated VTE Drug Contraindication: N/A - Med Ordered
[2023-11-13 11:04] VITALS: PULSE 58
[2023-11-13 15:20] VITALS: BP 117/62; PULSE 66; RESP 18; TEMP 36.9; O2SAT 95
[2023-11-13 15:23] VITALS: BP 118/70; PULSE 70; RESP 18; TEMP 36.4; O2SAT 95
[2023-11-13] MEDS: Omeprazole 20 MG CAPSULE.DR PO (15:34)
[2023-11-13] MEDS: Remdesivir 100 MG in 0.9 % Sodium Chloride 230 ML 115 MG IV (15:34)
[2023-11-13 19:34] VITALS: BP 136/68; PULSE 59; RESP 20; TEMP 36.1; O2SAT 96
[2023-11-13] MEDS: Atorvastatin Calcium 20 MG TABLET PO (21:01)
[2023-11-13] MEDS: traZODone HCL 100 MG TABLET PO (21:02)
[2023-11-13] MEDS: Morphine Sulfate Immed Release 15 MG TABLET 7.5 MG PO (21:02)
--- NOTE | 2023-11-14 | ECG_ITS ---
Test Reason : BRADYCARDIA Blood Pressure : / mmHG Vent. Rate : 063 BPM Atrial Rate : 063 BPM P-R Int : 186 ms QRS Dur : 076 ms QT Int : 368 ms P-R-T Axes : 018 -17 -25 degrees QTc Int : 376 ms Sinus rhythm with Premature atrial complexes Minimal voltage criteria for LVH, may be normal variant ( R in aVL ) ST & T wave abnormality, consider anterior ischemia Abnormal ECG When compared with ECG of 10-NOV-2023 14:31, No significant changes seen Referred By: Anabella Herrera Electronically Signed By:Jassi Goldman
[2023-11-14 03:28] VITALS: BP 138/76; PULSE 52; RESP 18; TEMP 36.1; O2SAT 98
[2023-11-14 07:34] VITALS: BP 149/78; PULSE 53; RESP 20; TEMP 36.1; O2SAT 95
[2023-11-14 08:45] LABS: Creatinine Clr Calc Pharmacy 104.9; Estimated Glomerular Filt Rate > 60
[2023-11-14] MEDS: 0.9 % Sodium Chloride Flush 3 ML SYRINGE IVFLUSH (11:14)
[2023-11-14] MEDS: buPROPion HCl XL 300 MG TAB.ER.24H PO (11:14)
[2023-11-14] MEDS: Gabapentin 600 MG TABLET PO (11:14)
[2023-11-14] MEDS: Rivaroxaban 20 MG TABLET PO (11:14)
[2023-11-14] MEDS: Venlafaxine HCl ER 75 MG CAP.ER.24H PO (11:14)
[2023-11-14] MEDS: Multivitamin TABLET 1 TAB PO (11:14)
--- NOTE | 2023-11-14 11:23 | PM.DS ---
DS: Providers Provider Date of Service: 11/14/23 Date of admission: 11/10/23 18:29 Primary care physician: Steven Gan MD Consults: 11/11/23 14:09 Consult to Infectious Diseases Routine Consulting Provider: Julissa Dickey Reason for consultation: covid Has provider been notified: Yes DS: Diagnosis Discharge Diagnosis (1) Metabolic encephalopathy: Status: Acute (2) Hypoxia: Status: Acute DS: Summary Hospital Course Hospital Course: History and physical as per admitting provider. Pt is a 78-year-old male with a PMH significant for?unspecified dementia,hx of PE on Xarelto, HTN, HLD, mood disorder, GERD and obesity class 2, who presents to the ED with?from SNF for evaluation of decreased responsiveness, lethargy, and low O2 saturation. Patient with unspecified dementia at baseline, is alert and oriented to self only and thus incapable of providing accurate HPI. Initially complains only of headache, though repeat queries find no acute medical complaints. Pt noted to be desatting as low as 88% on RA during exam. In the ED pt was febrile up to 101.7, with soft BP as low as 115/56. Labs were significant for leukocytosis of 14.6, normocytic anemia of 12.7/39.8, procalcitonin mildly elevated at 0.15. No electrolyte abnormalities. Hepatic and renal function at baseline. UA negative for UTI. Patient tested negative for COVID, influenza type a and B. CT?of chest found no definite cause for the patient's hypoxia and fever, but found questionable 8 mm right lower lobe lung nodule. Head CT found no acute intracranial abnormality. EKG demonstrated normal sinus rhythm with sinus arrhythmia and nonspecific ST abnormality. Pt was treated with IVF, acetaminophen, ceftriaxone, and azithromycin. Pt will be admitted to the hospital for treatment and further evaluation of acute respiratory failure, generalized weakness, lethargy, and acute metabolic encephalopathy. 78-year-old man treated for acute hypoxic respiratory failures with sepsis secondary to COVID-19. Treated with IV Decadron, remdesivir. Chest CT was negative for consolidation. Procalcitonin 0.12 with no indication for antibiotics. He was weaned off oxygen, blood culture showed coag-negative staph. Ulcers symptoms resolved. The metabolic encephalopathy resolved as patient returned back to his baseline with some confusion. Patient is nonambulatory and plan is to transfer back to long-term care facility. He will complete a total 10 day course of the dexamethasone. History of pulmonary embolism continue Xarelto Mental health. Continue home medications GERD. Continue PPI Hyperlipidemia. Continue statin Hypertension. Continue atenolol Obesity. Discussed importance of weight management as this may be contributing to worsening of other comorbidities Time Attestation Discharge coordination time: Greater than 30 minutes Quality: Safe Use of Opioids Does Pt have an Active Cancer Diagnosis on the Problem List?: No Quality: Stroke Does the patient have a stroke diagnosis?: No Physical Exam Vital Signs: Vital Signs: Last Vital Signs Temp 96.9 F 11/14/23 07:34 Pulse 53 11/14/23 07:34 Resp 20 11/14/23 07:34 BP 149/78 H 11/14/23 07:34 Pulse Ox 95 11/14/23 07:34 O2 Del Method Nasal Cannula 11/14/23 07:34 O2 Flow Rate 1 11/14/23 07:34 Oxygen Flow Rate 2 11/10/23 13:30 BMI result Body Mass Index 35.6 Appearing in no acute distress head is normocephalic atraumatic eyes pupils are PERRLA sclera is anicteric mouth throat mucous membranes are intact and moist neck is supple no lymphadenopathy, no JVD noted lung sounds are clear to auscultation heart regular rate rhythm, clear S1, S2 positive bowel sounds, abdomen is soft, nontender neuro patient is alert x3, no focal deficits Nonambulatory DS: Data Data Completed and Pending Labs on day of discharge: Laboratory Results - last 24 hr 11/14/23 08:05 Hold Purple Top SEE NOTE Creatinine 0.73 Estim Creat Clear Calc 104.9 Estimated GFR > 60 Preliminary micro results at discharge 11/10/23 14:26 Blood Culture - Preliminary Blood - Arterial No growth after 48 hours. Discharge Plan Discharge Anticipated Discharge Date/Time: 11/11/23 13:46 Patient Disposition: er [facility] Discharge Diagnosis: Acute hypoxic respiratory failure COVID-19 Sepsis Acute metabolic encephalopathy Referrals: [facility] [Outside] Steven Gan MD [Primary Care Provider] - 1 Week Discharge Medications: New dexamethasone 6 mg tablet 6 mg PO DAILY Qty: 7 0RF Continued multivitamin Tablet 1 tab PO DAILY bupropion HCl 150 mg Tablet Sustained-Release 12 Hr 150 mg PO BID gabapentin 600 mg Tablet 600 mg PO TID trazodone 50 mg Tablet 100 mg PO BEDTIME simvastatin 40 mg Tablet 40 mg PO BEDTIME omeprazole 20 mg Tablet,Delayed Release (Dr/Ec) 20 mg PO BEDTIME venlafaxine 75 mg Tablet Extended Release 24hr 75 mg PO DAILY Xarelto 20 mg Tablet 20 mg PO DAILY Rx Instructions: must administer with evening meal buprenorphine HCl [Belbuca] 150 mcg Film 150 mcg BUCCAL BEDTIME acetaminophen 325 mg Tablet 650 mg PO Q6H PRN (Reason: Pain) dextromethorphan-guaifenesin 10-100 mg/5 mL Liquid 10 ml PO Q6H PRN (Reason: Cough) diclofenac sodium 1 % Gel 2 g TOPICAL Q12H PRN (Reason: WRIST PAIN) Rx Instructions: apply to single elbow, wrist or hand; for hand includes palm/fingers/back of hand Discontinued atenolol 25 mg tablet 25 mg PO DAILY Discharge Orders: Discharge Order (Routine); Ordered 11/14/23 Ordered By: Anabella Herrera Diet: Advance to usual diet Activity on Discharge: As tolerated Stand Alone Forms: Patient Portal Discharge page Care Plan Goals: Your atenolol was stopped due to some episodes of bradycardia (low heart rate). Monitor heart rate at long-term care facility, follow-up with primary care provider regarding restarting medication if needed Health Concerns: Acute hypoxic respiratory failure COVID-19 (diagnosed 11/11/2023) Sepsis Acute metabolic encephalopathy Plan of Treatment: Follow-up with primary care provider as needed Take all medications as prescribed Assessment: See discharge summary
--- NOTE | 2023-11-14 13:16 | MHC.CM.PN ---
Second IMM, sent to HCP /, pt has been medically cleared to return to [facility], he will go today via ambulance through the [facility].
[2023-11-14 15:29] VITALS: BP 125/71; PULSE 68; RESP 18; TEMP 36.4; O2SAT 94
== END 2023-11-14 15:58 | DRG 871 ==
LOC: HO.ED 16:16 → HO.EDOVER 18:44 → HO.IMC 11-11 19:38
PROVIDERS: Emergency Medicine; Hospitalist; Admitting Provider Student in an Organized Health Care Education/Training Program; Emergency Provider Internal Medicine; PCP Family Medicine Geriatric Medicine; Visit Provider Nurse Practitioner Acute Care
DX: A41.89 Other specified sepsis (principal); G93.41 Metabolic encephalopathy; J96.01 Acute respiratory failure with hypoxia; U07.1 COVID-19; F39 Unspecified mood [affective] disorder; E78.2 Mixed hyperlipidemia; E66.8 Other obesity; Z68.35 Body mass index [BMI] 35.0-35.9, adult; F03.90 Unspecified dementia, unspecified severity, without behavioral disturbance, psychotic disturbance, mood disturbance, and anxiety; D64.9 Anemia, unspecified; Z86.711 Personal history of pulmonary embolism; Z79.01 Long term (current) use of anticoagulants; Z79.899 Other long term (current) drug therapy
CPT/HCPCS: 36415; 70450; 71250; 80048; 80076; 80202; 81001; 81003; 82565; 82803; 83605; 83690; 83735; 84145; 84484; 85025; 85027; 87040; 87147; 87205; 87502; 87633; 87635; 93005; 99285; J0248; J0456; J0696; J1100; J3370; J3371

== ENCOUNTER → 2023-11-10 13:51 | Outpatient (BNV) | payer OTHER, BC, SELFPAY | PROVIDERS: Admitting Provider Student in an Organized Health Care Education/Training Program; Emergency Provider Internal Medicine; PCP Family Medicine Geriatric Medicine; Visit Provider Internal Medicine | DX: R53.1 Weakness (principal) | CPT/HCPCS: 93010 ==

== ENCOUNTER 2023-11-10 18:29 | Outpatient (BNV) | payer OTHER, BC, SELFPAY | END 2023-11-14 10:36 | PROVIDERS: Admitting Provider Student in an Organized Health Care Education/Training Program; Emergency Provider Internal Medicine; PCP Family Medicine Geriatric Medicine; Visit Provider Internal Medicine Cardiovascular Disease | DX: I49.1 Atrial premature depolarization (principal); R94.31 Abnormal electrocardiogram [ECG] [EKG] | CPT/HCPCS: 93010 ==

== ENCOUNTER → 2023-11-10 18:29 | Outpatient (BNV) | payer OTHER, BC, SELFPAY | PROVIDERS: Admitting Provider Student in an Organized Health Care Education/Training Program; Emergency Provider Internal Medicine; PCP Family Medicine Geriatric Medicine; Visit Provider Student in an Organized Health Care Education/Training Program | DX: J96.01 Acute respiratory failure with hypoxia (principal); G93.41 Metabolic encephalopathy | CPT/HCPCS: 99223; 99232; 99233; 99239 ==

== ENCOUNTER 2024-05-26 15:56 | Emergency (ER) | payer OTHER, SELFPAY ==
--- NOTE | ~2024-05-26 | XR_ITS ---
EXAMINATION: XR KNEE, RIGHT CLINICAL INFORMATION: Knee pain. History of dislocation. Total knee replacement. COMPARISON: None available. TECHNIQUE: Two views of the right knee. FINDINGS: Status post right total knee replacement. There is significant edema and fluid in the suprapatellar region with displacement of the patella anteriorly as seen on lateral view. Patellar component is not visualized on the frontal view due to the prosthesis. No fracture or loosening of the femoral or tibial component of the prosthesis. There is a crescent of ossification along the lateral side of the knee adjacent to the lateral femoral condyle which may be dystrophic calcifications in the soft tissues. No old films available for comparison. XR/XR knee RT 2V IMPRESSION: 1. Status post right total knee replacement. There is significant edema and fluid in the suprapatellar region with anterior displacement of the patella. Concern for soft tissue injury of the suprapatellar soft tissues, quadriceps tendon. CT could be helpful for further evaluation.
--- NOTE | ~2024-05-26 | XR_ITS ---
EXAMINATION: XR KNEE, RIGHT CLINICAL INFORMATION: [place] view, right patella COMPARISON: Radiographs from earlier in the same day TECHNIQUE: [place] view of the right knee. FINDINGS: The patient is status post right knee arthroplasty better appreciated on prior radiographs. There is a large joint effusion. There are multiple ossific fragments overlying the knee more pronounced on the lateral aspect, these are age indeterminant. XR/XR knee RT 2V IMPRESSION: Large joint effusion. Multiple ossific fragments overlying the knee more pronounced on the lateral aspect, these are age indeterminant. Overall, unclear if this represents acute are chronic process. Cross-sectional imaging may help to better evaluate.
--- NOTE | ~2024-05-26 | XR_ITS ---
EXAMINATION: XR KNEE, RIGHT CLINICAL INFORMATION: Post reduction COMPARISON: Same day earlier TECHNIQUE: 2 views right knee of the right knee. FINDINGS: Patient is status post total knee replacement with patellar resurfacing. There is large joint effusion with patellar displacement visualized on the lateral view only. There is no fracture seen. There are dystrophic calcifications in the soft tissues adjacent to the lateral femoral condyle. XR/XR knee RT 2V IMPRESSION: Patellar displacement by large joint effusion
[2024-05-26 16:14] VITALS: BP 147/87; PULSE 76; O2SAT 98
[2024-05-26 16:26] VITALS: BP 108/89; PULSE 78; RESP 16; TEMP 36.8; O2SAT 94; BMI 40.7
--- NOTE | 2024-05-26 16:32 | ED_ITS ---
HPI - Extremity Injury (Lower) General Chief Complaint: Extremity Injury, Lower Stated Complaint: knee pain Time Seen by Provider: 05/26/24 16:31 Source: patient and RN notes reviewed Mode of arrival: ambulatory Limitations: no limitations History of Present Illness ED Provider: Tyra Caballero PA-C HPI Narrative: This is a 79-year-old male, with PMH of dementia, GERD, HTN, mood disorder who presents to the ER, from [facility], with a complaint of right knee pain. Patient is a poor historian however states that he is currently bed-bound due to chronic back pain. 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 He states that today he had increased pain in his knee which is atypical. He states that his knee looks typical of him, denies any increased swelling. He reports history of gout however states he has never had gout in his knees, and pain does not feel similar. No other complaints or concerns at this time. MD complaint: knee injury Onset (ago): hour(s) Place: [facility] Severity: moderate Relieving factors: nothing Exacerbating factors: nothing Other symptoms: none Related Data Home Medications ?Medication ?Instructions ?Recorded ?Confirmed buprenorphine HCl 150 mcg buccal 150 mcg buccal BEDTIME pain 09/07/23 11/10/23 film (Belbuca) management bupropion HCl 150 mg tablet,12 hr 150 mg PO BID 09/07/23 11/10/23 sustained-release gabapentin 600 mg tablet 600 mg PO TID 09/07/23 11/10/23 multivitamin 1 tab PO DAILY 09/07/23 11/10/23 omeprazole 20 mg tablet,delayed 20 mg PO BEDTIME 09/07/23 11/10/23 release rivaroxaban 20 mg tablet (Xarelto) 20 mg PO DAILY 09/07/23 11/10/23 simvastatin 40 mg tablet 40 mg PO BEDTIME 09/07/23 11/10/23 trazodone 50 mg tablet 100 mg PO BEDTIME 09/07/23 11/10/23 venlafaxine 75 mg tablet,extended 75 mg PO DAILY 09/07/23 11/10/23 release 24 hr acetaminophen 325 mg tablet 650 mg PO Q6H PRN Pain 11/10/23 11/10/23 dextromethorphan-guaifenesin 10 10 ml PO Q6H PRN Cough 11/10/23 11/10/23 mg-100 mg/5 mL oral liquid diclofenac sodium 1 % topical gel 2 g topical Q12H PRN WRIST PAIN 11/10/23 11/10/23 Previous Rx's ?Medication ?Instructions ?Recorded dexamethasone 6 mg tablet 6 mg PO DAILY #7 tabs 11/14/23 Allergies Allergy/AdvReac Type Severity Reaction Status Date / Time No Known Allergies Allergy Verified 05/26/24 16:27 Review of Systems 2 Review of Systems: Yes all other systems are reviewed and are negative Constitutional: Constitutional: Reports as per [facility] Past Medical History Attestation statement: The following information was validated with the patient. Medical History Dementia Essential hypertension Gastroesophageal reflux disease Mood disorder Pulmonary embolus Social History Social History Household Members: Other Housing: Senior Care Do you presently have visiting nurse or other home services: No Unable to assess alcohol history related to: Unable to respond Alcohol intake: never Patient Tobacco Use Status: Never used Tobacco Smoked in Last 30 Days: Yes Use of substances other than those prescribed or required for medical reasons: No Advance Directives: Yes Advance Directives on File: Yes Advance Directives Date on File: 09/12/23 service: Yes Physical Exam 2 Vital Signs: Vital Signs: Last Vital Signs Temp 98.4 F 05/26/24 23:28 Pulse 80 05/26/24 23:28 Resp 16 05/26/24 23:28 BP 104/57 L 05/26/24 23:28 Pulse Ox 96 05/26/24 23:28 O2 Del Method Room Air 05/26/24 23:28 BMI result Body Mass Index 40.7 Const: General: cooperative, comfortable and no acute distress O rientation/consciousness: patient oriented x3 Limitations: no limitations HEENT: Head: Yes normal to inspection, Yes normocephalic and Yes atraumatic Ears: hearing grossly normal bilaterally General nose exam: Normal external nose present Face and sinus: Yes normal facial exam Mouth: Normal oral and palatal mucosa present, oropharynx normal and moist mucous membranes Throat: Yes posterior oropharynx normal Eyes: General: appearance normal, both eyes and all related structures E yelids: Yes eyelids normal Conjunctivae: conjunctivae normal Sclerae: s clerae normal Pupils: Equal, round and reactive pupils present EOM: EOMs intact bilaterally Neck: Neck: Yes normal visual inspection, Yes full ROM and Yes no lymphadenopathy Lymphatic: no lymphadenopathy noted Chest: Chest palpation & inspection: normal inspection of the chest Resp: Effort & Inspection: normal respiratory effort and able to speak in complete sentences Auscultation: clear to auscultation bilaterally, no crackles, no rales, no rhonchi and no wheezes Cardio: Rate: regular rate Rhythm: regular rhythm Heart sounds: S1 normal heart sound present and S2 normal heart sound present GI: Inspection: Yes normal to inspection Skin: General skin exam: no rashes or lesions noted Trauma: no lacerations or abrasions Wounds: no wounds Neuro: General: patient oriented x3 and moves all extremities Cranial nerves: Yes Equal, round and reactive pupils present Extrem: Other: Right knee is diffusely edematous, nonerythematous, patient able to flex and extend leg without difficulty. He does report elicited pain. Distal sensation circulation intact. Patella felt just laterally to midline, after attempted reduction, appears to be more midline. General: Yes normal to inspection Course Reevaluation(s) Reevaluation #1: X-ray was performed, revealing right TKA revealing significant edema and fluid in the suprapatellar region with anterior displacement of the patella, concern for soft tissue injury of the suprapatellar tissues, given this finding, attempted joint reduction was performed. Repeat x-ray revealing patellar displacement by large joint effusion. Given this finding, I reached out to the orthopedic team, and spoke to Nancy De Paz PA-C. She recommended getting sunrise view. This revealed a large joint effusion, with multiple ossific fragments overlying the knee more pronounced on the lateral aspect, age indeterminate. Overall this is unclear if this represents acute or chronic process. Given that he is able to flex and extend without significant pain, his findings are likely chronic and that appearance does not look dislocated to the orthopedic team. Labs were obtained, he has no leukocytosis, slight inflammation ESR at 38, CRP 0.76, uric acid within normal limits. Given that there is no evidence of infection, and chronic findings on x-ray, there is nothing additional to be done at this time. Relate information to patient. Sammy wrap was placed on knee. Patient will follow-up with his PCP, given strict return precautions. He understands and agrees with plan. Patient stable for discharge. Transportation was arranged for patient to get back to [facility] manner. Time: 22:32 Medical Decision Making Medical Decision Making [facility] Narrative: This is a 79-year-old male who presents emergency department with complaints of right knee pain since today. Patient is nonambulatory, bed-bound due to back pain. States that he was told to report to the emergency room due to pain in his right knee. Has a history of knee dislocations. He is a poor historian is unable to report history of dislocations in the past and whether not these were managed appropriately. Patient states that he has not had any increased swelling to his leg and states that current appearance is typical of the parents he has had in the past. He does report some pain which is atypical of him. He is concerned that his knee is dislocated without any injury or trauma. Knee with range of motion of the leg, differential diagnoses include knee dislocation, joint effusion, septic arthritis-unlikely, gouty arthritis. Differential Diagnosis Differential Diagnoses: The differential diagnosis associated with the presentation includes See above Consult Healthcare Provider Management of the patient was discussed with: [employer] [facility], see course comment. Lab Data [facility] Lab Attestation statement: I reviewed the patient's lab results. Slight leukocytosis at 11.6, slight elevation in inflammatory markers, negative uric acid, chemistry within normal limits. 05/26/24 20:46 05/26/24 20:46 Labs: Lab Results 05/26/24 Range/Units 20:46 WBC 11.6 H (4.8-10.8) X10*3/uL RBC 5.03 D (4.60-5.80) X10*6/uL Hgb 14.7 D (14.0-18.0) g/dl Hct 44.1 D (42.0-52.0) % MCV 87.7 (80.0-98.0) fL MCH 29.2 (27.0-33.0) pg MCHC 33.3 (31.0-36.0) g/dl RDW 14.7 (11.0-16.0) % Plt Count 242 (160-400) X10*3/uL MPV 9.4 (9.4-12.4) fL Immature Gran % (Auto) 0.3 (0.0-0.4) % Neut % (Auto) 70.3 (45-73) % Lymph % (Auto) 18.9 L (20-40) % [place] % (Auto) 7.3 (2-11) % Eos % (Auto) 2.3 (0-4) % Baso % (Auto) 0.9 (0-2) % Lymph # (Auto) 2.2 (1.2-4.9) X10*3/uL [place] # (Auto) 0.9 (0.1-1.2) X10*3/uL Eos # (Auto) 0.3 (0.0-0.4) X10*3/uL Baso # (Auto) 0.1 (0.0-0.2) X10*3/uL Abs Immat Gran (auto) 0.04 H (0.00-0.03) X10*3/uL Absolute Neuts (auto) 8.2 (2.0-8.3) x10*3/uL Absolute Nucleated RBC 0.000 (0.0-0.012) X10*3/uL Nucleated RBC % (auto) 0.0 (0.0-0.2) /100WBC ESR 38 H (0-15) MM/HR Sodium 138 (135-145) mmol/L Potassium 4.0 (3.3-5.1) mmol/L Chloride 103 (96-108) mmol/L Carbon Dioxide 27 (22-29) mmol/L Anion Gap 12 (12-20) BUN 14 (9-16) mg/dL Creatinine 0.89 (0.5-1.4) mg/dL Estim Creat Clear Calc 83.2 Estimated GFR > 60 Random Glucose 99 (60-115) mg/dL Uric Acid 4.5 (3.4-7.0) mg/dL Calcium 10.2 (8.4-10.2) mg/dL Total Bilirubin 0.3 (0.0-1.0) mg/dL Direct Bilirubin 0.1 (0.0-0.5) mg/dL AST 16 (5-37) U/L ALT 19 (0-40) U/L Alkaline Phosphatase 66 (39-117) U/L C-Reactive Protein 0.76 H (< or = 0.50) mg/dL Total Protein 7.7 (6.5-8.0) g/dL Albumin 4.0 (3.5-5.0) g/dL Radiology Impression Discussion of test interpretation with radiology: I have reviewed the radiologist's reading. Radiologist Impression: XR/XR knee RT 2V IMPRESSION: Large joint effusion. Multiple ossific fragments overlying the knee more pronounced on the lateral aspect, these are age indeterminant. Overall, unclear if this represents acute are chronic process. Cross-sectional imaging may help to better evaluate. Dictated By: Esvin Freeman MD XR/XR knee RT 2V IMPRESSION: Patellar displacement by large joint effusion Dictated By: Jim Guy MD XR/XR knee RT 2V IMPRESSION: 1. Status post right total knee replacement. There is significant edema and fluid in the suprapatellar region with anterior displacement of the patella. Concern for soft tissue injury of the suprapatellar soft tissues, quadriceps tendon. CT could be helpful for further evaluation. Dictated By: Johnathan Caldwell MD Procedures Orthopedic Joint Reduction Joint #1: Time Out Performed: Yes Side: right Joint Reduction Location: knee/patella Analgesia: none Technique used: traction/counter-traction and direct manipulation Post-reduction neuro exam: intact Post-reduction vascular: intact Post Reduction X-Ray Obtained: Yes Post Reduction X-Ray Results: other (See course comment) Splint Applied: Yes Patient Tolerated Procedure: well Discharge Plan Discharge Clinical Impression: Effusion of knee joint right Patient Disposition: Home, Self-Care Instructions: Swollen Knee Joint (ED), Swollen Joint (ED) Additional Instructions: You were seen in the emergency department due to Swelling in your right knee. You have a large joint effusion. You do not have a dislocated knee. Orthopedic team reviewed your case and there is no current interventions that need to be done at this time. Please rest, ice, keep leg elevated, and wear Sammy wrap for compression. If you develop any new or worsening symptoms including but not limited to severe knee pain, increased redness, swelling to your knee, please return for re- evaluation. Prescriptions: No Action multivitamin Tablet 1 tab PO DAILY bupropion HCl 150 mg Tablet Sustained-Release 12 Hr 150 mg PO BID gabapentin 600 mg Tablet 600 mg PO TID trazodone 50 mg Tablet 100 mg PO BEDTIME simvastatin 40 mg Tablet 40 mg PO BEDTIME omeprazole 20 mg Tablet,Delayed Release (Dr/Ec) 20 mg PO BEDTIME venlafaxine 75 mg Tablet Extended Release 24hr 75 mg PO DAILY Xarelto 20 mg Tablet 20 mg PO DAILY Rx Instructions: must administer with evening meal buprenorphine HCl [Belbuca] 150 mcg Film 150 mcg BUCCAL BEDTIME acetaminophen 325 mg Tablet 650 mg PO Q6H PRN (Reason: Pain) dextromethorphan-guaifenesin 10-100 mg/5 mL Liquid 10 ml PO Q6H PRN (Reason: Cough) diclofenac sodium 1 % Gel 2 g TOPICAL Q12H PRN (Reason: WRIST PAIN) Rx Instructions: apply to single elbow, wrist or hand; for hand includes palm/fingers/back of hand dexamethasone 6 mg tablet 6 mg PO DAILY Qty: 7 0RF Interventions: ED Discharge Assessment Last Done: 05/26/24 23:28 Discharge Date/Time: 05/26/24 23:29 Print Language: Norwegian
[2024-05-26 17:04] VITALS: BP 147/41; PULSE 77; RESP 18; TEMP 36.8; O2SAT 95
--- NOTE | 2024-05-26 19:12 | PC.NURSE ---
report received from Nathalia MACIAS, assume care of pt at this time
[2024-05-26 20:33] VITALS: BP 108/60; PULSE 86; RESP 20; TEMP 36.8; O2SAT 92
[2024-05-26 20:49] LABS: MANUAL DIFF FLAG NO
--- NOTE | 2024-05-26 20:49 | PC.NURSE ---
spouse called and stated, that pt [facility] back [facility] and if pt, was not returned by midnight, she would have to pay [address]
[2024-05-26 20:50] LABS: Basophils Absolute Auto 0.1 X10*3/uL (0.0-0.2); Basophils Percent Auto 0.9 % (0-2); Eosinophils Absolute Auto 0.3 X10*3/uL (0.0-0.4); Eosinophils Percent Auto 2.3 % (0-4); Hematocrit 44.1 % (42.0-52.0); Hemoglobin 14.7 g/dl (14.0-18.0); Imm Gran Abs Auto 0.04 X10*3/uL (0.00-0.03); Imm Gran Pct Auto 0.3 % (0.0-0.4); Lymphocytes Absolute Auto 2.2 X10*3/uL (1.2-4.9); Lymphocytes Percent Auto 18.9 % (20-40); Mean Corpuscular HGB Conc 33.3 g/dl (31.0-36.0); Mean Corpuscular Hemoglobin 29.2 pg (27.0-33.0); Mean Corpuscular Volume 87.7 fL (80.0-98.0); Mean Platelet Volume 9.4 fL (9.4-12.4); Monocytes Absolute Auto 0.9 X10*3/uL (0.1-1.2); Monocytes Percent Auto 7.3 % (2-11); Neutrophils Absolute Auto 8.2 x10*3/uL (2.0-8.3); Neutrophils Percent Auto 70.3 % (45-73); Platelet Count 242 X10*3/uL (160-400); Red Blood Count 5.03 X10*6/uL (4.60-5.80); Red Cell Distribution Width 14.7 % (11.0-16.0); White Blood Count 11.6 X10*3/uL (4.8-10.8)
[2024-05-26 21:15] LABS: Alanine Aminotransferase 19 U/L (0-40); Alkaline Phosphatase 66 U/L (39-117); Anion Gap 12 (12-20); Aspartate Amino Transferase 16 U/L (5-37); Bilirubin Direct 0.1 mg/dL (0.0-0.5); Bilirubin Total 0.3 mg/dL (0.0-1.0); Blood Urea Nitrogen 14 mg/dL (9-16); C Reactive Protein 0.76 mg/dL (< or = 0.50); Calcium 10.2 mg/dL (8.4-10.2); Carbon Dioxide 27 mmol/L (22-29); Chloride 103 mmol/L (96-108); Creatinine Clr Calc Pharmacy 83.2; Estimated Glomerular Filt Rate > 60; Glucose Random 99 mg/dL (60-115); Sodium 138 mmol/L (135-145); Total Protein 7.7 g/dL (6.5-8.0)
[2024-05-26 21:32] LABS: Erythrocyte Sedimentation Rate 38 MM/HR (0-15)
[2024-05-26 22:00] VITALS: BP 104/51; PULSE 80; RESP 16; TEMP 36.9; O2SAT 96
[2024-05-26 22:41] LABS: Uric Acid 4.5 mg/dL (3.4-7.0)
[2024-05-26 23:28] VITALS: BP 104/57; PULSE 80; RESP 16; TEMP 36.9; O2SAT 96
== END 2024-05-26 23:29 | disposition home or self-care (01) ==
PROVIDERS: Physician Assistant Medical; Emergency Provider Emergency Medicine
DX: M24.461 Recurrent dislocation, right knee (principal); M25.461 Effusion, right knee; M25.561 Pain in right knee; I10 Essential (primary) hypertension; Z96.651 Presence of right artificial knee joint
CPT/HCPCS: 27550; 36415; 73560; 80048; 80076; 84550; 85025; 85652; 86140; 99284

== ENCOUNTER 2024-08-22 20:37 | Outpatient (REF) | payer MEDICARE, BC, SELFPAY ==
[2024-08-22 21:50] LABS: OBS Int Ctl Valid YES; OBS1 NEGATIVE (NEGATIVE)
== END 2024-08-22 20:38 | disposition home or self-care (01) ==
LOC: HO.HSH 20:37
PROVIDERS: Visit Provider Internal Medicine Medical Oncology
DX: D64.9 Anemia, unspecified (principal)
CPT/HCPCS: 82272

== ENCOUNTER 2024-09-12 06:06 | Outpatient (REF) | payer OTHER, SELFPAY ==
[2024-09-12 06:40] LABS: Alanine Aminotransferase 12 U/L (0-40); Albumin Level 3.4 g/dL (3.5-5.0); Alkaline Phosphatase 59 U/L (39-117); Anion Gap 12 (12-20); Aspartate Amino Transferase 17 U/L (5-37); Bilirubin Total 0.3 mg/dL (0.0-1.0); Blood Urea Nitrogen 16 mg/dL (9-16); Carbon Dioxide 25 mmol/L (22-29); Chloride 106 mmol/L (96-108); Estimated Glomerular Filt Rate > 60; Glucose Fasting 87 mg/dL (60-99); Magnesium 2.2 mg/dL (1.6-2.6); Potassium 3.8 mmol/L (3.3-5.1); Sodium 139 mmol/L (135-145); Total Protein 6.9 g/dL (6.5-8.0)
[2024-09-12 06:54] LABS: Thyroid Stimulating Hormone 1.53 uIU/mL (0.32-4.0)
[2024-09-12 06:58] LABS: Vitamin B12 396 pg/mL (200-900)
[2024-09-12 08:02] LABS: Erythrocyte Sedimentation Rate 81 MM/HR (0-15)
== END 2024-09-12 06:07 | disposition home or self-care (01) ==
LOC: HO.HSH2W 06:06
PROVIDERS: Visit Provider Internal Medicine
DX: M25.50 Pain in unspecified joint (principal)
CPT/HCPCS: 36415; 80053; 82550; 82607; 83735; 84443; 85652

== ENCOUNTER 2025-02-21 07:01 | Outpatient (REF) | payer OTHER, SELFPAY ==
--- OUTSIDE RECORDS SUMMARY | 2025-02-21 07:04 | XMS_ITS | Clinical Summary ---
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 Active simvastatin (Zocor) 40 MG tablet Take 40 mg by mouth at bedtime. Active buPROPion SR (Wellbutrin SR) 150 MG 12 hr tablet Take 150 mg by mouth 2 times daily. Active venlafaxine XR (Effexor XR) 75 MG 24 hr capsule Take 75 mg by mouth Once per day. Active traZODone (Desyrel) 50 MG tablet Take 50 mg by mouth at bedtime. Active bisacodyl (Dulcolax) 5 MG EC tablet Take 5 mg by mouth if needed each day for constipation. Do not crush, chew, or split. Active buprenorphine (Subtex) [address] under the tongue 1 (one) time. Active diclofenac (Voltaren) 0.1 % ophthalmic solution 1 drop 4 times daily. Active gabapentin (Neurontin) 600 MG tablet Take 600 mg by mouth 3 times daily. Active Multiple Vitamin (multivitamin) capsule Take 1 capsule by mouth Once per day. Active guaiFENesin (Robitussin) 100 MG/5ML liquid Take 200 mg by mouth if needed in the morning, at noon, and at bedtime for cough. Active nystatin (Mycostatin) ointment Apply topically 2 times daily. Active magnesium hydroxide (Milk of Magnesia) 400 MG/5ML suspension Take by mouth at bedtime. Active polyethylene glycol, PEG, 3350 (Miralax) 17 g packet Take by mouth. Act magdalena Active Problems Problem Noted Date Diagnosed Date Alcohol dependence in sustained full remission 1 12/04/2023 Overview (10/03/2024): Sustained 2006 PTSD (post-traumatic stress disorder) 10/03/2024 Anxiety 10/03/2024 Depression 10/03/2024 Neuropathy 10/03/2024 Sleep apnea 10/03/2024 Dementia 10/03/2024 Social History Tobacco Use Types Packs/Day Years Used Date Smoking Tobacco: Former Cigarettes Smokeless Tobacco: Never Tobacco Cessation:Counseling Given: Not Answered Alcohol Use Standard Drinks/Week Comments Not Currently 0 (1 standard drink = 0.6 oz pur e alcohol) Sex and Gender Information Value Date Recorded Sex Assigned at Male 09/17/2024 2:10 PM EST Legal Sex Male 2:09 PM EST Gender Identity Male 09/17/2024 2:10 PM EST Sexual Orientation Straight 09/17/2024 2: 10 PM EST Plan of Treatment Health Maintenance Due Date Last Done Comments Dental Prophylaxis 1947 Depression Screening 1947 Lipid Panel 1947 SDOH Screening 1947 Alcohol/Substance Use Screening 1959 Hepatitis C Screening 1965 DTaP/Tdap/Td Vaccines (1 - Tdap) 1966 Pneumococcal Vaccine: 50+ Ye ars (1 of 1 - PCV) 1997 Zoster Vaccines (1 of 2) 1997 RSV Patients and Pa tients Aged 60 years or older (1 - 1-dose 75+ series) 2022 COVID-19 Vaccine ( - 2023-2 5 season) 2024 Influenza Vaccine (#1) 2024 Dental Oral Exam 04/04/2025 10/03/2024 Tobacco Screening 10/03/2025 10/03/2024 Dental X-Ray: Bitewings 10/04/2025 10/03/2024 Dental X-Ray: Full Mouth 10/04/2027 10/03/2024 HIB Vaccines Aged Out No longer eligi ble based on patient's age to complete this topic HPV Vaccines Aged Out No longer eligi ble based on patient's age to complete this topic Hepatitis A Vaccines Aged Out No long er eligible based on patient's age to complete this topic Hepatitis B Vaccines Aged Out No long er eligible based on patient's age to complete this topic IPV Vaccines Aged Out No longer eligi ble based on patient's age to complete this topic Meningococcal Vaccine Aged Out No flores clarissa eligible based on patient's age to complete this topic RSV under 20 months Aged Out No longe r eligible based on patient's age to complete this topic Rotavirus Vaccines Aged Out No longer eligible based on patient's age to complete this topic Procedures Procedure Name Priority Date/Time Associated Diagnosis Comments INTRAORAL - COMPLETE SERIES OF RADIOGRAPHIC IMAGES Routine 10/03/2024 1:00 PM EST COMPREHENSIVE ORAL EVALUATION - NEW OR ESTABLISHED PATIENT Routine 10/03/2024 1:00 PM EST from Last 3 Months or Most Recently Relevant to Health Maintenance
[2025-02-21 07:19] LABS: C Reactive Protein 0.63 mg/dL (< or = 0.50)
[2025-02-21 07:46] LABS: Erythrocyte Sedimentation Rate 22 MM/HR (0-15)
== END 2025-02-21 07:02 | disposition home or self-care (01) ==
LOC: HO.HSH2W 07:01
PROVIDERS: Visit Provider Internal Medicine
DX: M25.561 Pain in right knee (principal); M17.11 Unilateral primary osteoarthritis, right knee
CPT/HCPCS: 36415; 85652; 86140

== ENCOUNTER 2025-09-30 13:48 | Outpatient (REF) | payer MEDICARE, BC, SELFPAY ==
[2025-09-30 13:53] LABS: MANUAL DIFF FLAG NO
[2025-09-30 14:00] LABS: Hematocrit 44.8 % (42.0-52.0); Hemoglobin 14.5 g/dl (14.0-18.0); Imm Gran Abs Auto 0.01 X10*3/uL (0.00-0.03); Imm Gran Pct Auto 0.2 % (0.0-0.4); Lymphocytes Absolute Auto 1.4 X10*3/uL (1.2-4.9); Mean Corpuscular HGB Conc 32.4 g/dl (31.0-36.0); Mean Corpuscular Hemoglobin 29.6 pg (27.0-33.0); Mean Corpuscular Volume 91.4 fL (80.0-98.0); NRBC Abs Auto 0.000 X10*3/uL (0.0-0.012); NRBC Pct Auto 0.0 /100WBC (0.0-0.2); Platelet Count 200 X10*3/uL (160-400); Red Blood Count 4.90 X10*6/uL (4.60-5.80); White Blood Count 5.8 X10*3/uL (4.8-10.8)
--- OUTSIDE RECORDS SUMMARY | 2025-09-30 22:35 | XMS_ITS | Clinical Summary ---
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 Lead Ramp Service Man Name Role Phone Unavailable Primary Care Provider [...] Date Alcohol dependence in sustained full remission ( CMS/HCC) 10/03/2024 Overview (10/03/2024): Sustained 2006 PTSD (post-traumatic stress disorder) 10/03/2024 Anxiety 10/03/2024 Depression 10/03/2024 Neuropathy 10/03/2024 Sleep apnea 10/03/2024 Dementia (CMS/HCC) 10/03/2024 Social History Tobacco Use Types Packs/Day [...] Pneumococcal Vaccine: 50+ Ye ars (1 of 2 - PCV) 1966 Zoster Vaccines (1 of 2) 1997 RSV Patients and Pa tients Aged 60 years or older (1 - 1-dose 75+ series) 2022 Dental Oral Exam 04/04/2025 10/03/2024 COVID-19 Vaccine (1 - 2024-2 6 season) 2025 Influenza Vaccine (#1) 2025 Tobacco Screening 10/03/2025 10/03/2024 Dental X-Ray: Bitewings [...] patient's age to complete this topic Meningococcal B Vaccine Aged Out No l onger eligible based on patient's age to complete [...]
== END 2025-09-30 13:49 | disposition home or self-care (01) ==
LOC: HO.HSH2W 13:48
PROVIDERS: Visit Provider Internal Medicine
DX: K35.80 Unspecified acute appendicitis (principal)
CPT/HCPCS: 36415; 85025